=== PATIENT | female | born 2000 | race Caucasian/White ===

== ENCOUNTER 2024-03-30 13:27 | Emergency (ER) | payer OTHER, SELFPAY ==
[2024-03-30 13:31] VITALS: BP 115/65; PULSE 69; TEMP 36.6; O2SAT 100; BMI 19.3
--- NOTE | 2024-03-30 13:43 | US_ITS ---
The [address] [address] Patient Name: GONZALO NEGRON MRN: [id number] date: 2000 Sex: F Assigned Patient Location: ED.MAIN Current Patient Location: ER Accession/Order Number: [id number] Exam Date: 03/30/2024 13:43 Report Date: 03/30/2024 15:21 At the request of: LEONARDA MAK Procedure: US pelvis transvaginal EXAMINATION: US pelvis transvaginal HISTORY: Left pelvic pain , acute COMPARISON: No relevant comparison available. TECHNIQUE: Transabdominal and/or transvaginal sonographic examination was performed as indicated by examination type. FINDINGS: UTERUS: Normal size and appearance. Uterus size: 7.3 x 4.1 x 5.9 cm ENDOMETRIUM: Normal homogeneous appearance. Endometrial thickness: Slightly thickened, 15 mm. RIGHT OVARY: Normal size and appearance. Duplex Doppler demonstrates normal waveform and flow; resistive index 0.6. Ovary size: 3.0 x 1.9 x 2.8 cm LEFT OVARY: Normal size and appearance. Duplex Doppler demonstrates normal waveform and flow; resistive index 0.5. Ovary size: 2.1 x 2.0 x 1.9 cm CUL-DE-SAC: Unremarkable. No significant free fluid. BLADDER: Unremarkable. OTHER: None. US/US pelvis transvaginal IMPRESSION: 1. No acute or suspicious findings to account for patient's symptoms. Electronically authenticated by: FAITH NUÑEZ Date: 03/30/2024 15:21
--- NOTE | 2024-03-30 13:45 | ED_ITS ---
HPI HPI - General Adult General Chief complaint: Abdominal Pain Stated complaint: ABDOMINAL PAIN Time Seen by Provider: 03/30/24 13:28 Source: patient Mode of arrival: walk-in Limitations: no limitations History of Present Illness HPI narrative: Patient is a 23-year-old female who presents to the emergency department for left pelvic pain for the last 90 minutes. She states she was at work when she developed the pain. She feels mild pain associated in the left flank but no significant back or flank pain. No fevers or vomiting. She is unsure of a possibility of . She did not take any Motrin or Tylenol. She came directly to the ER. She is sitting comfortably in no distress with stable vital signs at initial interview. No previous abdominal surgeries. No diarrhea or urinary symptoms Related Data Previous Rx's ?Medication ?Instructions ?Recorded hyoscyamine sulfate 0.125 mg 0.125 mg PO Q6H PRN abdominal pain 03/30/24 tablet (Levsin) #12 tabs ketorolac 10 mg tablet 10 mg PO TID PRN pain #10 tabs 03/30/24 ondansetron 4 mg disintegrating 4 mg PO Q6H PRN nausea and 03/30/24 tablet vomiting #12 tabs Allergies Allergy/AdvReac Type Severity Reaction Status Date / Time sumatriptan Allergy Severe Anaphylaxis Verified 03/30/24 14:20 penicillin G AdvReac Severe Verified 03/30/24 14:20 Opioid HPI Opioid Management Most Recent Opioid Data: Last Pain Scale 5 03/30/24 14:21 Last MAR Pain Assessment 03/30/24 14:21 Review of Systems ROS Constitutional Denies: fever or chills Ears, nose, mouth, and throat Denies: throat pain or nasal congestion Cardiovascular Denies: chest pain Respiratory Denies: shortness of breath Gastrointestinal Reports: abdominal pain and nausea; Denies: vomiting or diarrhea Genitourinary Reports: pelvic pain; Denies: painful urination or urinary frequency Musculoskeletal Reports: back pain Integumentary/Breast Denies: rash Hematologic/Lymphatic Denies: easy bruising or easy bleeding Exam Narrative Exam Narrative: Gen.: Awake, alert, in no distress Head: Normocephalic, atraumatic ENT: Moist mucous membranes Respiratory: No respiratory distress Gastrointestinal: Abdomen is soft, nondistended and Mildly tender in the left lower quadrant with no guarding or rebound. No pain out of proportion on exam. No CVA tenderness Extremities: Moves extremities equally Psych: Normal mood and affect Neuro: No focal neuro deficit Skin: Warm, dry, intact Constitutional Vital Signs, click to edit/add: Last Vital Signs Temp 97.9 F 03/30/24 13:31 Pulse 66 03/30/24 15:30 Resp 18 03/30/24 15:30 BP 109/65 03/30/24 15:30 Pulse Ox 100 03/30/24 15:30 O2 Del Method Room Air 03/30/24 15:30 Course Vital Signs Vital signs: Vital Signs Temperature 97.9 F 03/30/24 13:31 Pulse Rate 69 03/30/24 13:31 Respiratory Rate 18 03/30/24 13:31 Blood Pressure 115/65 03/30/24 13:31 Pulse Oximetry 100 03/30/24 13:31 Oxygen Delivery Method Room Air 03/30/24 13:31 Temperature 97.9 F 03/30/24 13:31 Pulse Rate 66 03/30/24 15:30 Respiratory Rate 18 03/30/24 15:30 Blood Pressure 109/65 03/30/24 15:30 Pulse Oximetry 100 03/30/24 15:30 Oxygen Delivery Method Room Air 03/30/24 15:30 Medical Decision Making MDM Narrative Medical decision making narrative: Urine specimen was obtained showing the patient has a negative test and normal urine specimen with no bladder infection. She was sent for an ultrasound to rule out ovarian torsion and ovarian cyst. This was unremarkable so the patient was sent for a noncontrast CT of the abdomen and pelvis which is also essentially normal, no noted abnormalities in the abdomen or pelvis. Patient was given copies of these reports. Her pain started almost immediately prior to arrival and she has had no fevers, vomiting. Pain is controlled with [place] and Toradol in the ER. Patient will be discharged home with Toradol, Levsin, Zofran. Follow-up with PCP and return to the emergency department if symptoms change or worsen. Her significant other and mother were at the bedside when I gave the patient her results, she gave verbal consent for me to get these results in front of her family members. Medical Records Medical records reviewed: Yes I reviewed the patient's medical records Lab Data Lab results reviewed: Yes I reviewed the patient's lab results Labs: Lab Results 03/30/24 Range/Units 14:05 Urine Color Lt. yellow (YELLOW) Urine Clarity Clear (CLEAR) Urine pH 6.0 (5.0-9.0) Ur Specific [place] 1.015 (1.005-1.025) Urine Protein Negative (NEG/TRACE) mg/dL Urine Glucose (UA) Negative (NEGATIVE) mg/dL Urine Ketones Negative (NEGATIVE) mg/dL Urine Occult Blood Negative (NEGATIVE) Urine Nitrite Negative (NEGATIVE) Urine Bilirubin Negative (NEGATIVE) Urine Urobilinogen 0.2 (0.2-1.0) EU/dL Ur Leukocyte Esterase Negative (NEGATIVE) Urine HCG, Qual Negative (NEGATIVE) Imaging Data CT scan - abdomen: Attestation: I have reviewed the pertinent imaging results. Radiologist's impression: ITS Impressions Transvaginal US 03/30/24 13:43 IMPRESSION: 1. No acute or suspicious findings to account for patient's symptoms. Electronically authenticated by: FAITH NUÑEZ Date: 03/30/2024 15:21 Discharge Plan Discharge Stand Alone Forms: Portal Instructions Chief Complaint: Abdominal Pain Clinical Impression: Abdominal pain Patient Disposition: Home, Self-Care Time of Disposition Decision: 16:24 Condition: Good Prescriptions / Home Meds: New ketorolac 10 mg tablet 10 mg PO TID PRN (Reason: pain) Qty: 10 0RF hyoscyamine sulfate [Levsin] 0.125 mg tablet 0.125 mg PO Q6H PRN (Reason: abdominal pain) Qty: 12 0RF ondansetron 4 mg tablet,disintegrating 4 mg PO Q6H PRN (Reason: nausea and vomiting) Qty: 12 0RF Print Language: Tajik Instructions: Acute Abdominal Pain (ED) Referrals: MARIEL CABALLERO [Primary Care Provider] - 1 week
[2024-03-30 14:12] LABS: Bilirubin Urine NEGATIVE (NEGATIVE); Blood Urine NEGATIVE (NEGATIVE); Clarity Urine CLEAR (CLEAR); Color Urine LT. YELLOW (YELLOW); Glucose Urine UA NEGATIVE (NEGATIVE); Ketones Urine NEGATIVE (NEGATIVE); Leukocyte Esterase Urine NEGATIVE (NEGATIVE); Nitrite Urine NEGATIVE (NEGATIVE); Protein Urine NEGATIVE (NEG/TRACE); Specific Gravity Urine 1.015 (1.005-1.025); Urobilinogen Urine 0.2 EU/dL (0.2-1.0)
[2024-03-30 14:14] LABS: Urine Microscopic Indicated NO
[2024-03-30 14:15] LABS: HCG Qualitative Urine* NEGATIVE (NEGATIVE)
[2024-03-30] MEDS: ONDANSETRON 4 MG RAPDIS TABLET SL (14:20)
[2024-03-30] MEDS: HYDROCODONE/ACET 5-325 MG TABLET 1 TAB PO (14:21)
[2024-03-30] MEDS: KETOROLAC TROMETHAMINE 10 MG TABLET PO (14:21)
--- NOTE | 2024-03-30 15:27 | CT_ITS ---
The [address] [address] Patient Name: GONZALO NEGRON MRN: [id number] date: 2000 Sex: F Assigned Patient Location: ER Current Patient Location: ER Accession/Order Number: [id number] Exam Date: 03/30/2024 15:35 Report Date: 03/30/2024 16:17 At the request of: LEONARDA MAK Procedure: CT abdomen pelvis wo con CT ABDOMEN/PELVIS WITHOUT IV CONTRAST. INDICATION: left abd pain COMPARISON: There are no other studies available for comparison. TECHNIQUE: Contiguous axial images were obtained from the lung bases to the pelvic floor without intravenous or oral contrast. Coronal and sagittal reformations are provided. FINDINGS: LOWER LUNGS: Clear. LIVER/BILIARY TREE: No discrete lesion. No intrahepatic ductal dilatation. GALLBLADDER: No significant gallbladder wall thickening. No radiopaque stone. CBD: Normal CBD. SPLEEN: Normal in size. PANCREAS: No appreciable peripancreatic fluid. No pancreatic ductal dilatation. No discrete lesion. ADRENALS: Normal. KIDNEYS: No hydronephrosis. No radiopaque calculus. STOMACH AND BOWEL: Stomach is unremarkable. No dilated bowel loops. No bowel wall thickening. APPENDIX: Not visualized. PERITONEAL CAVITY: No fluid. No fat stranding. ABDOMINAL WALL: No subcutaneous stranding. No subcutaneous fluid collection. LYMPH NODES: No mesenteric or retroperitoneal lymphadenopathy by CT criteria. ABDOMINAL AORTA: No aneurysm. PELVIS: No acute abnormality. MUSCULOSKELETAL: No acute osseous abnormality. CT/CT abdomen pelvis wo con IMPRESSION: No acute abnormality in the abdomen or pelvis. Electronically authenticated by: LACIE ELISE Date: 03/30/2024 16:17
[2024-03-30 15:30] VITALS: BP 109/65; PULSE 66; O2SAT 100
== END 2024-03-30 16:46 | disposition home or self-care (01) ==
PROVIDERS: Physician Assistant; Emergency Provider Emergency Medicine Emergency Medical Services; PCP Internal Medicine
DX: R10.9 Unspecified abdominal pain (principal)
CPT/HCPCS: 74176; 76830; 81003; 84703; 99285

== ENCOUNTER 2024-07-21 20:49 | Emergency (ER) | payer OTHER, SELFPAY ==
--- OUTSIDE RECORDS SUMMARY | 2024-07-21 20:55 | XMS_ITS | CCD ---
Author Organization [facility] Care Team Providers Care Manager Mental Health Name Role Phone CHRISTINE SALVADOR Admitting Unavailable CHRISTINE SALVADOR Attending Unavailable JOAQUIN, DR FAITH Lisa Consulting Unavailable FEDERICO, DR MARIEL Quinn Primary Care Unavailable OBDULIO ., SHARONA BROWER Consulting UnavailSOFIA Jaramillo Attending Unavailable GUILLERMO WIGN Attending Unavailable GUILLERMO WING Attending Unavailable GUILLERMO WING Referring Unavailable GUILLERMO WING Attending Unavailable Allergies Allergy Classification Reported Allergen(s) Allergy Type Date of Onset Reaction(s) Facility (1 source) Amoxicillin Drug Allergy 06-21-2018 [facility] Repository (1 source) SUMAtriptan Drug Allergy [facility] Repository Problems Problem Classification Problem Date Documented Da te Episodic/Chronic Cardiac dysrhythmias (4 sources) Palpitations; Translations: [PALPITATIONS] Onset: 02-21-2023 Episodic Nonspecific chest pain (1 source) Chest pain, unspecified; Translations: [CHEST PAIN UNSPECIFIED] Onset: 02-25-2023 Episodic Substance-related disorders (1 source) Nicotine dependence, cigarettes, uncomplicated; Translations: [NICOTINE DEPEND CIGARETTES UNCOMP] Onset: 02-25-2023 Chronic Results Test Name Value Interpretation Reference Range Facil ity XR FEMUR 2+ VW LEFTon 2023 XR FEMUR 2+ VW LEFT Left femur HISTORY: Pain 4 views of the femur. The femur is grossly intact. No fractures or periostitis. Soft tissues of the thigh are not remarkable. IMPRESSION: Negative left femur Electronically Signed Varun Garcia D.O. 2024-06-15 15:01:50 Normal Not Available CBC AUTO DIFFon 02-21-2023 BASO # 0.0 103/ul Normal 0.0-0.1 [facility] Comment on above: Performed By: #### C BC #### [facility] [address] [place] [address] Dr. Sol Flores Basophils/100 WBC (Bld) 0.4 % Normal 0.2-2.0 [facility] Comment on above: Performed By: #### C BC #### [facility] [address] [place] [address] Dr. Sol Flores EO # 0.0 103/ul Normal 0.0-0.7 [facility] Comment on above: Performed By: #### C BC #### [facility] [address] [place] [address] Dr. Sol Flores Eosinophils/100 WBC (Bld) 0.0 % Critically low 0.9-7.0 [facility] Comment on above: Performed By: #### C BC #### [facility] [address] [place] [address] Dr. Sol Flores Erythrocyte distribution width (RBC) [Ratio] 13.4 % Normal 11.0-15.0 [facility] Comment on above: Performed By: #### C BC #### [facility] [address] [place] [address] Dr. Sol Flores Hematocrit (Bld) [Volume fraction] 38.1 % Normal 36.0-48.0 [facility] Comment on above: Performed By: #### C BC #### [facility] [address] [place] [address] Dr. Sol Flores Hemoglobin (Bld) [Mass/Vol] 12.9 g/dL Normal 12.0-16.0 [facility] Comment on above: Performed By: #### C BC #### [facility] [address] [place] [address] Dr. Sol Flores IG # 0.02 10e3/ul Normal 0.00-0.03 [facility] Comment on above: Performed By: #### C BC #### [facility] [address] [place] [address] Dr. Sol Flores IG % 0.2 % Normal 0.0-0.5 [facility] Comment on above: Performed By: #### C BC #### [facility] [address] [place] [address] Dr. Sol Flores LYMPH # 2.2 103/ul Normal 1.2-3.8 [facility] Comment on above: Performed By: #### C BC #### [facility] [address] [place] [address] Dr. Sol Flores Lymphocytes/100 WBC (Bld) 26.7 % Normal 20.5-60.0 [facility] Comment on above: Performed By: #### C BC #### [facility] [address] [place] [address] Dr. Sol Flores MANUAL DIFF REQ NO Normal [facility] Comment on above: Performed By: #### C BC #### [facility] [address] [place] [address] Dr. Sol Flores MCH (RBC) [Entitic mass] 28.9 pg Normal 26.7-34.0 [facility] Comment on above: Performed By: #### C BC #### [facility] [address] [place] [address] Dr. Sol Flores MCHC (RBC) [Mass/Vol] 33.9 g/dL Normal 29.9-35.2 [facility] Comment on above: Performed By: #### C BC #### [facility] [address] [place] [address] Dr. Sol Flores MCV (RBC) [Entitic vol] 85.2 fL Normal 81.0-99.0 [facility] Comment on above: Performed By: #### C BC #### [facility] [address] [place] [address] Dr. Sol Flores MONO # 0.6 103/ul Normal 0.3-0.8 [facility] Comment on above: Performed By: #### C BC #### [facility] [address] [place] [address] Dr. Sol Flores Monocytes/100 WBC (Bld) 7.4 % Normal 1.7-12.0 [facility] Comment on above: Performed By: #### C BC #### [facility] [address] [address] [address] Sol Flores NEUT # 5.3 103/ul Normal 1.4-6.5 [facility] Comment on above: Performed By: #### C BC #### [facility] [address] [place] [address] Dr. Sol Flores Neutrophils/100 WBC (Bld) 65.3 % Normal 43.0-75.0 [facility] Comment on above: Performed By: #### C BC #### [facility] [address] [place] [address] Dr. Sol Flores Platelet mean volume (Bld) [Entitic vol] 10.3 fL Normal 9.5-13.5 [facility] Comment on above: Performed By: #### C BC #### [facility] [address] [place] [address] Dr. Sol Flores PLT 225 103/ul Normal 150-450 [facility] Comment on above: Performed By: #### C BC #### [facility] [address] [place] [address] Dr. Sol Flores RBC 4.47 106/ul Normal 4.20-5.40 [facility] Comment on above: Performed By: #### C BC #### [facility] [address] [place] [address] Dr. Sol Flores WBC 8.1 103/ul Normal 4.0-11.0 [facility] Comment on above: Performed By: #### C BC #### [facility] [address] [place] [address] Dr. Sol Flores D-DIMERon 02-21-2023 D-DIMER 0.33 mg/L FEU Normal <=0.59 [facility] Comment on above: Performed By: #### D DIM, PT, PTT #### [facility] [address] [place] [address] Dr. Sol Flores D-DIMER COMMENTS SEE BELOW Normal [facility] Comment on above: Result Comment: Incr eases in D-Dimer concentration observed with thromboembolic events can be variable due to localization, size, and age of the thrombus. Therefore, a thromboembolic event cannot be diagnosed with certainty on the basis of the reference range. D-Dimers may also be elevated for a variety of disorders including: advanced age, , coronary disease, cancer, liver disease, infection, inflammation, hematoma, DIC, trauma, post-surgery, diabetes, thrombolytic or anticoagulant therapy, stress, and generalized hospitalization. Performed By: #### D DIM, PT, PTT #### [facility] [address] [address] [address] Sol Flores PREG HCG QUALon 02-21-2023 , QUAL Negative Normal NEGATIVE [facility] Comment on above: Performed By: #### P REG #### [facility] [address] [place] [address] Dr. Sol Flores PROF 14(COMP METB)on 023 Albumin [Mass/Vol] 3.9 g/dL Normal 3.4-5.0 [facility] Comment on above: Performed By: #### H STROPN, TSH, CMP #### [facility] [address] [place] [address] Dr. Sol Flores Albumin/Globulin [Mass ratio] 1.1 {ratio} Normal [facility] Comment on above: Performed By: #### H STROPN, TSH, CMP #### [facility] [address] [place] [address] Dr. Sol Flores ALP [Catalytic activity/Vol] 90 U/L Normal 46-116 [facility] Comment on above: Performed By: #### H STROPN, TSH, CMP #### [facility] [address] [place] [address] Dr. Sol Flores ALT [Catalytic activity/Vol] 19 U/L Normal 14-59 [facility] Comment on above: Performed By: #### H STROPN, TSH, CMP #### [facility] [address] [place] [address] Dr. Sol Flores Anion gap [Moles/Vol] 13.3 mmol/L Normal [facility] Comment on above: Performed By: #### H STROPN, TSH, CMP #### [facility] [address] [place] [address] Dr. Sol Flores AST [Catalytic activity/Vol] 16 U/L Normal 15-37 [facility] Comment on above: Performed By: #### H STROPN, TSH, CMP #### [facility] [address] [place] [address] Dr. Sol Flores Bilirubin [Mass/Vol] 0.2 mg/dL Normal 0.2-1.0 [facility] Comment on above: Performed By: #### H STROPN, TSH, CMP #### [facility] [address] [address] [address] Sol Flores Calcium [Mass/Vol] 8.8 mg/dL Normal 8.5-10.1 [facility] Comment on above: Performed By: #### H STROPN, TSH, CMP #### [facility] [address] [place] [address] Dr. Sol Flores Chloride [Moles/Vol] 105 mmol/L Normal 98-107 [facility] Comment on above: Performed By: #### H STROPN, TSH, CMP #### [facility] [address] [place] [address] Dr. Sol Flores CO2 [Moles/Vol] 24.5 mmol/L Normal 21.0-32.[address] [facility] Comment on above: Performed By: #### H STROPN, TSH, CMP #### [facility] [address] [place] [address] Dr. Sol Flores Creatinine [Mass/Vol] 0.79 mg/dL Normal 0.55-1.02 [facility] Comment on above: Performed By: #### H STROPN, TSH, CMP #### [facility] [address] [place] [address] Dr. Sol Flores EGFR-AF BAHRAINI >60 Normal >=60 [facility] Comment on above: Performed By: #### H STROPN, TSH, CMP #### [facility] [address] [place] [address] Dr. Sol Flores EGFR-NON AF BAHRAINI >60 Normal >=60 [facility] Comment on above: Performed By: #### H STROPN, TSH, CMP #### [facility] [address] [address] [address] Sol Flores Globulin (S) [Mass/Vol] 3.5 g/dL Normal [facility] Comment on above: Performed By: #### H STROPN, TSH, CMP #### [facility] [address] [address] [address] Sol Flores Glucose [Mass/Vol] 102 mg/dL Normal 74-106 [facility] Comment on above: Performed By: #### H STROPN, TSH, CMP #### [facility] [address] [place] [address] Dr. Sol Flores Potassium [Moles/Vol] 3.8 mmol/L Normal 3.5-5.1 [facility] Comment on above: Performed By: #### H STROPN, TSH, CMP #### [facility] [address] [place] [address] Dr. Sol Flores Protein [Mass/Vol] 7.4 g/dL Normal 6.4-8.2 [facility] Comment on above: Performed By: #### H STROPN, TSH, CMP #### [facility] [address] [place] [address] Dr. Sol Flores Sodium [Moles/Vol] 139 mmol/L Normal 136-145 [facility] Comment on above: Performed By: #### H STROPN, TSH, CMP #### [facility] [address] [place] [address] Dr. Sol Flores Urea nitrogen [Mass/Vol] 9.0 mg/dL Normal 7.0-18.0 [facility] Comment on above: Performed By: #### H STROPN, TSH, CMP #### [facility] [address] [address] [address] Sol Flores Urea nitrogen/Creatinine [Mass ratio] 11.4 mg/mg Normal [facility] Comment on above: Performed By: #### H STROPN, TSH, CMP #### [facility] [address] [place] [address] Dr. Sol Flores PROTIMEon 02-21-2023 INR Coag (PPP) [Relative time] 0.98 {INR} Normal [facility] Comment on above: Performed By: #### D DIM, PT, PTT #### [facility] [address] [address] [address] Sol Flores INR GUIDELINES SEE BELOW Normal [facility] Comment on above: Result Comment: LAWRENCE RED INR: 2.0 - 3.0 CONDITIONS NOT LISTED BELOW 2.5 - 3.5 FOR PROSTHETIC HEART VALVE REPLACEMENT 2.5 - 3.5 RECURRENT THROMBOSIS Performed By: #### D DIM, PT, PTT #### [facility] [address] [address] [address] Sol Flores PT Coag (PPP) [Time] 10.4 s Normal 9.0-11.6 [facility] Comment on above: Performed By: #### D DIM, PT, PTT #### [facility] [address] [place] [address] Dr. Sol Flores PTTon 02-21-2023 aPTT Coag (Bld) [Time] 29.4 s Normal 22.3-36.2 [facility] Comment on above: Performed By: #### D DIM, PT, PTT #### [facility] [address] [place] [address] Dr. Sol Flores TROPONIN, HIGH SENSITIVITYon 02-21-2023 HSTROP <4.0 Normal 4.0-51.3 [facility] Comment on above: Result Comment: CUT- OFF POINTS HAVE BEEN ESTABLISHED BASED ON THE FOURTH UNIVERSAL DEFINITIONS OF MYOCARDIAL INFARCTION. THE UPPER REFERENCE LIMIT (URL) OF TROPONIN, DEFINED THE 99TH PERCENTILE OF cTnI DISTRIBUTION IN A REFERENCE POPULATION, HAS BEEN CONFIRMED THE DECISION THRESHOLD FOR DC DIAGNOSIS. Performed By: #### H STROPN, TSH, CMP #### [facility] [address] [place] [address] Dr. Sol Flores TSHon 02-21-2023 TSH 1.985 uIU/mL Normal 0.358-3.740 [facility] Comment on above: Performed By: #### H STROPN, TSH, CMP #### [facility] [address] [place] [address] Dr. Sol Flores XR CHEST 1 Von 02-21-2023 XR CHEST 1 V EXAMINATION: XR CHEST 1 V HISTORY: CHEST PAIN, UNSPECIFIED COMPARISON: No relevant comparison available. FINDINGS: LUNGS: No significant pulmonary parenchymal abnormalities. VASCULATURE: No increased pulmonary vasculature. PLEURA: No pneumothorax, effusion, or pleural thickening. CARDIAC: No cardiomegaly or cardiac silhouette abnormality. MEDIASTINUM: No visible mass or adenopathy. BONES: No fracture or visible bone lesion. OTHER: Negative. IMPRESSION: 1. Normal examination. Electronically authenticated by: FAITH NUÑEZ Date: 2023-02-21 15:33 Normal [facility] Gynecology Office/Clinic Not [place] 10-30-2020 Gynecology Office/Clinic Note Chief Complaint 20 y/o new patient-menstrual concerns. Late for period, home test negative. History of Present Illness Contraception Type: None Last Menstrual Period: 09/21/20 Frequency of Menstruation: 28 days Abnormal vaginal discharge: No Breast lumps/pain: No Clotting with periods: No Heavy periods: No Hot flashes: No Irregular periods: No Night sweats: No Painful periods: No Painful sex: No Pelvic pain: No Spotting: No Vaginal dryness: No Vaginal itch/burning/odor: No Additional HPI details: LMP 11, periods regular up until that point. Has taken 2 HPT's, both negative. Is currently sexually active, not doing anything to prevent . Would be okay w/. Denies any desire for contraception. With current partner x2 months, he does not have any children. C/O nausea and cramping x1 week and breast tenderness for the past couple days. Not currently working or attending school. Is not taking PNV's. Denies any increased stress or recent wt. changes. Review of Systems Head Migraines: No Headaches: Yes Headaches comment: Recently Eyes Corrective lenses: Yes Corrective lenses comment: Doesn't wear normally Blurred vision: No Ears, Nose, Throat Congestion: No Vertigo: No Sore throat: No Nasal drainage: No Cardio Respiratory Peripheral edema: No Heart Irregularity: No Chest Pain: No Shortness of Breath: No Gastrointestinal Bloating: No Reflux/heartburn: No Reflux/heartburn comment: C/o nausea Abdominal Pain: No Change in bowel habits: No Urinary Urinary Incontinence: No Urinary frequency: No Nocturia: No Urgency: No Painful urination: No Musculoskeletal Backpain: No Muscle aches: No Joint pain: No Integumentary Lesions: No Moles: No Acne: No Hair changes: No PsychoSocial Sleep Problems: No Anxiety: Yes Suicidal Ideation: No Homicidal Ideation: No Depression: Yes Depression comment: Denies SI/HI. Hematologic/Lymphati c Bruising: No Bleeding tendencies: No Endocrine Abnormal weight gain: No Abnormal weight loss: No Fatigue: No Additional Details Pain Present Physical Exam Vitals & Measurements T: 36.8 ?C (Temporal Artery) BP: 118/64 HT: 166 cm WT: 59.2 kg DOSE WT: 59.2 kg BMI: 21.48 General: Alert and oriented, well nourished, no acute distress. Abdomen: Soft, non-tender, non-distended, no masses. Musculoskeletal: Normal range of motion and strength, no tenderness or edema. Skin: Skin is warm, dry and pink, no rashes or lesions. Neurologic: Awake, alert and oriented x3. Additional Vitals Body Mass Index Measured: 21.48 kg/m2 BP Position/Location: Sitting, Right arm Assessment/Plan 1. Missed menses Will do serum HCG today for confirmation. Pt. to cont. to monitor cycles, if no cycle for 3 months pt. to call again. Enc. pt. to start PNV's. Script sent to [facility]. F/U yearly or sooner w/concerns. Ordered: , Serum, Test Qual w/Reflex [facility] Quant Problem List/Past Medical History Ongoing Anxiety depression Missed menses Historical No qualifying data Procedure/Surgical History Denies Medications No active medications Allergies amoxicillin (Hives) Social History Alcohol Never Substance Abuse Denies All Tobacco Never (less than 100 in lifetime) Use:. Family History Family history is negative Diagnostic Results No qualifying data available (XRay) No qualifying data available (CT) No qualifying data available (Ultrasound) No qualifying data available (MRI) Electronically signed by Myriam Bean 10/30/20 15:04 EST Normal [facility] OR Track[facility] 10-30-2020 Pl Red # 1 Normal [facility] Comment on above: Performed By: #### O jesse Tracking Order #### [facility] [address] [place] [address] S Preg Rflx CGon 0 Serum Preg Negative Normal [facility] Comment on above: Result Comment: The hCG Combo Rapid Test has a sensitivity of 10 mIU/mL in serum and is capable of detecting as early as 1 day after the first missed menses. Performed By: #### C [id number] #### [facility] [address] [place] [address] Encounters Encounter Date Encounter Type Care Provider Facility Start: 06-29-2024 End: 06-29-2024 ambulatory GUILLERMO WING Not Available Start: 06-15-2024 End: 06-15-2024 ambulatory GUILLERMO WING Not Available Start: 06-10-2024 End: 06-10-2024 ambulatory GUILLERMO WING Not Available Start: 10-13-2023 End: 10-13-2023 ambulatory SOFIA ÁLVAREZ Not Available Start: 02-21-2023 End: 02-21-2023 ambulatory CHRISTINE SALVADOR Facility: Payers Date Payer Category Payer Unknown [id number] 2024 Unknown [id number] 2001 Unknown [id number] 2.16.84 [id number] 2001 Unknown [id number] 2.16.84 [id number] 2001 Unknown [id number] 2.16.84 [id number] 2001 Unknown [id number] 2.16.84 [id number] 2001 Unknown [id number] 2.16.84 [id number] 2001 Unknown [id number] 2.16.84 [id number] 2001 Unknown [id number] 2.16.84 [id number] 2001 Unknown [id number] 2.16.84 [id number] 2001 Unknown [id number] 2.16.84 [id number] 2001 Unknown [id number] [id number] 1959 Private Health Insurance [id number] Summary Purpose Family History No Family History Records FoundNo Family History Records FoundNo Family History Records Found Advance Directives No Advanced Directives Records FoundNo Advanced Directives Records FoundNo Advanced Directives Records Found Additional Source Comments INFORMATION SOURCE (unrecogn ized section and content) DATE CREATED AUTHOR 10/31/2020 [facility] DATE CREATED AUTHOR AUTHOR'S ORGANIZ ATION 03/15/2023 [facility] DATE CREATED AUTHOR AUTHOR'S ORGANIZ ATION 07/01/2024 [facility] FOR RECORDS PERTAINING TO PATIENTS WHO ARE OR HAVE BEEN ENROLLED IN A CHEMICAL DEPENDENCY/SUBSTANCEABUSE PROGRAM, SOME INFORMATION MAY BE OMITTED. This clinical summary was aggregated from multiple sources. Caution should be exercised in using it in the provision of clinical care. This summary normalizes information from multiple sources, and as a consequence, information in this document may materially change the coding, format and clinical context of patient data. In addition, data may be omitted in some cases. CLINICAL DECISIONS SHOULD BE BASED ON THE PRIMARY CLINICAL RECORDS. [employer] provides no warranty or guarantee of the accuracy or completeness of information in this document.
[2024-07-21 20:56] VITALS: BP 110/72; PULSE 68; TEMP 36.7; O2SAT 98
--- NOTE | 2024-07-21 21:28 | ECG_ITS ---
The [facility] Test Date: 2024-07-21 Pat Name: GONZALO NEGRON Department: Room: - Gender: Female Car Filler: : 2000 Requested By: [id number] Order Number: [id number] Reading MD: DIVYA LAN Measurements Intervals [place] Rate: 73 P: 70 IL: 138 QRS: 78 QRSD: 90 T: 69 QT: 408 QTc: 434 Interpretive Statements 1100 Sinus rhythm 9110 normal ECG Compared to ECG 02/21/2023 14:23:03 Sinus arrhythmia no longer present Electronically Signed On 07-23-2024 18:42:01 EDT by DIVYA LAN
--- NOTE | 2024-07-21 21:31 | ED_ITS ---
Documented by User: SHARONA Miller 07/21/24 22:02 HPI - Weakness General Chief complaint: Weakness Stated complaint: WEAKNESS Time Seen by Provider: 07/21/24 21:02 Source: patient Mode of arrival: walk-in Limitations: no limitations History of Present Illness HPI Narrative: Patient is a 23-year-old female who presents to the emergency department for the evaluation of possible seizure activity last night. She states that she was sitting on the couch watching television when she had the sensation that her eyes were rolling back in her head. She states she had diffuse muscle weakness, frontal headache and dizziness. She states she was unable to move for approximately 5 to 10 seconds. She states immediately after this episode she was able to move but had continued dizziness and headache. The symptoms have been off and on today. She denies any recent illness, fevers, chills, cough, congestion, nausea, vomiting, diarrhea, urinary symptoms. She has no history of seizure disorder. She states she is working with cardiology for a possible diagnosis of POTS. She states after the episode last night, she did develop chest tightness. She has no abdominal pain. She has no concern for . No medications taken prior to arrival. She states she had half of a drink of alcohol last night, she denies any drug ingestion. She had no injury to the head, she was in a seated position during the episode which was witnessed by her significant other. She does have a longstanding history of migraines. She did not bite her tongue and denies urinary incontinence. Related Data Previous Rx's ?Medication ?Instructions ?Recorded hyoscyamine sulfate 0.125 mg 0.125 mg PO Q6H PRN abdominal pain 03/30/24 tablet (Levsin) #12 tabs ketorolac 10 mg tablet 10 mg PO TID PRN pain #10 tabs 03/30/24 ondansetron 4 mg disintegrating 4 mg PO Q6H PRN nausea and 03/30/24 tablet vomiting #12 tabs Allergies Allergy/AdvReac Type Severity Reaction Status Date / Time sumatriptan Allergy Severe Anaphylaxis Verified 07/21/24 21:02 penicillin G AdvReac Severe Hives Verified 07/21/24 21:02 Review of Systems ROS Constitutional Denies: fever or chills Eyes Denies: change in vision or blurry vision Ears, nose, mouth, and throat Denies: throat pain or nasal congestion Cardiovascular Reports: chest pain Respiratory Denies: shortness of breath Gastrointestinal Denies: abdominal pain, nausea or vomiting Musculoskeletal Denies: back pain or neck pain Integumentary/Breast Denies: rash Neurological Reports: headache and weakness in extremities; Denies: numbness in extremities or dizziness Hematologic/Lymphatic Denies: easy bruising or easy bleeding Exam Narrative Exam Narrative: Gen.: Awake, alert, in no distress Head: Normocephalic, atraumatic ENT: Moist mucous membranes, no facial or dental injury Respiratory: No respiratory distress, lungs clear bilaterally Cardio: Regular rate and rhythm Gastrointestinal: Abdomen is soft, nondistended and nontender to palpation Extremities: Moves extremities equally, no injuries noted Psych: Normal mood and affect Neuro: No focal neuro deficit Skin: Warm, dry, intact Constitutional Vital Signs, click to edit/add: Last Vital Signs Temp 98.1 F 07/21/24 20:56 Pulse 62 07/21/24 22:50 Resp 16 07/21/24 22:50 BP 103/72 07/21/24 22:50 Pulse Ox 100 07/21/24 22:50 O2 Del Method Room Air 07/21/24 22:50 Course Vital Signs Vital signs: Vital Signs Temperature 98.1 F 07/21/24 20:56 Pulse Rate 68 07/21/24 20:56 Blood Pressure 110/72 07/21/24 20:56 Pulse Oximetry 98 07/21/24 20:56 Oxygen Delivery Method Room Air 07/21/24 20:56 Temperature 98.1 F 07/21/24 20:56 Pulse Rate 62 07/21/24 22:50 Respiratory Rate 16 07/21/24 22:50 Blood Pressure 103/72 07/21/24 22:50 Pulse Oximetry 100 07/21/24 22:50 Oxygen Delivery Method Room Air 07/21/24 22:50 MDM - Weakness MDM Narrative Medical decision making narrative: 2199: Patient was medicated with IV fluids, Toradol. Laboratory studies are obtained, EKG is unremarkable and patient is sent for CT of the brain. She is hemodynamically stable. Case is turned over to attending physician at this time for disposition. SHARED APC VISIT, PHYSICIAN ATTESTATION: [id number] I performed a substantive part of the MDM during the patient?s E/M visit. I personally evaluated and examined the patient. I personally made or approved the documented management plan and acknowledge its risk of complications. Medical Records Attestation: I reviewed the patient's medical records. Lab Data Attestation: I reviewed the patient's lab results. Labs: Lab Results 07/21/24 Range/Units 21:42 WBC 8.2 (4.0-11.0) 10^3/uL RBC 3.99 L (4.20-5.40) 10^6/uL Hgb 11.9 L (12.0-16.0) g/dL Hct 35.3 L (36.0-48.0) % MCV 88.5 (81.0-99.0) fL MCH 29.8 (26.7-34.0) pg MCHC 33.7 (29.9-35.2) g/dL RDW 13.1 (11.0-15.0) % Plt Count 210 (150-450) 10^3/uL MPV 10.7 (9.5-13.5) fL Neut % (Auto) 64.1 (43.0-75.0) % Lymph % (Auto) 26.8 (20.5-60.0) % [place] % (Auto) 8.5 (1.7-12.0) % Eos % (Auto) 0.1 L (0.9-7.0) % Baso % (Auto) 0.4 (0.2-2.0) % Neut # (Auto) 5.3 (1.4-6.5) 10^3/uL Lymph # (Auto) 2.2 (1.2-3.8) 10^3/uL [place] # (Auto) 0.7 (0.3-0.8) 10^3/uL Eos # (Auto) 0.0 (0.0-0.7) 10^3/uL Baso # (Auto) 0.0 (0.0-0.1) 10^3/uL Abs Immat Gran (auto) 0.01 (0.00-0.03) 10^3/uL Imm/Tot Granulo (auto) 0.1 (0.0-0.5) % PT 11.3 (9.0-11.6) sec INR 1.07 D-Dimer <0.19 (<=0.59) mg/L FEU Sodium 144 (136-145) mmol/L Potassium 3.6 (3.5-5.1) mmol/L Chloride 108 H (98-107) mmol/L Carbon Dioxide 27.0 (21.0-32.0) mmol/L Anion Gap 12.6 BUN 8.0 (7.0-18.0) mg/dL Creatinine 0.79 (0.55-1.02) mg/dL Est GFR ( Amer) >60 (>=60) Est GFR (Non-Af Amer) >60 (>=60) BUN/Creatinine Ratio 10.1 Glucose 88 (74-106) mg/dL Lactate 0.9 (0.4-2.0) mmol/L Calcium 9.1 (8.5-10.1) mg/dL Magnesium 1.7 L (1.8-2.4) mg/dL Total Bilirubin 0.3 (0.2-1.0) mg/dL AST 15 (15-37) U/L ALT 19 (14-59) U/L Alkaline Phosphatase 69 (46-116) U/L Troponin I High Sens <4.0 L (4.0-51.3) pg/mL Total Protein 6.2 L (6.4-8.2) g/dL Albumin 3.6 (3.4-5.0) g/dL Globulin 2.6 g/dL Albumin/Globulin Ratio 1.4 TSH 2.531 (0.358-3.740) uIU/mL Serum HCG, Qual Negative (NEGATIVE) Urine Color Lt. yellow (YELLOW) Urine Clarity Clear (CLEAR) Urine pH 7.0 (5.0-9.0) Ur Specific [place] 1.015 (1.005-1.025) Urine Protein Negative (NEG/TRACE) mg/dL Urine Glucose (UA) Negative (NEGATIVE) mg/dL Urine Ketones Negative (NEGATIVE) mg/dL Urine Occult Blood Negative (NEGATIVE) Urine Nitrite Negative (NEGATIVE) Urine Bilirubin Negative (NEGATIVE) Urine Urobilinogen 0.2 (0.2-1.0) EU/dL Ur Leukocyte Esterase Negative (NEGATIVE) Urine Opiates Screen Negative (NEGATIVE) Ur Buprenorphine Scrn Negative (NEGATIVE) Ur Oxycodone Screen Negative (NEGATIVE) Urine Methadone Screen Negative (NEGATIVE) Ur Barbiturates Screen Negative (NEGATIVE) U Tricyclic Antidepress Negative (NEGATIVE) Ur Phencyclidine Scrn Negative (NEGATIVE) Ur Amphetamines Screen Negative (NEGATIVE) U Methamphetamines Scrn Negative (NEGATIVE) U Benzodiazepines Scrn Negative (NEGATIVE) Urine Cocaine Screen Negative (NEGATIVE) U Cannabinoids Screen Negative (NEGATIVE) Ethanol Quant <3 mg/dL ECG Data Attestation: I personally reviewed and interpreted this ECG as follows: (Normal sinus rhythm at a rate of 73, no acute ST elevation or ectopy. EKG reviewed by attending physician) Discharge Plan Discharge Stand Alone Forms: Work/School Release, Portal Instructions Chief Complaint: Weakness Clinical Impression: Seizure-like activity Patient Disposition: Home, Self-Care Time of Disposition Decision: 23:43 Condition: Good Prescriptions / Home Meds: No Action ketorolac 10 mg tablet 10 mg PO TID PRN (Reason: pain) Qty: 10 0RF hyoscyamine sulfate [Levsin] 0.125 mg tablet 0.125 mg PO Q6H PRN (Reason: abdominal pain) Qty: 12 0RF ondansetron 4 mg tablet,disintegrating 4 mg PO Q6H PRN (Reason: nausea and vomiting) Qty: 12 0RF Print Language: Micronesian Instructions: Migraine Headache (ED), New-Onset Seizure in Adults (ED) Referrals: BRENNAN AMATO [Physician] - 1 week MARIEL CABALLERO [Primary Care Provider] - 1 week Documented by User: Audrey Matute MD 07/21/24 23:46 HPI - Weakness General Chief complaint: Weakness Stated complaint: WEAKNESS Time Seen by Provider: 07/21/24 21:02 Related Data Previous Rx's ?Medication ?Instructions ?Recorded hyoscyamine sulfate 0.125 mg 0.125 mg PO Q6H PRN abdominal pain 03/30/24 tablet (Levsin) #12 tabs ketorolac 10 mg tablet 10 mg PO TID PRN pain #10 tabs 03/30/24 ondansetron 4 mg disintegrating 4 mg PO Q6H PRN nausea and 03/30/24 tablet vomiting #12 tabs Allergies Allergy/AdvReac Type Severity Reaction Status Date / Time sumatriptan Allergy Severe Anaphylaxis Verified 07/21/24 21:02 penicillin G AdvReac Severe Hives Verified 07/21/24 21:02 Exam Constitutional Vital Signs, click to edit/add: Last Vital Signs Temp 98.1 F 07/21/24 20:56 Pulse 62 07/21/24 22:50 Resp 16 07/21/24 22:50 BP 103/72 07/21/24 22:50 Pulse Ox 100 07/21/24 22:50 O2 Del Method Room Air 07/21/24 22:50 Course Vital Signs Vital signs: Vital Signs Temperature 98.1 F 07/21/24 20:56 Pulse Rate 68 07/21/24 20:56 Blood Pressure 110/72 07/21/24 20:56 Pulse Oximetry 98 07/21/24 20:56 Oxygen Delivery Method Room Air 07/21/24 20:56 Temperature 98.1 F 07/21/24 20:56 Pulse Rate 62 07/21/24 22:50 Respiratory Rate 16 07/21/24 22:50 Blood Pressure 103/72 07/21/24 22:50 Pulse Oximetry 100 07/21/24 22:50 Oxygen Delivery Method Room Air 07/21/24 22:50 MDM - Weakness MDM Narrative Medical decision making narrative: 2199: Patient was medicated with IV fluids, Toradol. Laboratory studies are obtained, EKG is unremarkable and patient is sent for CT of the brain. She is hemodynamically stable. Case is turned over to attending physician at this time for disposition. SHARED APC VISIT, PHYSICIAN ATTESTATION: [id number] I performed a substantive part of the MDM during the patient?s E/M visit. I personally evaluated and examined the patient. I personally made or approved the documented management plan and acknowledge its risk of complications. This patient was seen and evaluated in conjunction with the physician assistant executive housekeeper. Please refer to her full H&P. Patient was seen and evaluated by myself. She explains that she had some seizure-like activity yesterday. She does have a history of migraine headaches. She is not currently having a migraine headache, her vital signs and neuroexam are normal. Labs are reviewed and are normal. CT scan of the brain was read reviewed by radiology and is negative for acute findings. The patient states she feels tired but otherwise feels okay at this time and is planning on seeing her mother's neurologist Dr. Amato. She will be given copies of her CT scan and labs for Dr. Amato evaluation as he may not have access to this EMR. She was encouraged to return to emergency department at any time and get plenty of rest as fatigue and exhaustion can contribute to seizure- like activity especially in light of a history of migraine headaches. She will be given a note for work for tomorrow if she decides to not go. Medical Records Medical records narrative: [place] [address] CT Scan Report Signed Patient: GONZALO NEGRON MR#: [id number] : 2000 Acct:[id number] Age/Sex: 23 / F ADM Date: 07/21/24 Loc: ER Attending Dr: Ordering Physician: Leonarda Mak Date of Service: 07/21/24 Procedure(s): CT head/brain wo con Accession Number(s): [id number] cc: MARIEL CABALLERO ~ [facility] [place] [address] Patient Name: GONZALO NEGRON MRN: [id number] date: 2000 Sex: F Assigned Patient Location: ER Current Patient Location: ER Accession/Order Number: [id number] Exam Date: 07/21/2024 23:13 Report Date: 07/21/2024 23:33 At the request of: LEONARDA MAK Procedure: CT head/brain wo con EXAM: CT head/brain wo con HISTORY: Seizure-like activity. TECHNIQUE: Axial CT scans through the head were obtained without IV contrast administration. Dose reduction techniques were achieved by using: automated exposure control and/or adjustment of mA and /or kV according to patient size and/or the use of an iterative reconstruction technique. COMPARISON: None. FINDINGS: The cerebral hemispheres have normal white and polo matter and corticomedullary differentiation. To the limit of CT, the posterior fossa appears unremarkable. The ventricular system and cortical sulci are normal for the patient's age. No area of abnormal mass-effect or edema or intracranial hemorrhage. The visualized orbits show no abnormal mass. The visualized paranasal sinuses show no air-fluid level. Mastoid air cells are clear. CT/CT head/brain wo con IMPRESSION: No acute intracranial process. Electronically authenticated by: JANIE SCHMID Date: 07/21/2024 23:33 Lab Data Labs: Lab Results 07/21/24 Range/Units 21:42 WBC 8.2 (4.0-11.0) 10^3/uL RBC 3.99 L (4.20-5.40) 10^6/uL Hgb 11.9 L (12.0-16.0) g/dL Hct 35.3 L (36.0-48.0) % MCV 88.5 (81.0-99.0) fL MCH 29.8 (26.7-34.0) pg MCHC 33.7 (29.9-35.2) g/dL RDW 13.1 (11.0-15.0) % Plt Count 210 (150-450) 10^3/uL MPV 10.7 (9.5-13.5) fL Neut % (Auto) 64.1 (43.0-75.0) % Lymph % (Auto) 26.8 (20.5-60.0) % [place] % (Auto) 8.5 (1.7-12.0) % Eos % (Auto) 0.1 L (0.9-7.0) % Baso % (Auto) 0.4 (0.2-2.0) % Neut # (Auto) 5.3 (1.4-6.5) 10^3/uL Lymph # (Auto) 2.2 (1.2-3.8) 10^3/uL [place] # (Auto) 0.7 (0.3-0.8) 10^3/uL Eos # (Auto) 0.0 (0.0-0.7) 10^3/uL Baso # (Auto) 0.0 (0.0-0.1) 10^3/uL Abs Immat Gran (auto) 0.01 (0.00-0.03) 10^3/uL Imm/Tot Granulo (auto) 0.1 (0.0-0.5) % PT 11.3 (9.0-11.6) sec INR 1.07 D-Dimer <0.19 (<=0.59) mg/L FEU Sodium 144 (136-145) mmol/L Potassium 3.6 (3.5-5.1) mmol/L Chloride 108 H (98-107) mmol/L Carbon Dioxide 27.0 (21.0-32.0) mmol/L Anion Gap 12.6 BUN 8.0 (7.0-18.0) mg/dL Creatinine 0.79 (0.55-1.02) mg/dL Est GFR ( Amer) >60 (>=60) Est GFR (Non-Af Amer) >60 (>=60) BUN/Creatinine Ratio 10.1 Glucose 88 (74-106) mg/dL Lactate 0.9 (0.4-2.0) mmol/L Calcium 9.1 (8.5-10.1) mg/dL Magnesium 1.7 L (1.8-2.4) mg/dL Total Bilirubin 0.3 (0.2-1.0) mg/dL AST 15 (15-37) U/L ALT 19 (14-59) U/L Alkaline Phosphatase 69 (46-116) U/L Troponin I High Sens <4.0 L (4.0-51.3) pg/mL Total Protein 6.2 L (6.4-8.2) g/dL Albumin 3.6 (3.4-5.0) g/dL Globulin 2.6 g/dL Albumin/Globulin Ratio 1.4 TSH 2.531 (0.358-3.740) uIU/mL Serum HCG, Qual Negative (NEGATIVE) Urine Color Lt. yellow (YELLOW) Urine Clarity Clear (CLEAR) Urine pH 7.0 (5.0-9.0) Ur Specific [place] 1.015 (1.005-1.025) Urine Protein Negative (NEG/TRACE) mg/dL Urine Glucose (UA) Negative (NEGATIVE) mg/dL Urine Ketones Negative (NEGATIVE) mg/dL Urine Occult Blood Negative (NEGATIVE) Urine Nitrite Negative (NEGATIVE) Urine Bilirubin Negative (NEGATIVE) Urine Urobilinogen 0.2 (0.2-1.0) EU/dL Ur Leukocyte Esterase Negative (NEGATIVE) Urine Opiates Screen Negative (NEGATIVE) Ur Buprenorphine Scrn Negative (NEGATIVE) Ur Oxycodone Screen Negative (NEGATIVE) Urine Methadone Screen Negative (NEGATIVE) Ur Barbiturates Screen Negative (NEGATIVE) U Tricyclic Antidepress Negative (NEGATIVE) Ur Phencyclidine Scrn Negative (NEGATIVE) Ur Amphetamines Screen Negative (NEGATIVE) U Methamphetamines Scrn Negative (NEGATIVE) U Benzodiazepines Scrn Negative (NEGATIVE) Urine Cocaine Screen Negative (NEGATIVE) U Cannabinoids Screen Negative (NEGATIVE) Ethanol Quant <3 mg/dL Discharge Plan Discharge Stand Alone Forms: Work/School Release, Portal Instructions Chief Complaint: Weakness Clinical Impression: Seizure-like activity Patient Disposition: Home, Self-Care Time of Disposition Decision: 23:43 Condition: Good Prescriptions / Home Meds: No Action ketorolac 10 mg tablet 10 mg PO TID PRN (Reason: pain) Qty: 10 0RF hyoscyamine sulfate [Levsin] 0.125 mg tablet 0.125 mg PO Q6H PRN (Reason: abdominal pain) Qty: 12 0RF ondansetron 4 mg tablet,disintegrating 4 mg PO Q6H PRN (Reason: nausea and vomiting) Qty: 12 0RF Print Language: Micronesian Instructions: Migraine Headache (ED), New-Onset Seizure in Adults (ED) Referrals: BRENNAN AMATO [Physician] - 1 week MARIEL CABALLERO [Primary Care Provider] - 1 week
[2024-07-21] MEDS: 0.9 % SODIUM CHLORIDE 1,000 ML 999 ML IV (21:57)
[2024-07-21] MEDS: ONDANSETRON PF 4 MG/2 ML VIAL IV (21:57)
[2024-07-21 22:09] LABS: Basophils Percent Auto 0.4 % (0.2-2.0); Eosinophils Percent Auto 0.1 % (0.9-7.0); Hematocrit 35.3 % (36.0-48.0); Hemoglobin 11.9 g/dL (12.0-16.0); Immature Granulocytes Abs Auto 0.01 10^3/uL (0.00-0.03); Immature Granulocytes Pct Auto 0.1 % (0.0-0.5); Lymphocytes Absolute Auto 2.2 10^3/uL (1.2-3.8); Lymphocytes Percent Auto 26.8 % (20.5-60.0); Mean Corpuscular HGB Conc 33.7 g/dL (29.9-35.2); Mean Corpuscular Hemoglobin 29.8 pg (26.7-34.0); Mean Corpuscular Volume 88.5 fL (81.0-99.0); Mean Platelet Volume 10.7 fL (9.5-13.5); Monocytes Absolute Auto 0.7 10^3/uL (0.3-0.8); Monocytes Percent Auto 8.5 % (1.7-12.0); Neutrophils Absolute Auto 5.3 10^3/uL (1.4-6.5); Neutrophils Percent Auto 64.1 % (43.0-75.0); Platelet Count 210 10^3/uL (150-450); Red Blood Count 3.99 10^6/uL (4.20-5.40); Red Cell Distribution Width 13.1 % (11.0-15.0); White Blood Count 8.2 10^3/uL (4.0-11.0)
[2024-07-21 22:29] LABS: Bilirubin Urine NEGATIVE (NEGATIVE); Blood Urine NEGATIVE (NEGATIVE); Clarity Urine CLEAR (CLEAR); Color Urine LT. YELLOW (YELLOW); Glucose Urine UA NEGATIVE (NEGATIVE); Ketones Urine NEGATIVE (NEGATIVE); Leukocyte Esterase Urine NEGATIVE (NEGATIVE); Nitrite Urine NEGATIVE (NEGATIVE); Protein Urine NEGATIVE (NEG/TRACE); Specific Gravity Urine 1.015 (1.005-1.025); Urobilinogen Urine 0.2 EU/dL (0.2-1.0)
[2024-07-21 22:30] LABS: Alanine Aminotransferase 19 U/L (14-59); Albumin Globulin Ratio 1.4; Albumin Level 3.6 g/dL (3.4-5.0); Alkaline Phosphatase 69 U/L (46-116); Anion Gap 12.6; Aspartate Amino Transferase 15 U/L (15-37); BUN Creatinine Ratio 10.1; Bilirubin Total 0.3 mg/dL (0.2-1.0); Calcium 9.1 mg/dL (8.5-10.1); Chloride 108 mmol/L (98-107); Estimated GFR (African America >60 (>=60); Estimated GFR (Non-African Ame >60 (>=60); Globulin 2.6 g/dL; Glucose 88 mg/dL (74-106); Potassium 3.6 mmol/L (3.5-5.1); Sodium 144 mmol/L (136-145); Total Protein 6.2 g/dL (6.4-8.2)
[2024-07-21 22:33] LABS: Lactate/Lactic Acid 0.9 mmol/L (0.4-2.0)
[2024-07-21 22:34] LABS: Urine Microscopic Indicated NO
[2024-07-21 22:38] LABS: Amphetamine Screen Urine NEGATIVE (NEGATIVE); Barbiturates Screen Urine NEGATIVE (NEGATIVE); Benzodiazepines Screen Urine NEGATIVE (NEGATIVE); Buprenorphine Screen Urine NEGATIVE (NEGATIVE); Cannabinoid Screen Urine NEGATIVE (NEGATIVE); Cocaine Screen Urine NEGATIVE (NEGATIVE); Methadone Screen Urine NEGATIVE (NEGATIVE); Methamphetamines Screen Urine NEGATIVE (NEGATIVE); Opiate Screen Urine NEGATIVE (NEGATIVE); Oxycodone Screen Urine NEGATIVE (NEGATIVE); Phencyclidine Screen Urine NEGATIVE (NEGATIVE); Tricyclic Antidepressant Urine NEGATIVE (NEGATIVE)
[2024-07-21 22:48] LABS: HCG Qualitative NEGATIVE (NEGATIVE); Internal Control Within Normal Limits
[2024-07-21 22:50] VITALS: BP 103/72; PULSE 62; O2SAT 100
[2024-07-21] MEDS: KETOROLAC TROMETHAMINE 30 MG/ML VIAL IVP (22:52)
[2024-07-21 23:02] LABS: INR 1.07; Prothrombin Time 11.3 sec (9.0-11.6)
[2024-07-21 23:09] LABS: D Dimer <0.19 mg/L FEU (<=0.59)
[2024-07-21 23:20] LABS: Troponin I High Sensitivity <4.0 pg/mL (4.0-51.3)
[2024-07-21 23:22] LABS: Magnesium 1.7 mg/dL (1.8-2.4); Thyroid Stimulating Hormone 2.531 uIU/mL (0.358-3.740)
[2024-07-21 23:23] LABS: Ethanol <3 mg/dL
[2024-07-23 12:09] LABS: Prolactin 33.1 ng/mL (4.8-33.4)
== END 2024-07-22 00:13 | disposition home or self-care (01) ==
PROVIDERS: Physician Assistant; Emergency Provider Emergency Medicine; PCP Internal Medicine
DX: R56.9 Unspecified convulsions (principal)
CPT/HCPCS: 36415; 70450; 80053; 80307; 80320; 81003; 83605; 83735; 84146; 84443; 84484; 84703; 85025; 85378; 85610; 93005; 96361; 96374; 96375; 99285; J1885; J2405

== ENCOUNTER 2024-10-25 09:47 | Outpatient (OUT) | payer OTHER, SELFPAY ==
--- NOTE | 2024-10-25 09:57 | US_ITS ---
[place] [id number] Patient Name: GONZALO NEGRON MRN: [id number] date: 2000 Sex: F Assigned Patient Location: [facility] Current Patient Location: Accession/Order Number: [id number] Exam Date: 10/25/2024 09:57 Report Date: 10/26/2024 05:23 At the request of: BRANDY GUTIERREZ Procedure: US OB transvaginal EXAMINATION: US OB transvaginal HISTORY: MISSED MENSES COMPARISON: No relevant comparison available. FINDINGS: GESTATIONAL SAC: Present and normal appearing. YOLK SAC: Present and normal appearing. POLE: Present and normal appearing. CARDIAC: Present. UTERUS: Normal size and appearance. OVARIES: Right: Normal. Left: Normal. CERVIX: 4.4 cm in length and closed. CUL-DE-SAC: Normal. OTHER: None. AGE BY LMP: 11 weeks 1 day [place] BY LMP: 05/15/2025 AGE BY US CRL: 11 weeks 1 day [place] BY US CRL: 05/15/2025 US/US OB transvaginal IMPRESSION: 1. Single live intrauterine . Electronically authenticated by: FAITH NUÑEZ Date: 10/26/2024 05:23
== END 2024-10-25 09:48 | disposition home or self-care (01) ==
LOC: NOMS 09:47
PROVIDERS: PCP Internal Medicine; Visit Provider Obstetrics & Gynecology
DX: Z34.91 Encounter for supervision of normal pregnancy, unspecified, first trimester (principal); Z3A.11 11 weeks gestation of pregnancy; N92.6 Irregular menstruation, unspecified
CPT/HCPCS: 76817

== ENCOUNTER 2024-11-13 11:13 | Outpatient (OUT) | payer OTHER, SELFPAY ==
--- OUTSIDE RECORDS SUMMARY | 2024-11-13 11:21 | XMS_ITS | CCD ---
Author Organization [facility] InformFormerly [facility] Care Team Providers Care Feather Baler Name Role Phone CHRISTINE SALVADOR Admitting Unavailable CHRISTINE SALVADOR Attending Unavailable JOAQUIN, DR FAITH Lisa Consulting Unavailable FEDERICO, DR MARIEL Quinn Primary Care Unavailable OBDULIO ., SHARONA BROWER Consulting UnavailMARIEL Stewart Attending Unavailable MARIEL CABALLERO Referring Unavailable MARIEL CABALLERO Primary Care Unavailable NAV MORENO Attending Unavailable MARIEL CABALLERO Referring Unavailable MARIEL CABALLERO Primary Care Unavailable Mariel Caballero MD Primary Care Provider GUILLERMO WING Attending Unavailable GUILLERMO WING Attending Unavailable GUILLERMO WING Referring Unavailable GUILLERMO WING Attending Unavailable Allergies Allergy Classification Reported Allergen(s) Allergy Type Date of Onset Reaction(s) Facility (2 sources) Amoxicillin; Translations: [AMOXICILLIN] Drug Allergy 8 [facility] Repository (2 sources) SUMAtriptan; Translations: [SUMATRIPTAN] Drug Allergy 2 [facility] Repository (2 sources) Penicillins; Translations: [PENICILLINS] Propensity to adverse reactions to drug (disorder) 8 Hives [facility] Repository (1 source) SUMAtriptan Drug Allergy 2 Swelling [facility] Medications Current Medications Medication Drug Class(es) Dates Sig (Normalized) Sig (Original) methylPREDNISolone (1 source) Corticosteroid Start: 4 End: 4 methylPREDNISolone (Medrol Dospak) 4 MG tablets Indications: Muscle strain of left thigh, initial encounter As directed 21 tablet 06/10/2024 10/25/2024 Discontinued (Other) Vit w/Dn-Kcgvkquco-OL (PNV PO) (1 source) Vit w/Kq-Xsevhmlmx-OC (PNV PO) Take by mouth Active Problems Active Problems Problem Classification Problem Date Documented Da te Episodic/Chronic Cardiac dysrhythmias (4 sources) Palpitations; Translations: [PALPITATIONS] Onset: 02-21-2023 Episodic Epilepsy; convulsions (1 source) Unspecified convulsions; Translations: [Unspecified convulsions] Onset: 08-11-2024 Episodic Menstrual disorders (1 source) Missed period; Translations: [Irregular menstruation, unspecified] 10-25-2024 Chronic Nonspecific chest pain (1 source) Chest pain, unspecified; Translations: [CHEST PAIN UNSPECIFIED] Onset: 02-25-2023 Episodic Other and delivery including normal (2 sources) ; Translations: [Encounter for supervision of normal , unspecified, unspecified trimester] 10-25-2024 Episodic Substance-related disorders (1 source) Nicotine dependence, cigarettes, uncomplicated; Translations: [NICOTINE DEPEND CIGARETTES UNCOMP] Onset: 02-25-2023 Chronic Unclassified (1 source) Initial Visit Onset: 09-28-2024 Unclassified (1 source) wants referral to Neurologyfor seizures Onset: 08-11-2024 Past or Other Problems Problem Classification Problem Date Documented Da te Episodic/Chronic NEGATED: Highlighted row has been ruled out!Unclassified (1 source) No known active problems 10-13-2023 Results Test Name Value Interpretation Reference Range Facil ity HCG ( test) Ql (U)o n 10-25-2024 Interpretation and review of laboratory results Abnormal [facility] Preg Test, Ur Positive Negative [facility] care [facility] Urinalysis macro (dipstick) panel (U)on 10-25-2024 Bilirubin, UA Negative Negative - 4(70) +++ mg/dL [facility] Blood, UA Negative Negative - 50 Jonathan/mcL [facility] Clarity, [facility]A Clear [facility], UA Yellow [facility] Glucose, UA Negative Negative - 2000(110) ++++ mg/dL [facility] Interpretation and review of laboratory results Normal [facility] Ketones, UA Negative Negative - 160(16) ++++ mg/dL [facility] Leukocytes, UA Negative Negative - 500+++ Anoop/mcL [facility] Nitrite, UA Negative Negative - Positive [facility] pH, UA 7 5 - 9 [facility] e Protein, UA Negative Negative - 1999(20) ++++ mg/dL [facility] Spec Grav, UA 1.025 1 - 1.03 [facility] Urobilinogen, UA 1.0 0.2 - 12 mg/dL [facility] e XR FEMUR 2+ VW LEFTon 2023 XR FEMUR 2+ VW LEFT Left femur HISTORY: Pain 4 views of the femur. The femur is grossly intact. No fractures or periostitis. Soft tissues of the thigh are not remarkable. IMPRESSION: Negative left femur Electronically Signed Varun Garcia D.O. 2024-06-15 15:01:50 Normal Not Available CBC AUTO DIFFon 02-21-2023 BASO # 0.0 103/ul Normal 0.0-0.1 [facility] Comment on above: Performed By: #### C BC #### [facility] [address] [address] [address] Sol Flores Basophils/100 WBC (Bld) 0.4 % Normal 0.2-2.0 [facility] Comment on above: Performed By: #### C BC #### [facility] [address] [address] [address] Sol Flores EO # 0.0 103/ul Normal 0.0-0.7 [facility] Comment on above: Performed By: #### C BC #### [facility] [address] [address] [address] Sol Flores Eosinophils/100 WBC (Bld) 0.0 % Critically low 0.9-7.0 [facility] Comment on above: Performed By: #### C BC #### [facility] [address] [address] [address] Sol Flores Erythrocyte distribution width (RBC) [Ratio] 13.4 % Normal 11.0-15.0 [facility] Comment on above: Performed By: #### C BC #### [facility] [address] [address] [address] Sol Flores Hematocrit (Bld) [Volume fraction] 38.1 % Normal 36.0-48.0 [facility] Comment on above: Performed By: #### C BC #### [facility] [address] [place] [address] Dr. Sol Flores Hemoglobin (Bld) [Mass/Vol] 12.9 g/dL Normal 12.0-16.0 [facility] Comment on above: Performed By: #### C BC #### [facility] [address] [place] [address] Dr. Sol Flores IG # 0.02 10e3/ul Normal 0.00-0.03 [facility] Comment on above: Performed By: #### C BC #### [facility] [address] [place] [address] Dr. Sol Flores IG % 0.2 % Normal 0.0-0.5 [facility] Comment on above: Performed By: #### C BC #### [facility] [address] [place] [address] Dr. Sol Flores LYMPH # 2.2 103/ul Normal 1.2-3.8 [facility] Comment on above: Performed By: #### C BC #### [facility] [address] [place] [address] Dr. Sol Flores Lymphocytes/100 WBC (Bld) 26.7 % Normal 20.5-60.0 [facility] Comment on above: Performed By: #### C BC #### [facility] [address] [place] [address] Dr. Sol Flores MANUAL DIFF REQ NO Normal [facility] Comment on above: Performed By: #### C BC #### [facility] [address] [place] [address] Dr. Sol Flores MCH (RBC) [Entitic mass] 28.9 pg Normal 26.7-34.0 [facility] Comment on above: Performed By: #### C BC #### [facility] [address] [place] [address] Dr. Sol Flores MCHC (RBC) [Mass/Vol] 33.9 g/dL Normal 29.9-35.2 [facility] Comment on above: Performed By: #### C BC #### [facility] [address] [address] [address] Sol Flores MCV (RBC) [Entitic vol] 85.2 fL Normal 81.0-99.0 [facility] Comment on above: Performed By: #### C BC #### [facility] [address] [address] [address] Sol Flores MONO # 0.6 103/ul Normal 0.3-0.8 [facility] Comment on above: Performed By: #### C BC #### [facility] [address] [address] [address] oSl Flores Monocytes/100 WBC (Bld) 7.4 % Normal 1.7-12.0 [facility] Comment on above: Performed By: #### C BC #### [facility] [address] [place] [address] Dr. Sol Flores NEUT # 5.3 103/ul Normal 1.4-6.5 [facility] Comment on above: Performed By: #### C BC #### [facility] [address] [place] [address] Dr. Sol Flores Neutrophils/100 WBC (Bld) 65.3 % Normal 43.0-75.0 [facility] Comment on above: Performed By: #### C BC #### [facility] [address] [place] [address] Dr. Sol Flores Platelet mean volume (Bld) [Entitic vol] 10.3 fL Normal 9.5-13.5 [facility] Comment on above: Performed By: #### C BC #### [facility] [address] [place] [address] Dr. Sol Flores PLT 225 103/ul Normal 150-450 [facility] Comment on above: Performed By: #### C BC #### [facility] [address] [place] [address] Dr. Sol Flores RBC 4.47 106/ul Normal 4.20-5.40 [facility] Comment on above: Performed By: #### C BC #### [facility] [address] [place] [address] Dr. Sol Flores WBC 8.1 103/ul Normal 4.0-11.0 [facility] Comment on above: Performed By: #### C BC #### [facility] [address] [place] [address] Dr. Sol Flores D-DIMERon 02-21-2023 D-DIMER 0.33 mg/L FEU Normal <=0.59 [facility] Comment on above: Performed By: #### D DIM, PT, PTT #### [facility] [address] [place] [address] Dr. Sol Flores D-DIMER COMMENTS SEE BELOW Normal [facility] Comment on above: Result Comment: Incr eases [...] By: #### D DIM, PT, PTT #### [facility] [address] [place] [address] Dr. Sol Flores PREG HCG QUALon 02-21-2023 , QUAL Negative Normal NEGATIVE [facility] Comment on above: Performed By: #### P REG #### [facility] [address] [place] [address] Dr. Sol Flores PROF 14(COMP METB)on 023 Albumin [Mass/Vol] 3.9 g/dL Normal 3.4-5.0 [facility] Comment on above: Performed By: #### H STROPN, TSH, CMP #### [facility] [address] [place] [address] Dr. Sol Flores Albumin/Globulin [Mass ratio] 1.1 {ratio} Normal [facility] Comment on above: Performed By: #### H STROPN, TSH, CMP #### [facility] [address] [place] [address] Dr. Sol Flores ALP [Catalytic activity/Vol] 90 U/L Normal 46-116 [facility] Comment on above: Performed By: #### H STROPN, TSH, CMP #### [facility] [address] [address] [address] Sol Flores ALT [Catalytic activity/Vol] 19 U/L Normal 14-59 [facility] Comment on above: Performed By: #### H STROPN, TSH, CMP #### [facility] [address] [address] [address] Sol Flores Anion gap [Moles/Vol] 13.3 mmol/L Normal [facility] Comment on above: Performed By: #### H STROPN, TSH, CMP #### [facility] [address] [place] [address] Dr. Sol Flores AST [Catalytic activity/Vol] 16 U/L Normal 15-37 [facility] Comment on above: Performed By: #### H STROPN, TSH, CMP #### [facility] [address] [place] [address] Dr. Sol Flores Bilirubin [Mass/Vol] 0.2 mg/dL Normal 0.2-1.0 [facility] Comment on above: Performed By: #### H STROPN, TSH, CMP #### [facility] [address] [place] [address] Dr. Sol Flores Calcium [Mass/Vol] 8.8 mg/dL Normal 8.5-10.1 [facility] Comment on above: Performed By: #### H STROPN, TSH, CMP #### [facility] [address] [place] [address] Dr. Sol Flores Chloride [Moles/Vol] 105 mmol/L Normal 98-107 [facility] Comment on above: Performed By: #### H STROPN, TSH, CMP #### [facility] [address] [place] [address] Dr. Sol Flores CO2 [Moles/Vol] 24.5 mmol/L Normal 21.0-32.0 [facility] Comment on above: Performed By: #### H STROPN, TSH, CMP #### [facility] [address] [address] [address] Sol Flores Creatinine [Mass/Vol] 0.79 mg/dL Normal 0.55-1.02 [facility] Comment on above: Performed By: #### H STROPN, TSH, CMP #### [facility] [address] [address] [address] Sol Flores EGFR-AF IRISH >60 Normal >=60 [facility] Comment on above: Performed By: #### H STROPN, TSH, CMP #### [facility] [address] [address] [address] Sol Flores EGFR-NON AF IRISH >60 Normal >=60 [facility] Comment on above: Performed By: #### H STROPN, TSH, CMP #### [facility] [address] [address] [address] Sol Flores Globulin (S) [Mass/Vol] 3.5 g/dL Normal [facility] Comment on above: Performed By: #### H STROPN, TSH, CMP #### [facility] [address] [address] [address] Sol Flores Glucose [Mass/Vol] 102 mg/dL Normal 74-106 [facility] Comment on above: Performed By: #### H STROPN, TSH, CMP #### [facility] [address] [address] [address] Sol Flores Potassium [Moles/Vol] 3.8 mmol/L Normal 3.5-5.1 [facility] Comment on above: Performed By: #### H STROPN, TSH, CMP #### [facility] [address] [address] [address] Sol Flores Protein [Mass/Vol] 7.4 g/dL Normal 6.4-8.2 [facility] Comment on above: Performed By: #### H STROPN, TSH, CMP #### [facility] [address] [address] [address] Sol Flores Sodium [Moles/Vol] 139 mmol/L Normal 136-145 [facility] Comment on above: Performed By: #### H STROPN, TSH, CMP #### [facility] [address] [address] [address] Sol Flores Urea nitrogen [Mass/Vol] 9.0 mg/dL Normal 7.0-18.0 [facility] Comment on above: Performed By: #### H STROPN, TSH, CMP #### [facility] [address] [place] [address] Dr. Sol Flores Urea nitrogen/Creatinine [Mass ratio] 11.4 mg/mg Normal [facility] Comment on above: Performed By: #### H STROPN, TSH, CMP #### [facility] [address] [place] [address] Dr. Sol Flores PROTIMEon 02-21-2023 INR Coag (PPP) [Relative time] 0.98 {INR} Normal [facility] Comment on above: Performed By: #### D DIM, PT, PTT #### [facility] [address] [place] [address] Dr. Sol Flores INR GUIDELINES SEE BELOW Normal [facility] Comment on above: Result Comment: LAWRENCE RED INR: 2.0 - 3.0 CONDITIONS NOT LISTED BELOW 2.5 - 3.5 FOR PROSTHETIC HEART VALVE REPLACEMENT 2.5 - 3.5 RECURRENT THROMBOSIS Performed By: #### D DIM, PT, PTT #### [facility] [address] [place] [address] Dr. Sol Flores PT Coag (PPP) [Time] 10.4 s Normal 9.0-11.6 [facility] Comment on above: Performed By: #### D DIM, PT, PTT #### [facility] [address] [place] [address] Dr. Sol Flores PTTon 02-21-2023 aPTT Coag (Bld) [Time] 29.4 s Normal 22.3-36.2 [facility] Comment on above: Performed By: #### D DIM, PT, PTT #### [facility] [address] [place] [address] Dr. Sol Flores TROPONIN, HIGH SENSITIVITYon 02-21-2023 HSTROP <4.0 Normal 4.0-51.3 [facility] Comment on above: Result Comment: CUT- OFF POINTS HAVE BEEN ESTABLISHED BASED ON THE FOURTH UNIVERSAL DEFINITIONS OF MYOCARDIAL INFARCTION. THE UPPER REFERENCE LIMIT (URL) OF TROPONIN, DEFINED THE 99TH PERCENTILE OF cTnI DISTRIBUTION IN A REFERENCE POPULATION, HAS BEEN CONFIRMED THE DECISION THRESHOLD FOR [place] DIAGNOSIS. Performed By: #### H STROPN, TSH, CMP #### [facility] [address], [place] [address] Dr. Sol Flores TSHon 02-21-2023 TSH 1.985 uIU/mL Normal 0.358-3.740 [facility] Comment on above: Performed By: #### H STROPN, TSH, CMP #### [facility] [address], [place] [address] Dr. Sol Flores XR CHEST 1 Von [...] by: FAITH NUÑEZ Date: 2023-02-21 15:33 Normal [facility] Gynecology Office/Clinic Not [place] 10-30-2020 Gynecology [...] pt. to start PNV's. Script sent to [facility]. F/U yearly or sooner w/concerns. Ordered: , Serum, Test Qual w/Reflex BhCG Quant Problem List/Past Medical History Ongoing Anxiety [...] by Myriam Bean 10/30/20 15:04 EST Normal [facility] OR Trackon 10-30-2020 Pl Red # 1 [facility] Comment on above: Performed By: #### O [facility] Tracking Order #### [address] [address] [address] P[address] R[address] [facility] 0 Serum Preg Negative [facility] Comment on above: Result Comment: The hCG Combo Rapid Test has a sensitivity of 10 mIU/mL in serum and is capable of detecting as early as 1 day after the first missed menses. Performed By: #### C [id number] #### [address] [address] Vital Signs Date Time Vital Sign Value Performing Clinician Faci lity 10-25-2024 11:03-0500 Body mass index (BMI) [Ratio] 20.67 kg/m2 [facility] 10-25-2024 11:03-0500 Body weight 59.88 kg [facility] Nurse [facility] Encounters Encounter Date Encounter Type Care Provider Facility Start: 10-25-2024 End: 10-25-2024 ambulatory GUILLERMO WING Not Available Start: 10-25-2024 End: 10-25-2024 Office outpatient visit 5 minutes [facility] Comment on above: GA: 11w1d Start: 09-28-2024 ambulatory NAV MORENO [facility] Start: 08-11-2024 End: 08-11-2024 ambulatory MARIEL CABALLERO [facility] Start: 06-29-2024 End: 06-29-2024 ambulatory GUILLERMO WING Not Available Start: 06-15-2024 End: 06-15-2024 ambulatory GUILLERMO WING Not Available Start: 06-10-2024 End: 06-10-2024 ambulatory GUILLERMO WING Not Available Start: 02-21-2023 End: 02-21-2023 ambulatory CHRISTINE SALVADOR Facility:H1 Procedures Date Procedure Procedure Detail Performing Clinician Start: 10-25-2024 End: 10-25-2024 Urnls dip stick/tablet rgnt non-auto w/o micrscp Ruperto Momin DO Work Phone: Plan of Treatment Date Care Activity Detail Author Start: 11-24-2024 End: 11-24-2024 Patient encounter procedure 11/24/2024 3:10 PM EST Routine [facility] [address] [place] [id number] Ruperto Momin, DO [address] [place] [address] [facility] BCP OB Start: 10-25-2024 End: 10-25-2025 ABO/Rh ABO/Rh Lab Routine Missed menses , unspecified gestational age Expected: 10/25/2024 (Approximate), Expires: 10/25/2025 [facility] Healthcare Comment on above: Expected: 10/25/2024 (Approximate), Expires: 10/25/2025 Start: 10-25-2024 End: 10-25-2025 Blood type and Indirect antibody screen panel - Blood Type and screen Lab Routine Missed menses , unspecified gestational age Expected: 10/25/2024 (Approximate), Expires: 10/25/2025 [facility] Healthcare Work Phone: Comment on above: Expected: 10/25/2024 (Approximate), Expires: 10/25/2025 Start: 10-25-2024 End: 12-09-2025 Drugs of abuse panel - Urine by Screen method Rapid drug screen, urine Lab Routine , unspecified gestational age Encounter for supervision of normal first in first trimester Expected: 10/25/2024 (Approximate), Expires: 10/25/2025 [facility] Comment on above: Expected: 10/25/2024 (Approximate), Expires: 10/25/2025 Start: 10-25-2024 End: 10-25-2025 US Pelvis transvaginal US OB transvaginal Imaging Routine Missed menses Expected: 10/25/2024 (Approximate), Expires: 10/25/2025 [facility] Comment on above: Expected: 10/25/2024 (Approximate), Expires: 10/25/2025 Bacteria identified in Urine by Culture Urine culture Microbiology Routine Missed menses Ordered: 10/25/2024 [facility] Comment on above: Ordered: 10/25/2024 CBC W Auto Different ial panel - Blood CBC and differential Lab Routine Missed menses , unspecified gestational age Ordered: 10/25/2024 [facility] Comment on above: Ordered: 10/25/2024 Hemoglobin A1c/Hemoglobin.total in Blood Hemoglobin A1c Lab Routine Missed menses , unspecified gestational age Ordered: 10/25/2024 [facility] Comment on above: Ordered: 10/25/2024 Hepatitis B virus surface Ag [Presence] in Serum or Plasma by Immunoassay Hepatitis B surface antigen Lab Routine Missed menses , unspecified gestational age Ordered: 10/25/2024 [facility] Comment on above: Ordered: 10/25/2024 Hepatitis C virus Ab [Presence] in Serum or Plasma by Immunoassay Hepatitis C antibody Lab Routine Missed menses , unspecified gestational age Ordered: 10/25/2024 [facility] Comment on above: Ordered: 10/25/2024 HIV-1/HIV-2 antigen/antibody combination immunoassay HIV-1 and HIV-2 antibodies Lab Routine Missed menses , unspecified gestational age Ordered: 10/25/2024 [facility] Comment on above: Ordered: 10/25/2024 Reagin Ab [Presence] in Serum by RPR RPR Lab Routine Missed menses , unspecified gestational age Ordered: 10/25/2024 [facility] Comment on above: Ordered: 10/25/2024 Rubella antibody, IgG Rubella an tibody, IgG Lab Routine Missed menses , unspecified gestational age Ordered: 10/25/2024 [facility] Comment on above: Ordered: 10/25/2024 Payers Date Payer Category Payer Unknown [id number] 2024 Unknown [id number] 2020 Private Health Insurance [facility] [id number] 2001 Unknown [id number] [id number]. [id number] 2001 Unknown [id number] [id number]. 2.6 2001 Unknown [id number] [id number]. 2.1286 2001 Unknown [id number] [id number]. 2.1259 2001 Unknown [id number] [id number]. 2.1259 2001 Unknown [id number] [id number]. 2.1258 2001 Unknown [id number] 2.16.840.1.026812.3.579. 2.1259 2001 Unknown [id number] 2.16.840.1.655819.3.579. 2.9 2001 Unknown [id number] 2.16.840.1.911810.3.579. 2.1259 2001 Unknown [id number] 2.16.840.1.456685.3.579. 2.9 2001 Unknown [id number] [id number]. 2.1259 2001 Unknown [id number] [id number]. 2.9 2001 Unknown [id number] [id number]. 2.1259 1959 Private Health Insurance [id number] Social History Date Type Detail Facility Start: 10-13-2023 Tobacco smoking stat [facility] Tobacco smoking consumption unknown [facility] Start: 10-25-2024 Alcoholic beverage intake Current drinker of alcohol (finding) [facility] Start: 06-15-2024 End: 10-25-2024 Alcoholic beverage intake [facility] Start: 06-15-2024 Tobacco use panel [facility] Start: 08-22-2024 [facility] Start: 2001 Sex assigned at Not on file [facility] NEGATED: Highlighted rowStart: NINF History of tobacco use Passive smoker [facility] History of Present illness Narrative 10-25-2024 Adriane Meeks, YUNG - 10/25/2024 10:00 AM EST Note Date & Type Note Facility 10-25-2024 History of Presen t illness Narrative Reason for Appointment: Patient ID: Megha Khalil is a 24 y.o. female who presents for Amenorrhea Patient presents today for a Nurse OB Intake appointment. Patient is 11w1d with a Estimated Date of Delivery: 05/15/25 OB History Para Term AB Living 1 SAB IAB Ectopic Multiple Live Births # Outcome Date GA Lbr Valeriano/2nd Weight Sex Type Anes PTL Lv 1 Current Current Medications: has a current medication list which includes the following prescription(s): vit [id number]. Medical History: Active Ambulatory Problems Diagnosis Date Noted No Active Ambulatory Problems Resolved Ambulatory Problems Diagnosis Date Noted No Resolved Ambulatory Problems No Additional Past Medical History Family History Family history unknown: Yes Social History Tobacco Use Smoking status: Unknown Passive exposure: Never Smokeless tobacco: Not on file Vaping Use Vaping status: Unknown Substance Use Topics Alcohol use: Yes Alcohol/week: 1.0 standard drink of alcohol Types: 1 Shots of liquor per week Drug use: Defer History reviewed. No pertinent surgical history. Allergies Allergen Reactions Penicillins Hives Sumatriptan Swelling Vitals: Estimated body mass index is 20.67 kg/m as calculated from the following: Height as of 10/13/23: 5' 7 . Weight as of this encounter: 132 lb. BP: Patient's last menstrual period was 08/08/2024. Assessment/Plan Diagnoses and all orders for this visit: Missed menses - Type and screen; Future - ABO/Rh; Future - CBC and differential - Hemoglobin A1c - RPR - Rubella antibody, IgG - Hepatitis B surface antigen - Hepatitis C antibody - HIV-1 and HIV-2 antibodies - Urine culture - US OB transvaginal; Future - POCT , urine manually resulted - POCT urinalysis dipstick manually resulted , unspecified gestational age - Type and screen; Future - ABO/Rh; Future - CBC and differential - Hemoglobin A1c - RPR - Rubella antibody, IgG - Hepatitis B surface antigen - Hepatitis C antibody - HIV-1 and HIV-2 antibodies - Rapid drug screen, urine; Future Encounter for supervision of normal first in first trimester - Rapid drug screen, urine; Future Nurse Note: OB Intake: Patient presents today for first OB visit. Patients history has been reviewed in great detail including any potential risks. Patient signed consent forms and patient desires testing in both trimesters. Patient currently has no complaints and has been advised to drink 6-8 glasses of water a day, eat no raw or undercooked meat, and [facility] Patient has also been advised to not change litter boxes and eat 6 small meals a day. Patient has been consulted regarding the do's and don'ts of . Patient was given labs and all questions and concerns were answered. Follow Up: Patient is to return in 4 weeks for routine OB appointment. Follow Up: Patient is to have labs drawn at directed and return to office for initial OB appointment with provider. Patient may call office as needed with any concerns or questions. Nurse Visit Completed by: Adriane Meeks LPN documented in this encounter [facility] Evaluation note Note Date & Type Note Facility Evaluation note Diagnosis Missed menses , unspecified gestational age Encounter for supervision of normal first in first trimester documented in this encounter [facility] Summary Purpose Family History No Family History Records FoundNo Family History Records FoundNo Family History Records FoundNo Family History Records Found Advance Directives No Advanced Directives Records FoundNo Advanced Directives Records FoundNo Advanced Directives Records FoundNo Advanced Directives Records Found Additional Source Comments INFORMATION SOURCE (unrecogn ized section and content) DATE CREATED AUTHOR 10/31/2020 [facility] DATE CREATED AUTHOR AUTHOR'S ORGANIZ ATION 03/15/2023 [facility] DATE CREATED AUTHOR AUTHOR'S ORGANIZ ATION 09/30/2024 [facility] DATE CREATED AUTHOR AUTHOR'S ORGANIZ ATION 10/28/2024 [facility] Reason for Visit (unrecogniz ed section and content) Reason Comments Amenorrhea Care Teams (unrecognized sec tion and content) Feather Baler Relationship Specialty Start Date End Date Mariel Caballero MD [address] [place] [address], [address] [place] [address] PCP - General Family Medicine 09/26/23 FOR RECORDS PERTAINING TO PATIENTS WHO ARE [...] BE BASED ON THE PRIMARY CLINICAL RECORDS. [facility] [employer] provides no warranty or guarantee of the accuracy or completeness of information in this document.
[2024-11-13 11:57] LABS: BOX Test Reference Lab UNITY; BOX Test Sent Out UNITY
[2024-11-13 12:12] LABS: Estimated Average Glucose 100 mg/dL; Glycohemoglobin A1C 5.1 % (4.5-6.2)
[2024-11-13 12:13] LABS: Basophils Percent Auto 0.3 % (0.2-2.0); Hematocrit 38.6 % (36.0-48.0); Hemoglobin 12.9 g/dL (12.0-16.0); Immature Granulocytes Abs Auto 0.02 10^3/uL (0.00-0.03); Immature Granulocytes Pct Auto 0.2 % (0.0-0.5); Lymphocytes Absolute Auto 1.7 10^3/uL (1.2-3.8); Lymphocytes Percent Auto 16.3 % (20.5-60.0); Mean Corpuscular HGB Conc 33.4 g/dL (29.9-35.2); Mean Corpuscular Hemoglobin 29.7 pg (26.7-34.0); Mean Corpuscular Volume 88.7 fL (81.0-99.0); Mean Platelet Volume 10.5 fL (9.5-13.5); Monocytes Absolute Auto 0.5 10^3/uL (0.3-0.8); Monocytes Percent Auto 5.2 % (1.7-12.0); Platelet Count 193 10^3/uL (150-450); Red Blood Count 4.35 10^6/uL (4.20-5.40); Red Cell Distribution Width 12.8 % (11.0-15.0); White Blood Count 10.3 10^3/uL (4.0-11.0)
[2024-11-13 12:35] LABS: Amphetamine Screen Urine NEGATIVE (NEGATIVE); Barbiturates Screen Urine NEGATIVE (NEGATIVE); Benzodiazepines Screen Urine NEGATIVE (NEGATIVE); Buprenorphine Screen Urine NEGATIVE (NEGATIVE); Cannabinoid Screen Urine NEGATIVE (NEGATIVE); Cocaine Screen Urine NEGATIVE (NEGATIVE); Methadone Screen Urine NEGATIVE (NEGATIVE); Methamphetamines Screen Urine NEGATIVE (NEGATIVE); Opiate Screen Urine NEGATIVE (NEGATIVE); Oxycodone Screen Urine NEGATIVE (NEGATIVE); Phencyclidine Screen Urine NEGATIVE (NEGATIVE); Tricyclic Antidepressant Urine NEGATIVE (NEGATIVE)
[2024-11-14 07:07] LABS: Rubella Antibodies, IgG <0.90 index (Immune >0.99)
[2024-11-14 08:07] LABS: HBsAg Screen Negative (Negative); HCV Ab Non Reactive (Non Reactive); Rapid Plasma Reagin, Quant Non Reactive titer (NonRea<1:1)
[2024-11-14 09:07] LABS: HIV Ab/p24 Ag Screen Non Reactive (Non Reactive)
[2024-11-16 09:38] LABS: BOX Test Reference Lab FIRELANDS
== END 2024-11-13 11:14 | disposition home or self-care (01) ==
PROVIDERS: PCP Internal Medicine; Visit Provider Obstetrics & Gynecology
DX: Z34.01 Encounter for supervision of normal first pregnancy, first trimester (principal); Z36.0 Encounter for antenatal screening for chromosomal anomalies; N92.6 Irregular menstruation, unspecified
CPT/HCPCS: 36415; 80307; 83036; 85025; 86592; 86762; 86803; 86850; 86900; 86901; 87340; 87389

== ENCOUNTER 2024-12-22 20:26 | Outpatient (REF) | payer OTHER, SELFPAY ==
--- OUTSIDE RECORDS SUMMARY | 2024-12-22 20:30 | XMS_ITS | CCD ---
Author Organization [facility] Team Providers Care Oracle Applications Analyst Name Role Phone CHRISTINE SALVADOR Admitting Unavailable CHRISTINE SALVADOR Attending Unavailable DR FAITH NUÑEZ Consulting Unavailable FEDERICO, DR MARIEL Quinn Primary Care Unavailable OBDULIO ., SHARONA BROWER Consulting UnavailMARIEL Stewart Attending Unavailable MARIEL CABALLERO Referring Unavailable MARIEL CABALLERO Primary Care Unavailable NAV MORENO Attending Unavailable MARIEL CABALLERO Referring Unavailable MARIEL CABALLERO Primary Care Unavailable Mariel Caballero MD Primary Care Provider [phone] Mariel Caballero Attending Unavailable Mariel Caballero Admitting Unavailable GUILLERMO WING Attending Unavailable GUILLERMO WING Attending Unavailable GUILLERMO WING Referring Unavailable GUILLERMO WING Attending Unavailable BRANDY MOMIN Attending Unavailable Allergies Allergy Classification Reported Allergen(s) Allergy Type Date of Onset Reaction(s) Facility (2 sources) Amoxicillin; Translations: [AMOXICILLIN] Drug Allergy 8 [facility] Repository (2 sources) SUMAtriptan; Translations: [SUMATRIPTAN] Drug Allergy 2 [facility] Repository (10 sources) Penicillins; Translations: [PENICILLINS] Propensity to adverse reactions to drug (disorder) 8 [facility] Repository (8 sources) SUMAtriptan Drug Allergy 2 [facility] (1 source) SUMAtriptan Drug Allergy 3 [facility] Repository Medications Current Medications Medication Drug Class(es) Dates Sig (Normalized) Sig (Original) magnesium oxide 400 mg oral tablet (5 sources) Start: 5 End: 5 take 1 tablet by mouth once daily magnesium oxide (Mag-Ox) 400 MG tablet Indications: Nonintractable headache, unspecified chronicity pattern, unspecified headache type Take 1 tablet (400 mg) by mouth Daily 30 tablet 6 11/24/2024 12/24/2024 Active methylPREDNISolone (1 source) Corticosteroid Start: End: 4 methylPREDNISolone (Medrol Dospak) 4 MG tablets Indications: Muscle strain of left thigh, initial encounter As directed 21 tablet 06/10/2024 10/25/2024 Discontinued (Other) Vit w/Si-Uwdvjwxve-HW (PNV PO) (8 sources) Vit w/Di-Usjjekpuq-AW (PNV PO) Take by mouth Active Problems Active Problems Problem Classification Problem Date Documented Date Episodic/Chronic Cardiac dysrhythmias (4 sources) Palpitations; Translations: [PALPITATIONS] Onset: 02-21-2023 Episodic Epilepsy; convulsions (1 source) Unspecified convulsions; Translations: [Unspecified convulsions] Onset: 08-11-2024 Episodic Headache; including migraine (2 sources) Headache; Translations: [Nonintractable headache, unspecified chronicity pattern, unspecified headache type] 11-24-2024 Episodic Immunizations and screening for infectious disease (2 sources) Exposure to sexually transmissible disorder; Translations: [Contact with and (suspected) exposure to infections with a predominantly sexual mode of transmission] 12-22-2024 Episodic Menstrual disorders (1 source) Missed period; Translations: [Irregular menstruation, unspecified] 10-25-2024 Chronic Nonspecific chest pain (1 source) Chest pain, unspecified; Translations: [CHEST PAIN UNSPECIFIED] Onset: 02-25-2023 Episodic Other female genital disorders (2 sources) Vaginal discharge; Translations: [Other specified noninflammatory disorders of vagina] 12-22-2024 Episodic Other and delivery including normal (6 sources) ; Translations: [Encounter for supervision of normal , unspecified, unspecified trimester] 10-25-2024 Episodic Other screening for suspected conditions (not mental disorders or infectious disease) (2 sources) Patient encounter status; Translations: [Encounter for other specified screening] 12-22-2024 Episodic Residual codes; unclassified (2 sources) Gestation period, 15 weeks; Translations: [15 weeks gestation of ] 11-24-2024 Episodic Residual codes; unclassified (2 sources) Gestation period, 19 weeks; Translations: [19 weeks gestation of ] 12-22-2024 Episodic Substance-related disorders (1 source) Nicotine dependence, cigarettes, uncomplicated; Translations: [NICOTINE DEPEND CIGARETTES UNCOMP] Onset: 02-25-2023 Chronic Unclassified (1 source) Initial Visit Onset: 09-28-2024 Unclassified (1 source) wants referral to Neurologyfor seizures Onset: 08-11-2024 Past or Other Problems Problem Classification Problem Date Documented Da te Episodic/Chronic NEGATED: Highlighted row has been ruled out!Unclassified (8 sources) No known active problems 10-13-2023 Results Test Name Value Interpretation Reference Range Facil ity Urinalysis macro (dipstick) panel (U)on 12-22-2024 Bilirubin, UA Negative Negative - 4(70) +++ mg/dL [facility] Blood, UA Negative Negative - 50 Jonathan/mcL [facility] Clarity, UA Clear [facility] Color, UA Yellow [facility] Glucose, UA Negative Negative - 1999(110) ++++ mg/dL [facility] Interpretation and review of laboratory results Abnormal [facility] Ketones, UA Negative Negative - 160(16) ++++ mg/dL [facility] Leukocytes, UA Trace Negative - 500+++ Anoop/mcL [facility] Nitrite, UA Negative Negative - Positive [facility] pH, UA 6.5 5 - 9 [facility] Protein, UA Trace Negative - 1999(20) ++++ mg/dL [facility] Spec Grav, UA 1.025 1 - 1.03 [facility] Urobilinogen, UA 0.2 0.2 - 12 mg/dL [facility] Urinalysis macro (dipstick) panel (U)on 11-24-2024 Bilirubin, UA Negative Negative - 4(70) +++ mg/dL [facility] Blood, UA Negative Negative - 50 Jonathan/mcL [facility] Clarity, UA Clear [facility] Color, UA Yellow [facility] Glucose, UA Negative Negative - 1999(110) ++++ mg/dL [facility] Interpretation and review of laboratory results Abnormal [facility] Ketones, UA Negative Negative - 160(16) ++++ mg/dL [facility] Leukocytes, UA Trace Negative - 500+++ Anoop/mcL [facility] Healthcare Nitrite, UA Negative Negative - Positive [facility] Healthcare pH, UA 6 5 - 9 [facility] Protein, UA Negative Negative - 1999(20) ++++ mg/dL [facility] Healthcare Spec Grav, UA 1.02 1 - 1.03 [facility] Urobilinogen, UA 0.2 0.2 - 12 mg/dL [facility] BOX TESTon 11-13-2024 BOX TEST SENT OUT [facility] BOX1 [facility] BOX2 10/18/2024 [facility] BOX [facility] Urine Cultureon 11-13-2024 Bacteria identified Cx Nom (U) <9,000 colonies/ml mixed bacterial skin contaminants 2 Days PERFORMED BY: [place] [address] PATHOLOGIST PAPER CUP MACHINE TENDER VILMA NUNES M.D. Normal [facility] Comment on above: Performed By: #### C UU #### [address] HCG ( test) Ql (U)o n 10-25-2024 Interpretation and review of laboratory results Abnormal [facility] Preg Test, Ur Positive Negative [facility] Health care [facility] Urinalysis macro (dipstick) panel (U)on 10-25-2024 Bilirubin, UA Negative Negative - 4(70) +++ mg/dL [facility] Blood, UA Negative Negative - 50 Jonathan/mcL [facility] Clarity, UA Clear [facility] Healthia re Color, UA Yellow [facility] Healthcar e Glucose, UA Negative Negative - 1999(110) ++++ mg/dL [facility] Interpretation and review of laboratory results Normal [facility] Ketones, UA Negative Negative - 160(16) ++++ mg/dL [facility] Leukocytes, UA Negative Negative - 500+++ Anoop/mcL [facility] Healthcare Nitrite, UA Negative Negative - Positive [facility] pH, UA 7 5 - 9 [facility] Healthcar e Protein, UA Negative Negative - 1999(20) ++++ mg/dL [facility] Spec Grav, UA 1.025 1 - 1.03 [facility] Urobilinogen, UA 1.0 0.2 - 12 mg/dL [facility] XR FEMUR 2+ VW [...] 02-21-2023 BASO # 0.0 103/ul Normal 0.0-0.1 [facility] Comment on above: Performed By: #### C BC #### [facility] [address] [place] [address] Dr. Sol Flores Basophils/100 WBC (Bld) 0.4 % Normal 0.2-2.0 [facility] Comment on above: Performed By: #### C BC #### [facility] [address] [place] [address] Dr. Sol Flores EO # 0.0 103/ul Normal 0.0-0.7 [facility] Comment on above: Performed By: #### C BC #### [facility] [address] [place] [address] Dr. Sol Flores Eosinophils/100 WBC (Bld) 0.0 % Critically low 0.9-7.0 [facility] Comment on above: Performed By: #### C BC #### [facility] [address] [place] [address] Dr. Sol Flores Erythrocyte distribution width (RBC) [Ratio] 13.4 % Normal 11.0-15.0 [facility] Comment on above: Performed By: #### C BC #### [facility] [address] [place] [address] Dr. Sol Flores Hematocrit (Bld) [Volume fraction] 38.1 % Normal 36.0-48.0 [facility] Comment on above: Performed By: #### C BC #### [facility] [address] [place] [address] Dr. Sol Flores Hemoglobin (Bld) [Mass/Vol] 12.9 g/dL Normal 12.0-16.0 [facility] Comment on above: Performed By: #### C BC #### [facility] [address] [place] [address] Dr. Sol Flores IG # 0.02 10e3/ul Normal 0.00-0.03 [facility] Comment on above: Performed By: #### C BC #### [facility] [address] [place] [address] Dr. Sol Flores IG % 0.2 % Normal 0.0-0.5 [facility] Comment on above: Performed By: #### C BC #### [facility] [address] [place] [address] Dr. Sol Flores LYMPH # 2.2 103/ul Normal 1.2-3.8 [facility] Comment on above: Performed By: #### C BC #### [facility] [address] [place] [address] Dr. Sol Flores Lymphocytes/100 WBC (Bld) 26.7 % Normal 20.5-60.0 [facility] Comment on above: Performed By: #### C BC #### [facility] [address] [place] [address] Dr. Sol Flores MANUAL DIFF REQ NO Normal [facility] Comment on above: Performed By: #### C BC #### [facility] [address] [place] [address] Dr. Sol Flores MCH (RBC) [Entitic mass] 28.9 pg Normal 26.7-34.0 [facility] Comment on above: Performed By: #### C BC #### [facility] [address] [place] [address] Dr. Sol Flores MCHC (RBC) [Mass/Vol] 33.9 g/dL Normal 29.9-35.2 [facility] Comment on above: Performed By: #### C BC #### [facility] [address] [place] [address] Dr. Sol Flores MCV (RBC) [Entitic vol] 85.2 fL Normal 81.0-99.0 [facility] Comment on above: Performed By: #### C BC #### [facility] [address] [place] [address] Dr. Sol Flores MONO # 0.6 103/ul Normal 0.3-0.8 [facility] Comment on above: Performed By: #### C BC #### [facility] [address] [place] [address] Dr. Sol Flores Monocytes/100 WBC (Bld) 7.4 % Normal 1.7-12.0 [facility] Comment on above: Performed By: #### C BC #### [facility] [address] [place] [address] Dr. Sol Flores NEUT # 5.3 103/ul Normal 1.4-6.5 [facility] Comment on above: Performed By: #### C BC #### [facility] [address] [place] [address] Dr. Sol Flores Neutrophils/100 WBC (Bld) 65.3 % Normal 43.0-75.0 [facility] Comment on above: Performed By: #### C BC #### [facility] [address] [place] [address] Dr. Sol Flores Platelet mean volume (Bld) [Entitic vol] 10.3 fL Normal 9.5-13.5 [facility] Comment on above: Performed By: #### C BC #### [facility] [address] [place] [address] Dr. Sol Flores PLT 225 103/ul Normal 150-450 [facility] Comment on above: Performed By: #### C BC #### [facility] [address] [place] [address] Dr. Sol Flores RBC 4.47 106/ul Normal 4.20-5.40 [facility] Comment on above: Performed By: #### C BC #### [facility] [address] [place] [address] Dr. Sol Flores WBC 8.1 103/ul Normal 4.0-11.0 [facility] Comment on above: Performed By: #### C BC #### [facility] [address] [address] [address] Sol Flores D-DIMERon 02-21-2023 D-DIMER 0.33 mg/L FEU Normal <=0.59 [facility] Comment on above: Performed By: #### D DIM, PT, PTT #### [facility] [address] [address] [address] Sol Flores D-DIMER COMMENTS SEE BELOW Normal [facility] Comment on above: Result Comment: Incr [...] By: #### D DIM, PT, PTT #### [facility] [address] [place] [address] Dr. Sol Flores PREG HCG QUALon 02-21-2023 , QUAL Negative Normal NEGATIVE [facility] Comment on above: Performed By: #### P REG #### [facility] [address] [place] [address] Dr. Sol Flores PROF 14(COMP METB)on 023 Albumin [Mass/Vol] 3.9 g/dL Normal 3.4-5.0 [facility] Comment on above: Performed By: #### H STROPN, TSH, CMP #### [facility] [address] [address] [address] Sol Flores Albumin/Globulin [Mass ratio] 1.1 {ratio} Normal [facility] Comment on above: Performed By: #### H STROPN, TSH, CMP #### [facility] [address] [address] [address] Sol Flores ALP [Catalytic activity/Vol] 90 U/L Normal 46-116 [facility] Comment on above: Performed By: #### H STROPN, TSH, CMP #### [facility] [address] [address] [address] Sol Flores ALT [Catalytic activity/Vol] 19 U/L Normal 14-59 [facility] Comment on above: Performed By: #### H STROPN, TSH, CMP #### [facility] [address] [address] [address] Sol Flores Anion gap [Moles/Vol] 13.3 mmol/L Normal [facility] Comment on above: Performed By: #### H STROPN, TSH, CMP #### [facility] [address] [address] [address] Sol Flores AST [Catalytic activity/Vol] 16 U/L Normal 15-37 [facility] Comment on above: Performed By: #### H STROPN, TSH, CMP #### [facility] [address] [place] [address] Dr. Sol Flores Bilirubin [Mass/Vol] 0.2 mg/dL Normal 0.2-1.0 [facility] Comment on above: Performed By: #### H STROPN, TSH, CMP #### [facility] [address] [address] [address] Sol Flores Calcium [Mass/Vol] 8.8 mg/dL Normal 8.5-10.1 [facility] Comment on above: Performed By: #### H STROPN, TSH, CMP #### [facility] [address] [address] [address] Sol Flores Chloride [Moles/Vol] 105 mmol/L Normal 98-107 [facility] Comment on above: Performed By: #### H STROPN, TSH, CMP #### [facility] [address] [address] [address] Sol Flores CO2 [Moles/Vol] 24.5 mmol/L Normal 21.0-32.0 [facility] Comment on above: Performed By: #### H STROPN, TSH, CMP #### [facility] [address] [address] [address] Sol Flores Creatinine [Mass/Vol] 0.79 mg/dL Normal 0.55-1.02 [facility] Comment on above: Performed By: #### H STROPN, TSH, CMP #### [facility] [address] [address] [address] Sol Flores EGFR-AF BAHAMIAN >60 Normal >=60 [facility] Comment on above: Performed By: #### H STROPN, TSH, CMP #### [facility] [address] [address] [address] Sol Flores EGFR-NON AF BAHAMIAN >60 Normal >=60 [facility] Comment on above: Performed By: #### H STROPN, TSH, CMP #### [facility] [address] [address] [address] Sol Flores Globulin (S) [Mass/Vol] 3.5 g/dL Normal [facility] Comment on above: Performed By: #### H STROPN, TSH, CMP #### [facility] [address] [place] [address] Dr. Sol Flores Glucose [Mass/Vol] 102 mg/dL Normal 74-106 [facility] Comment on above: Performed By: #### H STROPN, TSH, CMP #### [facility] [address] [place] [address] Dr. Sol Flores Potassium [Moles/Vol] 3.8 mmol/L Normal 3.5-5.1 [facility] Comment on above: Performed By: #### H STROPN, TSH, CMP #### [facility] [address] [place] [address] Dr. Sol Flores Protein [Mass/Vol] 7.4 g/dL Normal 6.4-8.2 [facility] Comment on above: Performed By: #### H STROPN, TSH, CMP #### [facility] [address] [place] [address] Dr. Sol Flores Sodium [Moles/Vol] 139 mmol/L Normal 136-145 [facility] Comment on above: Performed By: #### H STROPN, TSH, CMP #### [facility] [address] [place] [address] Dr. Sol Flores Urea nitrogen [Mass/Vol] 9.0 mg/dL Normal 7.0-18.0 [facility] Comment on above: Performed By: #### H STROPN, TSH, CMP #### [facility] [address] [address] [address] Sol Flores Urea nitrogen/Creatinine [Mass ratio] 11.4 mg/mg Normal [facility] Comment on above: Performed By: #### H STROPN, TSH, CMP #### [facility] [address] [address] [address] Sol Flores PROTIMEon 02-21-2023 INR Coag (PPP) [Relative time] 0.98 {INR} Normal [facility] Comment on above: Performed By: #### D DIM, PT, PTT #### [facility] [address] [place] [address] Dr. Sol Flores INR GUIDELINES SEE BELOW Normal [facility] Comment on above: Result Comment: LAWRENCE RED INR: 2.0 - 3.0 CONDITIONS NOT LISTED BELOW 2.5 - 3.5 FOR PROSTHETIC HEART VALVE REPLACEMENT 2.5 - 3.5 RECURRENT THROMBOSIS Performed By: #### D DIM, PT, PTT #### [facility] [address] [place] [address] Dr. Sol Flores PT Coag (PPP) [Time] 10.4 s Normal 9.0-11.6 [facility] Comment on above: Performed By: #### D DIM, PT, PTT #### [facility] [address] [place] [address] Dr. Sol Flores PTTon 02-21-2023 aPTT Coag (Bld) [Time] 29.4 s Normal 22.3-36.2 [facility] Comment on above: Performed By: #### D DIM, PT, PTT #### [facility] [address] [place] [address] Dr. Sol Flores TROPONIN, HIGH SENSITIVITYon 02-21-2023 HSTROP <4.0 Normal 4.0-51.3 [facility] Comment on above: Result Comment: CUT- OFF POINTS HAVE BEEN ESTABLISHED BASED ON THE FOURTH UNIVERSAL DEFINITIONS OF MYOCARDIAL INFARCTION. THE UPPER REFERENCE LIMIT (URL) OF TROPONIN, DEFINED THE 99TH PERCENTILE OF cTnI DISTRIBUTION IN A REFERENCE POPULATION, HAS BEEN CONFIRMED THE DECISION THRESHOLD FOR [place] DIAGNOSIS. Performed By: #### H GENESIS, TSH, CMP #### [facility] [address] [place], [place] [address] Dr. Sol Flores TSHon 02-21-2023 TSH 1.985 uIU/mL Normal 0.358-3.740 [facility] Comment on above: Performed By: #### H GENESIS, TSH, CMP #### [facility] [address] [place], [place] [address] Dr. Sol Flores XR CHEST 1 Von [...] FAITH NUÑEZ Date: 2023-02-21 15:33 Normal [facility] Gyne[facility] Office/Clinic Not [place] 10-30-2020 Gynecology [...] w/concerns. Ordered: , Serum, Test Qual w/Reflex CG Quant Problem List/Past Medical History Ongoing Anxiety [...] by Myriam Bean 10/30/20 15:04 EST Normal [facility] OR Trackon 10-30-2020 Pl Red # 1 [facility] Comment on above: Performed By: #### O filippo Tracking Order #### [address] [address] S Preg Rflx [facility] 0 Serum Preg Negative [facility] Comment on above: Result Comment: The hCG Combo Rapid Test has a sensitivity of 10 mIU/mL in serum and is capable of detecting as early as 1 day after the first missed menses. Performed By: #### C [id number] #### [address] [address] Vital Signs Date Time Vital Sign Value Performing Clinician Chris monaco 12-22-2024 11:36-0500 Body mass index (BMI) [Ratio] 22.26 kg/m2 Yvette TABOR Work Phone: [facility] 12-22-2024 11:36-0500 Body weight 64.47 kg Yvette TABOR Work Phone: [facility] 12-22-2024 11:36-0500 Diastolic blood pressure 48 mm[Hg] Yvette TABOR Work Phone: [facility] 12-22-2024 11:36-0500 Systolic blood pressure 98 mm[Hg] Yvette TABOR Work Phone: [facility] 11-24-2024 16:03-0500 Body mass index (BMI) [Ratio] 21.21 kg/m2 Brandy Momin DO Work Phone: [facility] 11-24-2024 16:03-0500 Body weight 61.42 kg Brandy Merrill DO Work Phone: [facility] 11-24-2024 16:03-0500 Diastolic blood pressure 60 mm[Hg] Brandy Merrill DO Work Phone: [facility] 11-24-2024 16:03-0500 Systolic blood pressure 100 mm[Hg] Brandy Merrill DO Work Phone: [facility] 10-25-2024 11:03-0500 Body mass index (BMI) [Ratio] 20.67 kg/m2 [facility] Nurse [facility] 10-25-2024 11:03-0500 Body weight 59.[address] [facility] Nurse [facility] Healthcare Encounters Encounter Date Encounter Type Care Provider Facility Start: 12-22-2024 End: 12-22-2024 Bamboo flowsheet Yvette TABOR Work Phone: [facility] Start: 12-22-2024 End: 12-22-2024 Bamboo flowsheet Yvette TABOR Work Phone: [facility] Start: 12-22-2024 End: 12-22-2024 Patient encounter procedure Yvette TABOR Work Phone: [facility] Start: 12-22-2024 End: 12-22-2024 Periodic preventive med est patient 18-39 yrs Yvette TABOR Work Phone: [facility] Comment on above: Second trimester pre gnancy; 19 weeks gestation of ; Screening, , for anatomic survey; Well woman exam with routine gynecological exam; STD exposure; Vaginal discharge Start: 11-24-2024 End: 11-24-2024 ambulatory BRANDY MERRILL Not Available Start: 11-24-2024 End: 11-24-2024 flow sheet Brandy Merrill DO Work Phone: [facility] Comment on above: 15 weeks gestation o f ; Second trimester ; Nonintractable headache, unspecified chronicity pattern, unspecified headache type Start: 11-24-2024 End: 11-24-2024 Bamboo flowsheet Brandy Merrill DO Work Phone: [facility] Start: 11-24-2024 End: 11-24-2024 Bamboo flowsheet Brandy Merrill DO Work Phone: [facility] Start: 11-13-2024 End: 11-13-2024 ambulatory [facility] Facility:[facility] Start: 11-13-2024 End: 11-13-2024 Clinisync Result Encounter Brandy Merrill DO Work Phone: [facility] External Department Unsolicited Start: 11-13-2024 End: 11-13-2024 Clinisync Result Encounter Brandy Merrill DO Work Phone: [facility] Unsolicited Start: 10-25-2024 End: 10-25-2024 ambulatory GUILLERMO WING Not Available Start: 10-25-2024 End: 10-25-2024 Office outpatient visit 5 minutes [facility] Merrill Nurse [facility] Comment on above: GA: 11w1d Start: 09-28-2024 [facility] Start: 08-11-2024 End: 08-11-2024 ambulatory [facility] Start: 06-29-2024 End: 06-29-2024 ambulatory GUILLERMO WING Not Available Start: 06-15-2024 End: 06-15-2024 ambulatory GUILLERMO WING Not Available Start: 06-10-2024 End: 06-10-2024 ambulatory GUILLERMO WING Not Available Start: 02-21-2023 End: 02-21-2023 ambulatory CHRISTINE SALVADOR Facility:[facility]1 Procedures Date Procedure Procedure Detail Performing Clinician Start: 12-22-2024 Urnls dip stick/tabl et rgnt non-auto w/o micrscp Yvette Decker PA Work Phone: Start: 11-24-2024 Urnls dip stick/tabl et rgnt non-auto w/o micrscp Brandy Merrill DO Work Phone: Start: 11-13-2024 BOX TEST Brandy Fazi o DO Work Phone: Start: 10-25-2024 End: 10-25-2024 Urnls dip stick/tablet rgnt non-auto w/o micrscp Brandy Merrill DO Work Phone: Plan of Treatment Date Care Activity Detail Author Start: 01-18-2025 End: 01-18-2025 Patient encounter procedure 01/18/2025 8:40 AM EST Routine [facility] [address] [place] [phone] Brandy Momin, DO [facility] [place] [address] [facility] Start: 12-30-2024 End: 12-30-2024 Professional / ancillary services management 12/30/2024 2:30 PM EST Ancillary Procedure [facility] [address] [place] [phone] [facility] Start: 12-22-2024 End: 12-22-2025 US for US OB 14+ weeks anatomy scan Imaging Routine Screening, , for anatomic survey Expected: 12/22/2024, Expires: 12/22/2025 [facility] Work Phone: Comment on above: Expected: 12/22/2024 , Expires: 12/22/2025 Start: 12-22-2024 End: 12-22-2024 Patient encounter procedure 12/22/2024 11:20 AM EST Routine [facility] [address] [place] [phone] Yvette Decker PA [address] [place] [address] [facility] Start: 11-24-2024 End: 11-24-2024 Patient encounter procedure 11/24/2024 3:10 PM EST Routine [facility] [address] [place] [phone] Brandy Momin, [address] [place] [address] [facility] Start: 11-24-2024 End: 12-25-2024 Alpha fetoprotein, maternal Alpha fetoprotein, maternal Lab Routine 15 weeks gestation of Second trimester Expected: 11/24/2024 (Approximate), Expires: 12/25/2024 [facility] Work Phone: Comment on above: Expected: 11/24/2024 (Approximate), Expires: 12/25/2024 Start: 10-25-2024 End: 10-25-2025 ABO/Rh ABO/Rh Lab Routine Missed menses , unspecified gestational age Expected: 10/25/2024 (Approximate), Expires: 10/25/2025 [facility] Comment on above: Expected: 10/25/2024 (Approximate), Expires: 10/25/2025 Start: 10-25-2024 End: 10-25-2025 Blood type and Indirect antibody screen panel - Blood Type and screen Lab Routine Missed menses , unspecified gestational age Expected: 10/25/2024 (Approximate), Expires: 10/25/2025 [facility] Work Phone: Comment on above: Expected: 10/25/2024 (Approximate), Expires: 10/25/2025 Start: 10-25-2024 End: 10-25-2025 Drugs of abuse panel - Urine by Screen method Rapid drug screen, urine Lab Routine , unspecified gestational age Encounter for supervision of normal first in first trimester Expected: 10/25/2024 (Approximate), Expires: 10/25/2025 [facility] Comment on above: Expected: 10/25/2024 (Approximate), Expires: 10/25/2025 Start: 10-25-2024 End: 10-25-2025 US Pelvis transvaginal US OB transvaginal Imaging Routine Missed menses Expected: 10/25/2024 (Approximate), Expires: 10/25/2025 [facility] Comment on above: Expected: 10/25/2024 (Approximate), Expires: 10/25/2025 Bacteria identified in Urine by Culture Urine culture Microbiology Routine Missed menses Ordered: 10/25/2024 [facility] Comment on above: Ordered: 10/25/2024 CBC W Auto Different ial panel - Blood CBC and differential Lab Routine Missed menses , unspecified gestational age Ordered: 10/25/2024 [facility] Comment on above: Ordered: 10/25/2024 CHLAMYDIA TRACHOMATI S (GENITO/STI) CHLAMYDIA TRACHOMATIS (GENITO/STI) Lab Routine STD exposure Vaginal discharge Ordered: 12/22/2024 [facility] Comment on above: Ordered: 12/22/2024 Cytology Cervical or vaginal smear or scraping study Pap Smear Pathology and Cytology Routine Well woman exam with routine gynecological exam Ordered: 12/22/2024 [facility] Comment on above: Ordered: 12/22/2024 Hemoglobin A1c/Hemoglobin.total in Blood Hemoglobin A1c Lab Routine Missed menses , unspecified gestational age Ordered: 10/25/2024 [facility] Comment on above: Ordered: 10/25/2024 Hepatitis B virus surface Ag [Presence] in Serum or Plasma by Immunoassay Hepatitis B surface antigen Lab Routine Missed menses , unspecified gestational age Ordered: 10/25/2024 [facility] Comment on above: Ordered: 10/25/2024 Hepatitis C virus Ab [Presence] in Serum or Plasma by Immunoassay Hepatitis C antibody Lab Routine Missed menses , unspecified gestational age Ordered: 10/25/2024 [facility] Comment on above: Ordered: 10/25/2024 HIV-1/HIV-2 antigen/antibody combination immunoassay HIV-1 and HIV-2 antibodies Lab Routine Missed menses , unspecified gestational age Ordered: 10/25/2024 [facility] Comment on above: Ordered: 10/25/2024 Neisseria gonorrhoea e DNA [Presence] in Unspecified specimen by NELDA with probe detection Neisseria gonorrhea DNA probe, direct Lab Routine STD exposure Vaginal discharge Ordered: 12/22/2024 [facility] Comment on above: Ordered: 12/22/2024 Reagin Ab [Presence] in Serum by RPR RPR Lab Routine Missed menses , unspecified gestational age Ordered: 10/25/2024 [facility] Comment on above: Ordered: 10/25/2024 Rubella antibody, IgG Rubella an tibody, IgG Lab Routine Missed menses , unspecified gestational age Ordered: 10/25/2024 [facility] Comment on above: Ordered: 10/25/2024 SURESWAB(R) ADVANCED VAGINITIS PLUS, TMA SURESWAB(R) ADVANCED VAGINITIS PLUS, TMA Pathology and Cytology Routine STD exposure Vaginal discharge Ordered: 12/22/2024 [facility] Comment on above: Ordered: 12/22/2024 Payers Date Payer Category Payer Self-pay 2024 Worker's Compensation [facility] [id number] 2024 Unknown [id number] 2024 Unknown [id number] 2020 Private Health Insurance [facility] [id number] 2001 Unknown [id number] 2.16.840.1.204927.3.579. 2.593 2001 Unknown [id number] 2.16.840.1.301289.3.579. 2.6 2001 Unknown [id number] 2.16.840.1.367859.3.579. 2.1286 2001 Unknown [id number] 2.16.840.1.947931.3.579. 2.1258 2001 Unknown [id number] 2.16.840.1.623293.3.579. 2.1258 2001 Unknown [id number] 2.16.840.1.668204.3.579. 2.1258 2001 Unknown [id number] 2.16.840.1.596172.3.579. 2.1258 2001 Unknown [id number] 2.16.840.1.745366.3.579. 2.1258 2001 Unknown [id number] 2.16.840.1.177003.3.579. 2.1258 2001 Unknown [id number] 2.16.840.1.635622.3.579. 2.1258 2001 Unknown [id number] 2.16.840.1.512387.3.579. 2.1258 2001 Unknown [id number] 2.16.840.1.363152.3.579. 2.1258 2001 Unknown [id number] 2.16.840.1.429739.3.579. 2.1258 2001 Unknown [id number] 2.16.840.1.860062.3.579. 2.1258 2001 Unknown [id number] 2.16.840.1.727462.3.579. 2.9 1959 Private Health Insurance [id number] Unknown [id number] 2.16.840.1.989818.3.579. 2.531 Social History Date Type Detail Facility Start: 10-13-2023 Tobacco smoking stat [facility] Tobacco smoking consumption unknown [facility] Start: 10-25-2024 Alcoholic beverage intake Current drinker of alcohol (finding) [facility] Start: 06-15-2024 End: 10-25-2024 Alcoholic beverage intake [facility] Start: 06-15-2024 Tobacco use panel [facility] Start: 08-22-2024 [facility] Start: 2001 Sex assigned at Not on file [facility] NEGATED: Highlighted rowStart: NINF History of tobacco use Passive smoker [facility] History of Present illness Narrative 12-22-2024 SHARONA Jasmine - 12/22/2024 11:20 AM EST Note Date & Type Note Facility 12-22-2024 History of Presen t illness Narrative Reason for Appointment: Patient ID: Megha Khalil is a 24 y.o. female who presents for Routine Visit Patient presents today for Return OB appointment. MEDICATIONS Current Outpatient Medications Medication Instructions magnesium oxide (MAG-OX) 400 mg, Oral, Daily Vit w/Fb-Pfqlvhjit-LH (PNV PO) Oral ALLERGIES Allergies Allergen Reactions Penicillins Hives Sumatriptan Swelling PROBLEMS Active Ambulatory Problems Diagnosis Date Noted No Active Ambulatory Problems Resolved Ambulatory Problems Diagnosis Date Noted No Resolved Ambulatory Problems No Additional Past Medical History HISTORY PAST MEDICAL HISTORY SOCIAL HISTORY No past medical history on file. Social History Tobacco Use Smoking status: Unknown Passive exposure: Never Smokeless tobacco: Not on file Vaping Use Vaping status: Unknown Substance Use Topics Alcohol use: Yes Alcohol/week: 1.0 standard drink of alcohol Types: 1 Shots of liquor per week Drug use: Defer FAMILY HISTORY Family History Family history unknown: Yes SURGICAL HISTORY No past surgical history on file. REVIEW OF SYSTEMS Review of Systems: Review of Systems Constitutional: Negative. HENT: Negative. Eyes: Negative. Respiratory: Negative. Cardiovascular: Negative. Gastrointestinal: Negative. Genitourinary: Negative. Musculoskeletal: Negative. Skin: Negative. Neurological: Negative. All other systems reviewed and are negative. Hematological: Negative. Endocrine: Negative. Allergic/Immunologic: Negative. OBJECTIVE Objective: Physical Exam Constitutional: Appearance: Normal appearance. She is well-developed. Genitourinary: Vulva normal. Genitourinary Comments: Declined exam Right Adnexa: not tender and no mass present. Left Adnexa: not tender and no mass present. No cervical discharge. HENT: Head: Normocephalic. Nose: Nose normal. Mouth/Throat: Mouth: Mucous membranes are moist. Cardiovascular: Rate and Rhythm: Normal rate and regular rhythm. Pulmonary: Effort: Pulmonary effort is normal. Breath sounds: Normal breath sounds. Abdominal: General: Bowel sounds are normal. There is no distension. Palpations: Abdomen is soft. Tenderness: There is no abdominal tenderness. There is no guarding or rebound. Musculoskeletal: General: No swelling. Normal range of motion. Cervical back: Normal range of motion. Right lower leg: No edema. Left lower leg: No edema. Neurological: General: No focal deficit present. Mental Status: She is alert and oriented to person, place, and time. Skin: General: Skin is warm and dry. Psychiatric: Mood and Affect: Mood normal. Behavior: Behavior normal. Vitals and nursing note reviewed. Exam conducted with a enterprise software developer present. Vitals: Estimated body mass index is 22.26 kg/m as calculated from the following: Height as of 10/13/23: 5' 7 . Weight as of this encounter: 142 lb 1.9 oz. BP: (!) 98/48 Patient's last menstrual period was 08/08/2024. ASSESSMENT & PLAN ICD-10-CM 1. Second trimester Z34.92 POCT urinalysis dipstick manually resulted 2. 19 weeks gestation of Z3A.19 3. Screening, , for anatomic survey Z36.89 US OB 14+ weeks anatomy scan 4. Well woman exam with routine gynecological exam Z01.419 Pap Smear 5. STD exposure Z20.2 SURESWAB(R) ADVANCED VAGINITIS PLUS, TMA CHLAMYDIA TRACHOMATIS (GENITO/STI) Neisseria gonorrhea DNA probe, direct 6. Vaginal discharge N89.8 SURESWAB(R) ADVANCED VAGINITIS PLUS, TMA CHLAMYDIA TRACHOMATIS (GENITO/STI) Neisseria gonorrhea DNA probe, direct Return OB/Annual Exam: Patient presents today for an annual exam/routine obstetrics appointment. Patient is currently 19w3d . Patient is doing well and states she has no complaints. Pap/cultures was obtained without difficulty and patient was given anatomy scan order to have obtained. Orders Placed This Encounter Procedures US OB 14+ weeks anatomy scan CHLAMYDIA TRACHOMATIS (GENITO/STI) Neisseria gonorrhea DNA probe, direct POCT urinalysis dipstick manually resulted Follow Up: Patient is to return to our office in 4 weeks for routine OB appointment Documented by Izzy Crow MA on behalf of: SHARONA Jasmine documented in this encounter [facility] History of Present illness Narrative 11-24-2024 Yoli Seay, YUNG - 11/24/2024 3:10 PM EST Note Date & Type Note Facility 11-24-2024 History of Presen t illness Narrative Reason for Appointment: Patient ID: Megha Khalil is a 24 y.o. female who presents for Routine Visit Patient presents today for Return OB appointment. MEDICATIONS Current Outpatient Medications Medication Instructions magnesium oxide (MAG-OX) 400 mg, Oral, Daily Vit w/Dc-Hvhykruek-GV (PNV PO) Oral ALLERGIES Allergies Allergen Reactions Penicillins Hives Sumatriptan Swelling PROBLEMS Active Ambulatory Problems Diagnosis Date Noted No Active Ambulatory Problems Resolved Ambulatory Problems Diagnosis Date Noted No Resolved Ambulatory Problems No Additional Past Medical History HISTORY PAST MEDICAL HISTORY SOCIAL HISTORY No past medical history on file. Social History Tobacco Use Smoking status: Unknown Passive exposure: Never Smokeless tobacco: Not on file Vaping Use Vaping status: Unknown Substance Use Topics Alcohol use: Yes Alcohol/week: 1.0 standard drink of alcohol Types: 1 Shots of liquor per week Drug use: Defer FAMILY HISTORY Family History Family history unknown: Yes SURGICAL HISTORY No past surgical history on file. REVIEW OF SYSTEMS Review of Systems: Review of Systems Constitutional: Negative. HENT: Negative. Eyes: Negative. Respiratory: Negative. Cardiovascular: Negative. Gastrointestinal: Negative. Genitourinary: Negative. Musculoskeletal: Negative. Skin: Negative. Neurological: Negative. All other systems reviewed and are negative. Hematological: Negative. Endocrine: Negative. Allergic/Immunologic: Negative. OBJECTIVE Objective: Physical Exam Constitutional: Appearance: Normal appearance. She is well-developed. Cardiovascular: Rate and Rhythm: Normal rate and regular rhythm. Pulmonary: Effort: Pulmonary effort is normal. Breath sounds: Normal breath sounds. Abdominal: General: Bowel sounds are normal. There is no distension. Palpations: Abdomen is soft. Tenderness: There is no abdominal tenderness. There is no guarding or rebound. Musculoskeletal: General: No swelling. Normal range of motion. Right lower leg: No edema. Left lower leg: No edema. Neurological: Mental Status: She is alert and oriented to person, place, and time. Skin: General: Skin is warm and dry. Psychiatric: Mood and Affect: Mood normal. Behavior: Behavior normal. Vitals and nursing note reviewed. Exam conducted with a enterprise software developer present. Vitals: Estimated body mass index is 21.21 kg/m as calculated from the following: Height as of 10/13/23: 5' 7 . Weight as of this encounter: 135 lb 6.4 oz. BP: 100/60 Patient's last menstrual period was 08/08/2024. ASSESSMENT & PLAN ICD-10-CM 1. 15 weeks gestation of Z3A.15 POCT urinalysis dipstick manually resulted Alpha fetoprotein, maternal Alpha fetoprotein, maternal 2. Second trimester Z34.92 POCT urinalysis dipstick manually resulted Alpha fetoprotein, maternal Alpha fetoprotein, maternal 3. Nonintractable headache, unspecified chronicity pattern, unspecified headache type R51.9 magnesium oxide (Mag-Ox) 400 MG tablet New OB: Patient presents today for 1st time obstetrics appointment with provider. Patient is currently 15w3d . Patients history has been reviewed in great detail including any potential risks. Patient stated she currently has no complaints. Expectations throughout regarding labs, ultrasounds, and appointments have been discussed with the patient in detail. It was reiterated that the patient is to drink 6-8 glasses of water a day, eat 6 small meals a day, do not consume raw or undercooked meat, and stay away from [facility]. Patient has been consulted regarding any further do's and don'ts of . Patient voiced understanding and all questions and concerns were answered. 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 Pt having headaches, rx for magnesium faxed to pharmacy. Orders Placed This Encounter Procedures Alpha fetoprotein, maternal POCT urinalysis dipstick manually resulted Follow Up: Patient is to return in 4 weeks for routine OB appointment. Documented by Yoli Seay LPN on behalf of: Brandy Momin DO documented in this encounter [facility] History of Present illness Narrative 10-25-2024 Adriane Meeks LPN - 10/25/2024 10:00 AM EST Note Date [...] list which includes the following prescription(s): vit w/[id number]. Medical History: Active Ambulatory Problems Diagnosis Date [...] or undercooked meat, and stay away from [facility]. Patient has also been advised to not [...] trimester documented in this encounter [facility] Evaluation note Note Date & Type Note Facility Evaluation note Diagnosis 15 weeks gestation of Second trimester state, incidental Nonintractable headache, unspecified chronicity pattern, unspecified headache type documented in this encounter [facility] Evaluation note Note Date & Type Note Facility Evaluation note Diagnosis Second trimester state, incidental 19 weeks gestation of Screening, , for anatomic survey Encounter for anatomic survey Well woman exam with routine gynecological exam Routine gynecological examination STD exposure Vaginal discharge Leukorrhea, not specified as infective documented in this encounter [facility] Summary [...] section and content) DATE CREATED AUTHOR 10/31/2020 [facility] DATE CREATED AUTHOR AUTHOR'S ORGANIZ ATION 03/15/2023 [facility] DATE CREATED AUTHOR AUTHOR'S ORGANIZ ATION 09/30/2024 [facility] DATE CREATED AUTHOR AUTHOR'S ORGANIZ ATION 11/17/2024 [facility] DATE CREATED AUTHOR AUTHOR'S ORGANIZ ATION 11/30/2024 [facility] EPIC Reason for Visit (unrecogniz ed section and content) Reason Comments Amenorrhea Reason Comments Routine Visit Care Teams (unrecognized sec tion and content) [employer] Analyst Relationship Specialty Start Date End Date Mariel Caballero MD [address] [place] [address], [address] [place] [address] PCP - General Family Medicine 09/26/23 [employer] Relationship Specialty Start Date End Date Mariel Caballero MD [address] [place] [address], [address] [place] [address] PCP - General Family Medicine 09/26/23 [employer]st Relationship Specialty Start Date End Date Mariel Caballero MD [address] [place] [address], [address] [place] [address] PCP - General Family Medicine 09/26/23 [employer]st Relationship Specialty Start Date End Date Mariel aCballero MD [address] [place] [address], [address] [place] [address] PCP - General Family Medicine 09/26/23 [employer]st Relationship Specialty Start Date End Date Mariel Caballero MD [address] [place] [address], [address] [place] [address] PCP - General Family Medicine 09/26/23 [employer]st Relationship Specialty Start Date End Date Mariel Caballero MD [address] [place] [address], [address] [place] [address] PCP - General Family Medicine 09/26/23 FOR [...] BE BASED ON THE PRIMARY CLINICAL RECORDS. [facility] [employer] [facility]. provides no warranty or guarantee of the accuracy or completeness of information in this document.
[2024-12-28 18:07] LABS: Age Gdln ACOG Testing Note (.); IGP, rfx Aptima HPV ASCU Note (.)
== END 2024-12-22 20:27 | disposition home or self-care (01) ==
LOC: LAB 20:26
PROVIDERS: PCP Internal Medicine; Visit Provider Physician Assistant
DX: Z01.419 Encounter for gynecological examination (general) (routine) without abnormal findings (principal)
CPT/HCPCS: 88175

== ENCOUNTER 2025-01-15 11:16 | Outpatient (OUT) | payer OTHER, SELFPAY ==
--- OUTSIDE RECORDS SUMMARY | 2025-01-15 11:19 | XMS_ITS | CCD ---
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 Name Role Phone CHRISTINE SALVADOR Admitting Unavailable CHRISTINE SALVADOR Attending Unavailable DR FAITH NUÑEZ Consulting Unavailable FEDERICO, DR MARIEL Quinn Primary Care Unavailable OBDULIO ., SHARONA BROWER Consulting UnavailMARIEL Stewart Attending Unavailable MARIEL CABALLERO Referring Unavailable MARIEL CABALLERO Primary Care Unavailable DORINDA MORENO Attending Unavailable MARIEL CABALLERO Referring Unavailable MARIEL CABALLERO Primary Care Unavailable Mariel Caballero MD Primary Care Provider YVETTE CHAMBERS Attending Unavailable GUILLERMO WING Attending Unavailable GUILLERMO IWNG Attending Unavailable GUILLERMO WING Referring Unavailable GUILLERMO WING Attending Unavailable BRANDY MOMIN Attending Unavailable Mariel Caballero Admitting Unavailable Mariel Caballero Attending Unavailable Mariel Caballero MD Primary Care Provider Allergies Allergy Classification Reported Allergen(s) Allergy Type Date of Onset Reaction(s) Facility (2 sources) Amoxicillin; Translations: [AMOXICILLIN] Drug Allergy 8 [facility] Repository (2 sources) SUMAtriptan; Translations: [SUMATRIPTAN] Drug Allergy 2 [facility] Repository (13 sources) Penicillins; Translations: [PENICILLINS] Propensity to adverse reactions to drug (disorder) 8 [facility] Repository (11 sources) SUMAtriptan Drug Allergy 2 [facility] (1 source) SUMAtriptan Drug Allergy 3 [facility] Repository (1 source) Amoxicillin Drug Allergy 8 [facility] Medications Current Medications Medication Drug Class(es) Dates Sig (Normalized) Sig (Original) magnesium oxide 400 mg oral tablet (6 sources) Start: 5 End: 5 take 1 tablet by mouth once daily magnesium oxide (Mag-Ox) 400 MG tablet Indications: Nonintractable headache, unspecified chronicity pattern, unspecified headache type Take 1 tablet (400 mg) by mouth Daily 30 tablet 6 11/24/2024 12/24/2024 Active methylPREDNISolone (1 source) Corticosteroid Start: 4 End: 4 methylPREDNISolone (Medrol Dospak) 4 MG tablets Indications: Muscle strain of left thigh, initial encounter As directed 21 tablet 06/10/2024 10/25/2024 Discontinued (Other) Vit w/Ha-Bnubyotcg-TT (PNV PO) (10 sources) Vit w/Yg-Bqgafrpjq-HH (PNV PO) Take by mouth Active Problems Active Problems Problem Classification Problem Date Documented Date Episodic/Chronic Cardiac dysrhythmias (4 sources) Palpitations; Translations: [PALPITATIONS] Onset: 02-21-2023 Episodic Epilepsy; convulsions (2 sources) Unspecified convulsions; Translations: [Neurological finding] Onset: 08-11-2024 08-11-2024 Episodic Headache; including migraine (2 sources) [...] Classification Problem Date Documented Da te Episodic/Chronic Mood disorders (1 source) Mood disorders Onset: 05-05-2023 05-05-2023 NEGATED: Highlighted row has been ruled out!Unclassified (10 sources) No known active problems 10-13-2023 Results Test Name Value Interpretation Reference Range Facility US OB 14+ WEEKS ANATOMY SCAN on 12-30-2024 US OB 14+ WEEKS ANATOMY SCAN EXAM: US OB 14+ WEEKS ANATOMY SCAN HISTORY: anatomy. TECHNIQUE: Two-dimensional transabdominal grayscale ultrasound imaging of the pelvis was performed. FINDINGS: Gestation: Single Presentation: Variable Cardiac Activity: 153 beats per minute Placental Location: Fundal with no sonographic abnormalities identified. Cervical Length: 4.8 cm Amniotic Fluid: Appears adequate MEASUREMENTS: BPD: 4.8 cm EGA: 20 weeks 3 days HC: 17.7 cm EGA: 20 weeks 1 days AC: 16.7 cm EGA: 21 weeks 5 days FL: 3.1 cm EGA: 19 weeks 5 days HC/AC Ratio: 1.06 The gestational age by today's ultrasound is 20 weeks 4 days (+/- 10 days gestation). Estimated Weight: 374 grams, +/- 56 grams ( 0 lb 13 oz). Weight Percentile for gestational age: 55 % ANATOMY C-Spine: Unremarkable T-Spine: Unremarkable L-Spine: Unremarkable Sacrum: Unremarkable Four Chamber Heart: Unremarkable LVOT: Unremarkable RVOT: Unremarkable Stomach: Unremarkable Kidneys: Unremarkable Bladder: Unremarkable Diaphragm: Unremarkable Cord insertion: Unremarkable Cord vessels: Three Lateral Ventricles: Unremarkable Cerebellum: Unremarkable Cisterna Magna: Unremarkable Posterior Fossa: Unremarkable Right Femur: Unremarkable Left Femur: Unremarkable Right Tib/Fib: Unremarkable Left Tib/Fib: Unremarkable Right Rad/Ulnar: Unremarkable Left Rad/Ulnar: Unremarkable Right Humerus: Unremarkable Left Humerus: Unremarkable Nose/Lips: Unremarkable Profile: Unremarkable Orbits: Unremarkable IMPRESSION: 1. Single, live intrauterine gestation 20 weeks, 4 days by LMP. Today's ultrasound measurements correlate with a gestational age of 20 weeks 4 days. Estimated weight is 374 grams, +/- 56 grams ( 0 lb 13 oz) which correlates to 55 %. SOLEDAD is 05/15/2025. 2. Unremarkable ultrasound of the anatomy. Electronically Signed:Electronically signed by PERLA JIMENEZ II, MD, PHD at 31-Dec-2024 08:39:39 AM [facility] Normal Not Available Comment on above: Order Comment: US OB ANATOMY SINGLE W US OB CERVICAL LENGTH Estimated Date of Delivery: 05/15/25 Gestational Age as of 12/22/2024: 19w3d IGP,APTIMA HPV,AGE GDLNon AGE GDLN ACOG TESTING Note . [facility] Comment on above: TESTS RESULT FLAG UN ITS REF RANGE LAB Clinician Provided Cytology Information Source.............Cervix Other.............. No. of containers..01 ThinPrep Vial Age Algo ACOG Divina... FLAG LEGEND: L-Low Normal,H-High Normal,LL-Alert Low,HH-Alert High <-Panic Low,>-Panic High,A-Abnormal,AA-Critical Abnormal Performed at: 01 =G [facility] [address] [place] [address] Kellie Meyer MD, IGP, RFX APTIMA HPV ASCU Note . [facility] Comment on above: TESTS RESULT FLAG UN ITS REF RANGE LAB DIAGNOSIS: 02 NEGATIVE FOR INTRAEPITHELIAL LESION OR MALIGNANCY. THIS SPECIMEN WAS RESCREENED PART OF OUR PRODUCE DEPARTMENT MANAGER PROGRAM. Specimen adequacy: 02 Satisfactory for evaluation. No endocervical component is identified. Performed by: 02 Dorinda Blake, Board Stacker ([facility]) QC reviewed by: 02 Elliot Ibanez, Board Stacker ([facility]) . 02 Note: Note 03 The Pap smear is a screening test designed to aid in the detection of premalignant and malignant conditions of the uterine cervix. It is not a diagnostic procedure and should not be used as the sole means of detecting cervical cancer. Both false-positive and false-negative reports do occur. Test Methodology: Note 03 This liquid based ThinPrep(R) pap test was screened with the use of an image guided system. . 02 The HPV DNA reflex criteria were not met with this specimen result therefore, no HPV testing was performed. FLAG LEGEND: L-Low Normal,H-High Normal,LL-Alert Low,HH-Alert High <-Panic Low,>-Panic High,A-Abnormal,AA-Critical Abnormal Performed at: 02 [facility] [address] [place] [address] Brandon Hobson MD, [address] [address] Kellie Meyer MD, Performed at: =G - [facility] [address] [id number] Print Press Operator: Kellie Meyer MD, Phone: [phone] Performed at: [facility] - [facility] [address] [place], [place] [id number] Print Press Operator: Brandon Hobson MD, Phone: [phone] SP[facility]UL[facility]-ALONE CERVIX [facility] Healthcar e RECURRENT VAGINITIS (HTRX)on 12-24-2024 ATOPOBIUM VAGINAE 0 [facility] ATOPOBIUM VAGINAE Not detected [facility] Healthcare BVAB 2,3 (BACTERIAL VAGINOSIS ASSOCIATED BACTERIA 2, 3); MOBILUNCUS SPP 26.411 Abnormal [facility] BVAB 2,3 (BACTERIAL VAGINOSIS ASSOCIATED BACTERIA 2, 3); MOBILUNCUS SPP Detected Abnormal [facility] Healthcare LAUREN ALBICANS, PARAPSILOSIS, TROPICALIS 0 [facility] LAUREN ALBICANS, PARAPSILOSIS, TROPICALIS Not detected [facility] LAUREN GLABRATA 0 [facility] LAUREN GLABRATA Not detected [facility] LAUREN KRUSEI 0 [facility] LAUREN KRUSEI Not detected [facility] CHLAMYDIA TRACHOMATIS 0 [facility] CHLAMYDIA TRACHOMATIS Not detected [facility] GARDNERELLA VAGINALIS 0 [facility] GARDNERELLA VAGINALIS Not detected [facility] Interpretation and review of laboratory results Abnormal [facility] MEGASPHAERA (TYPES 1, 2) 0 [facility] MEGASPHAERA (TYPES 1, 2) Not detected [facility] MYCOPLASMA GENITALIUM 0 [facility] MYCOPLASMA GENITALIUM Not detected [facility] NEISSERIA GONORRHOEAE 0 [facility] NEISSERIA GONORRHOEAE Not detected [facility] TRICHOMONAS VAGINALIS 0 [facility] TRICHOMONAS VAGINALIS Not detected [facility] Urinalysis macro (dipstick) panel (U)on 12-22-2024 Bilirubin, UA Negative Negative - 4(70) +++ mg/dL [facility] Blood, UA Negative Negative - 50 Jonathan/mcL [facility] Healthcare Clarity, UA Clear [facility] re Color, UA Yellow [facility] Health[facility] Glucose, UA Negative Negative - 1999(110) ++++ mg/dL [facility] Interpretation and review of laboratory results Abnormal [facility] Ketones, UA Negative Negative - 160(16) ++++ mg/dL [facility] Leukocytes, UA Trace Negative - 500+++ Anoop/mcL [facility] Nitrite, UA Negative Negative - Positive [facility] pH, UA 6.5 5 - 9 [facility] Healthcar e Protein, UA Trace Negative - 1999(20) ++++ mg/dL [facility] Spec Grav, UA 1.025 1 - 1.03 [facility] Urobilinogen, UA 0.2 0.2 - 12 mg/dL [facility] Urinalysis macro (dipstick) panel (U)on 11-24-2024 Bilirubin, UA Negative Negative - 4(70) +++ mg/dL [facility] Blood, UA Negative Negative - 50 Jonathan/mcL [facility] Healthcare Clarity, UA Clear [facility] Healthca re Color, UA Yellow [facility] Healthcar e Glucose, UA Negative Negative - 1999(110) ++++ mg/dL [facility] Interpretation and review of laboratory results Abnormal [facility] Ketones, UA Negative Negative - 160(16) ++++ mg/dL [facility] Leukocytes, UA Trace Negative - 500+++ Anoop/mcL [facility] Healthcare Nitrite, UA Negative Negative - Positive [facility] pH, UA 6 5 - 9 [facility] Healthcar e Protein, UA Negative Negative - 1999(20) ++++ mg/dL [facility] Spec Grav, UA 1.02 1 - 1.03 [facility] Urobilinogen, UA 0.2 0.2 - 12 mg/dL [facility] BOX TESTon 11-13-2024 BOX TEST [facility] B[facility] Healthcar e BOX2 10/18/2024 NOM Health[facility] e UNITY BOX [facility] Urine Cultureon 11-13-2024 Bacteria identified Cx Nom (U) <9,000 colonies/ml mixed bacterial skin contaminants 2 Days PERFORMED BY: [facility] [address] [id number] PATHOLOGIST SALES STORE CHECKER VILMA NUNES M.D. Normal The [facility] Comment on above: Performed By: #### C UU #### [facility] [address] [id number] [facility] HCG ( test) Ql (U)o n 10-25-2024 Interpretation and review of laboratory results Abnormal [facility] Preg Test, Ur Positive Negative [facility] care [facility] Health[facility] Urinalysis macro (dipstick) panel (U)on 10-25-2024 Bilirubin, UA Negative Negative - 4(70) +++ mg/dL [facility] Blood, UA Negative Negative - 50 Jonathan/mcL [facility] Clarity, UA Clear [facility] Healthca re Color, UA Yellow [facility] Healthcar e Glucose, UA Negative Negative - 1999(110) ++++ mg/dL [facility] Interpretation and review of laboratory results Normal [facility] Ketones, UA Negative Negative - 160(16) ++++ mg/dL [facility] Leukocytes, UA Negative Negative - 500+++ Anoop/mcL [facility] Nitrite, UA Negative Negative - Positive [facility] pH, UA 7 5 - 9 [facility] Healthcar e Protein, UA Negative Negative - 1999(20) ++++ mg/dL [facility] Spec Grav, UA 1.025 1 - 1.03 [facility] Urobilinogen, UA 1.0 0.2 - 12 mg/dL [facility] Health[facility] XR FEMUR 2+ VW LEFTon 2023 XR FEMUR 2+ VW LEFT Left femur HISTORY: Pain 4 views of the femur. The femur is grossly intact. No fractures or periostitis. Soft tissues of the thigh are not remarkable. IMPRESSION: Negative left femur Electronically Signed Varun Garcia D.O. 2024-06-15 15:01:50 Normal Not Available CBC AUTO DIFFon 02-21-2023 BASO # 0.0 103/ul Normal 0.0-0.1 [facility] Comment on above: Performed By: #### C BC #### [facility] [address] [address] [address] Sol Flores Basophils/100 WBC (Bld) 0.4 % Normal 0.2-2.0 [facility] Comment on above: Performed By: #### C BC #### [facility] [address] [place] [address] Dr. Sol Flores EO # 0.0 103/ul Normal 0.0-0.7 [facility] Comment on above: Performed By: #### C BC #### [facility] [address] [place] [address] Dr. Sol Flores Eosinophils/100 WBC (Bld) 0.0 % Critically low 0.9-7.0 [facility] Comment on above: Performed By: #### C BC #### [facility] [address] [place] [address] Dr. Sol Flores Erythrocyte distribution width (RBC) [Ratio] 13.4 % Normal 11.0-15.0 [facility] Comment on above: Performed By: #### C BC #### [facility] [address] [place] [address] Dr. Sol Flores Hematocrit (Bld) [Volume fraction] 38.1 % Normal 36.0-48.0 [facility] Comment on above: Performed By: #### C BC #### [facility] [address] [place] [address] Dr. Sol Flores Hemoglobin (Bld) [Mass/Vol] 12.9 g/dL Normal 12.0-16.0 [facility] Comment on above: Performed By: #### C BC #### [facility] [address] [place] [address] Dr. Sol Flores IG # 0.02 10e3/ul Normal 0.00-0.03 [facility] Comment on above: Performed By: #### C BC #### [facility] [address] [place] [address] Dr. Sol Flores IG % 0.2 % Normal 0.0-0.5 [facility] Comment on above: Performed By: #### C BC #### [facility] [address] [place] [address] Dr. Sol Flores LYMPH # 2.2 103/ul Normal 1.2-3.8 [facility] Comment on above: Performed By: #### C BC #### [facility] [address] [place] [address] Dr. Sol Flores Lymphocytes/100 WBC (Bld) 26.7 % Normal 20.5-60.0 [facility] Comment on above: Performed By: #### C BC #### [facility] [address] [place] [address] Dr. Sol Flores MANUAL DIFF REQ NO Normal [facility] Comment on above: Performed By: #### C BC #### [facility] [address] [place] [address] Dr. Sol Flores MCH (RBC) [Entitic mass] 28.9 pg Normal 26.7-34.0 [facility] Comment on above: Performed By: #### C BC #### [facility] [address] [place] [address] Dr. Sol Folres MCHC (RBC) [Mass/Vol] 33.9 g/dL Normal 29.9-35.2 [facility] Comment on above: Performed By: #### C BC #### [facility] [address] [place] [address] Dr. Sol Flores MCV (RBC) [Entitic vol] 85.2 fL Normal 81.0-99.0 [facility] Comment on above: Performed By: #### C BC #### [facility] [address] [place] [address] Dr. Sol Flores MONO # 0.6 103/ul Normal 0.3-0.8 [facility] Comment on above: Performed By: #### C BC #### [facility] [address] [place] [address] Dr. Sol Flores Monocytes/100 WBC (Bld) 7.4 % Normal 1.7-12.0 [facility] Comment on above: Performed By: #### C BC #### [facility] [address] [place] [address] Dr. Sol Flores NEUT # 5.3 103/ul Normal 1.4-6.5 [facility] Comment on above: Performed By: #### C BC #### [facility] [address] [place] [address] Dr. Sol Flores Neutrophils/100 WBC (Bld) 65.3 % Normal 43.0-75.0 [facility] Comment on above: Performed By: #### C BC #### [facility] [address] [place] [address] Dr. Sol Flores Platelet mean volume (Bld) [Entitic vol] 10.3 fL Normal 9.5-13.5 [facility] Comment on above: Performed By: #### C BC #### [facility] [address] [place] [address] Dr. Sol Flores PLT 225 103/ul Normal 150-450 [facility] Comment on above: Performed By: #### C BC #### [facility] [address] [place] [address] Dr. Sol Flores RBC 4.47 106/ul Normal 4.20-5.40 [facility] Comment on above: Performed By: #### C BC #### [facility] [address] [place] [address] Dr. Sol Flores WBC 8.1 103/ul Normal 4.0-11.0 [facility] Comment on above: Performed By: #### C BC #### [facility] [address] [place] [address] Dr. Sol Flores D-DIMERon 02-21-2023 D-DIMER 0.33 mg/L FEU Normal <=0.59 [facility] Comment on above: Performed By: #### D DIM, PT, PTT #### [facility] [address] [place] [address] Dr. Sol Flores D-DIMER COMMENTS SEE BELOW Normal [facility] Comment on above: Result Comment: [...] By: #### D DIM, PT, PTT #### [facility] [address] [address] [address] Sol Flores PREG HCG QUALon 02-21-2023 , QUAL Negative Normal NEGATIVE [facility] Comment on above: Performed By: #### P REG #### [facility] [address] [address] [address] Sol Flores PROF 14(COMP METB)on 023 Albumin [Mass/Vol] 3.9 g/dL Normal 3.4-5.0 [facility] Comment on above: Performed By: #### H STROPN, TSH, CMP #### [facility] [address] [address] [address] Sol Flores Albumin/Globulin [Mass ratio] 1.1 {ratio} Normal [facility] Comment on above: Performed By: #### H STROPN, TSH, CMP #### [facility] [address] [address] [address] Sol Flores ALP [Catalytic activity/Vol] 90 U/L Normal 46-116 [facility] Comment on above: Performed By: #### H STROPN, TSH, CMP #### [facility] [address] [address] [address] Sol Flores ALT [Catalytic activity/Vol] 19 U/L Normal 14-59 [facility] Comment on above: Performed By: #### H STROPN, TSH, CMP #### [facility] [address] [address] [address] Sol Flores Anion gap [Moles/Vol] 13.3 mmol/L Normal [facility] Comment on above: Performed By: #### H STROPN, TSH, CMP #### [facility] [address] [address] [address] Sol Flores AST [Catalytic activity/Vol] 16 U/L Normal 15-37 [facility] Comment on above: Performed By: #### H STROPN, TSH, CMP #### [facility] [address] [address] [address] Sol Flores Bilirubin [Mass/Vol] 0.2 mg/dL Normal 0.2-1.0 [facility] Comment on above: Performed By: #### H STROPN, TSH, CMP #### [facility] [address] [address] [address] Sol Flores Calcium [Mass/Vol] 8.8 mg/dL Normal 8.5-10.1 [facility] Comment on above: Performed By: #### H STROPN, TSH, CMP #### [facility] [address] [place] [address] Dr. Sol Flores Chloride [Moles/Vol] 105 mmol/L Normal 98-107 [facility] Comment on above: Performed By: #### H STROPN, TSH, CMP #### [facility] [address] [place] [address] Dr. Sol Flores CO2 [Moles/Vol] 24.5 mmol/L Normal 21.0-32.0 [facility] Comment on above: Performed By: #### H STROPN, TSH, CMP #### [facility] [address] [place] [address] Dr. Sol Flores Creatinine [Mass/Vol] 0.79 mg/dL Normal 0.55-1.02 [facility] Comment on above: Performed By: #### H STROPN, TSH, CMP #### [facility] [address] [place] [address] Dr. Sol Flores EGFR-AF CHILEAN >60 Normal >=60 [facility] Comment on above: Performed By: #### H STROPN, TSH, CMP #### [facility] [address] [place] [address] Dr. Sol Flores EGFR-NON AF CHILEAN >60 Normal >=60 [facility] Comment on above: Performed By: #### H STROPN, TSH, CMP #### [facility] [address] [place] [address] Dr. Sol Flores Globulin (S) [Mass/Vol] 3.5 g/dL Normal [facility] Comment on above: Performed By: #### H STROPN, TSH, CMP #### [facility] [address] [address] [address] Sol Flores Glucose [Mass/Vol] 102 mg/dL Normal 74-106 [facility] Comment on above: Performed By: #### H STROPN, TSH, CMP #### [facility] [address] [place] [address] Dr. Sol Flores Potassium [Moles/Vol] 3.8 mmol/L Normal 3.5-5.1 [facility] Comment on above: Performed By: #### H STROPN, TSH, CMP #### [facility] [address] [place] [address] Dr. Sol Flores Protein [Mass/Vol] 7.4 g/dL Normal 6.4-8.2 [facility] Comment on above: Performed By: #### H STROPN, TSH, CMP #### [facility] [address] [place] [address] Dr. Sol Flores Sodium [Moles/Vol] 139 mmol/L Normal 136-145 [facility] Comment on above: Performed By: #### H STROPN, TSH, CMP #### [facility] [address] [place] [address] Dr. Sol Flores Urea nitrogen [Mass/Vol] 9.0 mg/dL Normal 7.0-18.0 [facility] Comment on above: Performed By: #### H STROPN, TSH, CMP #### [facility] [address] [place] [address] Dr. Sol Flores Urea nitrogen/Creatinine [Mass ratio] 11.4 mg/mg Normal [facility] Comment on above: Performed By: #### H STROPN, TSH, CMP #### [facility] [address] [place] [address] Dr. Sol Flores PROTIMEon 02-21-2023 INR Coag (PPP) [Relative time] 0.98 {INR} Normal [facility] Comment on above: Performed By: #### D DIM, PT, PTT #### [facility] [address] [place] [address] Dr. Sol Flores INR GUIDELINES SEE BELOW Normal [facility] Comment on above: Result Comment: LAWRENCE RED INR: 2.0 - 3.0 CONDITIONS NOT LISTED BELOW 2.5 - 3.5 FOR PROSTHETIC HEART VALVE REPLACEMENT 2.5 - 3.5 RECURRENT THROMBOSIS Performed By: #### D DIM, PT, PTT #### [facility] [address] [place] [address] Dr. Sol Flores PT Coag (PPP) [Time] 10.4 s Normal 9.0-11.6 [facility] Comment on above: Performed By: #### D DIM, PT, PTT #### [facility] [address] [place] [address] Dr. Sol Flores PTTon 02-21-2023 aPTT Coag (Bld) [Time] 29.4 s Normal 22.3-36.2 [facility] Comment on above: Performed By: #### D DIM, PT, PTT #### [facility] [address] [place] [address] Dr. Sol Flores TROPONIN, HIGH SENSITIVITYon 02-21-2023 HSTROP <4.0 Normal 4.0-51.3 [facility] Comment on above: Result Comment: CUT- OFF POINTS HAVE BEEN ESTABLISHED BASED ON THE FOURTH UNIVERSAL DEFINITIONS OF MYOCARDIAL INFARCTION. THE UPPER REFERENCE LIMIT (URL) OF TROPONIN, DEFINED THE 99TH PERCENTILE OF cTnI DISTRIBUTION IN A REFERENCE POPULATION, HAS BEEN CONFIRMED THE DECISION THRESHOLD FOR [place] DIAGNOSIS. Performed By: #### H STROPN, TSH, CMP #### [facility] [address] [place] [address] Dr. Sol Flores TSHon 02-21-2023 TSH 1.985 uIU/mL Normal 0.358-3.[address] [facility] Comment on above: Performed By: #### H STROPN, TSH, CMP #### [facility] [address] [place] [address] Dr. Sol Flores XR CHEST 1 Von 02-21-2023 XR CHEST 1 V EXAMINATION: XR CHES T 1 V HISTORY: CHEST PAIN, UNSPECIFIED COMPARISON: [...] by: FAITH NUÑEZ Date: 2023-02-21 15:33 Normal [facility] Gynecology Office/Clinic Not [place] 10-30-2020 Gynecology Office/Clinic [...] No Depression: Yes Depression comment: Denies SI/HI. Hematologic/Lymphatic Bruising: No Bleeding tendencies: No Endocrine Abnormal [...] pt. to start PNV's. Script sent to [facility]. F/U yearly or sooner w/concerns. Ordered: , Serum, Test Qual w/Reflex [facility] Problem List/Past Medical History Ongoing Anxiety [...] by Myriam Bean 10/30/20 15:04 EST [facility] Track[facility] 10-30-2020 Pl Red # 1 [facility] Comment on above: Performed By: #### O jesse Tracking Order #### [facility] [address] [place] [address] S Preg Rflx [facility] 0 Serum Preg Negative [facility] Comment on above: Result Comment: The hCG Combo Rapid Test has a sensitivity of 10 mIU/mL in serum and is capable of detecting as early as 1 day after the first missed menses. Performed By: #### C [id number] #### [facility] [address] [place] [address] Vital Signs Date Time Vital Sign Value Performing Clinician Faci lity 12-22-2024 11:36-0500 Body mass index (BMI) [Ratio] 22.26 kg/m2 Yvette TABOR Work Phone: [facility] 12-22-2024 11:36-0500 Body weight 64.47 kg Yvette TABOR Work Phone: [facility] 12-22-2024 11:36-0500 Diastolic blood pressure 48 mm[Hg] Yvette TABOR Work Phone: [facility] 12-22-2024 11:36-0500 Systolic blood pressure 98 mm[Hg] Yvette TABOR Work Phone: [facility] 11-24-2024 16:03-0500 Body mass index (BMI) [Ratio] 21.21 kg/m2 Brandy Merrill DO Work Phone: [facility] 11-24-2024 16:03-0500 Body weight 61.42 kg Brandy Merrill DO Work Phone: [facility] 11-24-2024 16:03-0500 Diastolic blood pressure 60 mm[Hg] Brandy Merrill DO Work Phone: [facility] 11-24-2024 16:03-0500 Systolic blood pressure 100 mm[Hg] Brandy Merrill DO Work Phone: [facility] 10-25-2024 11:03-0500 Body mass index (BMI) [Ratio] 20.67 kg/m2 [facility] 10-25-2024 11:03-0500 Body weight 59.88 kg [facility] 08-11-2024 10:18-0400 Body mass index (BMI) [Ratio] 20.05 kg/m2 Mariel Caballero MD Work Phone: [facility] 08-11-2024 10:18-0400 Body weight 58.06 kg Mariel Caballero MD Work Phone: [facility] 08-11-2024 10:18-0400 Diastolic blood pressure 72 mm[Hg] Mariel Caballero MD Work Phone: [facility] 08-11-2024 10:18-0400 Heart rate 113 /min Mariel Caballero MD Work Phone: [facility] 08-11-2024 10:18-0400 Systolic blood pressure 116 mm[Hg] Mariel Caballero MD Work Phone: [facility] Encounters Encounter Date Encounter Type Care Provider Facility Start: 12-30-2024 End: 12-30-2024 ambulatory YVETTE CHAMBERS Not Available Start: 12-23-2024 End: 12-24-2024 External Result Encounter Yvette TABOR Work Phone: [facility] Unsolicited Start: 12-23-2024 End: 12-24-2024 External Result Encounter Yvette TABOR Work Phone: [facility] External Department Unsolicited Start: 12-22-2024 End: 12-22-2024 Bamboo flowsheet Yvette TABOR Work Phone: [facility] Start: 12-22-2024 End: 12-28-2024 Bamboo flowsheet Yvette TABOR Work Phone: [facility] Start: 12-22-2024 End: 12-28-2024 Clinisync Result Encounter Yvette TABOR Work Phone: [facility] Unsolicited Start: 12-22-2024 End: 12-22-2024 ambulatory YVETTE CHAMBERS Not Available Start: 12-22-2024 End: 12-22-2024 Patient encounter procedure Yvette TABOR Work Phone: [facility] Start: 12-22-2024 End: 12-22-2024 Periodic preventive med est patient 18-39 yrs Yvette TABOR Work Phone: [facility] Comment on above: Second trimester pre gnancy; 19 weeks gestation of ; Screening, , for anatomic survey; Well woman exam with routine gynecological exam; STD exposure; Vaginal discharge Start: 11-24-2024 End: 11-24-2024 ambulatory BRANDY MERRILL Not Available Start: 11-24-2024 End: 11-24-2024 flow sheet Brandy Merrill DO Work Phone: [facility] Comment on above: 15 weeks gestation o f ; Second trimester ; Nonintractable headache, unspecified chronicity pattern, unspecified headache type Start: 11-24-2024 End: 11-24-2024 Bamboo flowsheet Brandy Merrill DO Work Phone: [facility] Start: 11-24-2024 End: 11-24-2024 Bamboo flowsheet Brandy Merrill DO Work Phone: [facility] Start: 11-13-2024 End: 11-13-2024 ambulatory Mariel Caballero Facility:[facility] Start: 11-13-2024 Encounter for genera l adult medical examination without abnormal findings Mariel Caballero [facility] Start: 11-13-2024 End: 11-13-2024 Clinisync Result Encounter Brandy Merrill DO Work Phone: [facility] Unsolicited Start: 11-13-2024 End: 11-13-2024 Clinisync Result Encounter Brandy Merrill DO Work Phone: [facility] Unsolicited Start: 10-25-2024 End: 10-25-2024 ambulatory YVETTE CHAMBERS Not Available Start: 10-25-2024 End: 10-25-2024 Office outpatient visit 5 minutes [facility] Merrill Nurse [facility] Comment on above: GA: 11w1d Start: 09-28-2024 ambulatory DORINDA MORENO [facility] Start: 08-11-2024 End: 08-11-2024 ambulatory MARIEL CABALLERO [facility] Start: 08-11-2024 End: 08-11-2024 Office outpatient visit 25 minutes Mariel Caballero MD Work Phone: [facility] Comment on above: Seizure-like activit y (CMS-HCC) (Primary Dx) Start: 06-29-2024 End: 06-29-2024 ambulatory GUILLERMO WING Not Available Start: 06-15-2024 End: 06-15-2024 ambulatory GUILLERMO WING Not Available Start: 06-10-2024 End: 06-10-2024 ambulatory GUILLERMO WING Not Available Start: 02-21-2023 End: 02-21-2023 ambulatory CHRISTINE SALVADOR Facility: Procedures Date Procedure Procedure Detail Performing Clinician Start: 12-23-2024 RECURRENT VAGINITIS (HTRX) Yvette TABOR Work Phone: Start: 12-22-2024 Urnls dip stick/tabl et rgnt non-auto w/o micrscp Yvette TABOR Work Phone: Start: 12-22-2024 IGP,APTIMA HPV,AGE GDLN Yvette TABOR Work Phone: Start: 11-24-2024 Urnls dip stick/tabl et rgnt non-auto w/o micrscp Brandy Merrill DO Work Phone: Start: 11-13-2024 BOX TEST Brandy Fazi o DO Work Phone: Start: 10-25-2024 End: 10-25-2024 Urnls dip stick/tablet rgnt non-auto w/o micrscp Brandy Merrill DO Work Phone: Start: 05-05-2023 Adult depression screening assessment Mariel Caballero MD Work Phone: Plan of Treatment Date Care Activity Detail Author Start: 01-18-2025 End: 01-18-2025 Patient encounter procedure 01/18/2025 8:40 AM EST Routine [facility] [address] [place] [address] Brandy Momin, DO [address] [place] [address] [facility] Start: 12-30-2024 End: 12-30-2024 Professional / ancillary services management 12/30/2024 2:30 PM EST Ancillary Procedure [facility] [address] [place] [address] [facility] Start: 12-22-2024 End: 12-22-2025 US for US OB 14+ weeks anatomy scan Imaging Routine Screening, , for anatomic survey Expected: 12/22/2024, Expires: 12/22/2025 [facility] Work Phone: Comment on above: Expected: 12/22/2024 , Expires: 12/22/2025 Start: 12-22-2024 End: 12-22-2024 Patient encounter procedure 12/22/2024 11:20 AM EST Routine [facility] [address] [place] [address] Yvette Chambers PA [address] [place] [address] [facility] Start: 11-24-2024 End: 11-24-2024 Patient encounter procedure 11/24/2024 3:10 PM EST Routine [facility] [address] [place] [address] Brandy Momin, DO [address] [place] [address] [facility] Start: 11-24-2024 End: 12-25-2024 Alpha fetoprotein, maternal Alpha fetoprotein, maternal Lab Routine 15 weeks gestation of Second trimester Expected: 11/24/2024 (Approximate), Expires: 12/25/2024 [facility] Work Phone: Comment on above: Expected: 11/24/2024 (Approximate), Expires: 12/25/2024 Start: 10-25-2024 End: 10-25-2025 ABO/Rh ABO/Rh Lab Routine Missed menses , unspecified gestational age Expected: 10/25/2024 (Approximate), Expires: 10/25/2025 [facility] Comment on above: Expected: 10/25/2024 (Approximate), Expires: 10/25/2025 Start: 10-25-2024 End: 10-25-2025 Blood type and Indirect antibody screen panel - Blood Type and screen Lab Routine Missed menses , unspecified gestational age Expected: 10/25/2024 (Approximate), Expires: 10/25/2025 [facility] Work Phone: Comment on above: Expected: 10/25/2024 (Approximate), Expires: 10/25/2025 Start: 10-25-2024 End: 10-25-2025 Drugs of abuse panel - Urine by Screen method Rapid drug screen, urine Lab Routine , unspecified gestational age Encounter for supervision of normal first in first trimester Expected: 10/25/2024 (Approximate), Expires: 10/25/2025 [facility] Comment on above: Expected: 10/25/2024 (Approximate), Expires: 10/25/2025 Start: 10-25-2024 End: 10-25-2025 US Pelvis transvaginal US OB transvaginal Imaging Routine Missed menses Expected: 10/25/2024 (Approximate), Expires: 10/25/2025 [facility] Comment on above: Expected: 10/25/2024 (Approximate), Expires: 10/25/2025 Start: 07-18-2024 Influenza vaccination Influenza Vacc ine [facility] Start: 06-02-2024 Adult BMI Screening Adult BMI Screen ing [facility] Start: 06-02-2024 Tobacco Screening Tobacco Screening [facility] Start: 05-05-2024 Depression Screening Depression Scre ening [facility] Start: 2022 Screening for malign ant neoplasm of cervix Pap Smear [facility] Start: 2020 DTaP,Tdap and Td Vaccines (1 - Tdap) DTaP,Tdap and Td Vaccines (1 - Tdap) [facility] Bacteria identified in Urine by Culture Urine culture Microbiology Routine Missed menses Ordered: 10/25/2024 [facility] Comment on above: Ordered: 10/25/2024 CBC W Auto Different ial panel - Blood CBC and differential Lab Routine Missed menses , unspecified gestational age Ordered: 10/25/2024 [facility] Comment on above: Ordered: 10/25/2024 CHLAMYDIA TRACHOMATI S (GENITO/STI) CHLAMYDIA TRACHOMATIS (GENITO/STI) Lab Routine STD exposure Vaginal discharge Ordered: 12/22/2024 [facility] Comment on above: Ordered: 12/22/2024 Cytology Cervical or vaginal smear or scraping study Pap Smear Pathology and Cytology Routine Well woman exam with routine gynecological exam Ordered: 12/22/2024 [facility] Comment on above: Ordered: 12/22/2024 Hemoglobin A1c/Hemoglobin.total in Blood Hemoglobin A1c Lab Routine Missed menses , unspecified gestational age Ordered: 10/25/2024 [facility] Comment on above: Ordered: 10/25/2024 Hepatitis B virus surface Ag [Presence] in Serum or Plasma by Immunoassay Hepatitis B surface antigen Lab Routine Missed menses , unspecified gestational age Ordered: 10/25/2024 [facility] Comment on above: Ordered: 10/25/2024 Hepatitis C virus Ab [Presence] in Serum or Plasma by Immunoassay Hepatitis C antibody Lab Routine Missed menses , unspecified gestational age Ordered: 10/25/2024 [facility] Comment on above: Ordered: 10/25/2024 HIV-1/HIV-2 antigen/antibody combination immunoassay HIV-1 and HIV-2 antibodies Lab Routine Missed menses , unspecified gestational age Ordered: 10/25/2024 [facility] Comment on above: Ordered: 10/25/2024 Neisseria gonorrhoea e DNA [Presence] in Unspecified specimen by NELDA with probe detection Neisseria gonorrhea DNA probe, direct Lab Routine STD exposure Vaginal discharge Ordered: 12/22/2024 [facility] Comment on above: Ordered: 12/22/2024 Reagin Ab [Presence] in Serum by RPR RPR Lab Routine Missed menses , unspecified gestational age Ordered: 10/25/2024 [facility] Comment on above: Ordered: 10/25/2024 Rubella antibody, IgG Rubella an tibody, IgG Lab Routine Missed menses , unspecified gestational age Ordered: 10/25/2024 [facility] Comment on above: Ordered: 10/25/2024 SURESWAB(R) ADVANCED VAGINITIS PLUS, TMA SURESWAB(R) ADVANCED VAGINITIS PLUS, TMA Pathology and Cytology Routine STD exposure Vaginal discharge Ordered: 12/22/2024 [facility] Comment on above: Ordered: 12/22/2024 Payers Date Payer Category Payer Self-pay 2024 Worker's Compensation [employer] cardozo [id number] 2024 Unknown [id number] 2024 Unknown [id number] 2020 Private Health Insurance [id number] 2001 Unknown [id number] 2.16.840.1.434802.3.579. 2.593 2001 Unknown [id number] 2.16.840.1.036220.3.579. 2.1286 2001 Unknown [id number] 2.16.840.1.539463.3.579. 2.1286 2001 Unknown [id number] 2.16.840.1.533035.3.579. 2.1258 2001 Unknown [id number] 2.16.840.1.904741.3.579. 2.1258 2001 Unknown [id number] 2.16.840.1.709399.3.579. 2.1258 2001 Unknown [id number] 2.16.840.1.911180.3.579. 2.1258 2001 Unknown [id number] 2.16.840.1.087486.3.579. 2.1258 2001 Unknown [id number] 2.16.840.1.232082.3.579. 2.1258 2001 Unknown [id number] 2.16.840.1.902623.3.579. 2.1258 2001 Unknown [id number] 2.16840.1.287331.3.579. 2.1258 2001 Unknown [id number] 2.16.840.1.540983.3.579. 2.1258 2001 Unknown [id number] 2.16.840.1.936836.3.579. 2.1258 2001 Unknown [id number] 2.16.840.1.519277.3.579. 2.1258 2001 Unknown [id number] 2.16840.1.033740.3.579. 2.1258 2001 Unknown [id number] 2.16.840.1.640610.3.579. 2.1258 2001 Unknown [id number] 2.16.840.1.836508.3.579. 2.1258 2001 Unknown [id number] 2.16.840.1.675270.3.579. 2.1258 2001 Unknown [id number] 2.16.840.1.837201.3.579. 2.1258 1959 Private Health Insurance [id number] Unknown [id number] 2.16.840.1.356589.3.579. 2.531 Social History Date Type Detail Facility Start: 10-13-2023 Tobacco smoking stat [facility] Tobacco smoking consumption unknown [facility] Start: 08-11-2024 End: 10-25-2024 Alcoholic beverage intake Current drinker of alcohol (finding) [facility] Start: 12-24-2022 End: 10-25-2024 Alcoholic beverage intake [facility] Start: 12-24-2022 End: 06-15-2024 Tobacco use panel [facility] Start: 08-22-2024 [facility] Start: 2001 Sex assigned at Not on file P [facility] Start: 10-17-2022 Tobacco smoking stat [facility] Never smoked tobacco [facility] Start: 10-17-2022 Tobacco use and exposure Smokeless tobacco non-user [facility] Do you belong to any clubs or organizations such as presybeterian groups, unions, fraternal or athletic groups, or school groups? No [facility] Are you now , , , , never or living with a partner? Living with partner [facility] How often to you hav e a drink containing alcohol? 2-4 times a month [facility] How many standard drinks containing alcohol do you have on a typical day? 1 or 2 [facility] How often do you hav e 6 or more drinks on 1 occasion? Less than monthly [facility] How hard is it for y ou to pay for the very basics like food, housing, medical care, and heating Not hard at all [facility] Do you feel stress - tense, restless, nervous, or anxious, or unable to sleep at night because your mind is troubled all the time - these days [OSQ] Very much [facility] Start: 12-24-2022 Education 14 [facility] NEGATED: Highlighted rowStart: NINF History of tobacco use Passive smoker [facility] History of Present illness Narrative 12-22-2024 SHARONA [...] oxide (MAG-OX) 400 mg, Oral, Daily Vit w/Ql-Pzzorbcsj-UG (PNV PO) Oral ALLERGIES Allergies Allergen Reactions [...] nursing note reviewed. Exam conducted with a wound/ostomy clinical nurse specialist present. Vitals: Estimated body mass index is [...] History of Present illness Narrative 11-24-2024 Yoli Seay LPN - 11/24/2024 3:10 PM EST Note Date & Type Note Facility 11-24-2024 History of Presen t illness Narrative Reason for Appointment: Patient ID: Megha Khalil is a 24 y.o. female who presents for Routine Visit Patient presents today for Return OB appointment. MEDICATIONS Current Outpatient Medications Medication Instructions magnesium oxide (MAG-OX) 400 mg, Oral, Daily Vit w/Lf-Lifqgaynq-GM (PNV PO) Oral ALLERGIES Allergies Allergen Reactions [...] nursing note reviewed. Exam conducted with a wound/ostomy clinical nurse specialist present. Vitals: Estimated body mass index is [...] or undercooked meat, and stay away from [facility]. Patient has been consulted regarding any further do's and don'ts of . Patient voiced understanding and all questions and concerns were answered. Pt has occasional heart palpitations has seen elementary librarian in the past will continue to monitor. [...] list which includes the following prescription(s): vit w/zz-llsxvwxbg-hi. Medical History: Active Ambulatory Problems Diagnosis Date [...] or undercooked meat, and stay away from [facility]. Patient has also been advised to [...] LPN documented in this encounter [facility] History of Present illness Narrative 08-11-2024 Mariel Caballero MD - 08/11/2024 10:15 AM EDT Note Date & Type Note Facility 08-11-2024 History of Presen t illness Narrative Subjective Patient ID: Megha Khalil is a 24 y.o. female. About 2 weeks ago she was evaluated at [facility] for seizure like symptoms. She has in the past been evaluated by cardiology for possible POTS and this episode was different. It was unwitnessed and the patient was aware that it occurred. She was sitting on the couch and felt like her eyes rolled back and she briefly (a few seconds) lost muscle control. She felt tired after. She did not bite her tongue or have urinary or bowel incontinence. She has had some headache, no consistent visual or neurological symptoms. CT of the brain was negative. She was released without restriction. She recently had a second similar episode, unwitnessed. No injury. She recalls the event and thinks her right arm was involved. She has no prior seizure history. No chronic medications. Nothing seemed to provoke these spells. She has been going about her usual activity. The following portions of the patient's history were reviewed and updated as appropriate: allergies, current medications, past family history, past medical history, past social history, past surgical history, and problem list. Review of Systems Objective Physical Exam Constitutional: Appearance: Normal appearance. Comments: BP normal. HENT: Right Ear: Tympanic membrane normal. Left Ear: Tympanic membrane normal. Eyes: Pupils: Pupils are equal, round, and reactive to light. Comments: Fundi with sharp disc margins Cardiovascular: Rate and Rhythm: Normal rate and regular rhythm. Heart sounds: No murmur heard. Musculoskeletal: Cervical back: Neck supple. Neurological: General: No focal deficit present. Mental Status: She is alert. Assessment/Plan She would like neurology input and that is reasonable. Will hold on further evaluation pending neurology input. Regarding driving, I don't think restriction is required at this time given the brevity of the events, that fact that she is aware and does not lose consciousness nor complete motor control. However, if the events continue I believe she should be restricted pending a formal diagnosis. Diagnoses and all orders for this visit: Seizure-like activity (CMS-HCC) - Ambulatory referral to Neurology ([facility]); Future documented in this encounter [facility] Evaluation note Note Date & Type Note Facility Evaluation note Diagnosis Missed menses , unspecified gestational age Encounter for supervision of normal first in first trimester documented in this encounter [facility] Evaluation note Note Date & Type Note Facility Evaluation note Diagnosis 15 weeks gestation of Second trimester state, incidental Nonintractable headache, unspecified chronicity pattern, unspecified headache type documented in this encounter [facility] Evaluation note Note Date & Type Note Facility Evaluation note Diagnosis Second trimester state, incidental 19 weeks gestation of Screening, , for anatomic survey Encounter for anatomic survey Well woman exam with routine gynecological exam Routine gynecological examination STD exposure Vaginal discharge Leukorrhea, not specified as infective documented in this encounter [facility] Evaluation note Note Date & Type Note Facility Evaluation note Diagnosis Seizure-like activity (CMS-HCC)- Primary documented in this encounter [facility] Instructions Note Date & Type Note Facility Instructions Not on filedocumented in this en [facility] Reason for referral (narrative) Consultation (Routine) - Pending Review Note Date & Type Note Facility Reason for referral (narrati ve) Specialty Diagnoses / Procedures Referred By Sarah hernandez Referred To Contact Neurology Diagnoses Seizure-like activity (CMS-HCC) Mariel Caballero MD [address] [place] [address], [address] [place] [address] Jesse Lawton MD [address] [place] [id number] Referral ID Status Reason Start Date Expiration Date Visits Requested Visits Authorized [id number] Pending Review Specialty Services Required 08/11/2024 08/11/2025 1 1 [facility] Summary Purpose Family History No Family History Records FoundNo Family History Records FoundNo Family History Records FoundNo Family History Records FoundNo Family History Records Found Advance Directives No Advanced Directives Records FoundNo Advanced Directives Records FoundNo Advanced Directives Records FoundNo Advanced Directives Records FoundNo Advanced Directives Records Found Additional Source Comments INFORMATION SOURCE (unrecogn ized section and content) DATE CREATED AUTHOR 10/31/2020 [facility] DATE CREATED AUTHOR AUTHOR'S ORGANIZ ATION 03/15/2023 [facility] DATE CREATED AUTHOR AUTHOR'S ORGANIZ ATION 09/30/2024 [facility] DATE CREATED AUTHOR AUTHOR'S ORGANIZ ATION 01/01/2025 [facility] EPIC DATE CREATED AUTHOR AUTHOR'S ORGANIZ ATION 01/02/2025 [facility] Reason for Visit (unrecogniz ed section and content) Reason Comments Amenorrhea Reason Comments Routine Visit Reason Comments wants referral to Neurologyfor seizures Prefers [facility] - Dr Lawton, has had a CT scan for seizure-like activity at [place] Care Teams (unrecognized sec tion and content) Fishing Gear Mechanic Relationship Specialty Start Date End Date Mariel Caballero MD [address] [place] [address], [address] [place] [address] PCP - General Family Medicine 09/26/23 Fishing Gear Mechanic Relationship Specialty Start Date End Date Mariel Caballero MD [address] [place] [address], [address] [place] [address] PCP - General Family Medicine 09/26/23 Fishing Gear Mechanic Relationship Specialty Start Date End Date Mariel Caballero MD [address] [place] [address], [address] [place] [address] PCP - General Family Medicine 09/26/23 Fishing Gear Mechanic Relationship Specialty Start Date End Date Mariel Caballero MD [address] [place] [address], [address] [place] [address] PCP - General Family Medicine 09/26/23 Fishing Gear Mechanic Relationship Specialty Start Date End Date Mariel Caballero MD [address] [place] [address], [address] [place] [address] PCP - General Family Medicine 09/26/23 Fishing Gear Mechanic Relationship Specialty Start Date End Date Mariel Caballero MD [address] [place] [address], [address] [place] [address] PCP - General Family Medicine 09/26/23 Fishing Gear Mechanic Relationship Specialty Start Date End Date Mariel Caballero MD [address] [place] [address], [address] [place] [address] PCP - General Family Medicine 09/26/23 Fishing Gear Mechanic Relationship Specialty Start Date End Date Mairel Caballero MD [address] [place] [address], [address] [place] [address] PCP - General Pediatrics 12/03/17 FOR RECORDS PERTAINING TO PATIENTS WHO ARE [...] BE BASED ON THE PRIMARY CLINICAL RECORDS. [employer] provides no warranty or guarantee [id number] the accuracy [phone] completeness of information in this [id number]
[2025-01-18 23:08] LABS: AFP Value 109.4 ng/mL (.); Gest. Age on Collection Date 22.9 weeks (.); Insulin Dep Diabetes No (.); Maternal Age At EDD 23.7 yr (.); OSBR Risk 1 IN 6110 (.); Results Report (.)
== END 2025-01-15 11:17 | disposition home or self-care (01) ==
LOC: LAB 11:18
PROVIDERS: PCP Internal Medicine; Visit Provider Obstetrics & Gynecology
DX: Z34.92 Encounter for supervision of normal pregnancy, unspecified, second trimester (principal)
CPT/HCPCS: 36415; 82105

== ENCOUNTER 2025-01-29 11:45 | Outpatient (OUT) | payer OTHER, SELFPAY ==
--- OUTSIDE RECORDS SUMMARY | 2025-01-29 11:47 | XMS_ITS | CCD ---
Author Organization [facility] Care Team Providers Care Bisque Grader Name Role Phone CHRISTINE SALVADOR Admitting Unavailable CHRISTINE SALVADOR Attending Unavailable DR FAITH NUÑEZ Consulting Unavailable FEDERICO, DR MARIEL Quinn Primary Care Unavailable OBDULIO ., SHARONA BROWER Consulting Unavailabl e MARIEL CABALLERO Attending Unavailable MARIEL CABALLERO Referring Unavailable MARIEL CABALLERO Primary Care Unavailable DORINDA MORENO Attending Unavailable MARIEL CABALLERO Referring Unavailable MARIEL CABALLERO Primary Care Unavailable Mariel Caballero MD Primary Care Provider [phone] Mariel Caballero Admitting Unavailable Mariel Caballero Attending Unavailable Mariel Caballero MD Primary Care Provider YVETTE CHAMBERS Attending Unavailable BRANDY MOMIN Attending Unavailable GUILLERMO WING Attending Unavailable GUILLERMO WING Attending Unavailable GUILLERMO WING Referring Unavailable GUILLERMO WING Attending Unavailable BRANDY MOMIN Attending Unavailable Allergies Allergy Classification Reported Allergen(s) Allergy Type Date of Onset Reaction(s) Facility (2 sources) Amoxicillin; Translations: [AMOXICILLIN] Drug Allergy 8 [facility] Repository (2 sources) SUMAtriptan; Translations: [SUMATRIPTAN] Drug Allergy 2 [facility] Repository (17 sources) Penicillins; Translations: [PENICILLINS] Propensity to adverse reactions to drug (disorder) 8 [facility] Repository (15 sources) SUMAtriptan Drug Allergy 2 [facility] (1 source) SUMAtriptan Drug Allergy 3 [facility] Repository (1 source) Amoxicillin Drug Allergy 8 [facility] Medications Current Medications Medication Drug Class(es) Dates [...] 21 tablet 06/10/2024 10/25/2024 Discontinued (Other) Vit w/Dm-Uhqvnrtsi-IF (PNV PO) (14 sources) Vit w/Cm-Llvuwykiw-XY (PNV PO) Take by mouth Active Problems [...] 12-22-2024 Episodic Other and delivery including normal (8 sources) ; Translations: [Encounter for supervision of normal , unspecified, unspecified trimester] 10-25-2024 Episodic Other screening for suspected conditions (not mental disorders or infectious disease) (4 sources) Patient encounter status; Translations: [Encounter for other specified screening] 12-22-2024 Episodic Residual codes; unclassified (2 sources) Gestation period, 15 weeks; Translations: [15 weeks gestation of ] 11-24-2024 Episodic Residual codes; unclassified (2 sources) Gestation period, 19 weeks; Translations: [19 weeks gestation of ] 12-22-2024 Episodic Residual codes; unclassified (2 sources) Gestation period, 23 weeks; Translations: [23 weeks gestation of ] 01-18-2025 Episodic Substance-related disorders (1 source) Nicotine dependence, cigarettes, uncomplicated; Translations: [NICOTINE DEPEND CIGARETTES UNCOMP] Onset: 02-25-2023 Chronic Unclassified (1 source) Initial Visit Onset: 09-28-2024 Unclassified (1 source) wants referral to Neurologyfor seizures Onset: 08-11-2024 Past or Other Problems Problem Classification Problem Date Documented Da te Episodic/Chronic Mood disorders (1 source) Mood disorders Onset: 05-05-2023 05-05-2023 NEGATED: Highlighted row has been ruled out!Unclassified (14 sources) No known active problems 10-13-2023 Results Test Name Value Interpretation Reference Range Facility AFP, SERUM, OPEN SPINA BIFID Aon 01-18-2025 AFP MOM 1.22 . [facility] [employer] AFP VALUE 109.4 ng/mL . [facility] [employer] re COMMENT: Comment . [facility] [employer] Comment on above: Shama Correa , Ph.D., [facility] Director References: Available Upon Request. Multiples Of Median Cutoffs For AFP Elevations Oneill 2.5 Black 2.8 IDD 2.0 Twins 4.5 Abbreviation Definitions IDD - Insulin Dep Diabetes OSBR - Open Spina Bifida Risk For further inquiries contact [facility] at [phone]. This test was developed and its performance characteristics determined by [employer]. It has not been cleared or approved by the Food and Drug Administration. Performed at: [facility] [address] [place], [place] [id number] Motorman/Woman: Hector Walsh [facility], Phone: [phone] GEST. AGE ON COLLECTION DATE 22.9 . weeks [facility] GESTAT. AGE BASED ON LMP . [facility] Comment on above: Recalculations are n ot recommended when gestational dating by LMP and ultrasound are within 10 days. INSULIN DEP DIABETES No . [facility] INTERPRETATION Comment . [facility] Janeth barrientos Comment on above: Interpretation: Scre en Negative This result is screen negative for OSB. The AFP MoM calculated is based on the gestational age provided. MS-AFP can identify up to 80% of open neural tube defects. Closed neural tube defects and some open defects may not be detected by this test. This test does not screen for Down Syndrome or Trisomy 18. If screening for Down Syndrome or Trisomy 18 is desired, contact [facility] to discuss available options. The [employer] recommends amniocentesis be offered to women age 35 and older. [age]EDAD [age] [facility] MULTIPLE GESTATION No . [facility] OSBR RISK 1 IN [phone] . [facility] Janeth barrientos RACE . [facility] [employer] RESULTS Report . [facility] [employer] TEST RESULTS: Negative . [facility] WEIGHT 135 . lbs [facility] [employer] N N LMP [phone] 3 15 N 1 Y 135 N N N N N [facility] [employer] US OB 14+ WEEKS ANATOMY SCAN on [...] II, MD, PHD at 31-Dec-2024 08:39:39 AM [facility] Normal Not Available Comment on above: Order Comment: US OB ANATOMY SINGLE W US OB CERVICAL LENGTH Estimated Date of Delivery: 05/15/25 Gestational Age as of 12/22/2024: 19w3d IGP,APTIMA HPV,AGE GDLNon AGE GDLN ACOG TESTING Note . [facility] Comment on above: TESTS RESULT FLAG UN ITS REF RANGE LAB Clinician Provided Cytology Information Source.............Cervix Other.............. No. of containers..01 ThinPrep Vial Age Algo ACOG Divina... FLAG LEGEND: L-Low Normal,H-High Normal,LL-Alert Low,HH-Alert High <-Panic Low,>-Panic High,A-Abnormal,AA-Critical Abnormal Performed at: 01 =[facility] [address] [place] [address] Kellie Meyer MD, IGP, RFX APTIMA HPV ASCU Note . [facility] Comment on above: TESTS RESULT FLAG UN ITS REF RANGE LAB DIAGNOSIS: 02 NEGATIVE FOR INTRAEPITHELIAL LESION OR MALIGNANCY. THIS SPECIMEN WAS RESCREENED PART OF OUR ROOF PROMENADE TILE SETTER PROGRAM. Specimen adequacy: 02 Satisfactory for evaluation. No endocervical component is identified. Performed by: 02 Dorinda Blake, Retrieval Specialist (ASCP) QC reviewed by: 02 Elliot Ibanez, Retrieval Specialist (ASCP) . 02 Note: Note 03 The Pap [...] <-Panic Low,>-Panic High,A-Abnormal,AA-Critical Abnormal Performed at: [address] [facility] [address] [address] [place] [address] Brandon Hobson MD, [address] [address] Kellie Meyer MD, Performed at: = - [facility] [id number] Motorman/Woman: Kellie Meyer MD, Phone: [phone] Performed at: [facility] [address] [address] [place], [place] [id number] Motorman/Woman: Brandon Hobson MD, Phone: [phone] SPATULA-ALONE CERVIX [facility] e RECURRENT VAGINITIS (HTRX)on 12-24-2024 ATOPOBIUM VAGINAE 0 [facility] ATOPOBIUM VAGINAE Not detected [facility] BVAB 2,3 (BACTERIAL VAGINOSIS ASSOCIATED BACTERIA 2, 3); MOBILUNCUS SPP 26.411 Abnormal [facility] BVAB 2,3 (BACTERIAL VAGINOSIS ASSOCIATED BACTERIA 2, 3); MOBILUNCUS SPP Detected Abnormal [facility] Healthcare LAUREN ALBICANS, PARAPSILOSIS, TROPICALIS 0 [facility] LAUREN ALBICANS, PARAPSILOSIS, TROPICALIS Not detected [facility] LAUREN GLABRATA 0 [facility] LAUREN GLABRATA Not detected [facility] LAUREN KRUSEI [facility] LA[facility]EN KRUSEI Not [facility] CHLAMYDIA TRACHOMATIS 0 [facility] CHLAMYDIA TRACHOMATIS Not detected [facility] GARDNERELLA VAGINALIS 0 [facility] GARDNERELLA VAGINALIS Not detected [facility] Interpretation and review of laboratory results Abnormal [facility] MEGASPHAERA (TYPES 1, 2) 0 [facility] MEGASPHAERA (TYPES 1, 2) Not detected [facility] MYCOPLASMA GENITALIUM 0 [facility] MYCOPLASMA GENITALIUM Not detected [facility] NEISSERIA GONORRHOEAE 0 [facility] NEISSERIA GONORRHOEAE Not detected [facility] TRICHOMONAS VAGINALIS 0 [facility] TRICHOMONAS VAGINALIS Not detected [facility] Urinalysis macro (dipstick) panel (U)on 12-22-2024 Bilirubin, UA Negative Negative - 4(70) +++ mg/dL [facility] Healthcare Blood, UA Negative Negative - 50 Jonathan/mcL [facility] Healthcare Clarity, UA Clear [facility] Color, UA Yellow [facility] Glucose, UA Negative Negative - 1999(110) ++++ mg/dL [facility] Interpretation and review of laboratory results Abnormal [facility] Ketones, UA Negative Negative - 160(16) ++++ mg/dL [facility] Leukocytes, UA Trace Negative - 500+++ Anoop/mcL [facility] Healthcare Nitrite, UA Negative Negative - Positive [facility] pH, UA 6.5 5 - 9 [facility] Healthcar e Protein, UA Trace Negative - 1999(20) ++++ mg/dL [facility] Spec Grav, UA 1.025 1 - 1.03 [facility] Urobilinogen, UA 0.2 0.2 - 12 mg/dL [facility] Urinalysis macro (dipstick) panel (U)on 11-24-2024 Bilirubin, UA Negative Negative - 4(70) +++ mg/dL [facility] Blood, UA Negative Negative - 50 Jonathan/mcL [facility] Healthcare Clarity, UA Clear [facility] Color, UA Yellow [facility] Glucose, UA Negative Negative - 1999(110) ++++ mg/dL [facility] Interpretation and review of laboratory results Abnormal [facility] Ketones, UA Negative Negative - 160(16) ++++ mg/dL [facility] Leukocytes, UA Trace Negative - 500+++ Anoop/mcL [facility] Healthcare Nitrite, UA Negative Negative - Positive [facility] pH, UA 6 5 - 9 [facility] Healthcar e Protein, UA Negative Negative - 1999(20) ++++ mg/dL [facility] Healthcare Spec Grav, UA 1.02 1 - 1.03 [facility] Urobilinogen, UA 0.2 0.2 - 12 mg/dL [facility] BOX TESTon 11-13-2024 BOX TEST SENT OUT [facility] BOX1 [facility] BOX2 10/18/2024 [facility] Urine Cultureon 11-13-2024 Bacteria identified Cx Nom (U) <9,000 colonies/ml mixed bacterial skin contaminants 2 Days PERFORMED BY: [place] [id number] PATHOLOGIST WET ROOM WORKER VILMA NUNES M.D. Normal [facility] Comment on above: Performed By: #### C UU #### [facility] [address] [id number] [facility] ( test) Ql (U)o n 10-25-2024 Interpretation and review of laboratory results Abnormal [facility] Preg Test, Ur Positive Negative [facility] Health care [facility] Urinalysis macro (dipstick) panel (U)on 10-25-2024 Bilirubin, UA Negative Negative - 4(70) +++ mg/dL [facility] Blood, UA Negative Negative - 50 Jonathan/mcL [facility] Clarity, UA Clear [facility] Healthoh re Color, UA Yellow [facility] Health[facility] Glucose, UA Negative Negative - 1999(110) ++++ mg/dL [facility] Interpretation and review of laboratory results Normal [facility] Ketones, UA Negative Negative - 160(16) ++++ mg/dL [facility] Leukocytes, UA Negative Negative - 500+++ Anoop/mcL [facility] Nitrite, UA Negative Negative - Positive [facility] pH, UA 7 5 - 9 [facility] Health[facility] Protein, UA Negative Negative - 1999(20) ++++ mg/dL [facility] Spec Grav, UA 1.025 1 - 1.03 [facility] Urobilinogen, UA 1.0 0.2 - 12 mg/dL [facility] XR FEMUR 2+ VW LEFTon 2023 XR FEMUR 2+ VW LEFT Left femur HISTORY: Pain 4 views of the femur. The femur is grossly intact. No fractures or periostitis. Soft tissues of the thigh are not remarkable. IMPRESSION: Negative left femur Electronically Signed Varun Garcia D.O. 2024-06-15 15:01:50 Normal Not Available CBC AUTO DIFFon 02-21-2023 BASO # 0.0 103/ul Normal 0.0-0.1 [facility] Comment on above: Performed By: #### C BC #### [facility] [address] [address] [address] Sol Flores Basophils/100 WBC (Bld) 0.4 % Normal 0.2-2.0 [facility] Comment on above: Performed By: #### C BC #### [facility] [address] [address] [address] Sol Flores EO # 0.0 103/ul Normal 0.0-0.7 [facility] Comment on above: Performed By: #### C BC #### [facility] [address] [address] [address] Sol Flores Eosinophils/100 WBC (Bld) 0.0 % Critically low 0.9-7.0 [facility] Comment on above: Performed By: #### C BC #### [facility] [address] [place] [address] Dr. Sol Flores Erythrocyte distribution width (RBC) [Ratio] 13.4 % Normal 11.0-15.0 [facility] Comment on above: Performed By: #### C BC #### [facility] [address] [place] [address] Dr. Sol Flores Hematocrit (Bld) [Volume fraction] 38.1 % Normal 36.0-48.0 [facility] Comment on above: Performed By: #### C BC #### [facility] [address] [place] [address] Dr. Sol Flores Hemoglobin (Bld) [Mass/Vol] 12.9 g/dL Normal 12.0-16.0 [facility] Comment on above: Performed By: #### C BC #### [facility] [address] [place] [address] Dr. Sol Flores IG # 0.02 10e3/ul Normal 0.00-0.03 [facility] Comment on above: Performed By: #### C BC #### [facility] [address] [place] [address] Dr. Sol Flores IG % 0.2 % Normal 0.0-0.5 [facility] Comment on above: Performed By: #### C BC #### [facility] [address] [place] [address] Dr. Sol Flores LYMPH # 2.2 103/ul Normal 1.2-3.8 [facility] Comment on above: Performed By: #### C BC #### [facility] [address] [place] [address] Dr. Sol Flores Lymphocytes/100 WBC (Bld) 26.7 % Normal 20.5-60.0 [facility] Comment on above: Performed By: #### C BC #### [facility] [address] [place] [address] Dr. Sol Flores MANUAL DIFF REQ NO Normal [facility] Comment on above: Performed By: #### C BC #### [facility] [address] [place] [address] Dr. Sol Flores MCH (RBC) [Entitic mass] 28.9 pg Normal 26.7-34.0 [facility] Comment on above: Performed By: #### C BC #### [facility] [address] [place] [address] Dr. Sol Flores MCHC (RBC) [Mass/Vol] 33.9 g/dL Normal 29.9-35.2 [facility] Comment on above: Performed By: #### C BC #### [facility] [address] [place] [address] Dr. Sol Flores MCV (RBC) [Entitic vol] 85.2 fL Normal 81.0-99.0 [facility] Comment on above: Performed By: #### C BC #### [facility] [address] [place] [address] Dr. Sol Flores MONO # 0.6 103/ul Normal 0.3-0.8 [facility] Comment on above: Performed By: #### C BC #### [facility] [address] [place] [address] Dr. Sol Flores Monocytes/100 WBC (Bld) 7.4 % Normal 1.7-12.0 [facility] Comment on above: Performed By: #### C BC #### [facility] [address] [place] [address] Dr. Sol Flores NEUT # 5.3 103/ul Normal 1.4-6.5 [facility] Comment on above: Performed By: #### C BC #### [facility] [address] [place] [address] Dr. Sol Flores Neutrophils/100 WBC (Bld) 65.3 % Normal 43.0-75.0 [facility] Comment on above: Performed By: #### C BC #### [facility] [address] [place] [address] Dr. Sol Flores Platelet mean volume (Bld) [Entitic vol] 10.3 fL Normal 9.5-13.5 [facility] Comment on above: Performed By: #### C BC #### [facility] [address] [place] [address] Dr. Sol Flores PLT 225 103/ul Normal 150-450 [facility] Comment on above: Performed By: #### C BC #### [facility] [address] [place] [address] Dr. Sol Flores RBC 4.47 106/ul Normal 4.20-5.40 [facility] Comment on above: Performed By: #### C BC #### [facility] [address] [place] [address] Dr. Sol Flores WBC 8.1 103/ul Normal 4.0-11.0 [facility] Comment on above: Performed By: #### C BC #### [facility] [address] [place] [address] Dr. Sol Flores D-DIMERon 02-21-2023 D-DIMER 0.33 mg/L FEU Normal <=0.59 [facility] Comment on above: Performed By: #### D DIM, PT, PTT #### [facility] [address] [place] [address] Dr. Sol Flores D-DIMER COMMENTS SEE BELOW Normal [facility] Comment on above: Result Comment: Incr eases [...] By: #### D DIM, PT, PTT #### [facility] [address] [place] [address] Dr. Sol Flores PREG HCG QUALon 02-21-2023 , QUAL Negative Normal NEGATIVE [facility] Comment on above: Performed By: #### P REG #### [facility] [address] [place] [address] Dr. Sol Flores PROF 14(COMP METB)on 023 Albumin [Mass/Vol] 3.9 g/dL Normal 3.4-5.0 [facility] Comment on above: Performed By: #### H STROPN, TSH, CMP #### [facility] [address] [place] [address] Dr. Sol Flores Albumin/Globulin [Mass ratio] 1.1 {ratio} Normal [facility] Comment on above: Performed By: #### H STROPN, TSH, CMP #### [facility] [address] [place] [address] Dr. Sol Flores ALP [Catalytic activity/Vol] 90 U/L Normal 46-116 [facility] Comment on above: Performed By: #### H STROPN, TSH, CMP #### [facility] [address] [place] [address] Dr. Sol Flores ALT [Catalytic activity/Vol] 19 U/L Normal 14-59 [facility] Comment on above: Performed By: #### H STROPN, TSH, CMP #### [facility] [address] [place] [address] Dr. Sol Flores Anion gap [Moles/Vol] 13.3 mmol/L Normal [facility] Comment on above: Performed By: #### H STROPN, TSH, CMP #### [facility] [address] [place], [place] [address] Dr. Sol Flores AST [Catalytic activity/Vol] 16 U/L Normal 15-37 [facility] Comment on above: Performed By: #### H STROPN, TSH, CMP #### [facility] [address] [place] [address] Dr. Sol Flores Bilirubin [Mass/Vol] 0.2 mg/dL Normal 0.2-1.0 [facility] Comment on above: Performed By: #### H STROPN, TSH, CMP #### [facility] [address] [place] [address] Dr. Sol Flores Calcium [Mass/Vol] 8.8 mg/dL Normal 8.5-10.1 [facility] Comment on above: Performed By: #### H STROPN, TSH, CMP #### [facility] [address] [place] [address] Dr. Sol Flores Chloride [Moles/Vol] 105 mmol/L Normal 98-107 [facility] Comment on above: Performed By: #### H STROPN, TSH, CMP #### [facility] [address] [place] [address] Dr. Sol Flores CO2 [Moles/Vol] 24.5 mmol/L Normal 21.0-32.0 [facility] Comment on above: Performed By: #### H STROPN, TSH, CMP #### [facility] [address] [place] [address] Dr. Sol Flores Creatinine [Mass/Vol] 0.79 mg/dL Normal 0.55-1.02 [facility] Comment on above: Performed By: #### H STROPN, TSH, CMP #### [facility] [address] [place] [address] Dr. Sol Flores EGFR-AF LAO >60 Normal >=60 [facility] Comment on above: Performed By: #### H STROPN, TSH, CMP #### [facility] [address] [place] [address] Dr. Sol Flores EGFR-NON AF LAO >60 Normal >=60 [facility] Comment on above: Performed By: #### H STROPN, TSH, CMP #### [facility] [address] [address] [address] Sol Flores Globulin (S) [Mass/Vol] 3.5 g/dL Normal [facility] Comment on above: Performed By: #### H STROPN, TSH, CMP #### [facility] [address] [address] [address] Sol Flores Glucose [Mass/Vol] 102 mg/dL Normal 74-106 [facility] Comment on above: Performed By: #### H STROPN, TSH, CMP #### [facility] [address] [address] [address] Sol Flores Potassium [Moles/Vol] 3.8 mmol/L Normal 3.5-5.1 [facility] Comment on above: Performed By: #### H STROPN, TSH, CMP #### [facility] [address] [place] [address] Dr. oSl Flores Protein [Mass/Vol] 7.4 g/dL Normal 6.4-8.2 [facility] Comment on above: Performed By: #### H STROPN, TSH, CMP #### [facility] [address] [address] [address] Sol Flores Sodium [Moles/Vol] 139 mmol/L Normal 136-145 [facility] Comment on above: Performed By: #### H STROPN, TSH, CMP #### [facility] [address] [address] [address] Sol Flores Urea nitrogen [Mass/Vol] 9.0 mg/dL Normal 7.0-18.0 [facility] Comment on above: Performed By: #### H STROPN, TSH, CMP #### [facility] [address] [address] [address] Sol Flores Urea nitrogen/Creatinine [Mass ratio] 11.4 mg/mg Normal [facility] Comment on above: Performed By: #### H STROPN, TSH, CMP #### [facility] [address] [address] [address] Sol Flores PROTIMEon 02-21-2023 INR Coag (PPP) [Relative time] 0.98 {INR} Normal [facility] Comment on above: Performed By: #### D DIM, PT, PTT #### [facility] [address] [place] [address] Dr. Sol Flores INR GUIDELINES SEE BELOW Normal [facility] Comment on above: Result Comment: LAWRENCE RED INR: 2.0 - 3.0 CONDITIONS NOT LISTED BELOW 2.5 - 3.5 FOR PROSTHETIC HEART VALVE REPLACEMENT 2.5 - 3.5 RECURRENT THROMBOSIS Performed By: #### D DIM, PT, PTT #### [facility] [address] [place] [address] Dr. Sol Flores PT Coag (PPP) [Time] 10.4 s Normal 9.0-11.6 [facility] Comment on above: Performed By: #### D DIM, PT, PTT #### [facility] [address] [place] [address] Dr. Sol Flores PTTon 02-21-2023 aPTT Coag (Bld) [Time] 29.4 s Normal 22.3-36.2 [facility] Comment on above: Performed By: #### D DIM, PT, PTT #### [facility] [address] [place] [address] Dr. Sol Flores TROPONIN, HIGH SENSITIVITYon 02-21-2023 HSTROP <4.0 Normal 4.0-51.3 [facility] Comment on above: Result Comment: CUT- OFF POINTS HAVE BEEN ESTABLISHED BASED ON THE FOURTH UNIVERSAL DEFINITIONS OF MYOCARDIAL INFARCTION. THE UPPER REFERENCE LIMIT (URL) OF TROPONIN, DEFINED THE 99TH PERCENTILE OF cTnI DISTRIBUTION IN A REFERENCE POPULATION, HAS BEEN CONFIRMED THE DECISION THRESHOLD FOR OR DIAGNOSIS. Performed By: #### H STROPN, TSH, CMP #### [facility] [address] [place] [address] Dr. Sol Flores TSHon 02-21-2023 TSH 1.985 uIU/mL Normal 0.358-3.740 [facility] Comment on above: Performed By: #### H STROPN, TSH, CMP #### [facility] [address] [place] [address] Dr. Sol Flores XR CHEST 1 Von [...] FAITH NUÑEZ Date: 2023-02-21 15:33 Normal [facility] Gynecology Office/Clinic Not [place] 10-30-2020 Gynecology [...] w/concerns. Ordered: , Serum, Test Qual w/Reflex [facility] [place] Problem List/Past Medical History Ongoing Anxiety [...] by Myriam Bean 10/30/20 15:04 EST Normal [facility] OR [place] 10-30-2020 Pl Red # 1 Normal [facility] Comment on above: Performed By: #### O jesse Tracking Order #### [facility] [address] [place] [address] S Preg Rflx BhCGon 0 Serum Preg Negative Normal [facility] Comment on above: Result Comment: The hCG Combo Rapid Test has a sensitivity of 10 mIU/mL in serum and is capable of detecting as early as 1 day after the first missed menses. Performed By: #### C [id number] #### [facility] [address] [place] [address] Vital Signs Date Time Vital Sign Value Performing Clinician Chris monaco 01-18-2025 08:47-0500 Body mass index (BMI) [Ratio] 23.96 kg/m2 Brandy Merrill DO Work Phone: [facility] 01-18-2025 08:47-0500 Body weight 69.4 kg Brandy Merrill DO Work Phone: [facility] 01-18-2025 08:47-0500 Diastolic blood pressure 60 mm[Hg] Brandy Merrill DO Work Phone: [facility] 01-18-2025 08:47-0500 Systolic blood pressure 100 mm[Hg] Brandy Merrill DO Work Phone: [facility] 12-22-2024 11:36-0500 Body mass index (BMI) [Ratio] 22.26 kg/m2 Yvette TABOR Work Phone: [facility] 12-22-2024 11:36-0500 Body weight 64.47 kg Yvette TABOR Work Phone: [facility] 12-22-2024 11:36-0500 Diastolic blood pressure 48 mm[Hg] Yvette TABOR Work Phone: [facility] 12-22-2024 11:36-0500 Systolic blood pressure 98 mm[Hg] Yvette TABOR Work Phone: [facility] 01-08-2025 16:03-0500 Body mass index (BMI) [Ratio] 21.21 kg/m2 Brandy Merrill DO Work Phone: [facility] 11-24-2024 16:03-0500 Body weight 61.42 kg Brandy Merrill DO Work Phone: [facility] 11-24-2024 16:03-0500 Diastolic blood pressure 60 mm[Hg] Brandy Merrill DO Work Phone: [facility] 11-24-2024 16:03-0500 Systolic blood pressure 100 mm[Hg] Brandy Merrill DO Work Phone: [facility] 10-25-2024 11:03-0500 Body mass index (BMI) [Ratio] 20.67 kg/m2 [facility] 10-25-2024 11:03-0500 Body weight 59.88 kg [facility] Nurse [facility] 08-11-2024 10:18-0400 Body mass index (BMI) [Ratio] 20.05 kg/m2 Mariel Caballero MD Work Phone: [facility] 08-11-2024 10:18-0400 Body weight 58.06 kg Mariel Caballero MD Work Phone: [facility] 08-11-2024 10:18-0400 Diastolic blood pressure 72 mm[Hg] Mariel Caballero MD Work Phone: [facility] 08-11-2024 10:18-0400 Heart rate 113 /min Mariel Caballero MD Work Phone: [facility] 08-11-2024 10:18-0400 Systolic blood pressure 116 mm[Hg] Mariel Caballero MD Work Phone: [facility] Encounters Encounter Date Encounter Type Care Provider Facility Start: 01-18-2025 End: 01-18-2025 Bamboo flowsheet Brandy Merrill DO Work Phone: [facility] Start: 01-18-2025 End: 01-18-2025 Bamboo flowsheet Brandy Merrill DO Work Phone: [facility] Start: 01-18-2025 End: 01-18-2025 flow sheet Brandy Merrill DO Work Phone: [facility] Comment on above: Second trimester pre gnancy; 23 weeks gestation of ; Diabetes mellitus screening Start: 01-18-2025 End: 01-18-2025 ambulatory BRANDY MERRILL Not Available Start: 01-15-2025 End: 01-18-2025 Clinisync Result Encounter Brandy Merrill DO Work Phone: [facility] Unsolicited Start: 01-15-2025 End: 01-18-2025 Clinisync Result Encounter Brandy Merrill DO Work Phone: [facility] Unsolicited Start: 12-30-2024 End: 12-30-2024 ambulatory YVETTE CHAMBERS Not Available Start: 12-23-2024 End: 12-24-2024 External Result Encounter Yvette TABOR Work Phone: [facility] Unsolicited Start: 12-23-2024 End: 12-24-2024 External Result Encounter Yvette TABOR Work Phone: [facility] Unsolicited Start: 12-22-2024 End: 12-22-2024 Bamboo flowsheet Yvette TABOR Work Phone: [facility] Start: 12-22-2024 End: 12-28-2024 Bamboo flowsheet Yvetet TABOR Work Phone: [facility] Start: 12-22-2024 End: 12-28-2024 Clinisync Result Encounter Yvette TABOR Work Phone: [facility] Unsolicited Start: 12-22-2024 End: 12-22-2024 ambulatory YVETTE CHAMBERS Not Available Start: 12-22-2024 End: 12-22-2024 Patient encounter procedure Yvette TABOR Work Phone: [facility] Start: 12-22-2024 End: 12-22-2024 Periodic preventive med est patient 18-39 yrs Yvette Brianne PA Work Phone: [facility] Comment on [...] Start: 11-13-2024 End: 11-13-2024 ambulatory Mariel Caballero Facility:[facility] Start: 11-13-2024 Encounter for genera l adult medical examination without abnormal findings Mariel Caballero [facility] Start: 11-13-2024 End: 11-13-2024 Clinisync [...] GA: 11w1d Start: 09-28-2024 ambulatory DORINDA MORENO [facility] Start: 08-11-2024 End: 08-11-2024 ambulatory MARIEL CABALLERO [facility] Start: 08-11-2024 End: 08-11-2024 Office outpatient visit 25 minutes Mariel Caballero MD Work Phone: [facility] Comment on above: Seizure-like activit y (CMS-HCC) (Primary Dx) Start: 06-29-2024 End: 06-29-2024 ambulatory GUILLERMO WING Not Available Start: 06-15-2024 End: 06-15-2024 ambulatory GUILLERMO WING Not Available Start: 06-10-2024 End: 06-10-2024 ambulatory GUILLERMO WING Not Available Start: 02-21-2023 End: 02-21-2023 ambulatory CHRISTINE SALVADOR Facility: Procedures Date Procedure Procedure Detail Performing Clinician Start: 01-15-2025 AFP, SERUM, OPEN SPI NA BIFIDA Brandy Merrill DO Work Phone: Start: 12-23-2024 RECURRENT VAGINITIS (HTRX) Yvette TABOR [...] Treatment Date Care Activity Detail Author Start: 02-15-2025 End: 02-15-2025 Patient encounter procedure 02/15/2025 8:30 AM EDT Routine [facility] [address] [facility] [address] [place] [id number] Yvette Chambers PA [address] [place] [address] [facility] Start: 01-18-2025 End: 01-18-2026 CBC panel - Blood by Automated count CBC Lab Routine Diabetes mellitus screening Expected: 01/18/2025 (Approximate), Expires: 01/18/2026 [facility] Work Phone: Comment on above: Expected: 01/18/2025 (Approximate), Expires: 01/18/2026 Start: 01-18-2025 End: 01-18-2026 Measurement of glucose 1 hour after glucose challenge for glucose tolerance test Glucose tolerance, 1 hour Lab Routine Diabetes mellitus screening Expected: 01/18/2025 (Approximate), Expires: 01/18/2026 [facility] Comment on above: Expected: 01/18/2025 (Approximate), Expires: 01/18/2026 Start: 01-18-2025 End: 01-18-2025 Patient encounter procedure [facility] Comment on above: Arrived Start: 12-30-2024 End: 12-30-2024 Professional / ancillary services management 12/30/2024 2:30 PM EST Ancillary Procedure [facility] [address] [facility] [address] [address] [facility] Start: 12-22-2024 End: 12-22-2025 US for US OB 14+ weeks anatomy scan Imaging Routine Screening, , for anatomic survey Expected: 12/22/2024, Expires: 12/22/2025 [facility] Work Phone: Comment on above: Expected: 12/22/2024 , Expires: 12/22/2025 Start: 12-22-2024 End: 12-22-2024 Patient encounter procedure 12/22/2024 11:20 AM EST Routine [facility] [address] [place] [phone] Yvette Chambers, PA [address] [place], [place] [id number] [facility] Start: 11-24-2024 End: 11-24-2024 Patient encounter procedure 11/24/2024 3:10 PM EST Routine [facility] [address] [place] [phone] Brandy Momin, DO [address] [facility] [place] [address] [facility] Start: 11-24-2024 End: 12-25-2024 Alpha fetoprotein, maternal Alpha fetoprotein, maternal Lab Routine 15 weeks gestation of Second trimester Expected: 11/24/2024 (Approximate), Expires: 12/25/2024 [facility] Work Phone: Comment on above: Expected: 11/24/2024 (Approximate), Expires: 12/25/2024 Start: 10-25-2024 End: 10-25-2025 ABO/Rh ABO/Rh Lab Routine Missed menses , unspecified gestational age Expected: 10/25/2024 (Approximate), Expires: 10/25/2025 [facility] Comment on above: Expected: 10/25/2024 (Approximate), Expires: 10/25/2025 Start: 10-25-2024 End: 10-25-2025 Blood type and Indirect antibody screen panel - Blood Type and screen Lab Routine Missed menses , unspecified gestational age Expected: 10/25/2024 (Approximate), Expires: 10/25/2025 [facility] Work Phone: Comment on above: Expected: 10/25/2024 (Approximate), Expires: 10/25/2025 Start: 10-25-2024 End: 10-25-2025 Drugs of abuse panel - Urine by Screen method Rapid drug screen, urine Lab Routine , unspecified gestational age Encounter for supervision of normal first in first trimester Expected: 10/25/2024 (Approximate), Expires: 10/25/2025 [facility] Comment on above: Expected: 10/25/2024 (Approximate), Expires: 10/25/2025 Start: 10-25-2024 End: 10-25-2025 US Pelvis transvaginal US OB transvaginal Imaging Routine Missed menses Expected: 10/25/2024 (Approximate), Expires: 10/25/2025 [facility] Comment on above: Expected: 10/25/2024 (Approximate), Expires: 10/25/2025 Start: 07-18-2024 Influenza vaccination Influenza Vacc ine [facility] Start: 06-02-2024 Adult BMI Screening Adult BMI Screen ing [facility] Start: 06-02-2024 Tobacco Screening Tobacco Screening [facility] Start: 05-05-2024 Depression Screening Depression Scre ening [facility] Start: 2022 Screening for malign ant neoplasm of cervix Pap Smear [facility] Start: 2020 DTaP,Tdap and Td Vaccines (1 - Tdap) DTaP,Tdap and Td Vaccines (1 - Tdap) [facility] Bacteria identified in Urine by Culture Urine culture Microbiology Routine Missed menses Ordered: 10/25/2024 [facility] Comment on above: Ordered: 10/25/2024 CBC W Auto Different ial panel - Blood CBC and differential Lab Routine Missed menses , unspecified gestational age Ordered: 10/25/2024 [facility] Comment on above: Ordered: 10/25/2024 CHLAMYDIA TRACHOMATI S (GENITO/STI) CHLAMYDIA TRACHOMATIS (GENITO/STI) Lab Routine STD exposure Vaginal discharge Ordered: 12/22/2024 [facility] Comment on above: Ordered: 12/22/2024 Cytology Cervical or vaginal smear or scraping study Pap Smear Pathology and Cytology Routine Well woman exam with routine gynecological exam Ordered: 12/22/2024 [facility] Comment on above: Ordered: 12/22/2024 Hemoglobin A1c/Hemoglobin.total in Blood Hemoglobin A1c Lab Routine Missed menses , unspecified gestational age Ordered: 10/25/2024 [facility] Comment on above: Ordered: 10/25/2024 Hepatitis B virus surface Ag [Presence] in Serum or Plasma by Immunoassay Hepatitis B surface antigen Lab Routine Missed menses , unspecified gestational age Ordered: 10/25/2024 [facility] Comment on above: Ordered: 10/25/2024 Hepatitis C virus Ab [Presence] in Serum or Plasma by Immunoassay Hepatitis C antibody Lab Routine Missed menses , unspecified gestational age Ordered: 10/25/2024 [facility] Comment on above: Ordered: 10/25/2024 HIV-1/HIV-2 antigen/antibody combination immunoassay HIV-1 and HIV-2 antibodies Lab Routine Missed menses , unspecified gestational age Ordered: 10/25/2024 [facility] Comment on above: Ordered: 10/25/2024 Neisseria gonorrhoea e DNA [Presence] in Unspecified specimen by NELDA with probe detection Neisseria gonorrhea DNA probe, direct Lab Routine STD exposure Vaginal discharge Ordered: 12/22/2024 [facility] Comment on above: Ordered: 12/22/2024 Reagin Ab [Presence] in Serum by RPR RPR Lab Routine Missed menses , unspecified gestational age Ordered: 10/25/2024 [facility] Comment on above: Ordered: 10/25/2024 Rubella antibody, IgG Rubella an tibody, IgG Lab Routine Missed menses , unspecified gestational age Ordered: 10/25/2024 [facility] Comment on above: Ordered: 10/25/2024 SURESWAB(R) ADVANCED VAGINITIS PLUS, TMA SURESWAB(R) ADVANCED VAGINITIS PLUS, TMA Pathology and Cytology Routine STD exposure Vaginal discharge Ordered: 12/22/2024 [facility] Comment on above: Ordered: 12/22/2024 Payers Date Payer Category Payer Self-pay 2024 Worker's Compensation [id number] [id number] 2024 Unknown [id number] 2024 Unknown [id number] 2020 Private Health Insurance [id number] 2001 Unknown [id number] 2.16.84 0.1.819642.3.579.2.593 2001 Unknown [id number] 2.16.8 40.1.163037.3.579.2.1286 2001 Unknown [id number] 2.16.8 40.1.666828.3.579.2.1286 2001 Unknown [id number] 2.16.84 0.1.492214.3.579.2.1258 2001 Unknown [id number] 2.16.84 0.1.455159.3.579.2.1258 2001 Unknown [id number] 2.16.84 0.1.894316.3.579.2.1258 2001 Unknown [id number] 2.16.84 0.1.823833.3.579.2.1258 2001 Unknown [id number] 2.16.84 0.1.441227.3.579.2.1258 2001 Unknown [id number] 2.16.84 0.1.152978.3.579.2.1258 2001 Unknown [id number] 2.16.84 0.1.638858.3.579.2.1258 2001 Unknown [id number] 2.16.84 0.1.217331.3.579.2.1258 2001 Unknown [id number] 2.16.84 0.1.746206.3.579.2.1258 2001 Unknown [id number] 2.16.84 0.1.294501.3.579.2.1258 2001 Unknown [id number] 2.16.84 0.1.697955.3.579.2.1258 2001 Unknown [id number] 2.16.84 0.1.880449.3.579.2.1258 2001 Unknown [id number] 2.16.84 0.1.221820.3.579.2.1258 2001 Unknown [id number] 2.16.84 0.1.335326.3.579.2.1258 2001 Unknown [id number] 2.16.84 0.1.377843.3.579.2.1258 2001 Unknown [id number] 2.16.84 0.1.264137.3.579.2.1259 2001 Unknown [id number] 2.16.84 0.1.926930.3.579.2.1259 2001 Unknown [id number] 2.16.84 0.1.340699.3.579.2.1259 1959 Private Health Insurance [id number] Unknown [id number] 2.16.8 40.1.054919.3.579.2.531 Social History Date Type Detail Facility Start: 10-13-2023 Tobacco smoking stat [facility] Tobacco smoking consumption unknown [facility] Start: 08-11-2024 End: 10-25-2024 Alcoholic beverage intake Current drinker of alcohol (finding) [facility] Start: 06-15-2024 End: 10-25-2024 Alcoholic beverage intake [facility] Start: 12-24-2022 End: 06-15-2024 Tobacco use panel [facility] Start: 08-22-2024 [facility] Start: 2001 Sex assigned at Not on file [facility] Start: 10-17-2022 Tobacco smoking stat [facility] Never smoked tobacco [facility] Start: 10-17-2022 Tobacco use and exposure Smokeless tobacco non-user [facility] Do you belong to any clubs or organizations such as mosque groups, unions, fraternal or athletic groups, or school groups? No [facility] Are you now , , , , never or living with a partner? Living with partner [facility] How often to you hav e a drink containing alcohol? 2-4 times a month [facility] How many standard drinks containing alcohol do you have on a typical day? 1 or 2 [facility] How often do you hav e 6 or more drinks on 1 occasion? Less than monthly [facility] How hard is it for y ou to pay for the very basics like food, housing, medical care, and heating Not hard at all [facility] Do you feel stress - tense, restless, nervous, or anxious, or unable to sleep at night because your mind is troubled all the time - these days [OSQ] [facility] much [facility] Start: 12-24-2022 Education 14 [facility] NEGATED: Highlighted rowStart: ANDERSON History of tobacco use Passive smoker [facility] Clinical Notes 08-11-2024 to 01-18-2025 Nadia Bessygaata, BOARD WORKER - 01/18/2025 8:40 AM Rosalie Chambers, SHARONA - 12/22/2024 11:20 AM PATRICEYoli Seay, BOARD WORKER - 11/24/2024 3:10 PM Avery Meeks, BOARD WORKER - 10/25/2024 10:00 AM EST Note Date & Type Note Facility 01-18-2025 History of Present illness Narrative Reason for Appointment: Patient ID: Megha Khalil is a 24 y.o. female who presents for Routine Visit Patient presents today for Return OB appointment. MEDICATIONS Current Outpatient Medications Medication Instructions Vit w/Gg-Sbepjmevm-EY (PNV PO) Oral ALLERGIES Allergies Allergen Reactions [...] SYSTEMS Review of Systems: Review of Systems All other systems reviewed and are negative. OBJECTIVE Objective: Physical Exam Constitutional: Appearance: Normal [...] nursing note reviewed. Exam conducted with a delicatessen manager present. Vitals: Estimated body mass index is 23.96 kg/m as calculated from the following: Height as of 10/13/23: 5' 7 . Weight as of this encounter: 153 lb. BP: 100/60 Patient's last menstrual period was 08/08/2024. ASSESSMENT & PLAN ICD-10-CM 1. Second trimester Z34.92 POCT urinalysis dipstick manually resulted 2. 23 weeks gestation of Z3A.23 3. Diabetes mellitus screening Z13.1 CBC Glucose tolerance, 1 hour CBC Glucose tolerance, 1 hour Patient presents today for a routine obstetrics appointment. Patient is currently 23w2d with a Estimated Date of Delivery: 05/15/25. Patient given order to have 1 hour gtt and CBC obtained sometime prior to next appointment. Patient will have growth scan later on in to confirm EFW. Patient to return to clinic in 4 weeks. Documented by Nadia Wilkins LPN on behalf of: Brandy Momin DO documented in this encounter [facility] 12-22-2024 History of Present illness Narrative Reason for Appointment: Patient ID: Megha Khalil is a 24 y.o. female who presents for Routine Visit Patient presents today for Return OB appointment. MEDICATIONS Current Outpatient Medications Medication Instructions magnesium oxide (MAG-OX) 400 mg, Oral, Daily Vit w/El-Cusgninpa-TP (PNV PO) Oral ALLERGIES Allergies Allergen Reactions [...] nursing note reviewed. Exam conducted with a delicatessen manager present. Vitals: Estimated body mass index is [...] of: SHARONA Jasmine documented in this encounter [facility] 11-24-2024 History of Present illness Narrative Reason for Appointment: Patient ID: Megha Khalil is a 24 y.o. female who presents for Routine Visit Patient presents today for Return OB appointment. MEDICATIONS Current Outpatient Medications Medication Instructions magnesium oxide (MAG-OX) 400 mg, Oral, Daily Vit w/Dc-Bmfelqotf-[place] (PNV PO) Oral ALLERGIES Allergies Allergen Reactions [...] nursing note reviewed. Exam conducted with a delicatessen manager present. Vitals: Estimated body mass index is [...] or undercooked meat, and stay away from [facility]. Patient has been consulted regarding any further do's and don'ts of . Patient voiced understanding and all questions and concerns were answered. Pt has occasional heart palpitations has seen gambling dealer in the past will continue to monitor. Pt having headaches, rx for magnesium faxed to pharmacy. Orders Placed This Encounter Procedures Alpha fetoprotein, maternal POCT urinalysis dipstick manually resulted Follow Up: Patient is to return in 4 weeks for routine OB appointment. Documented by Yoli Seay LPN on behalf of: Brandy Momin DO documented in this encounter [facility] 10-25-2024 History of Present illness Narrative Reason for Appointment: Patient ID: [...] list which includes the following prescription(s): vit w/pk-sogjxhtlo-on. Medical History: Active Ambulatory Problems Diagnosis Date [...] or undercooked meat, and stay away from [facility]. Patient has also been advised to [...] Adriane Meeks LPN documented in this encounter [facility] 08-11-2024 History of Present illness Narrative Subjective Patient ID: Megha Khalil is a 24 y.o. female. About 2 weeks ago she was evaluated at [facility] for seizure like symptoms. She has in [...] all orders for this visit: Seizure-like activity ([facility]-HCC) - Ambulatory referral to Neurology (Non[facility]); Future documented in this encounter [facility] Evaluation note Diagnosis Missed menses , unspecified gestational age Encounter for supervision of normal first in first trimester [facility] Diagnosis 15 weeks gestation of Second trimester state, incidental Nonintractable headache, unspecified chronicity pattern, unspecified headache type [facility] Diagnosis Second trimester state, incidental 19 weeks gestation of Screening, , for anatomic survey Encounter for anatomic survey Well woman exam with routine gynecological exam Routine gynecological examination STD exposure Vaginal discharge Leukorrhea, not specified as infective [facility] Diagnosis Seizure-like activity (CMS-HCC)- [facility] Diagnosis Second trimester state, incidental 23 weeks gestation of Diabetes mellitus screening Screening for diabetes mellitus documented in this encounter [facility] HealthcareInstructionsNot on filedocumented [facility] for [facility] (narrative)* Consultation (Routine) - Pending Review Specialty Diagnoses / Procedures Referred By Sarah hernandez Referred To Contact Neurology Diagnoses Seizure-like activity ([facility]-HCC) Mariel Caballero MD [address] [place] [address], [address] [place] [address] Jesse Lawton MD [id number] [facility] [place] [address] Referral ID Status Reason Start Date Expiration Date Visits Requested Visits Authorized [id number] Pending Review Specialty Services Required 08/11/2024 08/11/2025 1 1 [facility] Summary Purpose Family History No Family History Records FoundNo Family History Records FoundNo Family History Records FoundNo Family History Records FoundNo Family History Records Found Advance Directives No Advanced Directives Records FoundNo Advanced Directives Records FoundNo Advanced Directives Records FoundNo Advanced Directives Records FoundNo Advanced Directives Records Found Additional Source Comments INFORMATION SOURCE (unrecogn ized section and content) DATE CREATED AUTHOR 10/31/2020 [facility] DATE CREATED AUTHOR AUTHOR'S ORGANIZ ATION 03/15/2023 [facility] DATE CREATED AUTHOR AUTHOR'S ORGANIZ ATION 09/30/2024 [facility] DATE CREATED AUTHOR AUTHOR'S ORGANIZ ATION 01/02/2025 [facility] DATE CREATED AUTHOR AUTHOR'S ORGANIZ ATION 01/19/2025 [facility] EPIC Reason for Visit (unrecogniz ed section and content) Reason Comments Amenorrhea Reason Comments Routine Visit Reason Comments wants referral to Neurologyfor seizures Prefers [facility] in [place] - Dr Lawton, has had a CT scan for seizure-like activity at [facility] (unrecognized sec tion and content) Bisque Grader Relationship Specialty Start Date End Date Mariel Caballero MD [address] [place] [address], [address] [place] [address] PCP - General Family Medicine 09/26/23 Bisque Grader Relationship Specialty Start Date End Date Mariel Caballero MD [address] [place] [address], [address] [place] [address] PCP - General Family Medicine 09/26/23 Bisque Grader Relationship Specialty Start Date End Date Mariel Caballero MD [address] [place] [address], [address] [place] [address] PCP - General Family Medicine 09/26/23 Bisque Grader Relationship Specialty Start Date End Date Mariel Caballero MD [address] [place] [address], [address] [place] [address] PCP - General Family Medicine 09/26/23 Bisque Grader Relationship Specialty Start Date End Date Mariel Caballero MD [address] [place] [address], [address] [place] [address] PCP - General Family Medicine 09/26/23 Bisque Grader Relationship Specialty Start Date End Date Mariel Caballero MD [address] [place] [address], [address] [place] [address] PCP - General Family Medicine 09/26/23 Bisque Grader Relationship Specialty Start Date End Date Mariel Caballero MD [address] [place] [address], [address] [place] [address] PCP - General Family Medicine 09/26/23 Bisque Grader Relationship Specialty Start Date End Date Mariel Caballero MD [address] [place] [address], [address] [place] [address] PCP - General Pediatrics 12/03/17 Bisque Grader Relationship Specialty Start Date End Date Mariel Caballero MD [address] [place] [address], [address] [place] [address] PCP - General Family Medicine 09/26/23 FOR [...] BE BASED ON THE PRIMARY CLINICAL RECORDS. [employer] provides no warranty or guarantee of the accuracy or completeness of information in this document.
[2025-01-29 12:56] LABS: Basophils Percent Auto 0.2 % (0.2-2.0); Eosinophils Percent Auto 0.1 % (0.9-7.0); Hematocrit 28.3 % (36.0-48.0); Hemoglobin 9.5 g/dL (12.0-16.0); Immature Granulocytes Abs Auto 0.09 10^3/uL (0.00-0.03); Lymphocytes Absolute Auto 1.1 10^3/uL (1.2-3.8); Lymphocytes Percent Auto 11.8 % (20.5-60.0); Mean Corpuscular HGB Conc 33.6 g/dL (29.9-35.2); Mean Corpuscular Hemoglobin 30.9 pg (26.7-34.0); Mean Corpuscular Volume 92.2 fL (81.0-99.0); Mean Platelet Volume 10.3 fL (9.5-13.5); Monocytes Absolute Auto 0.6 10^3/uL (0.3-0.8); Monocytes Percent Auto 6.9 % (1.7-12.0); Neutrophils Absolute Auto 7.3 10^3/uL (1.4-6.5); Platelet Count 196 10^3/uL (150-450); Red Blood Count 3.07 10^6/uL (4.20-5.40); Red Cell Distribution Width 12.7 % (11.0-15.0); White Blood Count 9.2 10^3/uL (4.0-11.0)
[2025-01-29 13:09] LABS: Glucose 1 Hour 87 mg/dL (<130)
== END 2025-01-29 11:46 | disposition home or self-care (01) ==
LOC: LAB 11:45
PROVIDERS: PCP Internal Medicine; Visit Provider Obstetrics & Gynecology
DX: Z13.1 Encounter for screening for diabetes mellitus (principal)
CPT/HCPCS: 36415; 82950; 85025

== ENCOUNTER 2025-03-14 04:47 | Emergency (ER) | payer OTHER, SELFPAY ==
[2025-03-14 04:55] VITALS: BP 100/69; PULSE 87; TEMP 36.6; O2SAT 100; BMI 26.6
--- NOTE | 2025-03-14 05:08 | ED.NAVMDI1 ---
HPI - Nausea/Vomiting/Diarrhea General Chief complaint: Nausea/Vomiting/Diarrhea Stated complaint: FLU LIKE SYMPTOMS Time Seen by Provider: 03/14/25 04:53 Source: patient Mode of arrival: walk-in History of Present Illness HPI Narrative: This 24-year-old female G1, P0 who is 31 weeks presents for evaluation of upper abdominal pain. She states she has a squeezing sensation in her upper abdomen. The symptoms started this morning upon awakening. She was nauseated and had 1 episode of vomiting and has been shaking since that time. She denies any leakage of fluids or vaginal bleeding. She has not had any diarrhea. Her MIXER AND BLENDER is Dr. Momin. After she was seen initially we placed a call to [facility] and the patient will be transferred to [facility] for clearance. She was told she could not return to the emergency department at any time but is in agreement with making sure her baby is okay. heart tones were in the 150s. Related Data Home Medications ?Medication ?Instructions ?Recorded ?Confirmed polysaccharide iron complex 180 mg 180 mg PO DAILY 03/14/25 03/14/25 iron capsule (Pro Fe) Previous Rx's ?Medication ?Instructions ?Recorded hyoscyamine sulfate 0.125 mg 0.125 mg PO Q6H PRN abdominal pain 03/30/24 tablet (Levsin) #12 tabs ketorolac 10 mg tablet 10 mg PO TID PRN pain #10 tabs 03/30/24 ondansetron 4 mg disintegrating 4 mg PO Q6H PRN nausea and 03/30/24 tablet vomiting #12 tabs Allergies Allergy/AdvReac Type Severity Reaction Status Date / Time sumatriptan Allergy Severe Anaphylaxis Verified 07/21/24 21:02 penicillin G AdvReac Severe Hives Verified 07/21/24 21:02 Review of Systems ROS Status of ROS 10 or more systems reviewed and unremarkable except as noted in history and below PFSH PFS Social History Little interest or pleasure in doing things: not at all Feeling down, depressed, or hopeless: not at all Exam Narrative Exam Narrative: Vital signs and Nursing Notes reviewed: Patient is afebrile with a normal pulse, normal blood pressure, she is not hypoxic with pulse ox of 100% on room air General: Awake, alert, oriented, anxious, uncomfortable appearing female, she is rubbing her upper abdomen, no respiratory distress, no active vomiting HEENT: Normocephalic atraumatic, mucous membranes are moist and pink, eyes are clear, normal conjunctiva, vision is grossly intact Chest: Lungs are clear to auscultation with good air entry, there is no wheezing rhonchi or rales appreciated no accessory muscle use, patient is speaking in complete sentences-no chest wall tenderness to palpation CVS: Regular rate and rhythm S1-S2, no murmurs rubs or gallops, pulses are brisk and equal bilaterally ABD: Gravid uterus that is diffusely tender to palpation, there is also tenderness in the right upper quadrant and epigastrium. heart tones are in the 150s Extremities: Moving all extremities, no lower extremity tenderness or swelling noted, negative Homans' sign, pulses are brisk and equal bilaterally Skin: Normal in appearance without rash,pallor, petechiae or purpura Neuro: No focal deficits Constitutional Vital Signs, click to edit/add: Last Vital Signs Temp 97.8 F 03/14/25 04:55 Pulse 87 03/14/25 04:55 Resp 22 H 03/14/25 04:55 BP 100/69 03/14/25 04:55 Pulse Ox 100 03/14/25 04:55 O2 Del Method Room Air 03/14/25 04:55 Course Vital Signs Vital signs: Vital Signs Temperature 97.8 F 03/14/25 04:55 Pulse Rate 87 03/14/25 04:55 Respiratory Rate 22 H 03/14/25 04:55 Blood Pressure 100/69 03/14/25 04:55 Pulse Oximetry 100 03/14/25 04:55 Oxygen Delivery Method Room Air 03/14/25 04:55 Temperature 97.8 F 03/14/25 04:55 Pulse Rate 87 03/14/25 04:55 Respiratory Rate 22 H 03/14/25 04:55 Blood Pressure 100/69 03/14/25 04:55 Pulse Oximetry 100 03/14/25 04:55 Oxygen Delivery Method Room Air 03/14/25 04:55 MDM - Nausea/Vomiting/Diarrhea MDM Narrative Medical decision making narrative: After the patient's initial intake and heart tones she was taken to [facility] for monitoring. It was explained to her that she is welcome to return to the emergency department after the monitoring if her symptoms persist for further evaluation and treatment. She was in agreement with this plan as well as her significant other. Discharge Plan Discharge Chief Complaint: Nausea/Vomiting/Diarrhea Clinical Impression: Abdominal pain, Abdominal pain during in third trimester Patient Disposition: Admitted to [facility], OBS Prescriptions / Home Meds: No Action ketorolac 10 mg tablet 10 mg PO TID PRN (Reason: pain) Qty: 10 0RF hyoscyamine sulfate [Levsin] 0.125 mg tablet 0.125 mg PO Q6H PRN (Reason: abdominal pain) Qty: 12 0RF ondansetron 4 mg tablet,disintegrating 4 mg PO Q6H PRN (Reason: nausea and vomiting) Qty: 12 0RF Pro Fe 180 mg iron capsule 180 mg PO DAILY Print Language: Romanian Referrals: MARIEL CABALLERO [Primary Care Provider] - 1 week Discharge Date/Time: 03/14/25 05:23
--- NOTE | 2025-03-14 05:09 | PC.NURSE ---
Pt to go upstairs to [facility] per Dr. Matute. Up to [facility] per WC. Staff and supervisor bindery aware.
--- NOTE | 2025-03-14 05:15 | PC.NURSE ---
Prior to D/C to [facility], FHTs at 154
== END 2025-03-14 05:23 | disposition admitted as inpatient to this hospital (09) ==
LOC: ER 04:52
PROVIDERS: Emergency Provider Emergency Medicine; PCP Internal Medicine
DX: O26.893 Other specified pregnancy related conditions, third trimester (principal); R10.10 Upper abdominal pain, unspecified; Z3A.31 31 weeks gestation of pregnancy
CPT/HCPCS: 99281

== ENCOUNTER 2025-03-14 05:26 | Observation (INO) | payer OTHER, SELFPAY ==
[2025-03-14 06:20] LABS: Bilirubin Urine NEGATIVE (NEGATIVE); Blood Urine NEGATIVE (NEGATIVE); Clarity Urine CLEAR (CLEAR); Color Urine YELLOW (YELLOW); Glucose Urine UA NEGATIVE (NEGATIVE); Ketones Urine NEGATIVE (NEGATIVE); Leukocyte Esterase Urine NEGATIVE (NEGATIVE); Nitrite Urine NEGATIVE (NEGATIVE); Protein Urine NEGATIVE (NEG/TRACE); Urobilinogen Urine 0.2 EU/dL (0.2-1.0)
[2025-03-14 06:21] LABS: Urine Microscopic Indicated NO
--- NOTE | 2025-03-14 07:40 | US_ITS ---
[address] [address] Patient Name: GONZALO NEGRON MRN: [id number] date: 2000 Sex: F Assigned Patient Location: [facility] Current Patient Location: Accession/Order Number: [id number] Exam Date: 03/14/2025 13:46 Report Date: 03/14/2025 13:49 At the request of: BRANDY GUTIERREZ DO Procedure: US OB placenta Biophysical profile. Cervical ultrasound. Placental ultrasound. Reason for exam: Abdominal pain. COMPARISON: None. TECHNIQUE: Transabdominal imaging of the gravid uterus was obtained. FINDINGS: Dirt Shoveler reports a biophysical profile of 8 out of 8. MP is normal at 17.1 cm. heart rate 1 52 bpm. No focal placental abnormality is seen. Placenta appears fundal and posterior in location. Cervical length measures 4 cm diameter funneling. US/US OB BPP w non-stress IMPRESSION: BPP 8 out of 8. No focal placental abnormality. Normal cervical length without funneling. Impression dictated by: Chico Briscoe Jr., D.O. 03/14/2025 1:49 PM Dictation Location: [employer] Electronically authenticated by: [id number] Y Date: 03/14/2025 13:49
--- NOTE | 2025-03-14 07:40 | US_ITS ---
[address] [address] Patient Name: GONZALO NEGRON MRN: [id number] date: 2000 Sex: F Assigned Patient Location: [facility] Current Patient Location: Accession/Order Number: [id number] Exam Date: 03/14/2025 13:46 Report Date: 03/14/2025 13:49 At the request of: BRANDY GUTIERREZ DO Procedure: US OB placenta Biophysical profile. Cervical ultrasound. Placental ultrasound. Reason for exam: Abdominal pain. COMPARISON: None. TECHNIQUE: Transabdominal imaging of the gravid uterus was obtained. FINDINGS: Sanitary Inspector reports a biophysical profile of 8 out of 8. MP is normal at 17.1 cm. heart rate 1 52 bpm. No focal placental abnormality is seen. Placenta appears fundal and posterior in location. Cervical length measures 4 cm diameter funneling. US/US OB placenta IMPRESSION: BPP 8 out of 8. No focal placental abnormality. Normal cervical length without funneling. Impression dictated by: Chico Briscoe Jr., D.O. 03/14/2025 1:49 PM Dictation Location: [facility] Electronically authenticated by: [id number] Y Date: 03/14/2025 13:49
--- NOTE | 2025-03-14 07:40 | US_ITS ---
[address] [address] Patient Name: GONZALO NEGRON MRN: [id number] date: 2000 Sex: F Assigned Patient Location: [facility] Current Patient Location: Accession/Order Number: [id number] Exam Date: 03/14/2025 13:46 Report Date: 03/14/2025 13:49 At the request of: BRANDY GUTIERREZ DO Procedure: US OB placenta Biophysical profile. Cervical ultrasound. Placental ultrasound. Reason for exam: Abdominal pain. COMPARISON: None. TECHNIQUE: Transabdominal imaging of the gravid uterus was obtained. FINDINGS: Piece Goods Clerk reports a biophysical profile of 8 out of 8. MP is normal at 17.1 cm. heart rate 1 52 bpm. No focal placental abnormality is seen. Placenta appears fundal and posterior in location. Cervical length measures 4 cm diameter funneling. US/US OB cervical length IMPRESSION: BPP 8 out of 8. No focal placental abnormality. Normal cervical length without funneling. Impression dictated by: Chico Briscoe Jr., D.O. 03/14/2025 1:49 PM Dictation Location: [employer] Electronically authenticated by: [id number] Y Date: 03/14/2025 13:49
[2025-03-14 08:00] LABS: Basophils Percent Auto 0.1 % (0.2-2.0); Hematocrit 28.3 % (36.0-48.0); Hemoglobin 9.2 g/dL (12.0-16.0); Immature Granulocytes Abs Auto 0.11 10^3/uL (0.00-0.03); Immature Granulocytes Pct Auto 0.8 % (0.0-0.5); Lymphocytes Absolute Auto 1.1 10^3/uL (1.2-3.8); Lymphocytes Percent Auto 7.7 % (20.5-60.0); Mean Corpuscular HGB Conc 32.5 g/dL (29.9-35.2); Mean Corpuscular Hemoglobin 28.9 pg (26.7-34.0); Mean Platelet Volume 10.3 fL (9.5-13.5); Monocytes Absolute Auto 0.8 10^3/uL (0.3-0.8); Monocytes Percent Auto 5.2 % (1.7-12.0); Neutrophils Absolute Auto 12.6 10^3/uL (1.4-6.5); Neutrophils Percent Auto 86.2 % (43.0-75.0); Platelet Count 205 10^3/uL (150-450); Red Blood Count 3.18 10^6/uL (4.20-5.40); Red Cell Distribution Width 12.7 % (11.0-15.0); White Blood Count 14.7 10^3/uL (4.0-11.0)
[2025-03-14 08:13] LABS: Alanine Aminotransferase 16 U/L (14-59); Albumin Globulin Ratio 0.7; Albumin Level 2.6 g/dL (3.4-5.0); Alkaline Phosphatase 83 U/L (46-116); Amylase 58 U/L (25-115); Anion Gap 15.9; Aspartate Amino Transferase 18 U/L (15-37); Bilirubin Total 0.2 mg/dL (0.2-1.0); Calcium 8.7 mg/dL (8.5-10.1); Carbon Dioxide 22.9 mmol/L (21.0-32.0); Chloride 103 mmol/L (98-107); Estimated GFR (African America >60 (>=60 mL/min/1.73m^2); Estimated GFR (Non-African Ame >60 (>=60 mL/min/1.73m^2); Globulin 3.8 g/dL; Glucose 93 mg/dL (74-106); Potassium 3.8 mmol/L (3.5-5.1); Sodium 138 mmol/L (136-145); Total Protein 6.4 g/dL (6.4-8.2)
== END 2025-03-14 08:45 | disposition home or self-care (01) ==
PROVIDERS: Admitting Provider Obstetrics & Gynecology; PCP Internal Medicine; Visit Provider Obstetrics & Gynecology
DX: O26.893 Other specified pregnancy related conditions, third trimester (principal); R10.10 Upper abdominal pain, unspecified; Z3A.31 31 weeks gestation of pregnancy
CPT/HCPCS: 36415; 59025; 76815; 76817; 76818; 80053; 81003; 82150; 83690; 85025; 99281; G0378; G0379

== ENCOUNTER 2025-03-19 11:53 | Outpatient (OUT) | payer OTHER, SELFPAY | END 2025-03-19 11:54 | disposition home or self-care (01) | LOC: LAB 11:54 | PROVIDERS: PCP Internal Medicine; Visit Provider Obstetrics & Gynecology | DX: O99.013 Anemia complicating pregnancy, third trimester (principal) | CPT/HCPCS: 36415; 82728 ==

== ENCOUNTER 2025-04-08 07:42 | Outpatient (RCR) | payer OTHER, SELFPAY ==
[2025-03-28 15:07] VITALS: BP 123/76; PULSE 121; TEMP 36.7; O2SAT 98
[2025-03-28] MEDS: IRON SUCROSE COMPLEX 100 MG in 0.9 % SODIUM CHLORIDE 100 ML 420 MG IV (15:18)
[2025-03-30 15:00] VITALS: BP 117/22; PULSE 92; TEMP 36.8; O2SAT 99
[2025-03-30] MEDS: IRON SUCROSE COMPLEX 200 MG in 0.9 % SODIUM CHLORIDE 100 ML 220 MG IV (15:18)
[2025-04-01 14:57] VITALS: BP 116/63; PULSE 109; TEMP 36.6; O2SAT 97
[2025-04-01] MEDS: IRON SUCROSE COMPLEX 200 MG in 0.9 % SODIUM CHLORIDE 100 ML 220 MG IV (15:04)
[2025-04-04 15:05] VITALS: BP 117/70; PULSE 102; TEMP 36.5; O2SAT 98
[2025-04-04] MEDS: IRON SUCROSE COMPLEX 100 MG in 0.9 % SODIUM CHLORIDE 100 ML 420 MG IV (15:14)
[2025-04-06 15:00] VITALS: BP 109/71; PULSE 104; TEMP 36.6; O2SAT 97
[2025-04-06] MEDS: IRON SUCROSE COMPLEX 200 MG in 0.9 % SODIUM CHLORIDE 100 ML 220 MG IV (15:13)
[2025-04-08 12:04] VITALS: BP 119/76; PULSE 101; TEMP 36.3; O2SAT 98
[2025-04-08] MEDS: IRON SUCROSE COMPLEX 200 MG in 0.9 % SODIUM CHLORIDE 100 ML 220 MG IV (12:20)
== END 2025-04-12 07:53 | disposition home or self-care (01) ==
LOC: INF 07:42
PROVIDERS: PCP Internal Medicine; Visit Provider Obstetrics & Gynecology
DX: O99.019 Anemia complicating pregnancy, unspecified trimester (principal); D64.9 Anemia, unspecified; Z3A.00 Weeks of gestation of pregnancy not specified
CPT/HCPCS: 96365; 96374; J1756

== ENCOUNTER 2025-04-17 18:44 | Observation (INO) | payer OTHER, SELFPAY ==
--- OUTSIDE RECORDS SUMMARY | 2025-04-07 14:00 | XMS_ITS | Encounter Summary ---
Author Organization [facility] Address [address] [place] [address] Care Team Providers Care Keyboarding Teacher Name Role Phone Rosa Church MD, IBCLC Primary Care Provid er Reason for Visit * Reason Comments Get Establsished Has suspected Dysaut onomia , has not been officially diagnosed. Has been getting iron infusions, last one is tomorrow, 1000mg total. Encounter Details Date Type Department Care Team (Late st Contact Info) Description 04/07/2025 2:00 PM EDT Office Visit [facility] [address] [place] [address] Rosa Church MD, IBCLC [address] [place] [address] Dysautonomia (CMS/HCC) (Primary Dx); Well [...] been receiving iron infusions. She sees Dr. Momin as her crm business analyst. During her , her iron levels have been low despite taking iron supplements, so she has been getting iron transfusions, with her last one scheduled for tomorrow at [facility]. Her hemoglobin was 12.9 in October 2024, [...] were normal. She was checked by a administrative office specialist for possible Postural Orthostatic Tachycardia Syndrome (POTS), [...] migraines. She is not currently seeing a administrative office specialist or neurologist and doesn't see any other [...] Resource Strain: Low Risk (12/24/2022) Received from [facility] Overall Financial Resource Strain (CARDIA) Difficulty of Paying Living Expenses: Not hard at all Food Insecurity: No Food Insecurity (09/28/2024) Received from [facility] Hunger Screening Within the past 12 months we worried whether our food would run out before we got money to buy more.: Never True Within the past 12 months the food we bought just didn't last and we didn't have money to get more.: Never True Transportation Needs: No Transportation Needs (12/24/2022) Received from [facility] PRAPARE - Transportation Lack of Transportation (Medical): No Lack of Transportation (Non-Medical): No Physical Activity: Inactive (12/24/2022) Received from [facility] Exercise Vital Sign Days of Exercise per Week: 0 days Minutes of Exercise per Session: 0 min Stress: Stress Concern Present (12/24/2022) Received from [facility] [place] [facility]ational [facility] - Occupational Stress Questionnaire Feeling of Stress : Very much Social Connections: Socially Isolated (12/24/2022) Received from [facility] Social Connection and Isolation Panel [NHANES] Frequency of Communication with Friends and Family: Never Frequency of Social Gatherings with Friends and Family: Never Attends Sabianist Services: Never Active Member of Clubs or [...] Medication Instructions MAGnesium-Oxide 400 mg, Daily Vit w/Qu-Nwhmftpot-NN (PNV PO) Take by mouth ProFe 391.3 [...] in 03/2021. - Receiving iron infusions at [facility], with the last infusion scheduled for tomorrow. Immunization refused Rubella titer low on labs. Pt states she doesn't do vaccines. TBD vaccination plans for baby. Rosa Church MD, IBCLC [facility] documented in this encounter Plan of Treatment Upcoming Encounters Date Type Department Care Team (Late st Contact Info) Description 04/20/2025 11:20 AM EDT Routine [facility] [address] [place] [phone] Ruperto Momin, DO [address] [place] [address] 04/07/2026 8:00 AM EDT Office Visit [facility] [address] [place] [address] Rosa Church MD, IBCLC [address] [place] [address] documented as of this encounter Visit Diagnoses Diagnosis Dysautonomia (CMS/HCC)- Primary Unspecified disorder of autonomic nervous system Well adult exam Routine [facility] Chronic migraine with aura without status migrainosus, not intractable (CMS/HCC) 34 weeks gestation of Anemia affecting in third trimester Immunization refused documented in this encounter Care Teams Keyboarding Teacher Relationship Specialty Start Date End Date Rosa Church MD, IBCLC [address] [place] [address] PCP - General Family Medicine 04/07/25 documented as of this encounter
--- OUTSIDE RECORDS SUMMARY | 2025-04-13 13:00 | XMS_ITS | Encounter Summary ---
Author Organization [facility] Address [address] [place] [address] Care Team Providers Care Green Marketing Analyst Name Role Phone Rosa Church MD, IBCLC Primary Care Provid er Reason for Visit * Reason Comments Routine Visit Encounter Details Date Type Department Care Team (Late st Contact Info) Description 04/13/2025 1:00 PM EDT Routine [facility] [address] [place] [phone] Ruperto Momin, DO [address] [facility] [address] [place], [id number] Third trimester ; 35 weeks gestation of Social History Tobacco Use Types Packs/Day Years Used Date Smoking Tobacco: Never Passive Smoke Exposure: Never Smokeless Tobacco: Never Alcohol Use Standard Drinks/Week Comments Yes 1 [...] Sign Reading Time Taken Comments Blood Pressure 112/70 04/13/2025 1:00 PM EDT Pulse - - Temperature - - Respiratory Rate - - Oxygen Saturation - - Inhaled Oxygen Concentration - - Weight 83.1 kg (183 lb 4.8 oz) 04/13/2025 1:00 P M EDT Height - - Body Mass Index 28.71 04/07/2025 2:04 PM EDT documented in this encounter Progress Notes * Yoli Seay, ORAL SURGERY TECHNICIAN - 04/13/2025 1:00 PM EDT Reason for Appointment: Patient ID: Megha Khalil is a 24 y.o. female who presents for Routine Visit Patient presents today for Return OB appointment. MEDICATIONS Current Outpatient Medications Medication Instructions MAGnesium-Oxide 400 mg, Daily Vit w/Xn-Xecgkacwn-CT (PNV PO) Take by mouth ProFe 391.3 (180 Fe) MG capsule 1 capsule, Daily ALLERGIES Allergies Allergen Reactions Penicillins Hives Sumatriptan Swelling PROBLEMS Active Ambulatory Problems Diagnosis Date Noted Immunization refused 04/07/2025 Chronic migraine with aura without status migrainosus, not intractable ([facility]) 04/07/2025 Dysautonomia ([facility]) 04/07/2025 Resolved Ambulatory Problems Diagnosis Date Noted No Resolved Ambulatory Problems No Additional Past Medical History HISTORY PAST MEDICAL HISTORY SOCIAL HISTORY History reviewed. No pertinent past medical history. Social History Tobacco Use Smoking status: Never Passive exposure: Never Smokeless tobacco: Never Vaping Use Vaping status: Unknown Substance Use Topics Alcohol use: Yes Alcohol/week: 1.0 standard drink of alcohol Types: 1 Shots of liquor per week Drug use: Defer FAMILY HISTORY Family History Problem Relation Name Age of Onset Diabetes Father Alzheimer's disease Paternal Grandfather SURGICAL HISTORY History reviewed. No pertinent surgical history. REVIEW OF SYSTEMS Review of Systems: Review [...] nursing note reviewed. Exam conducted with a human resources talent manager present. Vitals: Estimated body mass index is 28.71 kg/m?? as calculated from the following: Height as of 04/07/25: 5' 7 . Weight as of this encounter: 183 lb 4.8 oz. BP: 112/70 Patient's last menstrual period was 08/08/2024. ASSESSMENT & PLAN ICD-10-CM 1. Third trimester Z34.93 2. 35 weeks gestation of Z3A.35 Return OB: Patient presents today for a routine obstetrics appointment. Patient is currently 35w3d . Patient states she is doing well but has complaints of being tired due to current . Patient has verbalizes frequent movement. labor precautions was discussed/given and patient was instructed to perform kick counts three times a day. Next visit will obtain GBS. Reviewed patients plan in detail. No orders of the defined types were placed in this encounter. Follow Up: Patient is to return to office in 1 week for routine OB appointment. Documented by Yoli Seay LPN on behalf of: Ruperto Momin DO documented in this encounter Plan of Treatment Upcoming Encounters Date Type Department Care Team (Late st Contact Info) Description 04/20/2025 11:20 AM EDT Routine [facility] [address] [place] [address] Ruperto Momin DO [address] [place], [place] [id number] 04/07/2026 8:00 AM EDT Office Visit [facility] [address] [place] [phone] Rosa Church MD, IBCLC [address] [place] [address] documented as of this encounter Visit Diagnoses Diagnosis Third trimester state, incidental 35 weeks gestation of documented in this encounter Care Teams Green Marketing Analyst Relationship Specialty Start Date End Date Rosa Church MD, IBCLC [address] [place] [address] PCP - General Family Medicine 04/07/25 documented as of this encounter
--- OUTSIDE RECORDS SUMMARY | 2025-04-17 18:47 | XMS_ITS | Encounter Summary ---
Author Organization [facility] Address [address] [place] [address] Care Team Providers Care General Forecaster Name Role Phone Rosa Church MD, IBCLC Primary Care Provid er Encounter Details Date Type Department Care Team (Late st Contact Info) Description 04/07/2025 Bamboo flowsheet [facility] [address] [place] [address] Rosa Church MD, IBCLC [address] [place] [address] Social History Tobacco Use Types Packs/Day Years [...] PM EDT documented as of this encounter Plan of Treatment Upcoming Encounters Date Type Department Care Team (Late st Contact Info) Description 04/20/2025 11:20 AM EDT Routine [facility] [address] [place] [address] Ruperto Momin, DO [address] [place] [address] 04/07/2026 8:00 AM EDT Office Visit [facility] [address] [place] [phone] Rosa Church MD, IBCLC [address] [place] [address] documented as of this encounter Visit Diagnoses Not on filedocumented in this encounter Care Teams General Forecaster Relationship Specialty Start Date End Date Rosa Church MD, IBCLC [address] [place] [address] PCP - General Family Medicine 04/07/25 documented as of this encounter
--- OUTSIDE RECORDS SUMMARY | 2025-04-17 18:47 | XMS_ITS | Encounter Summary ---
Author Organization [facility] Address [address] [place] [address] Care Team Providers Care Sterile Products Processor Name Role Phone Rosa Church MD, IBCLC Primary Care Provid er Encounter Details Date Type Department Care Team (Late st Contact Info) Description 04/13/2025 Bamboo flowsheet [facility] [address] [facility] [address] [place] [address] Ruperto Momin [address] [place], [place] [address] Social History Tobacco Use Types Packs/Day Years [...] Description 04/20/2025 11:20 AM EDT Routine [facility] [address] [facility] [address] [place] [address] Ruperto Momin [address] [place] [address] 04/07/2026 8:00 AM EDT Office Visit [facility] [address] [facility] [place] [place] [phone] Rosa Church MD, IBCLC [address] [place] [address] documented as of this encounter Visit Diagnoses Not on filedocumented in this encounter Care Teams Sterile Products Processor Relationship Specialty Start Date End Date Rosa Church MD, IBCLC [address] [place] [address] PCP - General Family Medicine 04/07/25 documented as of this encounter
--- OUTSIDE RECORDS SUMMARY | 2025-04-17 18:47 | XMS_ITS | Encounter Summary ---
Demographics Address [address] [place] [address] Mobile Phone Email Address Preferred Language Eritrean Marital Status Single Islam Affiliation Unknown Race White Ethnic Group Not or Lati no Author Organization [facility] Address [id number] [address] [place] [address] Care Team Providers Care Owner Consulting Engineer Name Role Phone Chilo Momin MD Primary Care Provider [phone] Encounter Details Date Type Department Care Team (Late st Contact Info) Description 06/02/2023 Orders Only [facility] [address] [place] [address] External, Scanning Provider Social History Tobacco Use Types Packs/Day Years Used Date Smoking Tobacco: Never Smokeless Tobacco: Never Alcohol Use Standard Drinks/Week Comments Yes 0 (1 standard drink = 0.6 oz pur e alcohol) Social Connection and Isolation Panel [NHANES] A nswer Date Recorded In a typical week, how many times do you talk on the phone with family, friends, or neighbors? Never 12/24/19 How often do you get togethe r with friends or relatives? Never 12/24/2022 How often do you attend chur ch or zoroastrian services? Never 12/24/2022 Do you belong to any clubs o r organizations such as evangelical groups, unions, fraternal or athletic groups, or school groups? No 12/24/2022 How often do you attend meet ings of the clubs or organizations you belong to? Never 12/24/2022 Are you , , di vorced, , never , or living with a partner? Living with partner 12/24/2022 AUDIT-C Answer Date Recorded Q1: How often do you have a drink containing alc ohol? 2-4 times a month 12/24/2022 Q2: How many drinks containi ng alcohol do you have on a typical day when you are drinking? 1 or 2 12/24/2022 Q3: How often do you have si x or more drinks on one occasion? Less than monthly 12/24/2022 Overall Financial Resource Strain (CARDIA) Answe r Date Recorded How hard is it for you to pa y for the very basics like food, housing, medical care, and heating? Not hard at all 12/24/2022 PHQ-2 Answer Date Recorded Total Score 15 05/05/2023 [facility] - Occupational Stress Questionnaire Answer Date Recorded Do you feel stress - tense, restless, nervous, or anxious, or unable to sleep at night because your mind is troubled all the time - these days? Very much 12/24/2022 Exercise Vital Sign Answer Date Recorde d On average, how many days pe r week do you engage in moderate to strenuous exercise (like a brisk walk)? 0 days 12/24/2022 On average, how many minutes do you engage in exercise at this level? 0 min 12/24/2022 PRAPARE - Transportation Answer Date Re corded In the past 12 months, has l ack of transportation kept you from medical appointments or from getting medications? No 05/2023 In the past 12 months, has l ack of transportation kept you from meetings, work, or from getting things needed for daily living? No 12/24/2022 Housing Instability Answer Date Recorde d Are you worried or concerned that in the next two months you may not have stable housing that you own, rent or stay in as a part of a household? No 12/24/2022 Childcare Answer Date Recorded Do problems getting child ca re make it difficult for you to work or study? No 12/24/2022 Employment Answer Date Recorded Do you need help finding a [facility] and/or a training program? No 12/24/2022 Hunger Screening Answer Date Recorded Within the past 12 months we worried whether our food would run out before we got money to buy more. Never True 06/02/2023 Within the past 12 months th e food we bought just didn't last and we didn't have money to get more. Never True 06/02/2023 Purpose - Life Answer Date Recorded I have a purpose and direction in my life. Agree 12/24/2022 Education Answer Date Recorded What is the highest level of school you have completed or the highest degree you have received? GED or equivalent 05/2023 Comments Unknown Sex and Gender Information Value Date Recorded Sex Assigned at Not on file Legal Sex Female 11:58 AM EDT Gender Identity Not on file Sexual Orientation Not on file documented as of this encounter Plan of Treatment Not on file documented as of this encounter Procedures Procedure Name Priority Date/Time Associated Diagnosis Comments ECG 12-LEAD Routine 06/11/2022 8:13 AM EDT documented in this encounter Results * ECG 12 lead (06/11/2022 8:13 AM EDT) us Scanning Provider External ECG ORDERABLES Final Result MANUALLY TRANSCRIBED RESULTS documented in this encounter Visit Diagnoses Not on filedocumented in this encounter Additional Health Concerns Assessment Noted Time PHQ-9 Depression Total Score: 15 023 1:37 PM EDT documented as of this encounter Care Teams Owner Consulting Engineer Relationship Specialty Start Date End Date Chilo Momin MD [address] [place] [address], [place] [address] PCP - General Pediatrics 12/03/17 documented as of this encounter
--- OUTSIDE RECORDS SUMMARY | 2025-04-17 18:47 | XMS_ITS | Encounter Summary ---
Author Organization [facility] Address [address] [place] [address] Care Team Providers Care Invasive Manager Name Role Phone Chilo Momin MD Primary Care Provider Rosa Church MD, IBCLC Primary Care Provid er Encounter Details Date Type Department Care Team (Late st Contact Info) Description 03/18/2025 Abstract [facility] [address] [place] [address] Nadia Wilkins LPN Social History Tobacco Use Types Packs/Day Years Used Date Smoking Tobacco: Unknown Passive Smoke Exposure: Never Alcohol Use Standard Drinks/Week Comments Yes [...] Description 04/20/2025 11:20 AM EDT Routine [facility] OB [address] [place] [phone] Ruperto Momin, DO [address] [place], [place] [phone] 04/07/2026 8:00 AM EDT Office Visit [facility] [address] [place] [address] Rosa Church MD, IBCLC [address] [place], [place] [phone] documented as of this encounter Visit Diagnoses Not on filedocumented in this encounter Care Teams Invasive Manager Relationship Specialty Start Date End Date Chilo Momin MD PCP - General Family Medicine 09/26/23 04/06/25 Rosa Church MD, IBCLC [address] [place] [address] PCP - General Family Medicine 04/07/25 documented as of this encounter
--- OUTSIDE RECORDS SUMMARY | 2025-04-17 18:47 | XMS_ITS | Encounter Summary ---
Author Organization [facility] Address [address] [place] [address] Care Team Providers Care Cook Helper Fruit Name Role Phone Rosa Church MD, IBCLC Primary Care Provid er Encounter Details Date Type Department Care Team (Latest Contact Info) Description 04/07/2025 Travel Social History Tobacco Use Types Packs/Day Years [...] Description 04/20/2025 11:20 AM EDT Routine [facility] [address] [place] [address] Ruperto Momin DO [address] [place], [place] [id number] 04/07/2026 8:00 AM EDT Office Visit [facility] [address] [place] [address] Rosa Church MD, IBCLC [address] [place], [place] [phone] documented as of this encounter Visit Diagnoses Not on filedocumented in this encounter Care Teams Cook Helper Fruit Relationship Specialty Start Date End Date Rosa Church MD, IBCLC [address] [place], [place] [phone] PCP - General Family Medicine 04/07/25 documented as of this encounter
--- OUTSIDE RECORDS SUMMARY | 2025-04-17 18:47 | XMS_ITS | Clinical Summary ---
Author Organization [facility] Address [address] [place] [address] Care Team Providers Care Shipfitters Supervisor Name Role Phone Rosa Church MD, IBCLC Primary Care Provid er Allergies Active Allergy Reactions Criticality Noted Date Comments Penicillins Hives High 12/03/2017 Sumatriptan Swelling High 06/11/2022 Medications Vit w/Fe-Methylfol- FA (PNV PO) Take by mouth Active MAGnesium-Oxide 400 (240 Mg) MG tablet Take 400 mg by mouth Daily 12/01/2024 Active ProFe 391.3 (180 Fe) MG capsule Take 1 capsule by mouth Daily 03/09/2025 Active Active Problems Problem Noted Date Diagnosed Date Immunization refused 04/07/2025 Assessment & Plan (04/07/2025 3:08 PM EDT): Rubella titer low on labs. Pt states she doesn't do vaccines. TBD vaccination plans for baby. Chronic migraine with aura w ithout status migrainosus, not intractable 04/07/2025 Assessment & Plan (04/07/2025 3:08 PM EDT): - chronic, improved during . - Experiences migraines pre- about twice a week, which have improved during . - No current medication is being taken for migraines as previous medications were ineffective. - Advised to continue monitoring and report any changes in frequency or severity. Dysautonomia 04/07/2025 Assessment & Plan (04/07/2025 3:08 PM EDT): - chronic, symptoms less severe during . - Experiences symptoms such as dizziness, blacking out, and rapid heartbeat, which have been less severe during . - Advised to maintain hydration by consuming at least 2 liters of water daily and to increase salt intake. - Further discussion regarding potential medication options if symptoms persist despite these measures. Estimated Date of Delivery Comme nts Yes 05/15/2025 Based on last me nstrual period of 08/08/2024 Encounters Date Type Department Care Team Description 04/13/2025 1:00 PM EDT Routine [facility] [address] [place] [address] Brandy Momin DO Third trimester ; 35 weeks gestation of 04/13/2025 Bamboo flowsheet [facility] [address] [place] [address] Brandy Momin DO 04/07/2025 2:00 PM EDT Office Visit [facility] [address] [place] [address] Rosa Church MD, IBCLC Dysautonomia (CMS/HCC) (Primary Dx); Well adult exam; Chronic migraine with aura without status migrainosus, not intractable (CMS/HCC); 34 weeks gestation of ; Anemia affecting in third trimester; Immunization refused 04/07/2025 Bamboo flowsheet [facility] [address] [place] [address] Rosa Church MD, IBCLC 04/07/2025 Travel 03/30/2025 10:30 AM EDT Routine [facility] OB [address] [place] [phone] Xiomara Gallagher NP Anemia affecting in third trimester (Primary Dx); Third trimester ; 33 weeks gestation of 03/30/2025 Bamboo flowsheet [facility] OB [address] [place] [address] Xiomraa Gallagher NP 03/19/2025 Clinisync Result Encounter [facility] External Department Unsolicited Merrill, Brandy, DO 03/18/2025 Abstract [facility] OB [address] [place] [phone] Nadia Wilkins LPN 03/17/2025 9:10 AM EDT Routine [facility] OB [address] [place] [address] Xiomara Gallagher, HOANG Antepartum anemia (Primary Dx); Third trimester ; 31 weeks gestation of 03/17/2025 Bamboo flowsheet [facility] [address] [place] [phone] Xiomara Gallagher, HOANG 03/14/2025 Clinisync Result Encounter [facility] External Department Unsolicited MerrillGregy, DO 03/14/2025 Clinisync Result Encounter [facility] External Department Unsolicited Merrill, Brandy, DO 03/14/2025 Clinisync Result Encounter [facility] External Department Unsolicited Merrill, Brandy, DO 03/14/2025 Clinisync Result Encounter [facility] External Department Unsolicited MerrillBrandy, DO 03/09/2025 Abstract [facility] OB [address] [place] [phone] Brandy Momin, DO 03/03/2025 10:10 AM EDT Routine [facility] [address] [place] [phone] Brandy Momin, DO Third trimester ; 29 weeks gestation of ; Anemia affecting in third trimester 03/03/2025 9:30 AM EDT Ancillary Procedure [facility] [address] [place] [address] [place] [phone] size inconsistent with dates 02/15/2025 8:30 AM EDT Routine [facility] [address] [place] [address] Yvette Decker, PA Second trimester ; 27 weeks gestation of ; size inconsistent with dates 02/15/2025 Bamboo flowsheet [facility] OB [address] [place] [address] [place] [address] Yvette Decker PA 01/31/2025 Telephone [facility] OB [address] [place] [address] [place] [address] Alexander Fartun, MA 01/29/2025 Clinisync Result Encounter [facility] External Department Unsolicited Brandy Momin DO 01/18/2025 8:40 AM EST Routine [facility] OB [address] [place] [address] [place] [address] Brandy Momin DO Second trimester ; 23 weeks gestation of ; Diabetes mellitus screening 01/18/2025 Bamboo flowsheet [facility] [address] [place] [address] Brandy Momin DO 01/15/2025 Clinisync Result Encounter [facility] External Department Unsolicited Brandy Momin DO from Last 3 Months Family History Medical History Relation Name Comments Diabetes Father Alzheimer's disease Paternal Grandfather Relation Name Status Comments Father Alive Mother Alive Paternal Grandfather Social History Tobacco Use Types Packs/Day Years [...] Orientation Straight 04/07/2025 2: 40 PM EDT Last Filed Vital Signs Vital Sign Reading Time Taken Comments Blood Pressure 112/70 04/13/2025 1:00 PM EDT Pulse 123 04/07/2025 2:04 PM EDT Temperature 36.2 C (97.2 F) 04/07/2025 2:04 PM EDT Respiratory Rate 17 04/07/2025 2:04 PM EDT Oxygen Saturation 98% 04/07/2025 2:04 PM EDT Inhaled Oxygen Concentration - - Weight 83.1 kg (183 lb 4.8 oz) 04/13/2025 1:00 P M EDT Height 170.2 cm (5' 7 ) 04/07/2025 2:04 PM EDT Body Mass Index 28.71 04/07/2025 2:04 PM EDT Plan of Treatment Upcoming Encounters Date Type Department Care Team (Late st Contact Info) Description 04/20/2025 11:20 AM EDT Routine [facility] [address] [place] [address] Brandy Momin DO [address] [place] [address] 04/07/2026 8:00 AM EDT Office Visit [facility] [address] [place] [address] Rosa Church MD, IBCLC [address] [place] [address] Health Maintenance Due Date Last Done Comments Influenza Vaccine (Season Ended) 2025 Procedures Procedure Name Priority Date/Time Associated Diagnosis Comments [facility] FERRITIN Routine 03/19/2025 12:05 PM EDT US OB BPP W NON-STRESS 03/14/2025 1:49 PM EDT US OB PLACENTA 03/14/2025 1:49 PM EDT US OB CERVICAL LENGTH 03/14/2025 1:49 PM EDT CCF LIPASE Routine 03/14/2025 7:54 AM EDT ALL AMYLASE Routine 03/14/2025 7:54 AM EDT CCF CMP (CMP) (FOR REMOTE [facility] USE) Routine 03/14/2025 7:54 AM EDT ALL CBC WITH AUTO DIFF Routine 7:54 AM EDT TBH UA (CLEAN/CATCH) TREE FRUIT AND NUT CROPS FARMER/MICRO IF IND. Routine 03/14/2025 6:00 AM EDT POCT URINALYSIS DIPSTICK Routine 03/03/2025 11:43 AM EDT Third trimester US OB FOLLOW UP TRANSABDOMINAL APPROACH Routine 03/03/2025 10:04 AM EDT size inconsistent with dates POCT URINALYSIS DIPSTICK Routine 02/15/2025 8:54 AM EDT Second trimester GLUCOSE 1 HOUR Routine 01/29/2025 12:46 PM EDT ALL CBC WITH AUTO DIFF Routine 12:46 PM EDT AFP, SERUM, OPEN SPINA BIFIDA Routine 01/15/2025 11:30 AM EST from Last 3 Months Results * (ABNORMAL) CCF FERRITIN (03/19/2025 12:05 PM EDT) FERRITIN 6.0(L) 8.0 - 252.0 ng/mL TBH 03/19/2025 12:0 5 PM EDT 03/19/2025 12:05 PM EDT Narrative CLINISYNC - 03/19/2025 1:33 PM EDT us Brandy Nelsono DO CLINISYNC Final Result [facility] * US OB PLACENTA (03/14/2025 1:49 PM EDT) Anatomical Region Laterality Modality Other 03/14/2025 1:49 PM EDT Narrative 03/14/2025 1:51 PM EDT [place] [phone] Ultrasound Report Signed Patient: MEGHA KHALIL MR#: [id number] : 2000 Acct:[id number] Age/Sex: 24 / F ADM Date: Loc: [facility] 250-[address]: Brandy Momin D.O. Ordering Physician: Brandy Momin D.O. Date of Service: 03/14/25 Procedure(s): US OB placenta Accession Number(s): [id number] cc: Brandy Momin D.O.; MARIEL CABALLERO [place] [phone] Patient Name: MEGHA KHALIL MRN: [id number] date: 2000 Sex: F Assigned Patient Location: [facility] Current Patient Location: Accession/Order Number: [id number] Exam Date: 03/14/2025 13:46 Report Date: 03/14/2025 13:49 At the request of: BRANDY MOMIN DO Procedure: US OB placenta Biophysical profile. Cervical ultrasound. Placental ultrasound. Reason for exam: Abdominal pain. COMPARISON: None. TECHNIQUE: Transabdominal imaging of the gravid uterus was obtained. FINDINGS: Insect Control Inspector reports a biophysical profile of 8 out of 8. MP is normal at 17.1 cm. heart rate 1 52 bpm. No focal placental abnormality is seen. Placenta appears fundal and posterior in location. Cervical length measures 4 cm diameter funneling. US/US OB placenta IMPRESSION: BPP 8 out of 8. No focal placental abnormality. Normal cervical length without funneling. Impression dictated by: Chico Briscoe Jr., D.O. 03/14/2025 1:49 PM Dictation Location: [place] [address] Electronically authenticated by: [id number] Y Date: 03/14/2025 13:49 Dictated By: Chico Briscoe M.D. Signed By: 03/14/25 1357 DD/ 1349 TD/TT: Flight Test Shop Mechanic: Procedure Note Radiology, Radiologist, MD - 03/14/[address] [address] Ultrasound Report Signed Patient: MEGHA KHALIL EMR#: [id number] : 2000Acct:[id number] Age/Sex: 24 / FADM Date: Loc: [facility] 250-[address]: Brandy Momin D.O. Ordering Physician: Brandy Momin D.O. Date of Service: 03/14/25 Procedure(s): US OB placenta Accession Number(s): [id number] cc: Brandy Momin D.O.; MARIEL CABALLERO [place] [phone] Patient Name: MEGHA KHALIL MRN: [id number] date: 2000 Sex: F Assigned Patient Location: [facility] Current Patient Location: Accession/Order Number: [id number] Exam Date: 03/14/2025 13:46 Report Date: 03/14/2025 13:49 At the request of: BRANDY MOMIN DO Procedure: US OB placenta Biophysical profile. Cervical ultrasound. Placental ultrasound. Reason for exam: Abdominal pain. COMPARISON: None. TECHNIQUE: Transabdominal imaging of the gravid uterus was obtained. FINDINGS: Insect Control Inspector reports a biophysical profile of 8 out of 8. MP is normal at 17.1 cm. heart rate 1 52 bpm. No focal placentalabnormality is seen. Placenta appears fundal and posterior in location. Cervicallength measures 4 cm diameter funneling. US/US OB placenta IMPRESSION: BPP 8 out of 8. No focal placental abnormality. Normal cervical length without funneling. Impression dictated by: Chico Briscoe Jr., D.O. 03/14/2025 1:49 PM Dictation Location: [place] [address] Electronically authenticated by: [id number] Y Date: 3:49 Dictated By: Chico Briscoe M.D. Signed By:03/14/25 1359 DD/ 1342 TD/TT: Flight Test Shop Mechanic: us Brandy Momin DO CLINIS[facility]NC IMAGING Final Result * US OB BPP W NON-STRESS (03/14/2025 1:49 PM EDT) Anatomical Region Laterality Modality Other 03/14/2025 1:49 PM EDT Narrative 03/14/2025 1:52 [place] [address] Ultrasound Report Signed Patient: MEGHA KHALIL MR#: [id number] : 2000 Acct:[id number] Age/Sex: 24 / F ADM Date: Loc: [facility] [address]: Brandy Momin D.O. Ordering Physician: Brandy Momin D.O. Date of Service: 03/14/25 Procedure(s): US OB BPP w non-stress Accession Number(s): [id number] cc: Brandy Momin D.O.; MARIEL CABALLERO [place] [phone] Patient Name: MEGHA KHALIL MRN: [facility]:[id number] date: 2000 Sex: F Assigned Patient Location: [facility] Current Patient Location: Accession/Order Number: [id number] Exam Date: 03/14/2025 13:46 Report Date: 03/14/2025 13:49 At the request of: BRANDY MOMIN DO Procedure: US OB placenta Biophysical profile. Cervical ultrasound. Placental ultrasound. Reason for exam: Abdominal pain. COMPARISON: None. TECHNIQUE: Transabdominal imaging of the gravid uterus was obtained. FINDINGS: Insect Control Inspector reports a biophysical profile of 8 out of 8. MP is normal at 17.1 cm. heart rate 1 52 bpm. No focal placental abnormality is seen. Placenta appears fundal and posterior in location. Cervical length measures 4 cm diameter funneling. US/US OB BPP w non-stress IMPRESSION: BPP 8 out of 8. No focal placental abnormality. Normal cervical length without funneling. Impression dictated by: Chico Briscoe Jr., D.O. 03/14/2025 1:49 PM Dictation Location: [place] [address] Electronically authenticated by: [id number] Y Date: 03/14/2025 13:49 Dictated By: Chico Briscoe M.D. Signed By: 03/14/25 1352 DD/ 1349 TD/TT: Flight Test Shop Mechanic: Procedure Note Radiology, Radiologist, - 03/14/2025 [place] [address] Ultrasound Report Signed Patient: MEGHA KHALIL EMR#: [id number] : 2000Acct:[id number] Age/Sex: M Date: Loc: [facility] 250-[address]: Brandy Momin D.O. Ordering Physician: Brandy Momin D.O. Date of Service: 03/14/25 Procedure(s): US OB BPP w non-stress Accession Number(s): [id number] cc: Brandy Momin D.O.; MARIEL CABALLERO [place] [phone] Patient Name: MEGHA KHALIL MRN: [facility]:[id number] date: 2000 Sex: F Assigned Patient Location: [facility] Current Patient Location: Accession/Order Number: [id number] Exam Date: 03/14/2025 13:46 Report Date: 03/14/2025 13:49 At the request of: BRANDY MOMIN DO Procedure: US OB placenta Biophysical profile. Cervical ultrasound. Placental ultrasound. Reason for exam: Abdominal pain. COMPARISON: None. TECHNIQUE: Transabdominal imaging of the gravid uterus was obtained. FINDINGS: Insect Control Inspector reports a biophysical profile of 8 out of 8. MP is normal at 17.1 cm. heart rate 1 52 bpm. No focal placentalabnormality is seen. Placenta appears fundal and posterior in location. Cervicallength measures 4 cm diameter funneling. US/US OB BPP w non-stress IMPRESSION: BPP 8 out of 8. No focal placental abnormality. Normal cervical length without funneling. Impression dictated by: Chico Briscoe Jr., D.O. 03/14/2025 1:49 PM Dictation Location: [place] [address] Electronically authenticated by: [id number] Y Date: 3:49 Dictated By: Chico Briscoe M.D. Signed By:03/14/25 1352 DD/ 1343 TD/TT: Flight Test Shop Mechanic: us Brandy Momin DO [facility] IMAGING Final Result * US OB CERVICAL LENGTH (03/14/2025 1:49 PM EDT) Anatomical Region Laterality Modality Other 03/14/2025 1:49 PM EDT Narrative 03/14/2025 1:51 [place] [address] Ultrasound Report Signed Patient: MEGHA KHALIL MR#: [id number] : 2000 Acct:[id number] Age/Sex: 24 / F ADM Date: Loc: [facility] [address]: Brandy Momin D.O. Ordering Physician: Brandy Momin D.O. Date of Service: 03/14/25 Procedure(s): US OB cervical length Accession Number(s): [id number] cc: Brandy Momin D.O.; MARIEL CABALLERO [place] [phone] Patient Name: MEGHA KHALIL MRN: [id number]:[id number] date: 2000 Sex: F Assigned Patient Location: [facility] Current Patient Location: Accession/Order Number: [id number] Exam Date: 03/14/2025 13:46 Report Date: 03/14/2025 13:49 At the request of: BRANDY MOMIN DO Procedure: US OB placenta Biophysical profile. Cervical ultrasound. Placental ultrasound. Reason for exam: Abdominal pain. COMPARISON: None. TECHNIQUE: Transabdominal imaging of the gravid uterus was obtained. FINDINGS: Insect Control Inspector reports a biophysical profile of 8 out of 8. MP is normal at 17.1 cm. heart rate 1 52 bpm. No focal placental abnormality is seen. Placenta appears fundal and posterior in location. Cervical length measures 4 cm diameter funneling. US/US OB cervical length IMPRESSION: BPP 8 out of 8. No focal placental abnormality. Normal cervical length without funneling. Impression dictated by: Chico Briscoe Jr., D.O. 03/14/2025 1:49 PM Dictation Location: [place] [address] Electronically authenticated by: [id number] Y Date: 03/14/2025 13:49 Dictated By: Chico Briscoe M.D. Signed By: 03/14/25 1350 DD/ 1349 TD/TT: Flight Test Shop Mechanic: Procedure Note Radiology, Radiologist, MD - 03/14/2025 [place] [address] Ultrasound Report Signed Patient: MEGHA KHALIL EMR#: [id number] : 2000Acct:[id number] Age/Sex: 24 FADM Date: Loc: [place] [address]: Brandy Momin D.O. Ordering Physician: Brandy Momin D.O. Date of Service: 03/14/25 Procedure(s): US OB cervical length Accession Number(s): [id number] cc: Brandy Momin D.O.; MARIEL CABALLERO [place] [phone] Patient Name: MEGHA KHALIL MRN: [id number]:[id number] date: 2000 Sex: F Assigned Patient Location: [facility] Current Patient Location: Accession/Order Number: [id number] Exam Date: 03/14/2025 13:46 Report Date: 03/14/2025 13:49 At the request of: BRANDY MOMIN DO Procedure: US OB placenta Biophysical profile. Cervical ultrasound. Placental ultrasound. Reason for exam: Abdominal pain. COMPARISON: None. TECHNIQUE: Transabdominal imaging of the gravid uterus was obtained. FINDINGS: Insect Control Inspector reports a biophysical profile of 8 out of 8. MP is normal at 17.1 cm. heart rate 1 52 bpm. No focal placentalabnormality is seen. Placenta appears fundal and posterior in location. Cervicallength measures 4 cm diameter funneling. US/US OB cervical length IMPRESSION: BPP 8 out of 8. No focal placental abnormality. Normal cervical length without funneling. Impression dictated by: Chico Briscoe Jr., D.O. 03/14/2025 1:49 PM Dictation Location: [place] [address] Electronically authenticated by: [id number] Y Date: 3:49 Dictated By: Chico Briscoe M.D. Signed By:03/14/25 1351 DD/ 1349 TD/TT: Flight Test Shop Mechanic: us Brandy Merrill DO [facility] IMAGING Final Result * CCF LIPASE (03/14/2025 7:54 AM EDT) LIPASE 48.0 16.0 - 77.0 U/L TB[facility] 03/14/2025 7:54 AM EDT 03/14/2025 7:57 AM EDT Narrative CLINISYNC - 03/14/2025 8:14 AM EDT us Brandy Merrill DO [facility] Final [facility] * (ABNORMAL) CCF CMP (CMP) (FOR REMOTE [facility] USE) (03/14/2025 7:54 AM EDT) SODIUM 138 136 - 145 mmol/L TBH POTASSIUM 3.8 3.5 - 5.1 mmol/L TBH CHLORIDE 103 98 - 107 mmol/L TBH CARBON DIOXIDE 22.9 21.0 - 32.0 mmol/L TBH ANION GAP 15.9 TBH GLUCOSE 93 74 - 106 mg/dL TBH BLOOD UREA NITROGEN 8.0 7.0 - 18.0 mg/dL TBH CREATININE 0.57 0.55 - 1.02 mg/dL TBH TBH EGFR-AF UGANDAN >60 >=60 mL/min/1. 73m 2 TBH TBH EGFR-NON AF UGANDAN >60 >=60 mL/min/1. 73m 2 TBH BUN CREATININE RATIO 14.0 TBH CALCIUM 8.7 8.5 - 10.1 mg/dL TBH BILIRUBIN TOTAL 0.2 0.2 - 1.0 mg/dL TBH ASPARTATE AMINO TRANSFERASE 18 15 - 37 U/L TBH ALANINE AMINOTRANSFERASE 16 14 - 59 U/L TBH ALKALINE PHOSPHATASE 83 46 - 116 U/L TBH TOTAL PROTEIN 6.4 6.4 - 8.2 g/dL TBH ALBUMIN LEVEL 2.6(L) 3.4 - 5.0 g/dL TBH GLOBULIN 3.8 g/dL TBH ALBUMIN GLOBULIN RATIO 0.7 TBH 03/14/2025 7:54 AM EDT 03/14/2025 7:57 AM EDT Narrative CLINISYNC - 03/14/2025 8:14 AM EDT us Brandy Merrill DO [facility] Final Result [facility] * (ABNORMAL) ALL CBC WITH AUTO DIFF (03/14/2025 7:54 AM EDT) Only the most recent of2 resultswithin the time period is included. TBH WBC 14.7(H) 4.0 - 11.0 10 3/uL TBH TBH RBC 3.18(L) 4.20 - 5.40 10 6/uL TBH TBH HGB 9.2(L) 12.0 - 16.0 g/dL TBH TBH HCT 28.3(L) 36.0 - 48.0 % TBH TBH MCV 89.0 81.0 - 99.0 fL TBH TBH MCH 28.9 26.7 - 34.0 pg TBH TBH MCHC 32.5 29.9 - 35.2 g/dL TBH TBH RDW 12.7 11.0 - 15.0 % TBH TBH PLT 205 150 - 450 10 3/uL TBH TBH MPV 10.3 9.5 - 13.5 fL TBH NEUTROPHILS PERCENT AUTO 86.2(H) 43.0 - 75.0 % TBH LYMPHOCYTES PERCENT AUTO 7.7(L) 20.5 - 60.0 % TBH MONOCYTES PERCENT AUTO 5.2 1.7 - 12.0 % TBH TBH EO % 0.0(L) 0.9 - 7.0 % TBH BASOPHILS PERCENT AUTO 0.1(L) 0.2 - 2.0 % TBH IMMATURE GRANULOCYTES PCT AUTO 0.8(H) 0.0 - 0.5 % TBH NEUTROPHILS ABSOLUTE AUTO 12.6(H) 1.4 - 6.5 10 3/uL TBH LYMPHOCYTES ABSOLUTE AUTO 1.1(L) 1.2 - 3.8 10 3/uL TBH MONOCYTES ABSOLUTE AUTO 0.8 0.3 - 0.8 10 3/uL TBH TBH EO # 0.0 0.0 - 0.7 10 3/uL TBH BASOPHILS ABSOLUTE AUTO 0.0 0.0 - 0.1 10 3/uL TBH IMMATURE GRANULOCYTES ABS AUTO 0.11(H) 0.00 - 0.03 10 3/uL TBH 03/14/2025 7:54 AM EDT 03/14/2025 7:57 AM EDT Narrative CLINISYNC - 03/14/2025 8:00 AM EDT us Brandy Merrill DO CLINISYNC Final Result CLINISYNC [facility] * ALL AMYLASE (03/14/2025 7:54 AM EDT) AMYLASE 58 25 - 115 U/L TBH 03/14/2025 7:54 AM EDT 03/14/2025 7:57 AM EDT Narrative CLINISYNC - 03/14/2025 8:14 AM EDT us Brandy Merrill DO CLINISYNC Final Result CLINIS[facility]NC TB * TBH UA (CLEAN/CATCH) TREE FRUIT AND NUT CROPS FARMER/MICRO IF IND. (03/14/2025 6:00 AM EDT) COLOR URINE YELLOW YELLOW TBH CLARITY URINE CLEAR CLEAR TBH SPECIFIC GRAVITY URINE 1.010 1.005 - 1.025 TBH PH URINE 7.0 5.0 - 9.0 TBH PROTEIN URINE NEGATIVE NEG/TRACE mg/dL TBH GLUCOSE URINE UA NEGATIVE NEGATIVE mg/dL TBH BILIRUBIN URINE NEGATIVE NEGATIVE TBH KETONES URINE NEGATIVE NEGATIVE mg/dL TBH BLOOD URINE NEGATIVE NEGATIVE TBH NITRITE URINE NEGATIVE NEGATIVE TBH UROBILINOGEN URINE 0.2 0.2 - 1.0 EU/dL TBH LEUKOCYTE ESTERASE URINE NEGATIVE NEGATIVE TBH URINE MICROSCOPIC INDICATED NO TBH 03/14/2025 6:00 AM EDT 03/14/2025 6:16 AM EDT Narrative CLINISYNC - 03/14/2025 6:21 AM EDT us Brandy Merrill DO CLINISYNC Final Result [facility] * POCT urinalysis dipstick manually resulted (03/03/2025 11:43 AM EDT) Only the most recent of2 resultswithin the time period is included. Color, UA Yellow Clarity, UA Clear Glucose, UA Negative Negative - 2000(110) ++++ mg/dL Bilirubin, UA Negative Negative - 4(70) +++ mg/dL Ketones, UA Negative Negative - 160(16) ++++ mg/dL Spec Grav, UA 1.020 1 - 1.03 Blood, UA Negative Negative - 50 Jonathan/mcL pH, UA 6.5 5 - 9 Protein, UA Negative Negative - 2000(20) ++++ mg/dL Urobilinogen, UA 0.2 0.2 - 12 mg/dL Leukocytes, UA Negative Negative - 500+++ Anoop/mcL Nitrite, UA Negative Negative - Positive Urine 03/03/2025 11:4 3 AM EDT us Brandy Merrill DO POINT OF CARE TEST ENTER/EDIT OR DERABLES Final Result * US OB follow up transabdominal approach (03/03/2025 10:04 AM EDT) Anatomical Region Laterality Modality Body Ultrasound 03/05/2025 6:49 PM EDT Narrative 03/05/2025 6:49 PM EDT EXAM: US OB FOLLOW UP TRANSABDOMINAL APPROACH HISTORY: Inconsistent size. COMPARISON: Ob ultrasound 12/30/2024. TECHNIQUE: Two-dimensional transabdominal grayscale ultrasound imaging of the pelvis was performed. FINDINGS: Gestation: Single Presentation: Cephalic Cardiac Activity: 151 beats per minute Placental Location: Posterior with no sonographic abnormalities identified. Cervical canal: Not well visualized Amniotic Fluid Index: 14 cm MEASUREMENTS: BPD: 7.8 cm EGA: 31 weeks 3 days HC: 27.9 cm EGA: 30 weeks 4 days AC: 26.9 cm EGA: 31 weeks 0 days FL: 5.6 cm EGA: 29 weeks 3 days HC/AC Ratio: 1.04 The gestational age by today's ultrasound is 30 weeks 4 days (+/- 15 days gestation). Estimated Weight: 1582 grams, +/- 237 grams ( 3 lb 8 oz). Weight Percentile for gestational age: 71 % IMPRESSION: 1. Single, live intrauterine gestation 29 weeks, 4 days by LMP. Today's ultrasound measurements correlate with a gestational age of 30 weeks 4 days. Estimated weight is 1582 grams, +/- 237 grams ( 3 lb 8 oz) which correlates to 71 %. [place] is 05/08/2025. Interpreted by: Electronically signed by PERLA PRETTY II, MD, PHD at 05-Mar-2025 06:47:11 PM [facility] Procedure Note Perla Pretty MD - 03/05/2025 EXAM: US OB FOLLOW UP TRANSABDOMINAL APPROACH HISTORY: Inconsistent size. COMPARISON: Ob ultrasound 12/30/2024. TECHNIQUE: Two-dimensional transabdominal grayscale ultrasound imaging ofthe pelvis was performed. FINDINGS: Gestation: Single Presentation: Cephalic Cardiac Activity: 151 beats per minute Placental Location: Posterior with no sonographic abnormalitiesidentified. Cervical canal: Not well visualized Amniotic Fluid Index: 14 cm MEASUREMENTS: BPD: 7.8 cm EGA: 31 weeks 3 days HC: 27.9 cm EGA: 30 weeks 4 days AC: 26.9 cm EGA: 31 weeks 0 days FL: 5.6 cm EGA: 29 weeks 3 days HC/AC Ratio: 1.04 The gestational age by today's ultrasound is 30 weeks 4 days (+/- 15 daysgestation). Estimated Weight: 1582 grams, +/- 237 grams ( 3 lb 8 oz). Weight Percentile for gestational age: 71 % IMPRESSION: 1. Single, live intrauterine gestation 29 weeks, 4 days by LMP. Today'sultrasound measurements correlate with a gestational age of 30 weeks 4days. Estimated weight is 1582 grams, +/- 237 grams ( 3 lb 8 oz)which correlates to 71 %. SOLEDAD is 05/08/2025. Interpreted by: Electronically signed by PERLA PRETTY II, MD, PHD 06:47:11 PM [facility] us Yvette TABOR IMG OB US PROCEDURES Final Resul t * GLUCOSE 1 HOUR (01/29/2025 12:46 PM EDT) GLUCOSE 1 HOUR 87 <130 mg/dL [facility] 01/29/2025 12:4 6 PM EDT 01/29/2025 12:48 PM EDT Narrative [facility] - 01/29/2025 1:15 PM EDT us Brandy Momin DO LAB BLOOD ORDERABLES Final [facility]ul t [facility] * AFP, SERUM, OPEN SPINA BIFIDA (01/15/2025 11:30 AM EST) RESULTS Report . [facility] TEST RESULTS: *Screen Negative* . TB GEST. AGE ON COLLECTION DATE 22.9 . weeks TB GESTAT. AGE BASED ON LMP . [facility] Comment: Recalculations are not recommended when gestational dating by LMP and ultrasound are within 10 days. [age] SOLEDAD [age] [facility] RACE . [facility] WEIGHT 135 . lbs [facility] INSULIN DEP DIABETES No . TBH MULTIPLE GESTATION No . [facility] AFP VALUE 109.4 . ng/mL [facility] AFP MOM 1.22 . TB OSBR RISK 1 IN 6110 . [facility] INTERPRETATION Comment . [facility] Comment: Interpretation: Screen Negative This result is screen negative for [...] Customer Services to discuss available options. The [employer] recommends amniocentesis be offered to women age 35 and older. COMMENT: Comment . [facility] Comment: Shama Correa, Ph.D., [facility] Director References: Available Upon Request. Multiples Of Median Cutoffs For AFP Elevations Oneill 2.5 Black 2.8 IDD 2.0 Twins 4.5 Abbreviation Definitions IDD - Insulin Dep Diabetes OSBR - Open Spina Bifida Risk For further inquiries contact [employer] [facility] at [phone]. This test was developed and its performance characteristics determined by [employer]. It has not been cleared or approved by the Food and Drug Administration. Performed at: [facility] [address] [id number] Rn Birthing: Hector Walsh [facility], Phone: [phone] 01/15/2025 11:3 0 AM EST 01/15/2025 11:30 AM EST Narrative [facility] - 01/18/2025 11:08 PM EST N N LMP [phone] 15 N 1 Y 135 N N N N N Brandy Momin DO LAB BLOOD ORDERABLES Final Resul t [facility] from Last 3 Months Insurance [facility] Care Teams Shipfitters Supervisor Relationship Specialty Start Date End Date oRsa Church MD, IBCLC [address] [place] [address] PCP - General Family Medicine 04/07/25
--- OUTSIDE RECORDS SUMMARY | 2025-04-17 18:48 | XMS_ITS | Encounter Summary ---
Author Organization [facility] Address [address] [facility] [address] [facility] [address] [place] [address] Care Team Providers Care Bench Lay Out Technician Name Role Phone Chilo Momin MD Primary Care Provider [phone] Rosa Church MD, IBCLC Primary Care Provid er Encounter Details Date Type Department Care Team (Late st Contact Info) Description 01/04/2025 Orders Only [facility] [address] [place] [address] Adriane Meeks LPN [address] [place] [address] Social History Tobacco Use Types Packs/Day Years [...] AM EDT Routine [facility] OB [address] [place] [address] Ruperto Momin, [address] [place] [address] 04/07/2026 8:00 AM EDT Office Visit [facility] [address] [place] [phone] Rosa Church MD, IBCLC [address] [place] [address] documented as of this encounter Procedures Procedure Name Priority Date/Time Associated Diagnosis Comments PAP SMEAR Routine 12/22/2024 12:00 AM EST documented in this encounter Results * Pap Smear (12/22/2024 12:00 AM EST) Swab Cervical swab / Unknown us Yvette TABOR LAB CYTOLOGY ORDERABLES Final Re sult EXTERNAL LAB documented in this encounter Visit Diagnoses Not on filedocumented in this encounter Care Teams Bench Lay Out Technician Relationship Specialty Start Date End Date Chilo Momin MD PCP - General Family Medicine 09/26/23 04/06/25 Rosa Church MD, IBCLC [address] [place] [address] PCP - General Family Medicine 04/07/25 documented as of this encounter
--- OUTSIDE RECORDS SUMMARY | 2025-04-17 18:48 | XMS_ITS | Encounter Summary ---
Author Organization [facility] Address [address] [place] [address] Care Team Providers Care Scada Engineer Name Role Phone Mariel Momin MD Primary Care Provider [phone] Rosa Church MD, IBCLC Primary Care Provid er Encounter Details Date Type Department Care Team (Late st Contact Info) Description 10/26/2024 Clinisync Result Encounter [facility] External Department Unsolicited Ruperto Momin, [address] [place] [address] Social History Tobacco Use Types Packs/Day Years [...] Description 04/20/2025 11:20 AM EDT Routine [facility] OB [address] [place] [phone] Ruperto Momin, DO [address] [place] [address] 04/07/2026 8:00 AM EDT Office Visit [facility] [address] [place] [address] Rosa Church MD, IBCLC [address] [place] [address] documented as of this encounter Procedures Procedure Name Priority Date/Time Associated Diagnosis Comments US OB TRANSVAGINAL 10/26/2024 5: 23 AM EST documented in this encounter Results * US OB TRANSVAGINAL (10/26/2024 5:23 AM EST) Anatomical Region Laterality Modality Other 10/26/2024 5:23 AM EST Narrative 10/26/2024 5:26 [place] [address] Ultrasound Report Signed Patient: MEGHA KHALIL MR#: [id number] : 2000 Acct:[id number] Age/Sex: 24 / F ADM Date: 10/25/24 Loc: [facility] Attending Dr: Ruperto Momin D.O. Ordering Physician: Ruperto Momin D.O. Date of Service: 10/25/24 Procedure(s): US OB transvaginal Accession Number(s): [id number] cc: Ruperto Momin D.O.; MARIEL MOMIN [address] [address] Patient Name: MEGHA KHALIL MRN: [id number] date: 2000 Sex: F Assigned Patient Location: [facility] Current Patient Location: Accession/Order Number: [id number] Exam Date: 10/25/2024 09:57 Report Date: 10/26/2024 05:23 At the request of: RUPERTO MOMIN Procedure: US OB transvaginal EXAMINATION: US OB transvaginal HISTORY: MISSED MENSES COMPARISON: No relevant comparison available. FINDINGS: GESTATIONAL SAC: Present and normal appearing. YOLK SAC: Present and normal appearing. POLE: Present and normal appearing. CARDIAC: Present. UTERUS: Normal size and appearance. OVARIES: Right: Normal. Left: Normal. CERVIX: 4.4 cm in length and closed. CUL-DE-SAC: Normal. OTHER: None. AGE BY LMP: 11 weeks 1 day SOLEDAD BY LMP: 05/15/2025 AGE BY US CRL: 11 weeks 1 day SOLEDAD BY US CRL: 05/15/2025 US/US OB transvaginal IMPRESSION: 1. Single live intrauterine . Electronically authenticated by: ENZO JOSE Date: 10/26/2024 05:23 Dictated By: Enzo Jose M.D. Signed By: 10/26/24525 DD/ 2 TD/TT: Hand Cutter Apprentice: Procedure Note Radiology, Radiologist, MD - 10/26/2024 [place] [address] Ultrasound Report Signed Patient: MEGHA KHALILMR#: [id number] : 2000Acct:[id number] Age/Sex: 24 FADM Date: 10/25/24 Loc: [facility] Attending Dr: Ruperto Momin D.O. Ordering Physician: Ruperto Momin D.O. Date of Service: 10/25/24 Procedure(s): US OB transvaginal Accession Number(s): [id number] cc: Ruperto Momin D.O.; MARIEL MOMIN [place] [address] Patient Name: MEGHA KHALIL MRN: [id number] date: 2000 Sex: F Assigned Patient Location: [facility] Current Patient Location: Accession/Order Number: [id number] Exam Date: 10/25/2024 09:57 Report Date: 10/26/2024 05:23 At the request of: RUPERTO MOMIN Procedure: US OB transvaginal EXAMINATION: US OB transvaginal HISTORY: MISSED MENSES COMPARISON: No relevant comparison available. FINDINGS: GESTATIONAL SAC: Present and normal appearing. YOLK SAC: Present and normal appearing. POLE: Present and normal appearing. CARDIAC: Present. UTERUS: Normal size and appearance. OVARIES: Right: Normal. Left: Normal. CERVIX: 4.4 cm in length and closed. CUL-DE-SAC: Normal. OTHER: None. AGE BY LMP: 11 weeks 1 day SOLEDAD BY LMP: 05/15/2025 AGE BY US CRL: 11 weeks 1 day SOLEDAD BY US CRL: 05/15/2025 US/US OB transvaginal IMPRESSION: 1. Single live intrauterine . Electronically authenticated by: ENZO JOSE Date: 10/26/2024 05:23 Dictated By: Enzo Jose M.D. Signed By:10/26/24525 DD/ 2 TD/TT: Hand Cutter Apprentice: us Ruperto Merrill DO [facility] IMAGING Final Result documented in this encounter Visit Diagnoses Not on filedocumented in this encounter Care Teams Scada Engineer Relationship Specialty Start Date End Date Mariel Momin MD PCP - General Family Medicine 09/26/23 04/06/25 Rosa Church MD, IBCLC [address] [place] [address] PCP - General Family Medicine 04/07/25 documented as of this encounter
--- OUTSIDE RECORDS SUMMARY | 2025-04-17 18:48 | XMS_ITS | Clinical Summary ---
Author Organization [facility] Address [address] [place] [address] Care Team Providers Care Hotel Housekeeper Name Role Phone Essie Schilling BOILER PLANT OPERATOR Primary Care Provider [phone] Social History Tobacco Use Types Packs/Day Years Used Date Smoking Tobacco: Never Assessed Comments Unknown Sex and Gender Information Value Date Recorded Sex Assigned at Not on file Legal Sex Female 11:38 AM EDT Gender Identity Not on file Sexual Orientation Not on file Plan of Treatment Health Maintenance Due Date Last Done Comments Hepatitis C Antibody Screening 2001 HIV SCREENING 2016 HPV Vaccine (1 - 3-dose series) 2016 Meningococcal B Vaccine (1 o f 2 - Standard) 2017 DTaP/Tdap/Td Vaccine (1 - Tdap) 2020 Hepatitis B Vaccine (1 of 3 - 19+ 3-dose series) 2020 Cervical Cancer Screening 2022 Flu Vaccine (#1) 06/17/2024 COVID-19 Vaccine (1 - 2023-2 5 season) 2024 Health Maintenance Exam (Adult) 04/07/2026 04/07/2025, 12/22/2024 MenACWY Vaccine Aged Out No longer el igible based on patient's age to complete this topic Care Teams Hotel Housekeeper Relationship Specialty Start Date End Date Essie Schilling, BOILER PLANT OPERATOR PCP - General 06/03/22
--- OUTSIDE RECORDS SUMMARY | 2025-04-17 18:48 | XMS_ITS | Encounter Summary ---
Demographics Address [address] [place] [address] Mobile Phone Email Address Preferred Language Afghan Marital Status Single Rastafari Affiliation Unknown Race White Ethnic Group Not or Lati no Author Organization [facility] Address [id number] [address] [place] [address] Care Team Providers Care Helpdesk Manager Name Role Phone Chilo Momin MD Primary Care Provider [phone] Encounter Details Date Type Department Care Team (Late st Contact Info) Description 04/01/2024 Orders Only [facility] Internal Medicine/Pediatrics [address] [place] [phone] External, Scanning Provider Social History Tobacco Use [...] often do you attend chur ch or anabaptism services? Never 12/24/2022 Do you belong to any clubs o r organizations such as nondenominational groups, unions, fraternal or athletic groups, or [...] Answer Date Recorded Total Score 15 05/05/2023 [facility] of Occupat ional Health - Occupational Stress [...] Recorded Do you need help finding a [facility] career center and/or a training program? No [...] Procedure Name Priority Date/Time Associated Diagnosis Comments CT ABDOMEN AND PELVIS WO CONT Routine 03/30/2024 documented in this encounter Results * CT abdomen and pelvis without contrast (03/30/2024) Anatomical Region Laterality Modality Body, Abdomen, Body Covera N/A Compu violet Tomography 03/30/2024 us Scanning Provider External IMG CT ORDERABLES Fin al Result documented in this encounter Visit Diagnoses Not on filedocumented in this encounter Additional Health Concerns Assessment Noted Time PHQ-9 Depression Total Score: 15 023 1:37 PM EDT documented as of this encounter Care Teams Helpdesk Manager Relationship Specialty Start Date End Date Chilo Momin MD [address] [place] [address], [address] [place] [id number] PCP - General Pediatrics 12/03/17 documented as of this encounter
--- OUTSIDE RECORDS SUMMARY | 2025-04-17 18:48 | XMS_ITS | Encounter Summary ---
Demographics Address [address] [place] [address] Mobile Phone Email Address Preferred Language Austrian Marital Status Single Samaritan Affiliation Unknown Race White Ethnic Group Not or Lati no Author Organization [facility] tem Address [facility] [place][id number] [address] [place] [address] Care Team Providers Care Control System Computer Scientist Name Role Phone Chilo Momin MD Primary Care Provider [phone] Encounter Details Date Type Department Care Team (Late st Contact Info) Description 06/18/2023 Orders Only [facility] Internal Medicine/Pediatrics [address] [place] [address] Dorinda Lerma RMA Nonintractable episodic headache, unspecified headache type Social History Tobacco Use Types Packs/Day Years [...] often do you attend chur ch or mandaeism services? Never 12/24/2022 Do you belong to any clubs o r organizations such as pentecostalism groups, unions, fraternal or athletic groups, or [...] Answer Date Recorded Total Score 15 05/05/2023 [facility] of Occupat ional Health - Occupational Stress [...] Recorded Do you need help finding a [facility] career center and/or a training program? No [...] Procedure Name Priority Date/Time Associated Diagnosis Comments AMB REFERRAL TO NEUROLOGY Routine 06/17/2023 Nonintractable episodic headache, unspecified headache type documented in this encounter Results * Ambulatory referral to Neurology (06/17/2023) 06/17/2023 us Chilo Momin MD OUTPATIENT REFERRAL ORDERABLE S Final Result MANUALLY TRANSCRIBED RESULTS documented in this encounter Visit Diagnoses Diagnosis Nonintractable episodic headache, unspecified headache type documented in this encounter Additional Health Concerns Assessment Noted Time PHQ-9 Depression Total Score: 15 023 1:37 PM EDT documented as of this encounter Care Teams Control System Computer Scientist Relationship Specialty Start Date End Date Chilo Momin MD [address] [place] [address], [address] [place] [address] PCP - General Pediatrics 12/03/17 documented as of this encounter
--- OUTSIDE RECORDS SUMMARY | 2025-04-17 18:48 | XMS_ITS ---
Author Organization [facility] Source Produ ction (ClinicalSummary Clone) Address Unknown Care Team Providers Care Lead Producer Name Role Phone Unavailable Primary Care Physician Unavailab le Results * [UNITY] ANEUPLOIDY NIPT Performed by: [employer] Component Value Range Date Fraction 9.6% 11/19/2024 05 :08 am UT Sex Chromosome Aneuploidy NOT DETECTED 05:08 am UT Monosomy X LOW RISK <1 in 10,000 2024 05:08 am UT Trisomy 13 LOW RISK <1 in 10,000 2024 05:08 am UT Trisomy 18 LOW RISK <1 in 10,000 2024 05:08 am UT Trisomy 21 LOW RISK <1 in 10,000 2024 05:08 am UT Sex MALE 11/19/2024 05:0 8 am UT Gestation RAMIREZ 11/19/19 25 05:08 am [facility] For detailed report, see PDF See PDF 11/19/2024 05:08 am UTC 11/19/2024 05:0 8 am [facility] Social History Observation Value Start Date End Date
--- OUTSIDE RECORDS SUMMARY | 2025-04-17 18:48 | XMS_ITS | Encounter Summary ---
Author Organization [facility] Address [address] [place] [address] Care Team Providers Care Silica Mixer Operator Name Role Phone Chilo Momin MD Primary Care Provider Rosa Church MD, IBCLC Primary Care Provid er Encounter Details Date Type Department Care Team (Late st Contact Info) Description 11/19/2024 Abstract [facility] [address] [place] [address] Ruperto Momin, [facility] [address] [place], [place] [address] Social History Tobacco Use Types Packs/Day Years [...] Description 04/20/2025 11:20 AM EDT Routine [facility] [address] [place] [address] Ruperto Momin, [address] [place] [address] 04/07/2026 8:00 AM EDT Office Visit [facility] [address] [place] [address] Rosa Church MD, IBCLC [address] [place] [address] documented as of this encounter Visit Diagnoses Not on filedocumented in this encounter Care Teams Silica Mixer Operator Relationship Specialty Start Date End Date Chilo Momin MD PCP - General Family Medicine 09/26/23 04/06/25 Rosa Church MD, IBCLC [address] [place] [address] PCP - General Family Medicine 04/07/25 documented as of this encounter
--- OUTSIDE RECORDS SUMMARY | 2025-04-17 18:48 | XMS_ITS | Encounter Summary ---
Demographics Address [address] [place] [address] Mobile Phone Email Address Preferred Language Dominican Marital Status Single Bahai Affiliation Unknown Race White Ethnic Group Not or Lati no Author Organization [facility] Address [facility] [place] [facility]-[id number] [address] [place] [address] Care Team Providers Care Wrapper Stemmer Operator Name Role Phone Chilo Momin MD Primary Care Provider [phone] Encounter Details Date Type Department Care Team (Late st Contact Info) Description 07/23/2024 Orders Only [facility] Internal Medicine/Pediatrics [address] [place] [address] External, Scanning Provider Social History Tobacco Use [...] often do you attend chur ch or sikhism services? Never 12/24/2022 Do you belong to any clubs o r organizations such as zoroastrian groups, unions, fraternal or athletic groups, or [...] Answer Date Recorded Total Score 15 05/05/2023 [facility] of Occupat ional Health - Occupational Stress [...] Recorded Do you need help finding a [facility] career center and/or a training program? [...] Name Priority Date/Time Associated Diagnosis Comments CT BRAIN WO CONT Routine 07/21/2024 documented in this encounter Results * CT brain without contrast (07/21/2024) Anatomical Region Laterality Modality Neuro, Head, Head and Neck, Neuro Covera N/A Computed Tomography 07/21/2024 us Scanning Provider External IMG CT ORDERABLES Fin al Result documented in this encounter Visit Diagnoses Not on filedocumented in this encounter Additional Health Concerns Assessment Noted Time PHQ-9 Depression Total Score: 15 023 1:37 PM EDT documented as of this encounter Care Teams Wrapper Stemmer Operator Relationship Specialty Start Date End Date Chilo Momin MD [address] [place] [address], [address] [place] [address] PCP - General Pediatrics 12/03/17 documented as of this encounter
--- OUTSIDE RECORDS SUMMARY | 2025-04-17 18:48 | XMS_ITS | Encounter Summary ---
Demographics Address [address] [place] [address] Mobile Phone Email Address Preferred Language Djiboutian Marital Status Single Catholic Affiliation Unknown Race White Ethnic Group Not or Lati no Author Organization [facility] tem Address [facility]-[id number] [address] [place] [address] Care Team Providers Care Process Inspector Name Role Phone Chilo Momin MD Primary Care Provider [phone] Reason for Visit * Reason Onset Date Comments work note 04/18/2021 Encounter Details Date Type Department Care Team (Late st Contact Info) Description 04/18/2021 [facility] [address] [facility] [address] [place] [phone] Dorinda Lerma RMA work note Social History Tobacco Use Types Packs/Day Years Used Date Smoking Tobacco: Never Smokeless Tobacco: Never Alcohol Use Standard Drinks/Week Comments Yes 0 (1 standard drink = 0.6 oz pur e alcohol) PHQ-2 Answer Date Recorded Total Score 0 04/06/2021 Childcare Answer Date Recorded Childcare Unknown 04/28/2019 Employment Answer Date Recorded Employment Unknown 04/28/2019 Purpose - Life Answer Date Recorded Purpose and direction in life Unknown Comments Unknown Sex and Gender Information Value Date Recorded Sex Assigned at Not on file Legal Sex Female 11:58 AM EDT Gender Identity Not on file Sexual Orientation Not on file COVID-19 Exposure Response Date Recorded In the last month, have you been in contact with someone who was confirmed or suspected to have Coronavirus / COVID-19? No / Unsure 04/09/2021 11:21 AM EDT documented as of this encounter Miscellaneous Notes * Telephone Encounter - JAYLIN Lamar - 04/18/2021 1:58 PM EDT Patient called asking if she could get a work note. She missed work 04/09/21- 04/13/21, due to mono. Okay to give note? Please advise * Telephone Encounter - Chilo Momin MD - 04/18/2021 1:58 PM EDT It is OK to write a note for those days missed due to mono. * Telephone Encounter - JAYLIN Lamar - 04/18/2021 1:58 PM EDT Work note e-mailed to patient per patient request. documented in this encounter Plan of Treatment Not on file documented as of this encounter Visit Diagnoses Not on filedocumented in this encounter Additional Health Concerns Assessment Noted Time PHQ-9 Depression Total Score: 0 04/06/20 2:58 PM EDT documented as of this encounter Care Teams Process Inspector Relationship Specialty Start Date End Date Chilo Momin MD [address] [place] [address], [address] [place] [address] PCP - General Pediatrics 12/03/17 documented as of this encounter
--- OUTSIDE RECORDS SUMMARY | 2025-04-17 18:48 | XMS_ITS | Encounter Summary ---
Demographics Address [address] [place] [address] Mobile Phone Email Address Preferred Language [place] Islander Marital Status Single Quaker Affiliation Unknown Race White Ethnic Group Not or Lati no Author [facility] tem Address [id number] [place] [address] Care Team Providers Care Pipe Installer Name Role Phone Chilo Momin MD Primary Care Provider [phone] Encounter Details Date Type Department Care Team (Late st Contact Info) Description 11/02/2024 Orders Only [facility] Internal [facility]/P[facility]s [address] [place] [id number] External, Scanning Provider Social History Tobacco Use Types Packs/Day Years Used Date Smoking Tobacco: Never Smokeless Tobacco: Never Alcohol Use Standard Drinks/Week Comments Not Currently 0 (1 standard drink = 0.6 oz pur e alcohol) Social Connection and Isolation Panel [NHANES] A nswer Date Recorded In a typical week, how many times do you talk on the phone with family, friends, or neighbors? Never 12/24/19 How often do you get togethe r with friends or relatives? Never 12/24/2022 How often do you attend chur ch or religion services? Never 12/24/2022 Do you belong to any clubs o r organizations such as catholic groups, unions, fraternal or athletic groups, or [...] Answer Date Recorded Total Score 15 05/05/2023 [facility] - Occupational Stress [...] Recorded Do you need help finding a [facility] and/or a training program? No 12/24/2022 Hunger Screening Answer Date Recorded Within the past 12 months we worried whether our food would run out before we got money to buy more. Never True 09/28/2024 Within the past 12 months th e food we bought just didn't last and we didn't have money to get more. Never True 09/28/2024 Purpose - Life Answer Date Recorded I have a purpose and direction in my life. Agree 12/24/2022 Education Answer Date Recorded What is the highest level of school you have completed or the highest degree you have received? GED or equivalent 05/2023 Estimated Date of Delivery Comme nts Yes [...] Name Priority Date/Time Associated Diagnosis Comments US TRANSVAGINAL Routine 10/25/2024 documented in this encounter Results * US TRANSVAGINAL (10/25/2024) 10/25/2024 us Scanning Provider External [facility] Final Result MANUALLY TRANSCRIBED RESULTS documented in this encounter Visit Diagnoses Not on filedocumented in this encounter Additional Health Concerns Assessment Noted Time PHQ-9 Depression Total Score: 15 023 1:37 PM EDT documented as of this encounter Care Teams Pipe Installer Relationship Specialty Start Date End Date Chilo Momin MD [address] [place] [address], [address] [place] [address] PCP - General Pediatrics 12/03/17 documented as of this encounter
--- OUTSIDE RECORDS SUMMARY | 2025-04-17 18:48 | XMS_ITS | CCD ---
Author Organization [facility] Care Team Providers Care Parts Clerk Name Role Phone CHRISTINE SALVADOR Admitting Unavailable CHRISTINE SALVADOR Attending Unavailable DR FAITH NUÑEZ Consulting Unavailable FEDERICO, DR MARIEL Quinn Primary Care Unavailable OBDULIO ., SHARONA BROWER Consulting Unavailabl e MARIEL CABALLERO Attending Unavailable MARIEL CABALLERO Referring Unavailable MARIEL CABALLERO Primary Care Unavailable DORINDA MORENO Attending Unavailable MARIEL CABALLERO Referring Unavailable MARIEL CABALLERO Primary Care Unavailable Mariel Caballero MD Primary Care Provider [phone] Mariel Caballero Admitting Unavailable Mariel Caballero Attending Unavailable Mariel Caballero MD Primary Care Provider Mariel Caballero MD Primary Care Provider [phone] Ranjit SRIVASTAVA, IBCLC, Jesus Primary Care [facility] er YVETTE CHAMBERS Attending Unavailable BRANDY MOMIN Attending Unavailable YVETTE CHAMBERS Attending Unavailable YVETTE CHAMBERS Referring Unavailable BRANDY MOMIN Attending Unavailable GUILLERMO WING Attending Unavailable GUILLERMO WING Attending Unavailable GUILLERMO WING Referring Unavailable MECCA GUILLERMO G Attending Unavailable POLLO GALLAGHERA Attending Unavailable XIOMARA GALLAGHER Attending Unavailable JESUS CHURCH Attending Unavailable BRANDY MOMIN Attending Unavailable BRANDY MOMIN Attending Unavailable Allergies Allergy Classification Reported Allergen(s) Allergy Type Date of Onset Reaction(s) Facility (2 sources) Amoxicillin; Translations: [AMOXICILLIN] Drug Allergy 8 [facility] Repository (2 sources) SUMAtriptan; Translations: [SUMATRIPTAN] Drug Allergy 2 [facility] Repository (20 sources) Penicillins; Translations: [PENICILLINS] Propensity to adverse reactions to drug (disorder) 8 [facility] Repository (20 sources) SUMAtriptan Drug Allergy 2 [facility] (1 source) SUMAtriptan Drug Allergy 3 [facility] Repository (1 source) Amoxicillin Drug Allergy [address] [facility] Medications Current Medications Medication Drug Class(es) Dates Sig (Normalized) Sig (Original) magnesium oxide 400 mg oral tablet (20 sources) Start: 5 End: 5 take 1 tablet by mouth once daily MAGnesium-Oxide 400 (240 Mg) MG tablet Take 400 mg by mouth Daily 12/01/2024 Active methylPREDNISolone (1 source) Corticosteroid Start: 4 End: 4 methylPREDNISolone (Medrol Dospak) 4 MG tablets Indications: Muscle strain of left thigh, initial encounter As directed 21 tablet 06/10/2024 10/25/2024 Discontinued (Other) polysaccharide iron complex 391 mg oral capsule (8 sources) Start: 5 take 1 capsule by mouth once daily ProFe 391.3 (180 Fe) MG capsule Take 1 capsule by mouth Daily 03/09/2025 Active Start: 01-31-2025 End: 03-02-2025 take 1 capsule by mouth once daily iron polysaccharides (ProFe) 391.3 (180 Fe) MG capsule Indications: Low iron Take 1 capsule (391.3 mg) by mouth Daily 30 capsule 6 01/31/2025 03/02/2025 Active Vit w/Fe-Methylfol- FA (PNV PO) (20 sources) Vit w/F e-Zzduxtwsm-QT (PNV PO) Take by mouth Active Problems Active Problems Problem Classification Problem Date Documented Date Episodic/Chronic Cardiac dysrhythmias (4 sources) Palpitations; Translations: [PALPITATIONS] Onset: 02-21-2023 Episodic Epilepsy; convulsions (2 sources) Unspecified convulsions; Translations: [Neurological finding] Onset: 08-11-2024 08-11-2024 Episodic Headache; including migraine (3 sources) Transformed migraine; Translations: [Chronic migraine with aura without status migrainosus, not intractable] Onset: 04-07-2025 04-07-2025 Chronic Headache; including migraine (2 sources) Headache; Translations: [Nonintractable headache, unspecified chronicity pattern, unspecified headache type] 11-24-2024 Episodic Immunizations and screening for infectious disease (2 sources) Exposure to sexually transmissible disorder; Translations: [Contact with and (suspected) exposure to infections with a predominantly sexual mode of transmission] 12-22-2024 Episodic Menstrual disorders (1 source) Missed period; Translations: [Irregular menstruation, unspecified] 10-25-2024 Chronic Nervous system congenital anomalies (3 sources) Disorder of autonomic nervous system; 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 [Raymond-Day]] Onset: 04-07-2025 04-07-2025 Chronic Nonspecific chest pain (1 source) Chest pain, unspecified; Translations: [CHEST PAIN UNSPECIFIED] Onset: 02-25-2023 Episodic Other complications of (4 sources) Anemia in mother complicating , childbirth AND/OR puerperium; Translations: [Anemia complicating , third trimester] 03-03-2025 Chronic Other complications of (2 sources) Anemia of ; Translations: [Anemia complicating , unspecified trimester] 03-17-2025 Chronic Other complications of (2 sources) size does not accord with dates; Translations: [Uterine size-date discrepancy, unspecified trimester] 02-15-2025 Episodic Other female genital disorders (2 sources) Vaginal discharge; Translations: [Other specified noninflammatory disorders of vagina] 12-22-2024 Episodic Other and delivery including normal (18 sources) ; Translations: [Encounter for supervision of [...] [23 weeks gestation of ] 01-18-2025 Episodic Residual codes; unclassified (2 sources) Gestation period, 27 weeks; Translations: [27 weeks gestation of ] 02-15-2025 Episodic Residual codes; unclassified (2 sources) Gestation period, 29 weeks; Translations: [29 weeks gestation of ] 03-03-2025 Episodic Residual codes; unclassified (2 sources) Gestation period, 31 weeks; Translations: [31 weeks gestation of ] 03-17-2025 Episodic Residual codes; unclassified (2 sources) Gestation period, 33 weeks; Translations: [33 weeks gestation of ] 03-30-2025 Episodic Residual codes; unclassified (3 sources) Medication refused; Translations: [Immunization not carried out because of patient refusal] Onset: 04-07-2025 04-07-2025 Episodic Residual codes; unclassified (2 sources) Gestation period, 35 weeks; Translations: [35 weeks gestation of ] 04-13-2025 Episodic Substance-related disorders (1 source) Nicotine dependence, cigarettes, uncomplicated; Translations: [NICOTINE DEPEND CIGARETTES UNCOMP] Onset: 02-25-2023 Chronic Unclassified (1 source) Initial Visit Onset: 09-28-2024 Unclassified (1 source) wants referral to Neurologyfor seizures Onset: 08-11-2024 Past or Other Problems Problem Classification Problem Date Documented Da te Episodic/Chronic Mood disorders (1 source) Mood disorders Onset: 05-05-2023 05-05-2023 NEGATED: Highlighted row has been ruled out!Unclassified (20 sources) No known active problems 10-13-2023 Results Test Name Value Interpretation Reference Range Facility [facility] FERRITINon 03-19-2025 Ferritin [Mass/Vol] 6 ng/mL Low 8.0 - 25 2.0 ng/mL [facility] Interpretation and review of laboratory results Abnormal [facility] No Panel InformationOrdered By: Radiologist Radiology on 03-14-2025 [facility] Work Phone: No Panel Informationon 03-14 Radiology Study observation (narrative) [facility]H UA (CLEAN/CATCH) DECK SPECIALIST/AMBER RO IF IND.on 03-14-2025 BILIRUBIN URINE Negative NEGATIVE [facility] BLOOD URINE Negative NEGATIVE [facility] Clarity (U) CLEAR CLEAR [facility] Color (U) YELLOW YELLOW [facility] GLUCOSE URINE UA Negative NEGATIVE mg/dL [facility] Ketones Ql (U) Negative NEGATIVE mg/dL [facility] Leukocyte esterase Test strip Ql (U) Negative NEGATIVE [facility] NITRITE URINE Negative NEGATIVE [facility] pH (U) 7.0 [pH] 5.0 - 9.0 [facility] PROTEIN URINE Negative NEG/TRACE mg/dL [facility] SPECIFIC GRAVITY URINE 1.010 1.005 - 1.025 [facility] URINE MICROSCOPIC INDICATED NO [facility] UROBILINOGEN URINE 0.2 EU/dL 0.2 - 1.0 EU/dL [facility] US OB CERVICAL LENGTHon 02-16 [place] [address] Ultrasound Report Signed Patient: MEGHA KHALIL MR#: [id number] : 2000 Acct:[id number] Age/Sex: 24 / F ADM Date: Loc: [place] [address]: Brandy Momin D.O. Ordering Physician: Brandy Momin D.O. Date of Service: 03/14/25 Procedure(s): US OB cervical length Accession Number(s): [id number] cc: Brandy Momin D.O.; MARIEL CABALLERO [place] [address] Patient Name: MEGHA KHALIL MRN: [facility]:[id number] date: 2000 Sex: F Assigned Patient Location: [facility] Current Patient Location: Accession/Order Number: [id number] Exam Date: 03/14/2025 13:46 Report Date: 03/14/2025 13:49 At the request of: BRANDY MOMIN DO Procedure: US OB placenta Biophysical profile. Cervical ultrasound. Placental ultrasound. Reason for exam: Abdominal pain. COMPARISON: None. TECHNIQUE: Transabdominal imaging of the gravid uterus was obtained. FINDINGS: Field Auditor reports a biophysical profile of 8 out [...] Jr., D.O. 03/14/2025 1:49 PM Dictation Location: [place] [address] Electronically authenticated by: [id number] Y Date: 03/14/2025 13:49 Dictated By: Chico Briscoe M.D. Signed By: 03/14/25 1351 DD/ 1349 TD/TT: Taxi Truck Driver: [facility] Radiology, Radiologist, MD - 03/14/2025 [place] [address] Ultrasound Report Signed Patient: MEGHA KHALIL MR#: [id number] : 2000 Acct:[id number] Age/Sex: 24 / F ADM Date: Loc: [place] [address]: rBandy Momin D.O. Ordering Physician: Brandy Momin D.O. Date of Service: 03/14/25 Procedure(s): US OB cervical length Accession Number(s): [id number] cc: Brandy Momin D.O.; MARIEL CABALLERO [place] [address] Patient Name: MEGHA KHALIL MRN: [facility]:[id number] date: 2000 Sex: F Assigned Patient Location: [facility] Current Patient Location: Accession/Order Number: [id number] Exam Date: 03/14/2025 13:46 Report Date: 03/14/2025 13:49 At the request of: BRANDY MOMIN DO Procedure: US OB placenta Biophysical profile. Cervical ultrasound. Placental ultrasound. Reason for exam: Abdominal pain. COMPARISON: None. TECHNIQUE: Transabdominal imaging of the gravid uterus was obtained. FINDINGS: Field Auditor reports a biophysical profile of 8 out [...] Jr., D.O. 03/14/2025 1:49 PM Dictation Location: [place] [address] Electronically authenticated by: [id number] Y Date: 03/14/2025 13:49 Dictated By: Chico Briscoe M.D. Signed By: 03/14/25 1351 DD/ 1349 TD/TT: Taxi Truck Driver: PLAXD US OB BPP W NON-STRESS on 03-14-2025 [place] [address] Ultrasound Report Signed Patient: MEGHA KHALIL MR#: [id number] : 2000 Acct:[id number] Age/Sex: 24 / F ADM Date: Loc: [place] [address]: Brandy Momin D.O. Ordering Physician: Brandy Momin D.O. Date of Service: 03/14/25 Procedure(s): US OB BPP w non-stress Accession Number(s): [id number] cc: Brandy Momin D.O.; MARIEL CABALLERO [place] [address] Patient Name: MEGHA KHALIL MRN: [facility]:[id number] date: 2000 Sex: F Assigned Patient Location: [facility] Current Patient Location: Accession/Order Number: [id number] Exam Date: 03/14/2025 13:46 Report Date: 03/14/2025 13:49 At the request of: BRANDY MOMIN DO Procedure: US OB placenta Biophysical profile. Cervical ultrasound. Placental ultrasound. Reason for exam: Abdominal pain. COMPARISON: None. TECHNIQUE: Transabdominal imaging of the gravid uterus was obtained. FINDINGS: Field Auditor reports a biophysical profile of 8 out [...] Jr., D.O. 03/14/2025 1:49 PM Dictation Location: [place] [address] Electronically authenticated by: [id number] Y Date: 03/14/2025 13:49 Dictated By: Chico Briscoe M.D. Signed By: 03/14/25 1350 DD/ 1349 TD/TT: Taxi Truck Driver: [facility] Radiology, Radiologist, - 03/14/2025 [place] [address] Ultrasound Report Signed Patient: MEGHA KHALIL MR#: [id number] : 2000 Acct:[id number] Age/Sex: 24 / F ADM Date: Loc: [facility] 250-[address]: Brandy Momin D.O. Ordering Physician: Brandy Momin D.O. Date of Service: 03/14/25 Procedure(s): US OB BPP w non-stress Accession Number(s): [id number] cc: Brandy Momin D.O.; MARIEL CABALLERO [place] [phone] Patient Name: MEGHA KHALIL MRN: [facility]:[id number] date: 2000 Sex: F Assigned Patient Location: [facility] Current Patient Location: Accession/Order Number: [id number] Exam Date: 03/14/2025 13:46 Report Date: 03/14/2025 13:49 At the request of: BRANDY MOMIN DO Procedure: US OB placenta Biophysical profile. Cervical ultrasound. Placental ultrasound. Reason for exam: Abdominal pain. COMPARISON: None. TECHNIQUE: Transabdominal imaging of the gravid uterus was obtained. FINDINGS: Field Auditor reports a biophysical profile of 8 out of 8. PM is normal at 17.1 cm. heart rate 1 52 bpm. No focal placental abnormality is seen. Placenta appears fundal and posterior in location. Cervical length measures 4 cm diameter funneling. US/US OB BPP w non-stress IMPRESSION: BPP 8 out of 8. No focal placental abnormality. Normal cervical length without funneling. Impression dictated by: Chico Briscoe Jr., D.O. 03/14/2025 1:49 PM Dictation Location: [facility] Electronically authenticated by: [id number] Y Date: 03/14/2025 13:49 Dictated By: Chico Briscoe M.D. Signed By: 03/14/25 1352 DD/ 1349 TD/TT: Taxi Truck Driver: PLAXD US OB BPP W NON-STRESS Ordered By: Radiologist Radiology on 03-14-2025 [employer] Work Phone: US OB PLACENTAon 03-14-2025 [place] [address] Ultrasound Report Signed Patient: MEGHA KHALIL MR#: [id number] : 2000 Acct:[id number] Age/Sex: 24 / F ADM Date: Loc: [facility] Attending Dr: Brandy Momin D.O. Ordering Physician: Brandy Momin D.O. Date of Service: 03/14/25 Procedure(s): US OB placenta Accession Number(s): [id number] cc: Brandy Momin D.O.; MARIEL CABALLERO [place] [phone] Patient Name: MEGHA KHALIL MRN: [facility]:[id number] date: 2000 Sex: F Assigned Patient Location: [facility] Current Patient Location: Accession/Order Number: [id number] Exam Date: 03/14/2025 13:46 Report Date: 03/14/2025 13:49 At the request of: BRANDY MOMIN DO Procedure: US OB placenta Biophysical profile. Cervical ultrasound. Placental ultrasound. Reason for exam: Abdominal pain. COMPARISON: None. TECHNIQUE: Transabdominal imaging of the gravid uterus was obtained. FINDINGS: Field Auditor reports a biophysical profile of 8 out [...] Jr., D.O. 03/14/2025 1:49 PM Dictation Location: [place] [address] Electronically authenticated by: [id number] Y Date: 03/14/2025 13:49 Dictated By: Chico Briscoe M.D. Signed By: 03/14/25 1358 DD/ 1349 TD/TT: Taxi Truck Driver: [facility] Radiology, Radiologist, MD - 03/14/2025 [place] [address] Ultrasound Report Signed Patient: MEGHA KHALIL MR#: [id number] : 2000 Acct:[id number] Age/Sex: 24 / F ADM Date: Loc: [facility] Attending Dr: Brandy Momin D.O. Ordering Physician: Brandy Momin D.O. Date of Service: 03/14/25 Procedure(s): US OB placenta Accession Number(s): [id number] cc: Brandy Momin D.O.; MARIEL CABALLERO [place] [address] Patient Name: MEGHA KHALIL MRN: [facility]:[id number] date: 2000 Sex: F Assigned Patient Location: [facility] Current Patient Location: Accession/Order Number: [id number] Exam Date: 03/14/2025 13:46 Report Date: 03/14/2025 13:49 At the request of: BRANDY MOMIN DO Procedure: US OB placenta Biophysical profile. Cervical ultrasound. Placental ultrasound. Reason for exam: Abdominal pain. COMPARISON: None. TECHNIQUE: Transabdominal imaging of the gravid uterus was obtained. FINDINGS: Field Auditor reports a biophysical profile of 8 out [...] Jr., D.O. 03/14/2025 1:49 PM Dictation Location: [place] [address] Electronically authenticated by: [id number] Y Date: 03/14/2025 13:49 Dictated By: Chico Briscoe M.D. Signed By: 03/14/25 1351 DD/ 1349 TD/TT: Taxi Truck Driver: [employer] [facility] US OB FOLLOW UP TRANSABDOMIN AL APPROACHon 03-03-2025 US OB FOLLOW UP TRANSABDOMINAL APPROACH EXAM: US OB FOLLOW UP TRANSABDOMINAL APPROACH [...] 05/08/2025. Interpreted by: Electronically signed by PERLA JIMENEZ II, MD, PHD at 05-Mar-2025 06:47:11 PM [facility] Normal Not Available Comment on above: Order Comment: US OB SCAN FOR GROWTH Estimated Date of Delivery: 05/15/25 Gestational Age as of 02/15/2025: 27w2d Urinalysis macro (dipstick) panel (U)on 03-03-2025 Bilirubin, UA Negative Negative - 4(70) +++ mg/dL [facility] Blood, UA Negative Negative - 50 Jonathan/mcL [facility] Healthcare Clarity, UA Clear [facility] Color, UA Yellow [facility] Glucose, UA Negative Negative - 1999(110) ++++ mg/dL [facility] Interpretation and review of laboratory results Normal [facility] Ketones, UA Negative Negative - 160(16) ++++ mg/dL [facility] Leukocytes, UA Negative Negative - 500+++ Anoop/mcL [facility] Healthcare Nitrite, UA Negative Negative - Positive [facility] pH, UA 6.5 5 - 9 [facility] Protein, UA Negative Negative - 1999(20) ++++ mg/dL [facility] Healthcare Spec Grav, UA 1.02 1 - 1.03 [facility] Urobilinogen, UA 0.2 0.2 - 12 mg/dL [facility] Urinalysis macro (dipstick) panel (U)on 02-15-2025 Bilirubin, UA Negative Negative - 4(70) +++ mg/dL [facility] Blood, UA Negative Negative - 50 Jonathan/mcL [facility] Healthcare Clarity, UA Clear [facility] Color, UA Yellow [facility] Glucose, UA Negative Negative - 1999(110) ++++ mg/dL [facility] Interpretation and review of laboratory results Normal [facility] Ketones, UA Negative Negative - 160(16) ++++ mg/dL [facility] Leukocytes, UA Negative Negative - 500+++ Anoop/mcL [facility] Nitrite, UA Negative Negative - Positive [facility] pH, UA 6 5 - 9 [facility] Protein, UA Negative Negative - 1999(20) ++++ mg/dL [facility] Healthcare Spec Grav, UA 1.025 1 - 1.03 [facility] Urobilinogen, UA 0.2 0.2 - 12 mg/dL [facility] AFP, SERUM, OPEN SPINA BIFID Aon 01-18-2025 AFP MOM 1.[address] [facility] AFP VALUE 109.4 ng/mL . [facility] COMMENT: Comment . [facility] Comment on above: Shama Correa , Ph.D., [facility] Director References: Available Upon Request. Multiples Of Median Cutoffs For AFP Elevations Oneill 2.5 Black 2.8 IDD 2.0 Twins 4.5 Abbreviation Definitions IDD - Insulin Dep Diabetes OSBR - Open Spina Bifida Risk For further inquiries contact [facility] [facility] at [phone]. This test was developed and its performance characteristics determined by [employer]. It has not been cleared or approved by the Food and Drug Administration. Performed at: [facility] [place], [place] [id number] [employer] Melter Helper: Hector Walsh [facility], Phone: [phone] GEST. AGE ON COLLECTION DATE 22.[address] [facility] GESTAT. AGE BASED ON LMP . [facility] Comment on above: Recalculations are n ot recommended when gestational dating by LMP and ultrasound are within 10 days. INSULIN DEP DIABETES No . [facility] INTERPRETATION Comment . [facility] Comment on above: Interpretation: Scre en Negative [...] Customer Services to discuss available options. The [employer] recommends amniocentesis be offered to women age 35 and older. [age]EDAD 24.[address] [facility] MULTIPLE GESTATION No . [facility] OSBR RISK 1 IN [address] [facility] RACE . [facility] RESULTS Report . [facility] TEST RESULTS: Negative . [facility] WEIGHT [address] [facility] N N LMP [id number] 3 15 N 1 Y 135 N N N N N [facility] US OB 14+ WEEKS ANATOMY SCAN on [...] 2. Unremarkable ultrasound of the anatomy. Electronically Signed:Electronicall y signed by PERLA JIMENEZ II, MD, PHD at 31-Dec-2024 08:39:39 AM [facility] Normal Not Available Comment on above: Order Comment: US OB ANATOMY SINGLE W US OB CERVICAL LENGTH Estimated Date of Delivery: 05/15/25 Gestational Age as of 12/22/2024: 19w3d IGP,APTIMA HPV,AGE GDLNon AGE GDLN ACOG TESTING Note . [facility] Comment on above: TESTS RESULT FLAG UN ITS REF RANGE LAB Clinician Provided Cytology Information Source.............Cervix Other.............. No. of containers..01 ThinPrep Vial Age Algo ACOG Divina... FLAG LEGEND: L-Low Normal,H-High Normal,LL-Alert Low,HH-Alert High <-Panic Low,>-Panic High,A-Abnormal,AA-Critical Abnormal Performed at: 01 =G [address] [address] Kellie Meyer MD, IGP, RFX APTIMA HPV ASCU Note . [facility] Comment on above: TESTS RESULT FLAG ITS REF RANGE LAB DIAGNOSIS: 02 NEGATIVE FOR INTRAEPITHELIAL LESION OR MALIGNANCY. THIS SPECIMEN WAS RESCREENED PART OF OUR DIRECTOR REVENUE PROGRAM. Specimen adequacy: 02 Satisfactory for evaluation. No endocervical component is identified. Performed by: Dorinda Blake Plant Tender ([facility]) QC reviewed by: Elliot Ibanez Plant Tender ([facility]) . 02 Note: Note 03 The Pap [...] <-Panic Low,>-Panic High,A-Abnormal,AA-Critical Abnormal Performed at: 02 [facility] [address] [place] [address] Brandon Hobson MD, 03 WB [facility] [address] [address] Kellie Meyer MD, Performed at: =G - [facility] [address] [id number] Varnish Melter Helper: Kellie Meyer MD, Phone: [phone] Performed at: [facility] [address] [place], [place] [id number] Varnish Melter Helper: Brandon Hobson MD, Phone: [phone] SPATULA-ALONE CERVIX [facility] Healthcare RECURRENT VAGINITIS (HTRX)on 12-24-2024 ATOPOBIUM VAGINAE 0 [facility] ATOPOBIUM VAGINAE Not detected [facility] BVAB 2,3 (BACTERIAL VAGINOSIS ASSOCIATED BACTERIA 2, 3); MOBILUNCUS SPP 26.411 Abnormal [facility] BVAB 2,3 (BACTERIAL VAGINOSIS ASSOCIATED BACTERIA 2, 3); MOBILUNCUS SPP Detected Abnormal [facility] LAUREN ALBICANS, PARAPSILOSIS, TROPICALIS [address] [facility] LAUREN ALBICANS, PARAPSILOSIS, TROPICALIS Not detected [facility] LAUREN GLABRATA [address] [facility] LAUREN GLABRATA Not detected [facility] LAUREN KRUSEI [address] [facility] LAUREN KRUSEI Not detected [facility] CHLAMYDIA TRACHOMATIS 0 [facility] CHLAMYDIA TRACHOMATIS Not detected [facility] GARDNERELLA VAGINALIS 0 [facility] GARDNERELLA VAGINALIS Not detected [facility] Interpretation and review of laboratory results Abnormal [facility] MEGASPHAERA (TYPES 1, 2) [address] [facility] MEGASPHAERA (TYPES 1, 2) Not detected [facility] MYCOPLASMA GENITALIUM 0 [facility] MYCOPLASMA GENITALIUM Not detected N [facility] NEISSERIA GONORRHOEAE 0 [facility] NEISSERIA GONORRHOEAE Not detected N [facility] TRICHOMONAS VAGINALIS 0 [facility] TRICHOMONAS VAGINALIS Not detected N [facility] Urinalysis macro (dipstick) panel (U)on 12-22-2024 Bilirubin, UA Negative Negative - 4(70) +++ mg/dL [facility] Blood, UA Negative Negative - 50 Jonathan/mcL [facility] Clarity, UA Clear [facility] Color, UA Yellow [facility] Glucose, UA Negative Negative - 1999(110) ++++ mg/dL [facility] Interpretation and review of laboratory results Abnormal [facility] Ketones, UA Negative Negative - 160(16) ++++ mg/dL [facility] Leukocytes, UA Trace Negative - 500+++ Anoop/mcL [facility] [place] Nitrite, UA Negative Negative - Positive [facility] pH, UA 6.5 5 - [address] [facility] Protein, UA Trace Negative - 1999(20) ++++ mg/dL [facility] Spec Grav, UA 1.025 1 - 1.[address] [facility] Urobilinogen, UA 0.2 0.2 - 12 mg/dL [facility] Urinalysis macro (dipstick) panel (U)on 11-24-2024 Bilirubin, UA Negative Negative - 4(70) +++ mg/dL [facility] Blood, UA Negative Negative - 50 Jonathan/mcL [facility] Clarity, UA Clear [facility] Color, UA Yellow [facility] Glucose, UA Negative Negative - 1999(110) ++++ mg/dL [facility] Interpretation and review of laboratory results Abnormal [facility] Ketones, UA Negative Negative - 160(16) ++++ mg/dL [facility] Leukocytes, UA Trace Negative - 500+++ Anoop/mcL [facility] Nitrite, UA Negative Negative - Positive [facility] pH, UA 6 5 - [address] [facility] Protein, UA Negative Negative - 1999(20) ++++ mg/dL [facility] Spec Grav, UA 1.02 1 - 1.[address] [facility] Urobilinogen, UA 0.2 0.2 - 12 mg/dL [facility] BOX TESTon 11-13-2024 BOX TEST SENT OUT [facility] BOX[facility] BOX2 10/18/2024 [facility] BOX [facility]ISY[facility] Urine Cultureon 11-13-2024 Bacteria identified Cx Nom (U) <9,000 colonies/ml mixed bacterial skin contaminants 2 Days PERFORMED BY: [place] [address] PATHOLOGIST TILE DITCHER VILMA NUNES M.D. Normal [facility] Comment on above: Performed By: #### C UU #### [address] HCG ( test) Ql (U)o n 10-25-2024 Interpretation and review of laboratory results Abnormal [facility] Preg Test, Ur Positive Negative [facility] Urinalysis macro (dipstick) panel (U)on 10-25-2024 Bilirubin, UA Negative Negative - 4(70) +++ mg/dL [facility] Blood, UA Negative Negative - 50 Jonathan/mcL [facility] Clarity, UA Clear [facility] Color, UA Yellow [facility] Glucose, UA Negative Negative - 1999(110) ++++ mg/dL [facility] Interpretation and review of laboratory results Normal [facility] Ketones, UA Negative Negative - 160(16) ++++ mg/dL [facility] Leukocytes, UA Negative Negative - 500+++ Anoop/mcL [facility] Nitrite, UA Negative Negative - Positive [facility] pH, UA 7 5 - [address] [facility] Protein, UA Negative Negative - 1999(20) ++++ mg/dL [facility] Spec Grav, UA 1.025 1 - 1.[address] [facility] Urobilinogen, UA 1.0 0.2 - 12 mg/dL [facility] XR FEMUR 2+ VW LEFTon 2023 XR FEMUR 2+ VW LEFT Left femur HISTORY: Pain 4 views of the femur. The femur is grossly intact. No fractures or periostitis. Soft tissues of the thigh are not remarkable. IMPRESSION: Negative left femur Electronically Signed Varun Garcia D.O. 2024-06-15 15:01:50 Normal Not Available CBC AUTO DIFFon 02-21-2023 BASO # 0.0 103/ul Normal 0.0-0.1 [facility] Comment on above: Performed By: #### C BC #### [facility] [address] [place] [address] Dr. Sol Flores Basophils/100 WBC (Bld) 0.4 % Normal 0.2-2.0 [facility] Comment on above: Performed By: #### C BC #### [facility] [address] [place] [address] Dr. Sol Flores EO # 0.0 103/ul Normal 0.0-0.7 [facility] Comment on above: Performed By: #### C BC #### [facility] [address] [place] [address] Dr. Sol Flores Eosinophils/100 WBC (Bld) 0.0 % Critically low 0.9-7.0 [facility] Comment on above: Performed By: #### C BC #### [facility] [address] [place] [address] Dr. Sol Flores Erythrocyte distribution width (RBC) [Ratio] 13.4 % Normal 11.0-15.0 [facility] Comment on above: Performed By: #### C BC #### [facility] [address] [place] [address] Dr. Sol Flores Hematocrit (Bld) [Volume fraction] 38.1 % Normal 36.0-48.0 [facility] Comment on above: Performed By: #### C BC #### [facility] [address] [place] [address] Dr. Sol Flores Hemoglobin (Bld) [Mass/Vol] 12.9 g/dL Normal 12.0-16.0 [facility] Comment on above: Performed By: #### C BC #### [facility] [address] [place] [address] Dr. Sol Flores IG # 0.02 10e3/ul Normal 0.00-0.03 [facility] Comment on above: Performed By: #### C BC #### [facility] [address] [place] [address] Dr. Sol Flores IG % 0.2 % Normal 0.0-0.5 [facility] Comment on above: Performed By: #### C BC #### [facility] [address] [place] [address] Dr. Sol Flores LYMPH # 2.2 103/ul Normal 1.2-3.8 [facility] Comment on above: Performed By: #### C BC #### [facility] [address] [place] [address] Dr. Sol Flores Lymphocytes/100 WBC (Bld) 26.7 % Normal 20.5-60.0 [facility] Comment on above: Performed By: #### C BC #### [facility] [address] [place] [address] Dr. Sol Flores MANUAL DIFF REQ NO Normal [facility] Comment on above: Performed By: #### C BC #### [facility] [address] [place] [address] Dr. Sol Flores MCH (RBC) [Entitic mass] 28.9 pg Normal 26.7-34.0 [facility] Comment on above: Performed By: #### C BC #### [facility] [address] [place] [address] Dr. Sol Flores MCHC (RBC) [Mass/Vol] 33.9 g/dL Normal 29.9-35.2 [facility] Comment on above: Performed By: #### C BC #### [facility] [address] [place] [address] Dr. Sol Flores MCV (RBC) [Entitic vol] 85.2 fL Normal 81.0-99.0 [facility] Comment on above: Performed By: #### C BC #### [facility] [address] [place] [address] Dr. Sol Flores MONO # 0.6 103/ul Normal 0.3-0.8 [facility] Comment on above: Performed By: #### C BC #### [facility] [address] [place] [address] Dr. Sol Flores Monocytes/100 WBC (Bld) 7.4 % Normal 1.7-12.0 [facility] Comment on above: Performed By: #### C BC #### [facility] [address] [place] [address] Dr. Sol Flores NEUT # 5.3 103/ul Normal 1.4-6.5 [facility] Comment on above: Performed By: #### C BC #### [facility] [address] [place] [address] Dr. Sol Flores Neutrophils/100 WBC (Bld) 65.3 % Normal 43.0-75.0 [facility] Comment on above: Performed By: #### C BC #### [facility] [address] [place] [address] Dr. oSl Flores Platelet mean volume (Bld) [Entitic vol] 10.3 fL Normal 9.5-13.5 [facility] Comment on above: Performed By: #### C BC #### [facility] [address] [place] [address] Dr. Sol Flores PLT 225 103/ul Normal 150-450 [facility] Comment on above: Performed By: #### C BC #### [facility] [address] [place] [address] Dr. Sol Flores RBC 4.47 106/ul Normal 4.20-5.40 [facility] Comment on above: Performed By: #### C BC #### [facility] [address] [place] [address] Dr. Sol Flores WBC 8.1 103/ul Normal 4.0-11.0 [facility] Comment on above: Performed By: #### C BC #### [facility] [address] [address] [address] Sol Flores D-DIMERon 02-21-2023 D-DIMER 0.33 mg/L FEU Normal <=0.59 [facility] Comment on above: Performed By: #### D DIM, PT, PTT #### [facility] [address] [address] [address] Sol Flores D-DIMER COMMENTS SEE BELOW Normal [facility] Comment on above: Result Comment: Incr eases [...] By: #### D DIM, PT, PTT #### [facility] [address] [address] [address] Sol Flores PREG HCG QUALon 02-21-2023 , QUAL Negative Normal NEGATIVE [facility] Comment on above: Performed By: #### P REG #### [facility] [address] [address] [address] Sol Flores PROF 14(COMP METB)on 023 Albumin [Mass/Vol] 3.9 g/dL Normal 3.4-5.0 [facility] Comment on above: Performed By: #### H STROPN, TSH, CMP #### [facility] [address] [address] [address] Sol Flores Albumin/Globulin [Mass ratio] 1.1 {ratio} Normal [facility] Comment on above: Performed By: #### H STROPN, TSH, CMP #### [facility] [address] [address] [address] Sol Flores ALP [Catalytic activity/Vol] 90 U/L Normal 46-116 [facility] Comment on above: Performed By: #### H STROPN, TSH, CMP #### [facility] [address] [address] [address] Sol Flores ALT [Catalytic activity/Vol] 19 U/L Normal 14-59 [facility] Comment on above: Performed By: #### H STROPN, TSH, CMP #### [facility] [address] [address] [address] Sol Flores Anion gap [Moles/Vol] 13.3 mmol/L Normal [facility] Comment on above: Performed By: #### H STROPN, TSH, CMP #### [facility] [address] [address] [address] Sol Flores AST [Catalytic activity/Vol] 16 U/L Normal 15-37 [facility] Comment on above: Performed By: #### H STROPN, TSH, CMP #### [facility] [address] [place] [address] Dr. Sol Flores Bilirubin [Mass/Vol] 0.2 mg/dL Normal 0.2-1.0 [facility] Comment on above: Performed By: #### H STROPN, TSH, CMP #### [facility] [address] [place] [address] Dr. Sol Flores Calcium [Mass/Vol] 8.8 mg/dL Normal 8.5-10.1 [facility] Comment on above: Performed By: #### H STROPN, TSH, CMP #### [facility] [address] [place] [address] Dr. Sol Flores Chloride [Moles/Vol] 105 mmol/L Normal 98-107 [facility] Comment on above: Performed By: #### H STROPN, TSH, CMP #### [facility] [address] [place] [address] Dr. Sol Flores CO2 [Moles/Vol] 24.5 mmol/L Normal 21.0-32.0 [facility] Comment on above: Performed By: #### H STROPN, TSH, CMP #### [facility] [address] [place] [address] Dr. Sol Flores Creatinine [Mass/Vol] 0.79 mg/dL Normal 0.55-1.02 [facility] Comment on above: Performed By: #### H STROPN, TSH, CMP #### [facility] [address] [address] [address] Sol Flores EGFR-AF QATARI >60 Normal >=60 [facility] Comment on above: Performed By: #### H STROPN, TSH, CMP #### [facility] [address] [address] [address] Sol Flores EGFR-NON AF QATARI >60 Normal >=60 [facility] Comment on above: Performed By: #### H STROPN, TSH, CMP #### [facility] [address] [address] [address] Sol Flores Globulin (S) [Mass/Vol] 3.5 g/dL Normal [facility] Comment on above: Performed By: #### H STROPN, TSH, CMP #### [facility] [address] [place] [address] Dr. Sol Flores Glucose [Mass/Vol] 102 mg/dL Normal 74-106 [facility] Comment on above: Performed By: #### H STROPN, TSH, CMP #### [facility] [address] [place] [address] Dr. Sol Flores Potassium [Moles/Vol] 3.8 mmol/L Normal 3.5-5.1 [facility] Comment on above: Performed By: #### H STROPN, TSH, CMP #### [facility] [address] [place] [address] Dr. Sol Flores Protein [Mass/Vol] 7.4 g/dL Normal 6.4-8.2 [facility] Comment on above: Performed By: #### H STROPN, TSH, CMP #### [facility] [address] [address] [address] Sol Flores Sodium [Moles/Vol] 139 mmol/L Normal 136-145 [facility] Comment on above: Performed By: #### H STROPN, TSH, CMP #### [facility] [address] [place] [address] Dr. Sol Flores Urea nitrogen [Mass/Vol] 9.0 mg/dL Normal 7.0-18.0 [facility] Comment on above: Performed By: #### H GENESIS, TSH, CMP #### [facility] [address] [place] [address] Dr. Sol Flores Urea nitrogen/Creatinine [Mass ratio] 11.4 mg/mg Normal [facility] Comment on above: Performed By: #### H GENESIS, TSH, CMP #### [facility] [address] [place] [address] Dr. Sol Flores PROTIMEon 02-21-2023 INR Coag (PPP) [Relative time] 0.98 {INR} Normal [facility] Comment on above: Performed By: #### D DIM, PT, PTT #### [facility] [address] [place] [address] Dr. Sol Flores INR GUIDELINES SEE BELOW Normal [facility] Comment on above: Result Comment: LAWRENCE RED INR: 2.0 - 3.0 CONDITIONS NOT LISTED BELOW 2.5 - 3.5 FOR PROSTHETIC HEART VALVE REPLACEMENT 2.5 - 3.5 RECURRENT THROMBOSIS Performed By: #### D DIM, PT, PTT #### [facility] [address] [place] [address] Dr. Sol Flores PT Coag (PPP) [Time] 10.4 s Normal 9.0-11.6 [facility] Comment on above: Performed By: #### D DIM, PT, PTT #### [facility] [address] [place] [address] Dr. Sol Flores PTTon 02-21-2023 aPTT Coag (Bld) [Time] 29.4 s Normal 22.3-36.2 [facility] Comment on above: Performed By: #### D DIM, PT, PTT #### [facility] [address] [place] [address] Dr. Sol Flores TROPONIN, HIGH SENSITIVITYon 02-21-2023 HSTROP <4.0 Normal 4.0-51.3 [facility] Comment on above: Result Comment: CUT- OFF POINTS HAVE BEEN ESTABLISHED BASED ON THE FOURTH UNIVERSAL DEFINITIONS OF MYOCARDIAL INFARCTION. THE UPPER REFERENCE LIMIT (URL) OF TROPONIN, DEFINED THE 99TH PERCENTILE OF cTnI DISTRIBUTION IN A REFERENCE POPULATION, HAS BEEN CONFIRMED THE DECISION THRESHOLD FOR UT DIAGNOSIS. Performed By: #### H STROPN, TSH, CMP #### [facility] [address] [place], [place] [address] Dr. Sol Flores TSHon 02-21-2023 TSH 1.985 uIU/mL Normal 0.358-3.740 [facility] Comment on above: Performed By: #### H STROPN, TSH, CMP #### [facility] [address] [place], [place] [address] Dr. Sol Flores XR CHEST 1 Von [...] by: FAITH NUÑEZ Date: 2023-02-21 15:33 Normal [facility] Gynecology Office/Clinic Not [place] 10-30-2020 Gynecology Office/Clinic [...] Vaginal itch/burning/odor: No Additional HPI details: LMP 11/5, periods regular up until that point. Has [...] w/concerns. Ordered: , Serum, Test Qual w/Reflex [facility] Quant Problem List/Past Medical History Ongoing Anxiety [...] qualifying data available (MRI) Electronically signed by Jennifer TOY MAKER-SUBSTATION OPERATOR TRANSFORMING, Myriammike Martinez 10/30/20 15:04 EST Normal [facility] OR Trackon 10-30-2020 Pl Red # 1 [facility] Comment on above: Performed By: #### O [facility] Tracking Order #### [address] [place] [address] S Preg Rflx [facility] 0 Serum Preg Negative [facility] Comment on above: Result Comment: The hCG Combo Rapid Test has a sensitivity of 10 mIU/mL in serum and is capable of detecting as early as 1 day after the first missed menses. Performed By: #### C [id number] #### [address] [address] Vital Signs Date Time Vital Sign Value Performing Clinician Chris monaco 04-13-2025 13:00-0400 Body mass index (BMI) [Ratio] 28.71 kg/m2 [employer] Work Phone: [facility] 04-13-2025 13:00-0400 Body weight 83.14 kg [employer] Work Phone: [facility] 04-13-2025 13:00-0400 Diastolic blood pressure 70 mm[Hg] [employer] Work Phone: [facility] 04-13-2025 13:00-0400 Systolic blood pressure 112 mm[Hg] [employer] Work Phone: [facility] 03-30-2025 10:49-0400 Body mass index (BMI) [Ratio] 28.04 kg/m2 Xiomara Elliott [employer] Work Phone: [facility] 03-30-2025 10:49-0400 Body weight 81.19 kg Xiomara Elliott [employer]PER[employer] Work Phone: [facility] 03-30-2025 10:49-0400 Diastolic blood pressure 64 mm[Hg] Xiomara Elliott [employer]PER[employer] Work Phone: [facility] 03-30-2025 10:49-0400 Systolic blood pressure 114 mm[Hg] Xiomara Elliott [employer]ALEGAL SUPERVIS[employer] Work Phone: [facility] 03-17-2025 09:35-0400 Body mass index (BMI) [Ratio] 27.64 kg/m2 Xiomara Elliott PARALEGAL SUPERVISOR Work Phone: [facility] 03-17-2025 09:35-0400 Body weight 80.06 kg Xiomara Elliott PARALEGAL SUPERVISOR Work Phone: [facility] 03-17-2025 09:35-0400 Diastolic blood pressure 66 mm[Hg] Xiomara Elliott PARALEGAL SUPERVISOR Work Phone: [facility] 03-17-2025 09:35-0400 Systolic blood pressure 116 mm[Hg] Xiomara Elliott PARALEGAL SUPERVISOR Work Phone: [facility] 03-03-2025 10:17-0400 Body mass index (BMI) [Ratio] 26.51 kg/m2 Brandy Merrill DO Work Phone: [facility] 03-03-2025 10:17-0400 Body weight 76.77 kg Brandy Merrill DO Work Phone: [facility] 03-03-2025 10:17-0400 Diastolic blood pressure 72 mm[Hg] Brandy Merrill DO Work Phone: [facility] 03-03-2025 10:17-0400 Systolic blood pressure 110 mm[Hg] Brandy Merrill DO Work Phone: [facility] 02-15-2025 08:49-0400 Body mass index (BMI) [Ratio] 26.16 kg/m2 Yvette Haddam PA Work Phone: [facility] 02-15-2025 08:49-0400 Body weight 75.75 kg Yvette Trish PA Work Phone: [facility] 02-15-2025 08:49-0400 Diastolic blood pressure 62 mm[Hg] Yvette Haddam PA Work Phone: [facility] 02-15-2025 08:49-0400 Systolic blood pressure 110 mm[Hg] Yvette Trish PA Work Phone: [facility] 01-18-2025 08:47-0500 Body mass index (BMI) [Ratio] 23.96 kg/m2 Brandy Merrill DO Work Phone: [facility] 01-18-2025 08:47-0500 Body weight 69.4 kg Brandy Merrill DO Work Phone: [facility] 01-18-2025 08:47-0500 Diastolic blood pressure 60 mm[Hg] Brandy Merrill DO Work Phone: [facility] 01-18-2025 08:47-0500 Systolic blood pressure 100 mm[Hg] Brandy Merrill DO Work Phone: [facility] 12-22-2024 11:36-0500 Body mass index (BMI) [Ratio] 22.26 kg/m2 Yvette Trish PA Work Phone: [facility] 12-22-2024 11:36-0500 Body weight 64.47 kg Yvette Haddam PA Work Phone: [facility] 12-22-2024 11:36-0500 Diastolic blood pressure 48 mm[Hg] Yvette Trish PA Work Phone: [facility] 12-22-2024 11:36-0500 Systolic blood pressure 98 mm[Hg] Yvette Trish PA Work Phone: [facility] 11-24-2024 16:03-0500 Body mass index (BMI) [Ratio] 21.21 kg/m2 Brandy Merrill DO Work Phone: [facility] 11-24-2024 16:03-0500 Body weight 61.42 kg Brandy Merrill DO Work Phone: [facility] 11-24-2024 16:03-0500 Diastolic blood pressure 60 mm[Hg] Brandy Merrill DO Work Phone: [facility] 11-24-2024 16:03-0500 Systolic blood pressure 100 mm[Hg] Brandy Merrill DO Work Phone: [facility] 10-25-2024 11:03-0500 Body mass index (BMI) [Ratio] 20.67 kg/m2 [facility] Nurse [facility] 10-25-2024 11:03-0500 Body weight 59.88 kg [facility] Nurse [facility] 08-11-2024 10:18-0400 Body mass index (BMI) [Ratio] 20.05 kg/m2 Mariel Caballero MD Work Phone: [facility] 08-11-2024 10:18-0400 Body weight 58.06 kg Mariel Caballero MD Work Phone: [facility] 08-11-2024 10:18-0400 Diastolic blood pressure 72 mm[Hg] Mariel Caballero MD Work Phone: [facility] 08-11-2024 10:18-0400 Heart rate 113 /min Mariel Caballero MD Work Phone: [facility] 08-11-2024 10:18-0400 Systolic blood pressure 116 mm[Hg] Mariel Caballero MD Work Phone: [facility] Encounters Encounter Date Encounter Type Care Provider Facility Start: 04-13-2025 End: 04-13-2025 Bamboo flowsheet Brandy Merrill DO Work Phone: [facility] Start: 04-13-2025 End: 04-13-2025 Bamboo flowsheet Brandy Merrill DO Work Phone: [facility] Start: 04-13-2025 End: 04-13-2025 flow sheet Brandy Merrill DO Work Phone: [facility] Comment on above: Third trimester preg myrna; 35 weeks gestation of Start: 04-13-2025 End: 04-13-2025 ambulatory BRANDY MERRILL Not Available Start: 04-07-2025 End: 04-07-2025 ambulatory JESUS RANJIT Not Available Start: 03-30-2025 End: 03-30-2025 Bamboo flowsheet Xiomara Elliott PARALEGAL SUPERVISOR Work Phone: [facility] Start: 03-30-2025 End: 03-30-2025 Bamboo flowsheet Xiomara Elliott PARALEGAL SUPERVISOR Work Phone: [facility] Start: 03-30-2025 End: 03-30-2025 ambulatory XIOMARA ELLIOTT Not Available Start: 03-30-2025 End: 03-30-2025 flow sheet Xiomara Elliott [employer]ALEGAL SUPER[employer]OR Work Phone: [facility] Comment on above: Anemia affecting pre gnancy in third trimester (Primary Dx); Third trimester ; 33 weeks gestation of Start: 03-19-2025 End: 03-19-2025 Clinisync Result Encounter Brandy Merrill DO Work Phone: [facility] External Department Unsolicited Start: 03-19-2025 End: 03-19-2025 Clinisync Result Encounter Brandy Merrill DO Work Phone: [facility] Unsolicited Start: 03-17-2025 End: 03-17-2025 Bamboo flowsheet Xiomara Elliott PARALEGAL SUPERVISOR Work Phone: [facility] Start: 03-17-2025 End: 03-17-2025 Bamboo flowsheet Xiomara Elliott PARALEGAL SUPERVISOR Work Phone: [facility] Start: 03-17-2025 End: 03-17-2025 ambulatory XIOMARA ELLIOTT Not Available Start: 03-17-2025 End: 03-17-2025 flow sheet Xiomara Elliott [employer]PER[employer] Work Phone: [facility] Comment on above: Antepartum anemia (P rimary Dx); Third trimester ; 31 weeks gestation of Start: 03-14-2025 End: 03-14-2025 Clinisync Result Encounter Brandy Merrill DO Work Phone: [facility] External [facility] Unsolicited Start: 03-14-2025 End: 03-14-2025 Clinisync Result Encounter Brandy Merrill DO Work Phone: [facility] Unsolicited Start: 03-03-2025 End: 03-03-2025 flow sheet Brandy Merrill DO Work Phone: [facility] Comment on above: Third trimester preg myrna; 29 weeks gestation of ; Anemia affecting in third trimester Start: 03-03-2025 End: 03-03-2025 ambulatory BRANDY MERRILL Not Available Start: 02-15-2025 End: 02-15-2025 Bamboo flowsheet Yvette TABOR Work Phone: [facility] Start: 02-15-2025 End: 02-15-2025 Bamboo flowsheet Yvette TABOR Work Phone: [facility] Start: 02-15-2025 End: 02-15-2025 ambulatory YVETTE CHAMBERS Not Available Start: 02-15-2025 End: 02-15-2025 flow sheet Yvette TABOR Work Phone: [facility] Comment on above: Second trimester pre gnancy; 27 weeks gestation of ; size inconsistent with dates Start: 01-18-2025 End: 01-18-2025 Bamboo flowsheet Brandy Merrill DO Work Phone: [facility] Start: 01-18-2025 End: 01-18-2025 Bamboo flowsheet Brandy Merrill DO Work Phone: [facility] Start: 01-18-2025 End: 01-18-2025 flow sheet Brandy Merrill DO Work Phone: [facility] Comment on above: Second trimester pre gnancy; 23 weeks gestation of ; Diabetes mellitus screening Start: 01-18-2025 End: 01-18-2025 ambulatory BRANDY AGUILARZIO Not Available Start: 01-15-2025 End: 01-18-2025 Clinisync Result Encounter Brandy Merrill DO Work Phone: [facility] Unsolicited Start: 01-15-2025 End: 01-18-2025 Clinisync Result Encounter Brandy Aguilarzio DO Work Phone: [facility] Unsolicited [...] Start: 11-13-2024 End: 11-13-2024 ambulatory Mariel Caballero Facility:[facility] Start: 11-13-2024 Encounter for genera l adult medical examination without abnormal findings Mariel Caballero [facility] Start: 11-13-2024 End: 11-13-2024 Clinisync Result Encounter Brandy Merrill DO Work Phone: [facility] Unsolicited Start: 11-13-2024 End: 11-13-2024 Clinisync Result Encounter Brnady Merrill DO Work Phone: [facility] Unsolicited Start: 10-25-2024 End: 10-25-2024 ambulatory YVETTE TRISH Not Available Start: 10-25-2024 End: 10-25-2024 Office outpatient visit 5 minutes [facility] Nurse [facility] Comment on above: GA: 11w1d Start: 09-28-2024 ambulatory DORINDA MORENO [facility] Start: 08-11-2024 End: 08-11-2024 ambulatory MARIEL CABALLERO [facility] Start: 08-11-2024 End: 08-11-2024 Office outpatient visit 25 minutes Mariel Caballero MD Work Phone: [facility] Internal Medicine/Pediatrics Comment on above: Seizure-like activit y (CMS-HCC) (Primary Dx) Start: 06-29-2024 End: 06-29-2024 ambulatory GUILLERMO WING Not Available Start: 06-15-2024 End: 06-15-2024 ambulatory GUILLERMO WING Not Available Start: 06-10-2024 End: 06-10-2024 ambulatory GUILLERMO WING Not Available Start: 02-21-2023 End: 02-21-2023 ambulatory CHRISTINE SALVADOR Facility: Procedures Date Procedure Procedure Detail Performing Clinician Start: 03-19-2025 [facility] FERRITIN Brandy Fazi o DO Work Phone: Start: 03-14-2025 US OB CERVICAL LENGTH C orey Merrill DO Work Phone: Start: 03-14-2025 US OB BPP W NON-STRESS Brandy Merrill DO Work Phone: Start: 03-14-2025 US OB PLACENTA Brandy Fa zio DO Work Phone: Start: 03-14-2025 [facility] UA (CLEAN/CATCH) DECK SPECIALIST/MICRO IF IND. Brandy Merrill DO Work Phone: Start: 03-03-2025 Urnls dip stick/tabl et rgnt non-auto w/o micrscp Brandy Merrill DO Work Phone: Start: 02-15-2025 Urnls dip stick/tabl et rgnt non-auto w/o micrscp Yvette TABOR Work Phone: Start: 01-15-2025 AFP, SERUM, OPEN SPI NA [...] Treatment Date Care Activity Detail Author Start: 04-07-2026 End: 04-07-2026 Patient encounter procedure 04/07/2026 8:00 AM EDT Office Visit [facility] [address] [place] [phone] Jesus Church MD, IBCLC [address], [place] [phone] [facility] Start: 07-18-2025 Influenza vaccination Influenz a Vaccine (Season Ended) [facility] Start: 04-20-2025 End: 04-20-2025 Patient encounter procedure 04/20/2025 11:20 AM EDT Routine [facility] [address] [place] [place] [address] Brandy Momin DO [facility] [place] [address] [facility] Start: 04-13-2025 End: 04-13-2025 Patient encounter procedure [facility] Comment on above: Arrived Start: 04-07-2025 End: 04-07-2025 Patient encounter procedure 04/07/2025 2:00 PM EDT Office Visit [facility] [address] [place] [phone] Jesus Church MD, IBCLC [address], [place] [phone] [facility] Start: 03-30-2025 End: 03-30-2025 Patient encounter procedure 03/30/2025 10:30 AM EDT Routine [facility] [address] [facility] [place] [address] Xiomara Gallagher, PARALEGAL SUPERVISOR [address] [place] [address] [facility] Start: 03-17-2025 End: 03-17-2025 Patient encounter procedure 03/17/2025 9:10 AM EDT Routine [facility] [address] [place] [address] Xiomara Gallagher, PARALEGAL SUPERVISOR [address] [place] [address] [facility] Start: 03-03-2025 End: 03-03-2026 Transferrin [Mass/volume] in Serum or Plasma Transferrin Lab Routine Anemia affecting in third trimester Expected: 03/03/2025 (Approximate), Expires: 03/03/2026 [facility] Comment on above: Expected: 03/03/2025 (Approximate), Expires: 03/03/2026 Start: 03-03-2025 End: 03-03-2025 Patient encounter procedure 03/03/2025 10:10 AM EDT Routine [facility] [address] [place] [address] Brandy Momin DO [address] [place] [address] [facility] Start: 03-03-2025 End: 03-03-2025 Professional / ancillary services management 03/03/2025 9:30 AM EDT Ancillary Procedure [facility] [address] [place] [address] [facility] Start: 02-15-2025 End: 02-15-2026 US for US OB follow up transabdominal approach Imaging Routine size inconsistent with dates Expected: 02/15/2025, Expires: 02/15/2026 [facility] Work Phone: Comment on above: Expected: 02/15/2025 , Expires: 02/15/2026 Start: 02-15-2025 End: 02-15-2025 Patient encounter procedure 02/15/2025 8:30 AM EDT Routine [facility] [address] [facility] [place] [address] Yvette Chambesr PA [address] [place], [place] [phone] [facility] Start: 01-18-2025 End: 01-18-2026 CBC panel - Blood by Automated count CBC Lab Routine Diabetes mellitus screening Expected: 01/18/2025 (Approximate), Expires: 01/18/2026 [facility] Work Phone: Comment on above: Expected: 01/18/2025 (Approximate), Expires: 01/18/2026 Start: 01-18-2025 End: 01-18-2026 Measurement of glucose 1 hour after glucose challenge for glucose tolerance test Glucose tolerance, 1 hour Lab Routine Diabetes mellitus screening Expected: 01/18/2025 (Approximate), Expires: 01/18/[address] [facility] Comment on above: Expected: 01/18/2025 (Approximate), Expires: 01/18/2026 Start: 01-18-2025 End: 01-18-2025 Patient encounter procedure [facility] Comment on above: Arrived Start: 12-30-2024 End: 12-30-2024 Professional / ancillary services management 12/30/2024 2:30 PM EST Ancillary Procedure [facility] [address] [place] [address] [facility] Start: 12-22-2024 End: 12-22-2025 US for US OB 14+ weeks anatomy scan Imaging Routine Screening, , for anatomic survey Expected: 12/22/2024, Expires: 12/22/2025 [facility] Work Phone: Comment on above: Expected: 12/22/2024 , Expires: 12/22/2025 Start: 12-22-2024 End: 12-22-2024 Patient encounter procedure 12/22/2024 11:20 AM EST Routine [facility] [address] [place] [phone] Yvette Chambers PA [address] [place] [address] [facility] Start: 11-24-2024 End: 11-24-2024 Patient encounter procedure 11/24/2024 3:10 PM EST Routine [facility] [address] [place] [phone] Brandy Momin DO [address] [place] [address] [facility] Start: 11-24-2024 End: 12-25-2024 Alpha fetoprotein, maternal Alpha fetoprotein, maternal Lab Routine 15 weeks gestation of Second trimester Expected: 11/24/2024 (Approximate), Expires: 12/25/2024 [facility] Work Phone: Comment on above: Expected: 11/24/2024 (Approximate), Expires: 12/25/2024 Start: 10-25-2024 End: 10-25-2025 ABO/Rh ABO/Rh Lab Routine Missed menses , unspecified gestational age Expected: 10/25/2024 (Approximate), Expires: 10/25/2025 [facility] Comment on above: Expected: 10/25/2024 (Approximate), Expires: 10/25/2025 Start: 10-25-2024 End: 10-25-2025 Blood type and Indirect antibody screen panel - Blood Type and screen Lab Routine Missed menses , unspecified gestational age Expected: 10/25/2024 (Approximate), Expires: 10/25/2025 [facility] Work Phone: Comment on above: Expected: 10/25/2024 (Approximate), Expires: 10/25/2025 Start: 10-25-2024 End: 10-25-2025 Drugs of abuse panel - Urine by Screen method Rapid drug screen, urine Lab Routine , unspecified gestational age Encounter for supervision of normal first in first trimester Expected: 10/25/2024 (Approximate), Expires: 10/25/2025 [facility] Comment on above: Expected: 10/25/2024 (Approximate), Expires: 10/25/2025 Start: 10-25-2024 End: 10-25-2025 US Pelvis transvaginal US OB transvaginal Imaging Routine Missed menses Expected: 10/25/2024 (Approximate), Expires: 10/25/[address] [facility] Comment on above: Expected: 10/25/2024 (Approximate), Expires: 10/25/2025 Start: 07-18-2024 Influenza vaccination Influenza Vacc ine [facility] Start: 06-02-2024 Adult BMI Screening Adult BMI Screen ing [facility] Start: 06-02-2024 Tobacco Screening Tobacco Screening [facility] Start: 05-05-2024 Depression Screening Depression Scre ening [facility] Start: 2022 Screening for malign ant neoplasm of cervix Pap Smear [facility] Start: 2020 DTaP,Tdap and Td Vaccines (1 - Tdap) DTaP,Tdap and Td Vaccines (1 - Tdap) [facility] Bacteria identified in Urine by Culture Urine culture Microbiology Routine Missed menses Ordered: 10/25/2024 [facility] Comment on above: Ordered: 10/25/2024 CBC W Auto Different ial panel - Blood CBC and differential Lab Routine Missed menses , unspecified gestational age Ordered: 10/25/2024 [facility] Comment on above: Ordered: 10/25/2024 CBC W Auto Different ial panel - Blood CBC and differential Lab Routine Anemia affecting in third trimester Ordered: 03/30/2025 [facility] Work Phone: Comment on above: Ordered: 03/30/2025 CHLAMYDIA TRACHOMATI S (GENITO/STI) CHLAMYDIA TRACHOMATIS (GENITO/STI) Lab Routine STD exposure Vaginal discharge Ordered: 12/22/[address] [facility] Comment on above: Ordered: 12/22/2024 Cytology Cervical or vaginal smear or scraping study Pap Smear Pathology and Cytology Routine Well woman exam with routine gynecological exam Ordered: 12/22/[address] [facility] Comment on above: Ordered: 12/22/2024 Ferritin [Mass/volum e] in Serum or Plasma Ferritin Lab Routine Anemia affecting in third trimester Ordered: 03/03/[address] [facility] Work Phone: Comment on above: Ordered: 03/03/2025 Hemoglobin A1c/Hemoglobin.total in Blood Hemoglobin A1c Lab Routine Missed menses , unspecified gestational age Ordered: 10/25/[address] [facility] Comment on above: Ordered: 10/25/2024 Hepatitis B virus surface Ag [Presence] in Serum or Plasma by Immunoassay Hepatitis B surface antigen Lab Routine Missed menses , unspecified gestational age Ordered: 10/25/[address] [facility] Comment on above: Ordered: 10/25/2024 Hepatitis C virus Ab [Presence] in Serum or Plasma by Immunoassay Hepatitis C antibody Lab Routine Missed menses , unspecified gestational age Ordered: 10/25/[address] [facility] Comment on above: Ordered: 10/25/2024 HIV-1/HIV-2 antigen/antibody combination immunoassay HIV-1 and HIV-2 antibodies Lab Routine Missed menses , unspecified gestational age Ordered: 10/25/[address] [facility] Comment on above: Ordered: 10/25/2024 Neisseria gonorrhoea e DNA [Presence] in Unspecified specimen by NELDA with probe detection Neisseria gonorrhea DNA probe, direct Lab Routine STD exposure Vaginal discharge Ordered: 12/22/[address] [facility] Comment on above: Ordered: 12/22/2024 Reagin Ab [Presence] in Serum by RPR RPR Lab Routine Missed menses , unspecified gestational age Ordered: 10/25/[address] [facility] Comment on above: Ordered: 10/25/2024 Rubella antibody, IgG Rubella an tibody, IgG Lab Routine Missed menses , unspecified gestational age Ordered: 10/25/[address] [facility] Comment on above: Ordered: 10/25/2024 SURESWAB(R) ADVANCED VAGINITIS PLUS, TMA SURESWAB(R) ADVANCED VAGINITIS PLUS, TMA Pathology and Cytology Routine STD exposure Vaginal discharge Ordered: 12/22/[address] [facility] Comment on above: Ordered: 12/22/2024 Payers Date Payer Category Payer Self-pay 2024 Worker's Compensation [id number] 2024 Unknown [id number] 2024 Unknown [id number] 2020 Private Health Insurance [id number] 2001 Unknown [id number] 2.16.84 0.1.393445.3.579.2.593 2001 Unknown [id number] 2.16.8 40.1.830894.3.579.2.1286 2001 Unknown [id number] 2.16.8 40.1.579018.3.579.2.1286 2001 Unknown [id number] 2.16.84 0.1.493790.3.579.2.1259 2001 Unknown [id number] 2.16.84 0.1.176996.3.579.2.1259 2001 Unknown [id number] 2.16.84 0.1.753720.3.579.2.1259 2001 Unknown [id number] 2.16.84 0.1.819903.3.579.2.1259 2001 Unknown [id number] 2.16.84 0.1.045554.3.579.2.1259 2001 Unknown [id number] 2.16.84 0.1.987871.3.579.2.1259 2001 Unknown [id number] 2.16.84 0.1.514067.3.579.2.1259 2001 Unknown [id number] 2.16.84 0.1.296843.3.579.2.1258 2001 Unknown [id number] 2.16.84 0.1.207933.3.579.2.1258 2001 Unknown [id number] 2.16.84 0.1.409943.3.579.2.1258 2001 Unknown [id number] 2.16.84 0.1.520459.3.579.2.1258 2001 Unknown [id number] 2.16.84 0.1.445837.3.579.2.1258 2001 Unknown [id number] 2.16.84 0.1.504806.3.579.2.1258 2001 Unknown [id number] 2.16.84 0.1.944097.3.579.2.1258 2001 Unknown [id number] 2.16.84 0.1.117069.3.579.2.1258 2001 Unknown [id number] 2.16.84 0.1.187634.3.579.2.1258 2001 Unknown [id number] 2.16.84 0.1.032953.3.579.2.1258 2001 Unknown [id number] 2.16.84 0.1.790026.3.579.2.1258 2001 Unknown [id number] 2.16.84 0.1.991204.3.579.2.1258 2001 Unknown [id number] 2.16.84 0.1.775529.3.579.2.1258 2001 Unknown [id number] 2.16.84 0.1.609879.3.579.2.1258 2001 Unknown [id number] 2.16.84 0.1.546742.3.579.2.1258 2001 Unknown [id number] 2.16.84 0.1.486416.3.579.2.1258 2001 Unknown [id number] 2.16.84 0.1.954148.3.579.2.9 2001 Unknown [id number] 2.16.84 0.1.600202.3.579.2.9 2001 Unknown [id number] 2.16.84 0.1.696154.3.579.2.9 2001 Unknown [id number] 2.16.84 0.1.756174.3.579.2.9 2001 Unknown [id number] 2.16.84 0.1.171909.3.579.2.9 2001 Unknown [id number] 2.16.84 0.1.282655.3.579.2.1258 2001 Unknown [id number] 2.16.84 0.1.862088.3.579.2.9 2001 Unknown [id number] 2.16.84 0.1.911592.3.579.2.9 2001 Unknown [id number] 2.16.84 0.1.425621.3.579.2.1259 1959 Private Health Insurance [id number] Unknown [id number] 2.16.8 40.1.501846.3.579.2.531 Social History Date Type Detail Facility Start[facility]13-[facility]23 [facility] Start: 10-25-2024 End: 04-13-2025 Alcoholic beverage intake Current drinker of alcohol (finding) [facility] Start: 10-25-2024 End: 04-07-2025 Alcoholic beverage intake [facility] Start: 06-15-2024 End: 04-07-2025 Tobacco use panel [facility] Start: 08-22-2024 [facility] Start: 2001 Sex assigned at Not on file P [facility] Start: 10-17-2022 End: 04-07-2025 Tobacco smoking status ILIS Never smoked tobacco [facility] Start: 10-17-2022 End: 04-07-2025 Tobacco use and exposure Smokeless tobacco non-user [facility] Do you belong to any clubs or organizations such as worship groups, unions, fraternal or athletic groups, or school groups? No [facility] Are you now , , , , never or living with a partner? Living with partner [facility] How often to you hav e a drink containing alcohol? 2-4 times a month [facility] How many standard drinks containing alcohol do you have on a typical day? 1 or 2 [facility] How often do you hav e 6 or more drinks on 1 occasion? Less than monthly [facility] How hard is it for y ou to pay for the very basics like food, housing, medical care, and heating Not hard at all [facility] Do you feel stress - tense, restless, nervous, or anxious, or unable to sleep at night because your mind is troubled all the time - these days [OSQ] Very much [facility] Start: 12-24-2022 Education 14 [facility] Start: 2001 Sex assigned at Female [facility] Start: 04-07-2025 Gender identity Identifies as female gender (finding) [facility] Start: 04-07-2025 Sexual orientation Heterosexual (fin ding) [facility] NEGATED: Highlighted rowStart: NINF History of tobacco use Passive smoker [facility] Clinical Notes 08-11-2024 to 04-13-2025 Yoli Seay LPN - 04/13/2025 1:00 PM Christiane Gallagher NP - 03/30/2025 10:30 AM Christiane Gallagher NP - 03/17/2025 9:10 AM Pasquale Wilkins LPN - 03/03/2025 10:10 AM EDT Note Date & Type Note Facility 04-13-2025 History of Present illness Narrative Reason for Appointment: Patient ID: Megha Khalil is a 24 y.o. female who presents for Routine Visit Patient presents today for Return OB appointment. MEDICATIONS Current Outpatient Medications Medication Instructions MAGnesium-Oxide 400 mg, Daily Vit w/Tu-Okukolsps-MN (PNV PO) Take by mouth ProFe 391.3 (180 Fe) MG capsule 1 capsule, Daily ALLERGIES Allergies Allergen Reactions Penicillins Hives Sumatriptan Swelling PROBLEMS Active Ambulatory Problems Diagnosis Date Noted Immunization refused 04/07/2025 Chronic migraine with aura without status migrainosus, not intractable ([facility]) 04/07/2025 Dysautonomia ([facility]) 04/07/2025 Resolved Ambulatory Problems Diagnosis Date Noted [...] nursing note reviewed. Exam conducted with a care transition coordinator present. Vitals: Estimated body mass index is 28.71 kg/m as calculated from the following: Height [...] Brandy Momin DO documented in this encounter [facility] 03-30-2025 History of Present illness Narrative Reason for Appointment: Patient ID: Megha Khalil is a 24 y.o. female who presents for Routine Visit Patient presents today for Return OB appointment. MEDICATIONS Current Outpatient Medications Medication Instructions MAGnesium-Oxide 400 mg, Daily Vit w/Rv-Hwspcchvc-FD (PNV PO) Oral ProFe 391.3 (180 Fe) MG capsule 1 [...] History Family history unknown: Yes SURGICAL HISTORY History reviewed. No pertinent surgical [...] nursing note reviewed. Exam conducted with a care transition coordinator present. Vitals: Estimated body mass index is 28.04 kg/m as calculated from the following: Height as of 10/13/23: 5' 7 . Weight as of this encounter: 179 lb. BP: 114/64 Patient's last menstrual period was 08/08/2024. ASSESSMENT & PLAN ICD-10-CM 1. Anemia affecting in third trimester O99.013 2. Third trimester Z34.93 CANCELED: POCT urinalysis dipstick manually resulted 3. 33 weeks gestation of Z3A.33 Return OB: Patient presents today for a routine obstetrics appointment. Patient is currently 33w3d . Patient states she is doing well but has complaints of being tired due to current . Patient has verbalizes frequent movement. labor precautions was discussed/given and patient was instructed to perform kick counts three times a day. No orders of the defined types were placed in this encounter. Follow Up: Patient has continued with Venofer infusion and we will repeat CBC with Diff in 2 weeks. Patient is to return to office in 2 week for routine OB appointment. Documented by Fartun Alexander MA on behalf of: Xiomara Gallagher NP documented in this encounter [facility] 03-17-2025 History of Present illness Narrative Reason for Appointment: Patient ID: Megha Khalil is a 24 y.o. female who presents for Routine Visit Patient presents today for Return OB appointment. MEDICATIONS Current Outpatient Medications Medication Instructions MAGnesium-Oxide 400 mg, Daily Vit w/Lf-Xoxzhebso-RC (PNV PO) Oral ALLERGIES Allergies Allergen Reactions [...] nursing note reviewed. Exam conducted with a care transition coordinator present. Vitals: Estimated body mass index is 27.64 kg/m as calculated from the following: Height as of 10/13/23: 5' 7 . Weight as of this encounter: 176 lb 8 oz. BP: 116/66 Patient's last menstrual period was 08/08/2024. ASSESSMENT & PLAN ICD-10-CM 1. Third trimester Z34.93 POCT urinalysis dipstick manually resulted 2. 31 weeks gestation of Z3A.31 Return OB: Patient presents today for a routine obstetrics appointment. Patient is currently 31w4d . Patient states she is doing well but has complaints of being tired due to current . Patient has verbalizes frequent movement. labor precautions was discussed/given and patient was instructed to perform kick counts three times a day. Orders Placed This Encounter Procedures POCT urinalysis dipstick manually resulted Follow Up: Patient completed CBC on 03/15 with Hgb at 9.2. Discussed the importance of Ferritin and Transferritin labs being completed today and order placed for Iron Infusion. Patient is to return to office in 2 week for routine OB appointment. Documented by Xiomara Gallagher NP on behalf of: Xiomara Gallagher NP documented in this encounter [facility] 03-03-2025 History of Present illness Narrative Reason for Appointment: Patient ID: Megha Khalil is a 24 y.o. female who presents for Routine Visit Patient presents today for Return OB appointment. MEDICATIONS Current Outpatient Medications Medication Instructions MAGnesium-Oxide 400 mg, Daily Vit w/Cm-Yywkcloez-WR (PNV PO) Oral ALLERGIES Allergies Allergen Reactions [...] nursing note reviewed. Exam conducted with a care transition coordinator present. Vitals: Estimated body mass index is 26.51 kg/m as calculated from the following: Height as of 10/13/23: 5' 7 . Weight as of this encounter: 169 lb 4 oz. BP: 110/72 Patient's last menstrual period was 08/08/2024. ASSESSMENT & PLAN ICD-10-CM 1. Third trimester Z34.93 POCT urinalysis dipstick manually resulted 2. 29 weeks gestation of Z3A.29 3. Anemia affecting in third trimester O99.013 Ferritin Transferrin Transferrin Patient presents today for a routine obstetrics appointment. Patient is currently 29w4d with a Estimated Date of Delivery: 05/15/25. Patient is currently taking ProFe. Order given to patient to have rpt CBC along with ferritin and transferrin if patient requires to have iron infusions in the future. Patient to return to clinic in 2-3 weeks for routine OB care. Documented by Nadia Wilkins LPN on behalf of: Brandy Momin DO documented in this encounter [facility] 02-15-2025 History of Present illness Narrative Reason for Appointment: Patient ID: Megha Khalil is a 24 y.o. female who presents for Routine Visit Patient presents today for Return OB appointment. MEDICATIONS Current Outpatient Medications Medication Instructions iron polysaccharides (PROFE) 391.3 mg, Oral, Daily MAGnesium-Oxide 400 mg, Daily Vit w/Hg-Ezhxpxpjp-NK (PNV PO) Oral ALLERGIES Allergies Allergen Reactions [...] Exam Constitutional: Appearance: Normal appearance. She is normal weight. HENT: Head: Normocephalic. Cardiovascular: Rate and Rhythm: Normal rate. Pulses: Normal pulses. Pulmonary: Effort: Pulmonary effort is normal. Breath sounds: Normal breath sounds. Abdominal: Palpations: Abdomen is soft. Musculoskeletal: General: Normal range of motion. Neurological: General: No focal deficit present. Mental Status: She is alert and oriented to person, place, and time. Psychiatric: Mood and Affect: Mood normal. Behavior: Behavior normal. Thought Content: Thought content normal. Judgment: Judgment normal. Vitals and nursing note reviewed. Vitals: Estimated body mass index is 26.16 kg/m as calculated from the following: Height as of 10/13/23: 5' 7 . Weight as of this encounter: 167 lb. BP: 110/62 Patient's last menstrual period was 08/08/2024. ASSESSMENT & PLAN ICD-10-CM 1. Second trimester Z34.92 POCT urinalysis dipstick manually resulted 2. 27 weeks gestation of Z3A.27 Return OB: Patient presents today for a routine obstetrics appointment. Patient is currently 27w2d . Patient states she is doing well but has complaints of being tired due to current . Patient has verbalizes frequent movement. labor precautions was discussed/given and patient was instructed to perform kick counts three times a day. Orders Placed This Encounter Procedures POCT urinalysis dipstick manually resulted Follow Up: Patient is to return to office in 2 week for routine OB appointment. Documented by Fartun Alexander MA on behalf of: SHARONA Jasmine documented in this encounter [facility] 01-18-2025 History of Present illness Narrative Reason for Appointment: Patient ID: Megha Khalil is a 24 y.o. female who presents for Routine Visit Patient presents today for Return OB appointment. MEDICATIONS Current Outpatient Medications Medication Instructions Vit w/Lf-Bzmjrrucq-KQ (PNV PO) Oral ALLERGIES Allergies Allergen Reactions [...] nursing note reviewed. Exam conducted with a care transition coordinator present. Vitals: Estimated body mass index is [...] Brandy Momin DO documented in this encounter [facility] 12-22-2024 History of Present illness Narrative Reason for Appointment: Patient ID: Megha Khalil is a 24 y.o. female who presents for Routine Visit Patient presents today for Return OB appointment. MEDICATIONS Current Outpatient Medications Medication Instructions magnesium oxide (MAG-OX) 400 mg, Oral, Daily Vit w/Hv-Wmkdwnpok-TL (PNV PO) Oral ALLERGIES Allergies Allergen Reactions [...] nursing note reviewed. Exam conducted with a care transition coordinator present. Vitals: Estimated body mass index is [...] of: SHARONA Jasmine documented in this encounter [facility] 11-24-2024 History of Present illness Narrative Reason for Appointment: Patient ID: Megha Khalil is a 24 y.o. female who presents for Routine Visit Patient presents today for Return OB appointment. MEDICATIONS Current Outpatient Medications Medication Instructions magnesium oxide (MAG-OX) 400 mg, Oral, Daily Vit w/Uj-Vckupejis-XG (PNV PO) Oral ALLERGIES Allergies Allergen Reactions [...] nursing note reviewed. Exam conducted with a care transition coordinator present. Vitals: Estimated body mass index is [...] or undercooked meat, and stay away from [facility]. Patient has been consulted regarding any further do's and don'ts of . Patient voiced understanding and all questions and concerns were answered. 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 Pt having headaches, rx for magnesium faxed to pharmacy. Orders Placed This Encounter Procedures Alpha fetoprotein, maternal POCT urinalysis dipstick manually resulted Follow Up: Patient is to return in 4 weeks for routine OB appointment. Documented by Yoli Seay LPN on behalf of: Brandy Momin DO documented in this encounter [facility] 10-25-2024 History of Present illness Narrative Reason [...] list which includes the following prescription(s): vit w/dk-mqdtzafuh-bf. Medical History: Active Ambulatory Problems Diagnosis Date [...] or undercooked meat, and stay away from [facility]. Patient has also been advised to [...] Adriane Meeks LPN documented in this encounter [facility] 08-11-2024 History of Present illness Narrative Subjective Patient ID: Megha Khalil is a 24 y.o. female. About 2 weeks ago she was evaluated at [facility] for seizure like symptoms. She has [...] all orders for this visit: Seizure-like activity ([facility]) - Ambulatory referral to Neurology ([facility]); Future documented in this encounter [facility] System Evaluation note Diagnosis Missed menses , unspecified gestational age Encounter for supervision of normal first in first trimester documented in this encounter [facility] HealthcareEvaluation note* Diagnosis 15 weeks gestation of [...] [facility]* Diagnosis Seizure-like activity ([facility])- Primary documented in this encounter [facility] SystemEvaluation note* Diagnosis Second trimester state, incidental 23 weeks gestation of Diabetes mellitus screening Screening for diabetes mellitus documented in this [facility]* Diagnosis Second trimester state, incidental 27 weeks gestation of size inconsistent with dates documented in this [facility]* Diagnosis Third trimester state, incidental 29 weeks gestation of Anemia affecting in third trimester documented [facility] this [facility]* Diagnosis Antepartum anemia- Primary Third trimester state, incidental 31 weeks gestation of documented in this [facility]* Diagnosis Anemia affecting in third trimester- Primary Third trimester state, incidental 33 weeks gestation of documented [facility]* Diagnosis Dysautonomia (CMS/HCC)- Primary Unspecified disorder of autonomic nervous system Well adult exam Routine general medical examination at a health care facility Chronic migraine with aura without status migrainosus, not intractable (CMS/HCC) 34 weeks gestation of Anemia affecting in third trimester Immunization refused Third trimester state, incidental 35 weeks gestation of documented in this encounter [facility] HealthcareInstructionsNot on filedocumented in this encounterProSelect [facility] [place] [facility] SystemReason for referral (narrative)* Consultation (Routine) - Pending Review Specialty Diagnoses / Procedures Referred By Sarah hernandez Referred To Contact Neurology Diagnoses Seizure-like activity (CMS-HCC) Mariel Caballero MD [address] [place] [address], [place] [address] Jesse Lawton MD [address] [facility] [place] [address] Referral ID Status Reason Start Date Expiration Date Visits Requested Visits Authorized [id number] Pending Review Specialty Services Required 08/11/2024 08/11/2025 1 1 [facility] Summary Purpose Family History No Family History Records FoundNo Family History Records FoundNo Family History Records FoundNo Family History Records FoundNo Family History Records Found Advance Directives No Advanced Directives Records FoundNo Advanced Directives Records FoundNo Advanced Directives Records FoundNo Advanced Directives Records FoundNo Advanced Directives Records Found Additional Source Comments INFORMATION SOURCE (unrecogn ized section and content) DATE CREATED AUTHOR 10/31/[address] [facility] DATE CREATED AUTHOR AUTHOR'S ORGANIZ ATION 03/15/2023 [facility] DATE CREATED AUTHOR AUTHOR'S ORGANIZ ATION 09/30/2024 [facility] DATE CREATED AUTHOR AUTHOR'S ORGANIZ ATION 01/02/2025 [facility] DATE CREATED AUTHOR AUTHOR'S ORGANIZ ATION 04/14/2025 [facility] EPIC Reason for Visit (unrecogniz ed section and content) Reason Comments Amenorrhea Reason Comments Routine Visit Reason Comments wants referral to Neurologyfor seizures Prefers [facility] in [place] - Dr Lawton, has had a CT scan for seizure-like activity at [facility] (unrecognized sec tion and content) Parts Clerk Relationship Specialty Start Date End Date Mariel Caballero MD [address] [place] [address], [address] [place] [address] PCP - General Family Medicine 09/26/23 Parts Clerk Relationship Specialty Start Date End Date Mariel Caballero MD [address] [place] [address], [address] [place] [address] PCP - General Family Medicine 09/26/23 Parts Clerk Relationship Specialty Start Date End Date Mariel Caballero MD [address] [place] [address], [address] [place] [address] PCP - General Family Medicine 09/26/23 Parts Clerk Relationship Specialty Start Date End Date Mariel Caballero MD [address] [place] [address], [address] [place] [address] PCP - General Family Medicine 09/26/23 Parts Clerk Relationship Specialty Start Date End Date Mariel Caballero MD [address] [place] [address], [address] [place] [address] PCP - General Family Medicine 09/26/23 Parts Clerk Relationship Specialty Start Date End Date Mariel Caballero MD [address] [place] [address], [address] [place] [address] PCP - General Family Medicine 09/26/23 Parts Clerk Relationship Specialty Start Date End Date Mariel Caballero MD [address] [place] [address], [address] [place] [address] PCP - General Family Medicine 09/26/23 Parts Clerk Relationship Specialty Start Date End Date Mariel Caballero MD [address] [place] [address], [address] [place] [address] PCP - General Pediatrics 12/03/17 Parts Clerk Relationship Specialty Start Date End Date Mariel Caballero MD [address] [place] [address], [address] [place] [address] PCP - General Family Medicine 09/26/23 Parts Clerk Relationship Specialty Start Date End Date Mariel Caballero MD PCP - General Family Medicine 09/26/23 Parts Clerk Relationship Specialty Start Date End Date Mariel Caballero MD PCP - General Family Medicine 09/26/23 Parts Clerk Relationship Specialty Start Date End Date Mariel Caballero MD PCP - General Family Medicine 09/26/23 Parts Clerk Relationship Specialty Start Date End Date Mariel Caballero MD PCP - General Family Medicine 09/26/23 Parts Clerk Relationship Specialty Start Date End Date Mariel Caballero MD PCP - General Family Medicine 09/26/23 Parts Clerk Relationship Specialty Start Date End Date Mariel Caballero MD PCP - General Family Medicine 09/26/23 Parts Clerk Relationship Specialty Start Date End Date Jesus Church MD, IBCLC [address] [place] [address] PCP - General Family Medicine 04/07/25 Parts Clerk Relationship Specialty Start Date End Date Jesus Church MD, IBCLC [address] [place] [address] PCP - General Family Medicine 04/07/25 FOR RECORDS PERTAINING TO PATIENTS WHO ARE [...] BE BASED ON THE PRIMARY CLINICAL RECORDS. [employer] [facility]. provides no warranty or guarantee of the accuracy or completeness of information in this document.
--- OUTSIDE RECORDS SUMMARY | 2025-04-17 18:48 | XMS_ITS | Encounter Summary ---
Author Organization [facility] Address [address] [place] [place] [address] Care Team Providers Care Acute Care Registered Nurse Name Role Phone Chilo Momin MD Primary Care Provider [phone] Rosa Church MD, IBCLC Primary Care Provid er Encounter Details Date Type Department Care Team (Late st Contact Info) Description 03/09/2025 Abstract [facility] [address] [place] [address] Ruperto Momin, [facility] [address], [place] [address] Social History Tobacco Use Types Packs/Day Years [...] Description 04/20/2025 11:20 AM EDT Routine [facility] [address] [facility] [facility] [place] [address] Ruperto Momin, [address] [place] [address] 04/07/2026 8:00 AM EDT Office Visit [facility] [address] [place] [address] Rosa Church MD, IBCLC [address] [place] [address] documented as of this encounter Visit Diagnoses Not on filedocumented in this encounter Care Teams Acute Care Registered Nurse Relationship Specialty Start Date End Date Chilo Momin MD PCP - General Family Medicine 09/26/23 04/06/25 Rosa Church MD, IBCLC [address] [place] [address] PCP - General Family Medicine 04/07/25 documented as of this encounter
--- OUTSIDE RECORDS SUMMARY | 2025-04-17 18:48 | XMS_ITS | Encounter Summary ---
Demographics Address [address] [place] [address] Mobile Phone Email Address Preferred Language Indian Marital Status Single Jehovah'S Witness Affiliation Unknown Race White Ethnic Group Not or Lati no Author Organization [facility] s tem Address [id number] [address] [place] [address] Care Team Providers Care Spinning Operator Name Role Phone Chilo Momin MD Primary Care Provider [phone] Encounter Details Date Type Department Care Team (Late st Contact Info) Description 03/22/2025 Orders Only [facility] [address] [place] [id number] External, Scanning Provider Social History Tobacco Use [...] any clubs o r organizations such as worship groups, unions, fraternal [...] Answer Date Recorded Total Score 15 05/05/2023 [facility] - Occupational [...] Name Priority Date/Time Associated Diagnosis Comments US PREG LIMIT W DUPLEX Routine 03/14/2025 documented in this encounter Results * Ultrasound limited with duplex of umbilical artery (03/14/2025) Anatomical Region Laterality Modality OB-PRINTING MECHANIST Ultrasound 03/14/2025 us Scanning Provider External IMG US ORDERABLES Fin al Result documented in this encounter Visit Diagnoses Not on filedocumented in this encounter Additional Health Concerns Assessment Noted Time PHQ-9 Depression Total Score: 15 023 1:37 PM EDT documented as of this encounter Care Teams Spinning Operator Relationship Specialty Start Date End Date Chilo Momin MD [address] [place] [address], [address] [place] [address] PCP - General Pediatrics 12/03/17 documented as of this encounter
--- OUTSIDE RECORDS SUMMARY | 2025-04-17 18:48 | XMS_ITS | Encounter Summary ---
Demographics Address [address] [place] [address] Mobile Phone Email Address Preferred Language [place] Marital Status Single Moravian Affiliation Unknown Race White Ethnic Group Not or Lati no Author Organization [facility] s tem Address [id number] [address] [place] [address] Care Team Providers Care Adolescent Medicine Specialist Name Role Phone Chilo Momin MD Primary Care Provider [phone] Encounter Details Date Type Department Care Team (Late st Contact Info) Description 11/23/2024 Orders Only [facility] [address] [place] [id number] External, Scanning Provider Social History Tobacco Use [...] often do you attend chur ch or adventism services? Never 12/24/2022 Do you belong to any clubs o r organizations such as congregational groups, unions, fraternal or athletic groups, or [...] Answer Date Recorded Total Score 15 05/05/2023 [facility] - Occupational [...] Recorded Do you need help finding a [facility] career center and/or a training program? [...] Procedure Name Priority Date/Time Associated Diagnosis Comments URINE CULTURE Routine 11/13/2024 documented in this encounter Results * Urine Culture (11/13/2024) Urine 11/13/2024 us Scanning Provider External MICROBIOLOGY - GENERA L ORDERABLES Final Result MANUALLY TRANSCRIBED RESULTS documented in this encounter Visit Diagnoses Not on filedocumented in this encounter Additional Health Concerns Assessment Noted Time PHQ-9 Depression Total Score: 15 023 1:37 PM EDT documented as of this encounter Care Teams Adolescent Medicine Specialist Relationship Specialty Start Date End Date Chilo Momin MD [address] [place] [address], [address] [place] [address] PCP - General Pediatrics 12/03/17 documented as of this encounter
--- OUTSIDE RECORDS SUMMARY | 2025-04-17 18:48 | XMS_ITS | Clinical Summary ---
Demographics Address [address] [place] [address] Mobile Phone Email Address Preferred Language Azerbaijani Marital Status Single Jain Affiliation Unknown Race White Ethnic Group Not or Lati no Author Organization [facility] tem Address [id number] [address] [place] [address] Care Team Providers Care Quality Assurance Specialist Name Role Phone Chilo Momin MD Primary Care Provider [phone] Allergies Active Allergy Reactions Criticality Noted Date Comments Amoxicillin Hives 12/03/2017 Penicillins Hives High 06/11/2022 Sumatriptan Swelling High 06/11/2022 Medications PNV no.153/FA/om3/dh a/epa/fish ( GUMMIES ORAL) Take by mouth. Active folic acid (FOLVITE) 1 mg tablet Take 400 mcg by mouth in the morning. Active Active Problems Estimated Date of Delivery Comme nts Yes 05/15/2025 Based on last me nstrual period of 08/08/2024 No known active problems Encounters Date Type Department Care Team Description 03/22/2025 Orders Only [facility] [address] [facility] [address] [place] [phone] External, Scanning Provider from Last 3 Months Family History Medical History Relation Name Comments Diabetes Father Cancer Maternal Aunt LUNG No Known Problems Mother Stroke Paternal Grandfather Relation Name Status Comments Father Maternal Aunt Mother Paternal Grandfather Social History Tobacco Use Types Packs/Day Years Used Date Smoking Tobacco: Never Smokeless Tobacco: Never Tobacco Cessation:Counseling Given: No Alcohol Use Standard Drinks/Week Comments Not Currently [...] often do you attend chur ch or temple services? Never 12/24/2022 Do you belong to any clubs o r organizations such as methodist groups, unions, fraternal or athletic groups, or [...] Answer Date Recorded Total Score 15 05/05/2023 [facility] - Occupational [...] Recorded Do you need help finding a [facility] career center and/or a training program? [...] on file Sexual Orientation Not on file Last Filed Vital Signs Vital Sign Reading Time Taken Comments Blood Pressure 116/72 08/11/2024 10:18 AM EDT Pulse 113 08/11/2024 10:18 AM EDT Temperature 36.7 C (98 F) 10/17/2022 2:31 PM EST Respiratory Rate 16 12/03/2017 2:51 PM EST Oxygen Saturation 98% 06/02/2023 1:21 PM EDT Inhaled Oxygen Concentration - - Weight 58.1 kg (128 lb) 08/11/2024 10:18 AM EDT Height 170.2 cm (5' 7 ) 06/02/2023 1:21 PM EDT Body Mass Index 20.05 06/02/2023 1:21 PM EDT Plan of Treatment Health Maintenance Due Date Last Done Comments Chlamydia Screening 2001 DTaP,Tdap and Td Vaccines (1 - Tdap) 2020 Pap Smear 2022 Depression Screening 05/05/2024 05/05/2023 Influenza Vaccine 07/18/2025 Adult BMI Screening 08/11/2025 08/11/2024 Tobacco Screening 09/28/2025 09/28/2024 Medical Devices Not on file Procedures Procedure Name Priority Date/Time Associated Diagnosis Comments US PREG LIMIT W DUPLEX Routine 03/14/2025 from Last 3 Months Results * Ultrasound limited with duplex of umbilical artery (03/14/2025) Anatomical Region Laterality Modality OB-COSTUME DESIGNER Ultrasound 03/14/2025 us Scanning Provider External IMG US ORDERABLES Fin al Result from Last 3 Months Insurance * Guarantor: Megha Khalil Account Type Relation to Patient Date of Phone Billing Address Personal/Family Self 2000 [address] [place] [address] [facility] Care Teams Quality Assurance Specialist Relationship Specialty Start Date End Date Chilo Momin MD [facility] [facility], [address] [place] [address] PCP - General Pediatrics 12/03/17
--- OUTSIDE RECORDS SUMMARY | 2025-04-17 18:48 | XMS_ITS ---
Author Organization [employer] Source Produ ction (ClinicalSummary Clone) Address Unknown Care Team Providers Care Customer Service Sales Consultant Name Role Phone Unavailable Primary Care Physician Unavailab le Results * [UNITY] CARRIER SCREEN Performed by: [employer] Component Value Range Date Sickle Cell Disease/Beta-Thalassemia/Hemo globinopathies carrier screen NEGATIVE 11/23/2024 08:03 pm UTC Alpha-Thalassemia carrier screen NEGATIVE 11/23/2024 08:03 pm UTC Cystic Fibrosis carrier screen NEGATIVE 11/23/2024 08:03 pm UT Spinal Muscular Atrophy carrier screen NEGATIVE 2 SMN1 copies, SNP not present 11/23/2024 08:03 pm UT For detailed report, see PDF See PDF 11/23/2024 08:03 pm UTC 11/23/2024 08:0 3 pm UT Social History Observation Value Start Date End Date
[2025-04-17 19:38] VITALS: BP 115/59; PULSE 76
[2025-04-17 19:39] VITALS: TEMP 36.6
[2025-04-17 19:46] LABS: Bilirubin Urine NEGATIVE (NEGATIVE); Blood Urine NEGATIVE (NEGATIVE); Clarity Urine CLEAR (CLEAR); Color Urine LT. YELLOW (YELLOW); Glucose Urine UA NEGATIVE (NEGATIVE); Ketones Urine 40 mg/dL (NEGATIVE); Leukocyte Esterase Urine NEGATIVE (NEGATIVE); Nitrite Urine NEGATIVE (NEGATIVE); Protein Urine NEGATIVE (NEG/TRACE); Specific Gravity Urine 1.015 (1.005-1.025); Urobilinogen Urine 0.2 EU/dL (0.2-1.0)
[2025-04-17 19:47] LABS: Urine Microscopic Indicated NO
[2025-04-17 19:55] LABS: Amnisure NEGATIVE (NEGATIVE); Internal Control Within Normal Limits
== END 2025-04-17 20:29 | disposition home or self-care (01) ==
LOC: FBC 18:45
PROVIDERS: Admitting Provider Obstetrics & Gynecology Gynecology; PCP Internal Medicine; Visit Provider Obstetrics & Gynecology Gynecology
DX: O47.03 False labor before 37 completed weeks of gestation, third trimester (principal); Z3A.36 36 weeks gestation of pregnancy
CPT/HCPCS: 59025; 81003; 84112; G0378; G0379

== ENCOUNTER 2025-04-20 21:01 | Outpatient (REF) | payer OTHER, SELFPAY ==
--- OUTSIDE RECORDS SUMMARY | 2025-04-07 14:00 | XMS_ITS | Encounter Summary ---
Author Organization [facility] Address [address] [place] [address] Care Team Providers Care Fisher Trawl Line Name Role Phone Rosa Church MD, IBCLC Primary Care Provid er Reason for Visit * Reason Comments Get Establsished Has suspected Dysaut onomia , has not been officially diagnosed. Has been getting iron infusions, last one is tomorrow, 1000mg total. Encounter Details Date Type Department Care Team (Late st Contact Info) Description 04/07/2025 2:00 PM EDT Office Visit [facility] [address] [place] [address] Rosa Church MD, IBCLC [address] [place] [address] Dysautonomia (CMS/HCC) (Primary Dx); Well adult exam; Chronic migraine with aura without status migrainosus, not intractable (CMS/HCC); 34 weeks gestation of ; Anemia affecting in third trimester; Immunization refused Social History Tobacco Use Types Packs/Day Years Used Date Smoking Tobacco: Never Passive Smoke Exposure: Never Smokeless Tobacco: Never Tobacco Cessation:Counseling Given: Not Answered Alcohol Use Standard Drinks/Week Comments Yes 1 (1 standard drink = 0.6 oz pur e alcohol) Estimated Date of Delivery Comme nts Yes 05/15/2025 Based on last me nstrual period of 08/08/2024 Sex and Gender Information Value Date Recorded Sex Assigned at Female 04/07/2025 2:40 PM EDT Legal Sex Female 11:47 PM EDT Gender Identity Female 04/07/2025 2:40 PM EDT Sexual Orientation Straight 04/07/2025 2: 40 PM EDT documented as of this encounter Last Filed Vital Signs Vital Sign Reading Time Taken Comments Blood Pressure 110/64 04/07/2025 2:04 PM EDT Pulse 123 04/07/2025 2:04 PM EDT Temperature 36.2 C (97.2 F) 04/07/2025 2:04 PM EDT Respiratory Rate 17 04/07/2025 2:04 PM EDT Oxygen Saturation 98% 04/07/2025 2:04 PM EDT Inhaled Oxygen Concentration - - Weight 82.4 kg (181 lb 9.6 oz) 04/07/2025 2:04 P M EDT Height 170.2 cm (5' 7 ) 04/07/2025 2:04 PM EDT Body Mass Index 28.44 04/07/2025 2:04 PM EDT documented in this encounter Progress Notes * Rosa Church MD, IBCLC - 04/07/2025 2:00 PM EDTAssociated Problem(s): Chronic migraine with aura without status migrainosus, not intractable (CMS/H CC) - chronic, improved during . - Experiences migraines pre- about twice a week, which have improved during . - No current medication is being taken for migraines as previous medications were ineffective. - Advised to continue monitoring and report any changes in frequency or severity. * Rosa Church MD, IBCLC - 04/07/2025 2:00 PM EDTAssociated Problem(s): Dysautonomia (CMS/HCC) - chronic, symptoms less severe during . - Experiences symptoms such as dizziness, blacking out, and rapid heartbeat, which have been less severe during . - Advised to maintain hydration by consuming at least 2 liters of water daily and to increase salt intake. - Further discussion regarding potential medication options if symptoms persist despite these measures. * Rosa Church MD, IBCLC - 04/07/2025 2:00 PM EDTAssociated Problem(s): Immunization refused Rubella titer low on labs. Pt states she doesn't do vaccines. TBD vaccination plans for baby. * Rosa Church MD, IBCLC - 04/07/2025 2:00 PM EDT Images from the original note were not included. Subjective Megha Khalil is a 24 y.o. female who presents today to establish care. History of Present Illness The patient is a 24-year-old female who is here today to establish care. She is 34 weeks and has been dealing with low iron levels, for which she has been receiving iron infusions. She sees Dr. Momni as her senior pastor. During her , her iron levels have been low despite taking iron supplements, so she has been getting iron transfusions, with her last one scheduled for tomorrow at [facility]. Her hemoglobin was 12.9 in October 2024, dropped to 9.5 in January 2025, and was 9.2 in February 2025. Her ferritin level was 58 in February 2025 and then dropped to 6 on March 19, 2025. She is not immune to rubella according to her first trimester tests. She has never had anemia before, and her glucose testing results were normal. She was checked by a astronomy professor for possible Postural Orthostatic Tachycardia Syndrome (POTS), a type of dysautonomia, but it was never confirmed. She has episodes where she feels dizzy, her visiongoes black for a bit, her heart races, and she feels like she might pass out but never does. These symptoms have been better during her but usually get worse in the summer. She also gets really bad migraines and has seen a neurologist for them. Before her , she had headaches about four times a week and migraines twice a week, which made her lie down in a dark room with sunglasses. Sometimes her vision changes if she stands up during a migraine. She hasn't found any medication that helps with her migraines. She is not currently seeing a astronomy professor or neurologist and doesn't see any other specialists. She reports no chest pain, trouble breathing, skin spots, or rashes. History reviewed. No pertinent past medical history. History reviewed. No pertinent surgical history. Social History Socioeconomic History Marital status: Never Spouse name: Not on file Number of children: Not on file Years of education: Not on file Highest education level: Not on file Occupational History Not on file Tobacco Use Smoking status: Never Passive exposure: Never Smokeless tobacco: Never Vaping Use Vaping status: Unknown Substance and Sexual Activity Alcohol use: Yes Alcohol/week: 1.0 standard drink of alcohol Types: 1 Shots of liquor per week Drug use: Defer Sexual activity: Defer Other Topics Concern Not on file Social History Narrative Not on file Social Drivers of Health Financial Resource Strain: Low Risk (12/24/2022) Received from [facility] Overall Financial Resource Strain (CARDIA) Difficulty of Paying Living Expenses: Not hard at all Food Insecurity: No Food Insecurity (09/28/2024) Received from [facility] Hunger Screening Within the past 12 months we worried whether our food would run out before we got money to buy more.: Never True Within the past 12 months the food we bought just didn't last and we didn't have money to get more.: Never True Transportation Needs: No Transportation Needs (12/24/2022) Received from [facility] PRAPARE - Transportation Lack of Transportation (Medical): No Lack of Transportation (Non-Medical): No Physical Activity: Inactive (12/24/2022) Received from [facility] Exercise Vital Sign Days of Exercise per Week: 0 days Minutes of Exercise per Session: 0 min Stress: Stress Concern Present (12/24/2022) Received from [facility] [employer] [place] [place] [facility] [employer] - Occupational Stress Questionnaire Feeling of Stress : Very much Social Connections: Socially Isolated (12/24/2022) Received from [facility] Social Connection and Isolation Panel [NHANES] Frequency of Communication with Friends and Family: Never Frequency of Social Gatherings with Friends and Family: Never Attends Mosque Services: Never Active Member of Clubs or Organizations: No Attends Club or Organization Meetings: Never Marital Status: Living with partner Intimate Partner Violence: Not on file Housing Stability: Low Risk (12/24/2022) Received from [facility] Housing Instability Are you worried or concerned that in the next two months you may not have stable housing that you own, rent or stay in as a part of a household?: No Family History Problem Relation Name Age of Onset Diabetes Father Alzheimer's disease Paternal Grandfather Current Outpatient Medications Medication Instructions MAGnesium-Oxide 400 mg, Daily Vit w/Zx-Ynvzranbn-EP (PNV PO) Take by mouth ProFe 391.3 (180 Fe) MG capsule 1 capsule, Daily I have reviewed and reconciled the history and medication list with the patient today. Care Team Patient Care Team: Rosa Church MD, IBCLC as PCP - General (Family Medicine) Objective Vitals: 04/07/25 1404 BP: 110/64 Pulse: (!) 123 Resp: 17 Temp: 97.2 ??F SpO2: 98% Physical Exam Physical Exam General Appearance: Awake, Alert, NAD. Eyes: conjunctiva clear, no discharge Respiratory: Clear to auscultation, no wheezing, rales or rhonchi. Cardiovascular: regular rate and rhythm, no murmurs/rubs/gallops. Skin: Warm and dry, no rash. Neurological: motor and sensory function grossly intact, normal gait. Psychiatric: appropriate affect, normal speech, good eye contact. Results Labs - Hemoglobin: 10/2024, 12.9 g/dL - Hemoglobin: 01/2025, 9.5 g/dL - Hemoglobin: 02/2025, 9.2 g/dL - Ferritin: 02/2025, 58 ng/mL - Ferritin: 03/19/2025, 6 ng/mL - CBC: 03/2021, Hemoglobin: 11.9 g/dL - Rubella Immunity: Not immune Healthcare Maintenance & Screening Schedule There are no preventive care reminders to display for this patient. There is no immunization history on file for this patient. Assessment & Plan Megha Khalil is a 24 y.o. female who presents today to establish care. Assessment & Plan Well adult exam - Normal physical exam today, except as noted. - Medication reconciliation completed. - Chronic conditions reviewed, stable. - Reviewed healthcare maintenance and screening recommendations. - Counseled on nutrition and exercise recommendations. - Reviewed immunizations recommendations Dysautonomia (CMS/HCC) - chronic, symptoms less severe during . - Experiences symptoms such as dizziness, blacking out, and rapid heartbeat, which have been less severe during . - Advised to maintain hydration by consuming at least 2 liters of water daily and to increase salt intake. - Further discussion regarding potential medication options if symptoms persist despite these measures. Chronic migraine with aura without status migrainosus, not intractable (CMS/HCC) - chronic, improved during . - Experiences migraines pre- about twice a week, which have improved during . - No current medication is being taken for migraines as previous medications were ineffective. - Advised to continue monitoring and report any changes in frequency or severity. 34 weeks gestation of Follows with Dr Momin Passed GDM screening Parents are welcome to bring baby here when he is born. Baby's name is ROBERTO CARLOS Anemia affecting in third trimester - chronic, anticipated to resolve post-. - Hemoglobin levels have decreased during , with a hemoglobin of 9.2 in February and ferritindropping to 6 on 03/19/2025. - Reviewed past hemoglobin levels: 12.9 in 10/2024, 9.5 in 01/2025, and 11.9 in 03/2021. - Receiving iron infusions at [facility], with the last infusion scheduled for tomorrow. Immunization refused Rubella titer low on labs. Pt states she doesn't do vaccines. TBD vaccination plans for baby. Rosa Church MD, IBCLC [facility] documented in this encounter Plan of Treatment Upcoming Encounters Date Type Department Care Team (Late st Contact Info) Description 04/27/2025 11:20 AM EDT [facility] [address] [facility] [address] [place] [address] [place] [address] Yvette Decker PA [address] [place] [address] 04/07/2026 8:00 AM EDT Office Visit [facility] [address] [place] [address] Rosa Church MD, IBCLC [address] [place] [address] documented as of this encounter Visit Diagnoses Diagnosis Dysautonomia (CMS/HCC)- Primary Unspecified disorder of autonomic nervous system Well adult exam Routine general medical examination at a [facility] care facility Chronic migraine with aura without status migrainosus, not intractable (CMS/HCC) 34 weeks gestation of Anemia affecting in third trimester Immunization refused documented in this encounter Care Teams Fisher Trawl Line Relationship Specialty Start Date End Date Rosa Church MD, IBCLC [address] [place] [address] PCP - General Family Medicine 04/07/25 documented as of this encounter
--- OUTSIDE RECORDS SUMMARY | 2025-04-13 13:00 | XMS_ITS | Encounter Summary ---
Author Organization [facility] Address [address] [place] [address] Care Team Providers Care Race Relations Adviser Name Role Phone Rosa Church MD, IBCLC Primary Care Provid er Reason for Visit * Reason Comments Routine Visit Encounter Details Date Type Department Care Team (Late st Contact Info) Description 04/13/2025 1:00 PM EDT Routine [facility] [address] [place] [phone] Ruperto Momin, DO [address] [facility] [address] [place], [facility]11 Third trimester ; 35 weeks gestation of [...] this encounter Progress Notes * Yoli Seay, FIRE TECHNOLOGY INSTRUCTOR - 04/13/2025 1:00 PM EDT Reason for Appointment: Patient ID: Megha Khalil is a 24 y.o. female who presents for Routine Visit Patient presents today for Return OB appointment. MEDICATIONS Current Outpatient Medications Medication Instructions MAGnesium-Oxide 400 mg, Daily Vit w/Cu-Qyvshqelx-JB (PNV PO) Take by mouth ProFe 391.3 (180 Fe) MG capsule 1 capsule, Daily ALLERGIES Allergies Allergen Reactions Penicillins Hives Sumatriptan Swelling PROBLEMS Active Ambulatory Problems Diagnosis Date Noted Immunization refused 04/07/2025 Chronic migraine with aura without status migrainosus, not intractable ([facility]) 04/07/2025 Dysautonomia ([facility]) 04/07/2025 Resolved Ambulatory Problems Diagnosis Date Noted [...] nursing note reviewed. Exam conducted with a lacrosse coach present. Vitals: Estimated body mass index is [...] AM EDT Routine [facility] [address] [facility] [place] [address] Yvette Decker PA [address] [place] [address] 04/07/2026 8:00 AM EDT Office Visit [facility] [address] [place] [address] Rosa Church MD, IBCLC [address] [place] [address] documented as of this encounter Visit Diagnoses Diagnosis Third trimester state, incidental 35 weeks gestation of documented in this encounter Care Teams Race Relations Adviser Relationship Specialty Start Date End Date Rosa Church MD, IBCLC [address] [place], [place] [phone] PCP - General Family Medicine 04/07/25 documented as of this encounter
--- OUTSIDE RECORDS SUMMARY | 2025-04-20 11:20 | XMS_ITS | Encounter Summary ---
Author Organization [facility] Address [address] [place] [address] Care Team Providers Care Home Health Care Provider Name Role Phone Rosa Church MD, IBCLC Primary Care Provid er Reason for Visit * Reason Comments Routine Visit Encounter Details Date Type Department Care Team (Late st Contact Info) Description 04/20/2025 11:20 AM EDT Routine [facility] [address] [place] [phone] Ruperto Momin, DO [address] [facility] [address] [place], [facility] Third trimester ; 36 weeks gestation of Social History Tobacco Use [...] Sign Reading Time Taken Comments Blood Pressure 104/60 04/20/2025 11:53 AM EDT Pulse - - Temperature - - Respiratory Rate - - Oxygen Saturation - - Inhaled Oxygen Concentration - - Weight 83 kg (183 lb) 04/20/2025 11:53 AM EDT Height - - Body Mass Index 28.66 04/07/2025 2:04 PM EDT documented in this encounter Progress Notes * Xiomara Gallagher NP - 04/20/2025 11:20 AM EDT Reason for Appointment: Patient ID: Megha Khalil is a 24 y.o. female who presents for Routine Visit Patient presents today for Return OB appointment. MEDICATIONS Current Outpatient Medications Medication Instructions MAGnesium-Oxide 400 mg, Daily Vit w/Au-Ypyxrvfqm-XS (PNV PO) Take by mouth ProFe 391.3 (180 Fe) MG capsule 1 capsule, Daily ALLERGIES Allergies Allergen Reactions Penicillins Hives Sumatriptan Swelling PROBLEMS Active Ambulatory Problems Diagnosis Date Noted Immunization refused 04/07/2025 Chronic migraine with aura without status migrainosus, not intractable ([facility]) 04/07/2025 Dysautonomia ([facility]) 04/07/2025 Resolved Ambulatory Problems Diagnosis Date Noted No Resolved Ambulatory Problems No Additional Past Medical History HISTORY PAST MEDICAL HISTORY SOCIAL HISTORY No past medical history on file. Social History Tobacco Use Smoking status: Never Passive exposure: Never Smokeless tobacco: Never Vaping Use Vaping status: Unknown Substance Use Topics Alcohol use: Yes Alcohol/week: 1.0 standard drink of alcohol Types: 1 Shots of liquor per week Drug use: Defer FAMILY HISTORY Family History Problem Relation Name Age of Onset Diabetes Father Alzheimer's disease Paternal Grandfather SURGICAL HISTORY No past surgical history on file. REVIEW OF SYSTEMS Review of Systems: Review of Systems OBJECTIVE Objective: OBGyn Exam Vitals: Estimated body mass index is 28.66 kg/m?? as calculated from the following: Height as of 04/07/25: 5' 7 . Weight as of this encounter: 183 lb. BP: 104/60 Patient's last menstrual period was 08/08/2024. ASSESSMENT & PLAN ICD-10-CM 1. Third trimester Z34.93 CULTURE, GROUP B STREP WITH SUSCEPTIBLITY CULTURE, GROUP B STREP WITH SUSCEPTIBLITY 2. 36 weeks gestation of Z3A.36 Return OB: Patient presents today for a routine obstetrics appointment. Patient is currently 36w3d . Patient states she is doing well but has complaints of being tired due to current . Patient has verbalizes frequent movement. labor precautions was discussed/given and patient was instructed to perform kick counts three times a day. Orders Placed This Encounter Procedures CULTURE, GROUP B STREP WITH SUSCEPTIBLITY Follow Up: Patient is to return to office in 1 week for routine OB appointment. Documented by Xiomara Gallagher NP on behalf of: Ruperto Momin DO documented in this encounter Miscellaneous Notes * Addendum Note - Sally Crow MA - 04/20/2025 11:20 AM EDTAddended by: SALLY CROW on: 04/20/2025 02:12 PM Modules accepted: Orders documented in this encounter Plan of Treatment Upcoming Encounters Date Type Department Care Team (Late st Contact Info) Description 04/27/2025 11:20 AM EDT Routine [facility] [address] [facility] [place] [address] Yvette Decker PA [address] [facility] [place] [address] 04/07/2026 8:00 AM EDT Office Visit [facility] [address] [place] [address] Rosa Church MD, IBCLC [address] [place], [place] [id number] Scheduled Orders Name Type Priority Associated Diagnoses Orde r Schedule CULTURE, GROUP B STREP WITH SUSCEPTIBLITY Lab Routine Third trimester Expected: 04/20/2025, Expires: 04/20/2026 documented as of this encounter Procedures Procedure Name Priority Date/Time Associated Diagnosis Comments POCT URINALYSIS DIPSTICK Routine 04/20/2025 2:11 PM EDT Third trimester documented in this encounter Results * (ABNORMAL) POCT urinalysis dipstick manually resulted (04/20/2025 2:11 PM EDT) Color, UA Yellow Clarity, UA Clear Glucose, UA Negative Negative - 2000(110) ++++ mg/dL Bilirubin, UA Positive Negative - 4(70) +++ mg/dL Comment:small Ketones, UA Negative Negative - 160(16) ++++ mg/dL Spec Grav, UA 1.030 1 - 1.03 Blood, UA Negative Negative - 50 Ojnathan/mcL pH, UA 6.5 5 - 9 Protein, UA Positive Negative - 2000(20) ++++ mg/dL Comment:30mg/dL Urobilinogen, UA 1.0 0.2 - 12 mg/dL Leukocytes, UA Negative Negative - 500+++ Anoop/mcL Nitrite, UA Negative Negative - Positive Urine 04/20/2025 2:11 PM EDT Ruperto Momin DO POINT OF CARE TEST ENTER/EDIT OR DERABLES Final Result documented in this encounter Visit Diagnoses Diagnosis Third trimester state, incidental 36 weeks gestation of documented in this encounter Care Teams Home Health Care Provider Relationship Specialty Start Date End Date Rosa Church MD, IBCLC [address] [place] [address] PCP - General Family Medicine 04/07/25 documented as of this encounter
--- OUTSIDE RECORDS SUMMARY | 2025-04-20 21:04 | XMS_ITS | Encounter Summary ---
Author Organization [facility] Address [address] [place] [address] Care Team Providers Care Model Making Supervisor Name Role Phone Chilo Momin MD Primary Care Provider [phone] Rosa Church MD, IBCLC Primary Care Provid er Encounter Details Date Type Department Care Team (Late st Contact Info) Description 03/18/2025 Abstract [facility] [address] [place] [address] Nadia Wilkins LPN Social History Tobacco [...] Description 04/27/2025 11:20 AM EDT Routine [facility] [address] [place] [address] Yvette Decker PA [facility] [address] [place], [place] [id number] 04/07/2026 8:00 AM EDT Office Visit [facility] [address] [place] [address] Rosa Church MD, IBCLC [address] [place] [address] documented as of this encounter Visit Diagnoses Not on filedocumented in this encounter Care Teams Model Making Supervisor Relationship Specialty Start Date End Date Chilo Momin MD PCP - General Family Medicine 09/26/23 04/06/25 Rosa Church MD, IBCLC [address] [place] [address] PCP - General Family Medicine 04/07/25 documented as of this encounter
--- OUTSIDE RECORDS SUMMARY | 2025-04-20 21:05 | XMS_ITS | Encounter Summary ---
Author Organization [facility] Address [address] [place] [address] Care Team Providers Care Linux Vmware Administrator Name Role Phone Chilo Momin MD Primary Care Provider [phone] Rosa Church MD, IBCLC Primary Care Provid er Encounter Details Date Type Department Care Team (Late st Contact Info) Description 01/04/2025 Orders Only [facility] [address] [place] [address] Adriane Meeks LPN [address] [place] [address] Social History Tobacco Use Types [...] [address] [facility] [place] [address] Yvette Decker PA [address] [place] [address] [place] [address] 04/07/2026 8:00 AM EDT Office Visit [facility] [address] [place] [address] Rosa Church MD, IBCLC [address] [place] [address] documented as of this encounter [...] on filedocumented in this encounter Care Teams Linux Vmware Administrator Relationship Specialty Start Date End Date Chilo Momin MD PCP - General Family Medicine 09/26/23 04/06/25 Rosa Church MD, IBCLC [address] [place] [address] PCP - General Family Medicine 04/07/25 documented as of this encounter
--- OUTSIDE RECORDS SUMMARY | 2025-04-20 21:05 | XMS_ITS | Clinical Summary ---
Author Organization [facility] Address [address] [place] [address] Care Team Providers Care Cyber Crime Investigator Name Role Phone Essie Schilling CHIEF DEPUTY CLERK/BAILIFF Primary Care Provider [phone] Social History Tobacco Use Types Packs/Day Years [...] age to complete this topic Care Teams Cyber Crime Investigator Relationship Specialty Start Date End Date Essie Schilling, CHIEF DEPUTY CLERK/BAILIFF PCP - General 06/03/22
--- OUTSIDE RECORDS SUMMARY | 2025-04-20 21:05 | XMS_ITS | Encounter Summary ---
Author Organization [facility] Address [address] [facility] [place] [address] Care Team Providers Care Pcat Instructor Name Role Phone Rosa Church MD, IBCLC [...] AM EDT Routine [facility] [address] [facility] [place] [address] Yvette Decker PA [address] [place], [place] [id number] 04/07/2026 8:00 AM EDT Office Visit [facility] [address] [place] [address] Rosa Church MD, IBCLC [address] [place], [place] [address] documented as of this encounter Visit Diagnoses Not on filedocumented in this encounter Care Teams Pcat Instructor Relationship Specialty Start Date End Date Rosa Church MD, IBCLC [address] [place] [address] PCP - General Family Medicine 04/07/25 documented as of this encounter
--- OUTSIDE RECORDS SUMMARY | 2025-04-20 21:05 | XMS_ITS | Encounter Summary ---
Demographics Address [address] [place] [address] Mobile Phone Email Address Preferred Language Namibian Marital Status Single Moravian Affiliation Unknown Race White Ethnic Group Not or Lati no Author Organization [facility] Address [facility]-[id number] [address] [place] [address] Care Team Providers Care Division Sales Manager Name Role Phone Chilo Momin MD Primary Care Provider [phone] Encounter Details Date Type Department Care Team (Late st Contact Info) Description 03/22/2025 Orders Only [facility] Internal Medicine/Pediatrics [address] [place] [address] External, Scanning Provider Social History Tobacco Use [...] often do you attend chur ch or islam services? Never 12/24/2022 Do you belong to any clubs o r organizations such as anglican groups, unions, fraternal or athletic groups, or [...] Answer Date Recorded Total Score 15 05/05/2023 [facility] of Occupat ional Health - Occupational Stress [...] Recorded Do you need help finding a [facility] career center and/or a training [...] umbilical artery (03/14/2025) Anatomical Region Laterality Modality OB-RN UNIT MANAGER Ultrasound 03/14/2025 us Scanning Provider External IMG US ORDERABLES Fin al Result documented in this encounter Visit Diagnoses Not on filedocumented in this encounter Additional Health Concerns Assessment Noted Time PHQ-9 Depression Total Score: 15 023 1:37 PM EDT documented as of this encounter Care Teams Division Sales Manager Relationship Specialty Start Date End Date Chilo Momin MD [address] [place] [address], [address] [place] [address] PCP - General Pediatrics 12/03/17 documented as of this encounter
--- OUTSIDE RECORDS SUMMARY | 2025-04-20 21:05 | XMS_ITS | Encounter Summary ---
Demographics Address [address] [place] [address] Mobile Phone Email Address Preferred Language British Marital Status Single Caodaism Affiliation Unknown Race White Ethnic Group Not or Lati no Author Organization [facility] Address [id number] [address] [place] [address] Care Team Providers Care Supervisor Properties Name Role Phone Chilo Momin MD Primary Care Provider [phone] Encounter Details Date Type Department Care Team (Late st Contact Info) Description 11/02/2024 Orders Only [facility] Internal Medicine/Pediatrics [address] [place] [address] External, Scanning Provider Social History Tobacco Use [...] often do you attend chur ch or pentecostalism services? Never 12/24/2022 Do you belong to any clubs o r organizations such as christianity groups, unions, fraternal or athletic groups, or [...] Recorded Do you need help finding a [facility] and/or a training program? [...] TRANSVAGINAL (10/25/2024) 10/25/2024 us Scanning Provider External [facility] Final Result MANUALLY TRANSCRIBED RESULTS documented in this encounter Visit Diagnoses Not on filedocumented in this encounter Additional Health Concerns Assessment Noted Time PHQ-9 Depression Total Score: 15 023 1:37 PM EDT documented as of this encounter Care Teams Supervisor Properties Relationship Specialty Start Date End Date Chilo Momin MD [address] [place] [address], [address] [place] [address] PCP - General Pediatrics 12/03/17 documented as of this encounter
--- OUTSIDE RECORDS SUMMARY | 2025-04-20 21:05 | XMS_ITS | Encounter Summary ---
Author Organization [facility] Address [address] [facility] [place] [address] Care Team Providers Care Pin Feather Machine Operator Name Role Phone Chilo Momin MD Primary Care Provider [phone] Rosa Church MD, IBCLC Primary Care Provid er Encounter Details Date Type Department Care Team (Late st Contact Info) Description 03/09/2025 Abstract [facility] [address] [place] [address] Ruperto Momin, [address] Lawrence Epperson, [facility] Social History Tobacco Use Types Packs/Day Years [...] Description 04/27/2025 11:20 AM EDT Routine [facility] [address] [facility] [place] [address] Yvette Decker PA [address] [place] [address] [place] [address] 04/07/2026 8:00 AM EDT Office Visit [facility] [address] [place] [address] Rosa Church MD, IBCLC [address] [place] [address] documented as of this encounter Visit Diagnoses Not on filedocumented in this encounter Care Teams Pin Feather Machine Operator Relationship Specialty Start Date End Date Chilo Momin MD PCP - General Family Medicine 09/26/23 04/06/25 Rosa Church MD, IBCLC [address] [place] [address] PCP - General Family Medicine 04/07/25 documented as of this encounter
--- OUTSIDE RECORDS SUMMARY | 2025-04-20 21:05 | XMS_ITS | Encounter Summary ---
Author Organization [facility] Address [address] [facility] [place] [address] Care Team Providers Care Special Library Librarian Name Role Phone Rosa Church MD, IBCLC Primary Care Provid er Encounter Details Date Type Department Care Team (Late st Contact Info) Description 04/07/2025 Bamboo flowsheet [facility] [address] [place] [address] Rosa Church MD, IBCLC [address] [place], [place] [phone] Social History Tobacco Use Types Packs/Day Years [...] Routine [facility] [address] [place] [phone] Yvette Decker PA [address] [place] [address] 04/07/2026 8:00 AM EDT Office Visit [facility] [address] [place] [address] Rosa Church MD, IBCLC [address] [place] [address] documented as of this encounter Visit Diagnoses Not on filedocumented in this encounter Care Teams Special Library Librarian Relationship Specialty Start Date End Date Rosa Church MD, IBCLC [address] [place] [address] PCP - General Family Medicine 04/07/25 documented as of this encounter
--- OUTSIDE RECORDS SUMMARY | 2025-04-20 21:05 | XMS_ITS | Encounter Summary ---
Author Organization [facility] Address [address] [place] [address] Care Team Providers Care Collection Systems Worker Name Role Phone Rosa Church MD, IBCLC Primary Care Provid er Encounter Details Date Type Department Care Team (Late st Contact Info) Description 04/13/2025 Bamboo flowsheet [facility] [address] [facility] [address] Ruperto Momin, [address] Lawrence Epperson, [place] [address] Social History Tobacco Use Types Packs/Day Years [...] Description 04/27/2025 11:20 AM EDT Routine [facility] [address] [facility] [place] [address] Yvette Decker PA [address] [place] [address] [place] [address] 04/07/2026 8:00 AM EDT Office Visit [facility] [address] [place] [address] Rosa Church MD, IBCLC [address] [place] [address] documented as of this encounter Visit Diagnoses Not on filedocumented in this encounter Care Teams Collection Systems Worker Relationship Specialty Start Date End Date Rosa Church MD, IBCLC [address] [place] [address] PCP - General Family Medicine 04/07/25 documented as of this encounter
--- OUTSIDE RECORDS SUMMARY | 2025-04-20 21:05 | XMS_ITS | Encounter Summary ---
Author Organization [facility] Address [address] [facility] [address] [place] [address] Care Team Providers Care Color Paste Mixer Name Role Phone Mariel Momin MD Primary Care Provider [phone] Rosa Church MD, IBCLC Primary Care Provid er Encounter Details Date Type Department Care Team (Late st Contact Info) Description 10/26/2024 Clinisync Result Encounter [facility] External Department Unsolicited Brandy Momin DO [address] [facility] [address] Lawrence Epperson, [facility] Social History Tobacco Use Types Packs/Day Years [...] AM EDT Routine [facility] [address] [facility] [address] Yvette Decker PA [address] [place] [address] 04/07/2026 8:00 AM EDT Office Visit [facility] [address] [place] [address] Rosa Church MD, IBCLC [address] [place] [address] documented as of this encounter Procedures Procedure Name Priority Date/Time Associated Diagnosis Comments US OB TRANSVAGINAL 10/26/2024 5: 23 AM EST documented in this encounter Results * US OB TRANSVAGINAL (10/26/2024 5:23 AM EST) Anatomical Region Laterality Modality Other 10/26/2024 5:23 AM EST Narrative 10/26/2024 5:26 [place] [address] Ultrasound Report Signed Patient: MEGHA NEGRON MR#: [id number] : 2000 Acct:[id number] Age/Sex: 24 / F ADM Date: 10/25/24 Loc: [facility] Attending Dr: Brandy Momin D.O. Ordering Physician: Brandy Momin D.O. Date of Service: 10/25/24 Procedure(s): US OB transvaginal Accession Number(s): [id number] cc: Brandy Momin D.O.; MAREIL MOMIN [address] [address] Patient Name: MEGHA NEGRON MRN: [id number] date: 2000 Sex: F Assigned Patient Location: [facility] Current Patient Location: Accession/Order Number: [id number] Exam Date: 10/25/2024 09:57 Report Date: 10/26/2024 05:23 At the request of: BRANDY MOMIN Procedure: US OB transvaginal EXAMINATION: US [...] M.D. Signed By: 10/26/24525 DD/ 2 TD/TT: Regional Director Of Finance: Procedure Note Radiology, Radiologist, MD - 10/26/2024 [place] [address] Ultrasound Report Signed Patient: MEGHA NEGRONMR#: [id number] : 2000Acct:[id number] Age/Sex: Date: 10/25/24 Loc: [facility] Attending Dr: Brandy Momin D.O. Ordering Physician: Brandy Momin D.O. Date of Service: 10/25/24 Procedure(s): US OB transvaginal Accession Number(s): [id number] cc: Brandy Momin D.O.; MARIEL MOMIN [place] [address] Patient Name: MEGHA NEGRON MRN: [id number] date: 2000 Sex: F Assigned Patient Location: [facility] Current Patient Location: Accession/Order Number: [id number] Exam Date: 10/25/2024 09:57 Report Date: 10/26/2024 05:23 At the request of: BRANDY MOMIN Procedure: US OB transvaginal EXAMINATION: US [...] Jose M.D. Signed By:10/26/24525 DD/ 2 TD/TT: Regional Director Of Finance: us Brandy Merrill DO [facility] Final Result documented in this encounter Visit Diagnoses Not on filedocumented in this encounter Care Teams Color Paste Mixer Relationship Specialty Start Date End Date Mariel Momin MD PCP - General Family Medicine 09/26/23 04/06/25 Rosa Church MD, IBCLC [address] [place] [address] PCP - General Family Medicine 04/07/25 documented as of this encounter
--- OUTSIDE RECORDS SUMMARY | 2025-04-20 21:05 | XMS_ITS | Encounter Summary ---
Author Organization [facility] Address [address] [facility] [place] [address] Care Team Providers Care Grounds Worker Name Role Phone Chilo Momin MD Primary Care Provider [phone] Rosa Church MD, IBCLC Primary Care Provid er Encounter Details Date Type Department Care Team (Late st Contact Info) Description 11/19/2024 Abstract [facility] OB [address] [place] [address] Ruperto Momin, [address] Lawrence Epperson, [facility] Social History Tobacco Use Types Packs/Day [...] Description 04/27/2025 11:20 AM EDT Routine [facility] [address] [facility] [place] [address] Yvette Decker PA [address] [place] [address] [place] [address] 04/07/2026 8:00 AM EDT Office Visit [facility] [address] [place] [address] Rosa Chucrh MD, IBCLC [address] [place] [address] documented as of this encounter Visit Diagnoses Not on filedocumented in this encounter Care Teams Grounds Worker Relationship Specialty Start Date End Date Chilo Momin MD PCP - General Family Medicine 09/26/23 04/06/25 Rosa Church MD, IBCLC [address] [place] [address] PCP - General Family Medicine 04/07/25 documented as of this encounter
--- OUTSIDE RECORDS SUMMARY | 2025-04-20 21:05 | XMS_ITS | Encounter Summary ---
Demographics Address [address] [place] [address] Mobile Phone Email Address Preferred Language Danish Marital Status Single Christian Affiliation Unknown Race White Ethnic Group Not or Lati no Author Organization [facility] Address [id number] [address] [place] [address] Care Team Providers Care Hack Driver Name Role Phone Chilo Momin MD Primary Care Provider [phone] Encounter Details Date Type Department Care Team (Late st Contact Info) Description 07/23/2024 Orders Only [facility] Internal Medicine/Pediatrics [address] [place] [address] External, Scanning Provider Social History Tobacco Use [...] often do you attend chur ch or hindu services? Never 12/24/2022 Do you belong to any clubs o r organizations such as yarsani groups, unions, fraternal or athletic groups, or [...] Date Recorded Total Score 15 05/05/2023 [facility] of Occupat ional Health - Occupational Stress [...] Recorded Do you need help finding a [facility] career center and/or a training program? [...] documented as of this encounter Care Teams Hack Driver Relationship Specialty Start Date End Date Chilo Momin MD [address] [place] [address], [address] [place] [address] PCP - General Pediatrics 12/03/17 documented as of this encounter
--- OUTSIDE RECORDS SUMMARY | 2025-04-20 21:05 | XMS_ITS | Encounter Summary ---
Demographics Address [address] [place] [address] Mobile Phone Email Address Preferred Language Kyrgyz Marital Status Single Bahai Affiliation Unknown Race White Ethnic Group Not or Lati no Author Organization [facility] tem Address [facility][id number] [address] [place] [address] Care Team Providers Care Automatic Pilot Mechanic Name Role Phone Chilo Momin MD Primary Care Provider [phone] Reason for Visit * Reason Onset Date Comments work note 04/18/2021 Encounter Details Date Type Department Care Team (Late st Contact Info) Description 04/18/2021 [facility] [address] [facility] [place] [address] Dorinda Lerma RMA work note Social History [...] documented as of this encounter Care Teams Automatic Pilot Mechanic Relationship Specialty Start Date End Date Chilo Momin MD [address] [place] [address], [address] [place] [address] PCP - General Pediatrics 12/03/17 documented as of this encounter
--- OUTSIDE RECORDS SUMMARY | 2025-04-20 21:05 | XMS_ITS | Encounter Summary ---
Demographics Address [address] [place] [address] Mobile Phone Email Address Preferred Language Montserratian Marital Status Single Mu-Ism Affiliation Unknown Race White Ethnic Group Not or Lati no Author Organization [facility] Address [id number] [address] [place] [address] Care Team Providers Care Secondary School Principal Name Role Phone Chilo Moimn MD Primary Care Provider [phone] Encounter Details Date Type Department Care Team (Late st Contact Info) Description 11/23/2024 Orders Only [facility] Medicine/Pediatrics [address] [place] [address] External, Scanning Provider Social History Tobacco Use [...] often do you attend chur ch or holiness services? Never 12/24/2022 Do you belong to any clubs o r organizations such as caodaism groups, unions, fraternal or athletic groups, or [...] Answer Date Recorded Total Score 15 05/05/2023 [facility] of Occupat ional Health - Occupational [...] documented as of this encounter Care Teams Secondary School Principal Relationship Specialty Start Date End Date Chilo Momin MD [address] [place] [address], [address] [place] [address] PCP - General Pediatrics 12/03/17 documented as of this encounter
--- OUTSIDE RECORDS SUMMARY | 2025-04-20 21:05 | XMS_ITS | Encounter Summary ---
Demographics Address [address] [place] [address] Mobile Phone Email Address Preferred Language Vatican Citizen Marital Status Single Latter Day Affiliation Unknown Race White Ethnic Group Not or Lati no Author Organization [facility] Address [id number] [address] [place] [address] Care Team Providers Care Benefits Sales Consultant Name Role Phone Chilo Momin MD Primary Care Provider [phone] Encounter Details Date Type Department Care Team (Late st Contact Info) Description 06/02/2023 Orders Only [facility] [address] [place] [address] External, Scanning Provider Social History Tobacco [...] any clubs o r organizations such as mormonism groups, unions, fraternal or athletic groups, or [...] Answer Date Recorded Total Score 15 05/05/2023 [facility] of Occupat ional Health - [...] Recorded Do you need help finding a [facility] career [facility] and/or a training program? No [...] documented as of this encounter Care Teams Benefits Sales Consultant Relationship Specialty Start Date End Date Chilo Momin MD [address] [place] [address], [place] [address] PCP - General Pediatrics 12/03/17 documented as of this encounter
--- OUTSIDE RECORDS SUMMARY | 2025-04-20 21:05 | XMS_ITS | Clinical Summary ---
Demographics Address [address] [place] [address] Mobile Phone Email Address Preferred Language Fijian Marital Status Single Confucianist Affiliation Unknown Race White Ethnic Group Not or Lati no Author Organization [employer] [facility] tem Address [id number]-[id number] [address] [place] [address] Care Team Providers Care Freezer Laboratory Technician Name Role Phone Chilo Momin MD Primary Care Provider [phone] Allergies Active Allergy Reactions Criticality Noted Date [...] [facility] [address] [facility] 1 [place] [address] External, Scanning Provider from Last 3 Months [...] often do you attend chur ch or confucianism services? Never 12/24/2022 Do you belong to any clubs o r organizations such as latter day groups, unions, fraternal or athletic groups, or [...] umbilical artery (03/14/2025) Anatomical Region Laterality Modality OB-MEASUREMENT OPERATOR Ultrasound 03/14/2025 us Scanning Provider External IMG US ORDERABLES Fin al Result from Last 3 Months Insurance * Guarantor: Megha Khalil Account Type Relation to Patient Date of Phone Billing Address Personal/Family Self 2000 [address] [place] [address] [facility] Care Teams Freezer Laboratory Technician Relationship Specialty Start Date End Date Chilo Momin MD [facility], [address] [place] [address] PCP - General Pediatrics 12/03/17
--- OUTSIDE RECORDS SUMMARY | 2025-04-20 21:05 | XMS_ITS | Encounter Summary ---
Demographics Address [address] [place] [address] Mobile Phone Email Address Preferred Language Guatemalan Marital Status Single Amish Affiliation Unknown Race White Ethnic Group Not or Lati no Author Organization [facility] Address [facility] [place]-[id number] [address] [place] [address] Care Team Providers Care Freight Coordinator Name Role Phone Chilo Momin MD Primary Care Provider [phone] Encounter Details Date Type Department Care Team (Late st Contact Info) Description 04/01/2024 Orders Only [facility] Medicine/Pediatrics [address] [place] [address] External, Scanning Provider Social History Tobacco Use [...] any clubs o r organizations such as roman catholic groups, unions, fraternal or athletic groups, [...] Answer Date Recorded Total Score 15 05/05/2023 [facility] of Occupat ional Health - [...] Recorded Do you need help finding a [facility] career center and/or a training program? [...] documented as of this encounter Care Teams Freight Coordinator Relationship Specialty Start Date End Date Chilo Momin MD [address] [place] [address], 1 [place] [id number] PCP - General Pediatrics 12/03/17 documented as of this encounter
--- OUTSIDE RECORDS SUMMARY | 2025-04-20 21:05 | XMS_ITS | Encounter Summary ---
Demographics Address [address] [place] [address] Mobile Phone Email Address Preferred Language Honduran Marital Status Single Tenriism Affiliation Unknown Race White Ethnic Group Not or Lati no Author Organization [facility] tem Address [id number] [address] [place] [address] Care Team Providers Care Educational Advisor Name Role Phone Chilo Momin MD Primary Care Provider [phone] Encounter Details Date Type Department Care Team (Late st Contact Info) Description 06/18/2023 Orders Only [facility] Internal Medicine/Pediatrics [address] [place] [phone] Dorinda Lerma RMA Nonintractable episodic headache, unspecified [...] often do you attend chur ch or tenriism services? Never 12/24/2022 Do you belong to any clubs o r organizations such as sabianist groups, unions, fraternal or athletic groups, or [...] Answer Date Recorded Total Score 15 05/05/2023 [facility] [place] [facility] - Occupational Stress [...] Recorded Do you need help finding a [facility] career center and/or a training program? [...] documented as of this encounter Care Teams Educational Advisor Relationship Specialty Start Date End Date Chilo Momin MD [address] [place] [address], [address] [place] [address] PCP - General Pediatrics 12/03/17 documented as of this encounter
--- OUTSIDE RECORDS SUMMARY | 2025-04-20 21:05 | XMS_ITS | Encounter Summary ---
Author Organization [facility] Address [address] [place] [address] Care Team Providers Care Yoke Presser Name Role Phone Rosa Church MD, IBCLC Primary Care Provid er Encounter Details Date Type Department Care Team (Late st Contact Info) Description 04/20/2025 Bamboo flowsheet [facility] [address] [address] [place] [address] Ruperto Momin, [address] Lawrence Epperson, [place] [address] Social History Tobacco Use Types Packs/Day Years [...] Description 04/27/2025 11:20 AM EDT Routine [facility] [address] [address] [place] [address] Yvette Decker PA [address] [place] [address] [place] [address] 04/07/2026 8:00 AM EDT Office Visit [facility] [address] [place] [phone] Rosa Church MD, IBCLC [address] [place] [address] documented as of this encounter Visit Diagnoses Not on filedocumented in this encounter Care Teams Yoke Presser Relationship Specialty Start Date End Date Rosa Church MD, IBCLC [address] [place] [address] PCP - General Family Medicine 04/07/25 documented as of this encounter
--- OUTSIDE RECORDS SUMMARY | 2025-04-20 21:05 | XMS_ITS | Clinical Summary ---
Author Organization [facility] Address [address] [place] [address] Care Team Providers Care Sales Rep Name Role Phone Rosa Church MD, IBCLC [...] Encounters Date Type Department Care Team Description 04/20/2025 11:20 AM EDT Routine [facility] [address] [facility] [place] [address] Brandy Momin DO Third trimester ; 36 weeks gestation of 04/20/2025 Bamboo flowsheet [facility] [address] [facility] [place] [address] Brandy Momin DO 04/13/2025 1:00 PM EDT Routine [facility] [address] [place] [address] [place] [address] Brandy Momin DO Third trimester ; 35 weeks gestation of 04/13/2025 Bamboo flowsheet [facility] [address] [facility] [place] [address] Brandy Momin DO 04/07/2025 2:00 PM EDT Office Visit [facility] [address] [place] [address] Rosa Church MD, IBCLC Dysautonomia (CMS/HCC) (Primary Dx); Well adult exam; Chronic migraine with aura without status migrainosus, not intractable (CMS/HCC); 34 weeks gestation of ; Anemia affecting in third trimester; Immunization refused 04/07/2025 Bamboo flowsheet [facility] [address] [place] [address] Rosa Church MD, IBCLC 04/07/2025 Travel 03/30/2025 10:30 AM EDT Routine [facility] [address] [facility] [place] [address] Xiomara Gallagher, HOANG Anemia affecting in third trimester (Primary Dx); Third trimester ; 33 weeks gestation of 03/30/2025 Bamboo flowsheet [facility] [address] [facility] [place] [address] Xiomara Gallagher, MEDICAL INVESTIGATOR 03/19/2025 Clinisync Result Encounter [facility] External Department Unsolicited Merrill, Brandy, DO 03/18/2025 Abstract [facility] [address] [facility] [place] [address] Nadia Wilkins LPN 03/17/2025 9:10 AM EDT Routine [facility] [address] [facility] [place] [address] Xiomara Gallagher, HOANG Antepartum anemia (Primary Dx); Third trimester ; 31 weeks gestation of 03/17/2025 Bamboo flowsheet [facility] [address] [facility] [place] [address] Xiomara Gallagher, MEDICAL INVESTIGATOR 03/14/2025 Clinisync Result Encounter [facility] External Department Unsolicited Merrill, Brandy, DO 03/14/2025 Clinisync Result Encounter [facility] External Department Unsolicited Merrill, Brandy, DO 03/14/2025 Clinisync Result Encounter [facility] External Department Unsolicited Merrill, Brandy, DO 03/14/2025 Clinisync Result Encounter [facility] External Department Unsolicited Merrill, Brandy, DO 03/09/2025 Abstract [facility] [address] [facility] [place] [address] Merrill, Brandy, DO 03/03/2025 10:10 AM EDT Routine [facility] [address] [place] [address] Brandy Momin, DO Third trimester ; 29 weeks gestation of ; Anemia affecting in third trimester 03/03/2025 9:30 AM EDT Ancillary Procedure [facility] [address] [place] [address] size inconsistent with dates 02/15/2025 8:30 AM EDT Routine [facility] [address] [place] [address] Yvette Decker PA Second trimester ; 27 weeks gestation of ; size inconsistent with dates 02/15/2025 Bamboo flowsheet [facility] [address] [place] [address] Yvette Decker PA 01/31/[address] [facility] [address] [place] [address] Fartun Alexander MA 01/29/2025 Clinisync Result Encounter [facility] External Department Unsolicited Brandy Momin DO 01/18/2025 8:40 AM EST Routine [facility]OM[facility] [address] [place] [address] Brandy Momin DO Second trimester ; 23 weeks gestation of ; Diabetes mellitus screening 01/18/2025 Bamboo flowsheet [facility] [address] [place] [address] 225-129 Brandy Momin DO from Last 3 Months [...] Pressure 104/60 04/20/2025 11:53 AM EDT Pulse 123 04/07/2025 2:04 PM EDT Temperature 36.2 C (97.2 F) 04/07/2025 2:04 PM EDT Respiratory Rate 17 04/07/2025 2:04 PM EDT Oxygen Saturation 98% 04/07/2025 2:04 PM EDT Inhaled Oxygen Concentration - - Weight 83 kg (183 lb) 04/20/2025 11:53 AM EDT Height 170.2 cm (5' 7 ) 04/07/2025 2:04 PM EDT Body Mass Index 28.66 04/07/2025 2:04 PM EDT Plan of Treatment Upcoming Encounters Date Type Department Care Team (Late st Contact Info) Description 04/27/2025 11:20 AM EDT Routine [facility] [address] [facility] [place] [address] Yvette Decker PA [address] [facility] [place] [address] 04/07/2026 8:00 AM EDT Office Visit [facility] [address] [place] [address] Rosa Church MD, IBCLC [address] [place] [address] Health Maintenance Due Date Last Done Comments Influenza Vaccine (Season Ended) 2025 Procedures Procedure Name Priority Date/Time Associated Diagnosis Comments POCT URINALYSIS DIPSTICK Routine 04/20/2025 2:11 PM EDT Third trimester [facility] FERRITIN Routine 03/19/2025 12:05 PM EDT US OB BPP W NON-STRESS 03/14/2025 1:49 PM EDT US OB PLACENTA 03/14/2025 1:49 PM EDT US OB CERVICAL LENGTH 03/14/2025 1:49 PM EDT CCF LIPASE Routine 03/14/2025 7:54 AM EDT ALL AMYLASE Routine 03/14/2025 7:54 AM EDT [facility] CMP (CMP) (FOR REMOTE [facility] USE) Routine 03/14/2025 7:54 AM EDT ALL CBC WITH AUTO DIFF Routine 7:54 AM EDT TB[facility] UA (CLEAN/CATCH) BOILER ATTENDANT/MICRO IF IND. Routine 03/14/2025 6:00 AM EDT POCT URINALYSIS DIPSTICK Routine 03/03/2025 11:43 AM EDT Third trimester US OB FOLLOW UP TRANSABDOMINAL APPROACH Routine 03/03/2025 10:04 AM EDT size inconsistent with dates POCT URINALYSIS DIPSTICK Routine 02/15/2025 8:54 AM EDT Second trimester GLUCOSE 1 HOUR Routine 01/29/2025 12:46 PM EDT ALL CBC WITH AUTO DIFF Routine 12:46 PM EDT from Last 3 Months Results * (ABNORMAL) POCT urinalysis dipstick manually resulted (04/20/2025 2:11 PM EDT) Only the most recent of3 resultswithin the time period is included. Color, [...] - Positive Urine 04/20/2025 2:11 PM EDT Brandy Momin DO POINT OF CARE TEST ENTER/EDIT OR DERABLES Final Result * (ABNORMAL) CCF FERRITIN (03/19/2025 12:05 PM EDT) FERRITIN 6.0(L) 8.0 - 252.0 ng/mL [facility] 03/19/2025 12:0 5 PM EDT 03/19/2025 12:05 PM EDT Narrative [facility]IN[facility] - 03/19/2025 1:33 PM EDT us Brandy Nelsono DO [facility]IN[facility] Final [facility] US OB PLACENTA (03/14/2025 1:49 PM EDT) Anatomical Region Laterality Modality Other 03/14/2025 1:49 PM EDT Narrative 03/14/2025 1:51 [place] [address] Ultrasound Report Signed Patient: MEGHA KHALIL MR#: [id number] : 2000 Acct:[id number] Age/Sex: 24 / F ADM Date: Loc: [facility] 250- Attending Dr: Brandy Momin D.O. Ordering Physician: Brandy Momin D.O. Date of Service: 03/14/25 Procedure(s): US OB placenta Accession Number(s): [id number] cc: Brandy Momin D.O.; MARIEL CABALLERO [place] [id number] Patient Name: MEGHA KHALIL MRN: [facility]:[id number] date: 2000 Sex: F Assigned Patient Location: [facility] Current Patient Location: Accession/Order Number: [id number] Exam Date: 03/14/2025 13:46 Report Date: 03/14/2025 13:49 At the request of: BRANDY MOMIN DO Procedure: US OB placenta Biophysical profile. Cervical ultrasound. Placental ultrasound. Reason for exam: Abdominal pain. COMPARISON: None. TECHNIQUE: Transabdominal imaging of the gravid uterus was obtained. FINDINGS: Labor Relations Representative reports a biophysical profile of 8 out [...] Jr., D.O. 03/14/2025 1:49 PM Dictation Location: [place] [address] Electronically authenticated by: [id number] Y Date: 03/14/2025 13:49 Dictated By: Chico Briscoe M.D. Signed By: 03/14/25 1351 DD/ 1349 TD/TT: Adjusto Writer Operator: Procedure Note Radiology, Radiologist, MD - 03/14/2025 The [place] [id number] Ultrasound Report Signed Patient: MEGHA KHALIL EMR#: [id number] : 2000Acct:[id number] Age/Sex: 24 FADM Date: Loc: [facility] 250-[address]: Brandy Momin D.O. Ordering Physician: Brandy Momin D.O. Date of Service: 03/14/25 Procedure(s): US OB placenta Accession Number(s): [id number] cc: Brandy Momin D.O.; MARIEL CABALLERO [place] [address] Patient Name: MEGHA KHALIL MRN: [id number] date: 2000 Sex: F Assigned Patient Location: [facility] Current Patient Location: Accession/Order Number: [id number] Exam Date: 03/14/2025 13:46 Report Date: 03/14/2025 13:49 At the request of: BRANDY MOMIN DO Procedure: US OB placenta Biophysical profile. Cervical ultrasound. Placental ultrasound. Reason for exam: Abdominal pain. COMPARISON: None. TECHNIQUE: Transabdominal imaging of the gravid uterus was obtained. FINDINGS: Labor Relations Representative reports a biophysical profile of 8 out [...] Jr., D.O. 03/14/2025 1:49 PM Dictation Location: [place] [address] Electronically authenticated by: [id number] Y Date: 3:49 Dictated By: Chico Briscoe M.D. Signed By:03/14/25 1351 DD/ 1349 TD/TT: Adjusto Writer Operator: us Brandy Momin DO CLINISYNC IMAGING Final Result * US OB BPP W NON-STRESS (03/14/2025 1:49 PM EDT) Anatomical Region Laterality Modality Other 03/14/2025 1:49 PM EDT Narrative 03/14/2025 1:52 [place] [address] Ultrasound Report Signed Patient: MEGHA KHALIL MR#: [id number] : 2000 Acct:[id number] Age/Sex: 24 / F ADM Date: Loc: [facility] 250-[address]: Brandy Momin D.O. Ordering Physician: Brandy Momin D.O. Date of Service: 03/14/25 Procedure(s): US OB BPP w non-stress Accession Number(s): [id number] cc: Brandy Momin D.O.; MARIEL CABALLERO [place] [id number] Patient Name: MEGHA KHALIL MRN: [facility]:[id number] date: 2000 Sex: F Assigned Patient Location: [facility] Current Patient Location: Accession/Order Number: [id number] Exam Date: 03/14/2025 13:46 Report Date: 03/14/2025 13:49 At the request of: BRANDY MOMIN DO Procedure: US OB placenta Biophysical profile. Cervical ultrasound. Placental ultrasound. Reason for exam: Abdominal pain. COMPARISON: None. TECHNIQUE: Transabdominal imaging of the gravid uterus was obtained. FINDINGS: Labor Relations Representative reports a biophysical profile of 8 out [...] Jr., D.O. 03/14/2025 1:49 PM Dictation Location: [place] [address] Electronically authenticated by: [id number] Y Date: 03/14/2025 13:49 Dictated By: Chico Briscoe M.D. Signed By: 03/14/25 1352 DD/ 1349 TD/TT: Adjusto Writer Operator: Procedure Note Radiology, Radiologist, - 03/14/[address] [address] Ultrasound Report Signed Patient: MEGHA KHALIL EMR#: [id number] : 2000Acct:[id number] Age/Sex: 24 / FADM Date: Loc: [facility] 250-[address]: Brandy Momin D.O. Ordering Physician: Brandy Momin D.O. Date of Service: 03/14/25 Procedure(s): US OB BPP w non-stress Accession Number(s): [id number] cc: Brandy Momin D.O.; MARIEL CABALLERO [place] [address] Patient Name: MEGHA KHALIL MRN: [facility]:[id number] date: 2000 Sex: F Assigned Patient Location: [facility] Current Patient Location: Accession/Order Number: [id number] Exam Date: 03/14/2025 13:46 Report Date: 03/14/2025 13:49 At the request of: BRANDY MOMIN DO Procedure: US OB placenta Biophysical profile. Cervical ultrasound. Placental ultrasound. Reason for exam: Abdominal pain. COMPARISON: None. TECHNIQUE: Transabdominal imaging of the gravid uterus was obtained. FINDINGS: Labor Relations Representative reports a biophysical profile of 8 out of 8. MP is normal at 17.1 cm. heart rate 1 52 bpm. No focal placentalabnormality is seen. Placenta appears fundal and posterior in location. Cervicallength measures 4 cm diameter funneling. US/US OB BPP w non-stress IMPRESSION: BPP 8 out of 8. No focal placental abnormality. Normal cervical length without funneling. Impression dictated by: hCico Briscoe Jr., D.O. 03/14/2025 1:49 PM Dictation Location: [place] [address] Electronically authenticated by: [id number] Y Date: 3:49 Dictated By: Chico Briscoe M.D. Signed By:03/14/25 1352 DD/ 1349 TD/TT: Adjusto Writer Operator: us Brandy Momin DO CLIN[facility] IMAGING Final Result * US OB CERVICAL LENGTH (03/14/2025 1:49 PM EDT) Anatomical Region Laterality Modality Other 03/14/2025 1:49 PM EDT Narrative 03/14/2025 1:51 [place] [address] Ultrasound Report Signed Patient: MEGHA KHALIL MR#: [id number] : 2000 Acct:[id number] Age/Sex: 24 / F ADM Date: Loc: [facility] 250-[address]: Brandy Momin D.O. Ordering Physician: Brandy Momin D.O. Date of Service: 03/14/25 Procedure(s): US OB cervical length Accession Number(s): [id number] cc: Brandy Momin D.O.; MARIEL CABALLERO [place] [address] Patient Name: MEGHA KHALIL MRN: [id number] date: 2000 Sex: F Assigned Patient Location: [facility] Current Patient Location: Accession/Order Number: [id number] Exam Date: 03/14/2025 13:46 Report Date: 03/14/2025 13:49 At the request of: BRANDY MOMIN DO Procedure: US OB placenta Biophysical profile. Cervical ultrasound. Placental ultrasound. Reason for exam: Abdominal pain. COMPARISON: None. TECHNIQUE: Transabdominal imaging of the gravid uterus was obtained. FINDINGS: Labor Relations Representative reports a biophysical profile of 8 out [...] Jr., D.O. 03/14/2025 1:49 PM Dictation Location: [place] [address] Electronically authenticated by: [id number] Y Date: 03/14/2025 13:49 Dictated By: Chico Briscoe M.D. Signed By: 03/14/25 1351 DD/ 1349 TD/TT: Adjusto Writer Operator: Procedure Note Radiology, Radiologist, MD - 03/14/2025 [place] [address] Ultrasound Report Signed Patient: MEGHA KHALIL EMR#: [id number] : 2000Acct:[id number] Age/Sex: 24 / FADM Date: Loc: [facility] 250- Attending Dr: Brandy Momin D.O. Ordering Physician: Brandy Momin D.O. Date of Service: 03/14/25 Procedure(s): US OB cervical length Accession Number(s): [id number] cc: Brandy Momin D.O.; MARIEL CABALLERO [place] [address] Patient Name: MEGHA KHALIL MRN: [facility]:[id number] date: 2000 Sex: F Assigned Patient Location: [facility] Current Patient Location: Accession/Order Number: [id number] Exam Date: 03/14/2025 13:46 Report Date: 03/14/2025 13:49 At the request of: BRANDY MOMIN DO Procedure: US OB placenta Biophysical profile. Cervical ultrasound. Placental ultrasound. Reason for exam: Abdominal pain. COMPARISON: None. TECHNIQUE: Transabdominal imaging of the gravid uterus was obtained. FINDINGS: Labor Relations Representative reports a biophysical profile of 8 out [...] Jr., D.O. 03/14/2025 1:49 PM Dictation Location: [place] [address] Electronically authenticated by: [id number] Y Date: 3:49 Dictated By: Chico Briscoe M.D. Signed By:03/14/25 3068 DD/ 1349 TD/TT: Adjusto Writer Operator: us Brandy Merrill DO CLINISYNC IMAGING Final Result * CCF LIPASE (03/14/2025 7:54 AM EDT) LIPASE 48.0 16.0 - 77.0 U/L [facility] 03/14/2025 7:54 AM EDT 03/14/2025 7:57 AM EDT Narrative CLINISYNC - 03/14/2025 8:14 AM EDT us Brandy Merrill DO CLINISYNC Final Result CLINISYNC TB * (ABNORMAL) [facility] CMP (CMP) (FOR REMOTE [facility] USE) (03/14/2025 7:54 AM EDT) SODIUM 138 136 - 145 mmol/L TB[facility] POTASSIUM 3.8 3.5 - 5.1 mmol/L [facility] CHLORIDE 103 98 - 107 mmol/L [facility] CARBON DIOXIDE 22.9 21.0 - 32.0 mmol/L [facility] ANION GAP 15.9 TBH GLUCOSE 93 74 - 106 mg/dL [facility] BLOOD UREA NITROGEN 8.0 7.0 - 18.0 mg/dL [facility] CREATININE 0.57 0.55 - 1.02 mg/dL [facility] TBH EGFR-AF BANGLADESHI >60 >=60 mL/min/1. 73m 2 TBH TBH EGFR-NON AF BANGLADESHI >60 >=60 mL/min/1. 73m 2 [facility] BUN [...] us Brandy Merrill DO [facility] Final Result [facility] * (ABNORMAL) ALL CBC WITH AUTO DIFF [...] Narrative CLINISYNC - 03/14/2025 8:00 AM EDT Brandy Merrill DO CLINIS[facility] Final Result [facility] * ALL AMYLASE (03/14/2025 7:54 AM EDT) AMYLASE 58 25 - 115 U/L [facility] 03/14/2025 7:54 AM EDT 03/14/2025 7:57 AM EDT Narrative CLINISYNC - 03/14/2025 8:14 AM EDT [facility] Merrill DO CLINISYNC Final Result Performing Organization Address City/[facility]/ZIP Co de Phone Number [facility] * [facility] UA (CLEAN/CATCH) BOILER ATTENDANT/MICRO IF IND. (03/14/2025 6:00 AM EDT) COLOR [...] - 03/14/2025 6:21 AM EDT us Brandy Momin DO [facility] Final Result [facility] * US OB follow up transabdominal approach [...] II, MD, PHD at 05-Mar-2025 06:47:11 PM [facility] Procedure Note Perla Pretty MD - [...] signed by PERLA PRETTY II, MD, PHD [id number] 06:47:11 PM [facility] us Yvette TABOR IMG OB US PROCEDURES Final Resul t * GLUCOSE 1 HOUR (01/29/2025 12:46 PM EDT) GLUCOSE 1 HOUR 87 <130 mg/dL [facility] 01/29/2025 12:4 6 PM EDT 01/29/2025 12:48 PM EDT Narrative CLINISYNC - 01/29/2025 1:15 PM EDT us Brandy Merrill DO LAB BLOOD ORDERABLES Final Resul t [facility] from Last 3 Months Insurance [employer] Care Teams Sales Rep Relationship Specialty Start Date End Date Rosa Church MD, IBCLC [address] [place] [address] PCP - General Family Medicine 04/07/25
--- OUTSIDE RECORDS SUMMARY | 2025-04-20 21:07 | XMS_ITS | CCD ---
Author Organization [facility] Care Team Providers Care Ethernet Network Architect Name Role Phone CHRISTINE SALVADOR Admitting Unavailable CHRISTINE SALVADOR Attending Unavailable DR FAITH NUÑEZ Consulting Unavailable FEDERICO, DR MARIEL Quinn Primary Care Unavailable OBDULIO ., SHARONA BROWER Consulting Unavailabl e MARIEL CABALLERO Attending Unavailable MARIEL CABALLERO Referring Unavailable MARIEL CABALLERO Primary Care Unavailable DORINDA MORENO Attending Unavailable MARIEL CABALLERO Referring Unavailable MARIEL CABALLERO Primary Care Unavailable Mariel Caballero MD Primary Care Provider [phone] Mariel Caballero Admitting Unavailable Mariel Caballero Attending Unavailable Mariel Caballero MD Primary Care Provider Mariel Caballero MD Primary Care Provider [phone] Ranjit SRIVASTAVA, IBCLC, Jesus Primary Care [facility] er YVETTE CHAMBERS Attending Unavailable BRANDY MOMIN Attending Unavailable YVETTE CHAMBERS Attending Unavailable YVETTE CHAMBERS Referring Unavailable BRANDY MOMIN Attending Unavailable GUILLERMO WING Attending Unavailable GUILLERMO WIGN Attending Unavailable GUILLERMO WING Referring Unavailable MECCA GUILLERMO G Attending Unavailable POLLO GALLAGHERA Attending Unavailable XIOMARA GALLAGHER Attending Unavailable JESUS CHURCH Attending Unavailable BRANDY MOMIN Attending Unavailable BRANDY MOMIN Attending Unavailable Allergies Allergy Classification Reported Allergen(s) Allergy Type Date of Onset Reaction(s) Facility (2 sources) Amoxicillin; Translations: [AMOXICILLIN] Drug Allergy 8 [facility] Repository (2 sources) SUMAtriptan; Translations: [SUMATRIPTAN] Drug Allergy 2 [facility] Repository (20 sources) Penicillins; Translations: [PENICILLINS] Propensity to adverse reactions to drug (disorder) 8 [facility] Repository (20 sources) SUMAtriptan Drug Allergy 2 [facility] System (1 source) SUMAtriptan Drug Allergy 3 [facility] Repository (1 source) Amoxicillin Drug Allergy 8 [facility] Medications Current Medications Medication Drug Class(es) [...] FA (PNV PO) (20 sources) Vit w/F i-Bwedwdyyy-AF (PNV PO) Take by mouth Active Problems [...] ng/mL Low 8.0 - 25 2.0 ng/mL [facility] Interpretation and review of laboratory results Abnormal [facility] No Panel InformationOrdered By: Radiologist Radiology on 03-14-2025 [facility] Work Phone: No Panel Informationon 03-14 Radiology Study observation (narrative) [facility]H UA (CLEAN/CATCH) BRICK PAVING CHECKER/AMBER RO IF IND.on 03-14-2025 BILIRUBIN URINE Negative [...] Healthcare PROTEIN URINE Negative NEG/TRACE mg/dL [facility] SPECIFIC GRAVITY URINE 1.010 1.005 - 1.025 [facility] URINE MICROSCOPIC INDICATED NO [facility] UROBILINOGEN URINE 0.2 EU/dL 0.2 - 1.0 EU/dL [facility] US OB CERVICAL LENGTHon 02-16 [place] [address] Ultrasound Report Signed Patient: MEGHA KHALIL MR#: [id number] : 2000 Acct:[id number] Age/Sex: 24 / F ADM Date: Loc: [place] [address]: Brandy Momin D.O. Ordering Physician: Brandy Momin D.O. Date of Service: 03/14/25 Procedure(s): US OB cervical length Accession Number(s): [id number] cc: Brandy Momin D.O.; MARIEL CABALLERO [place] [address] Patient Name: MEGHA KHALIL MRN: [facility]:[id number] date: 2000 Sex: F Assigned Patient Location: [facility] Current Patient Location: Accession/Order Number: [id number] Exam Date: 03/14/2025 13:46 Report Date: 03/14/2025 13:49 At the request of: BRANDY MOMIN DO Procedure: US OB placenta Biophysical profile. Cervical ultrasound. Placental ultrasound. Reason for exam: Abdominal pain. COMPARISON: None. TECHNIQUE: Transabdominal imaging of the gravid uterus was obtained. FINDINGS: Electronics Inspector reports a biophysical profile of 8 [...] Jr., D.O. 03/14/2025 1:49 PM Dictation Location: [place] [address] Electronically authenticated by: [id number] Y Date: 03/14/2025 13:49 Dictated By: Chico Briscoe M.D. Signed By: 03/14/25 1351 DD/ 1349 TD/TT: County Bailiff: [facility] Radiology, Radiologist, MD - 03/14/2025 [place] [address] Ultrasound Report Signed Patient: MEGHA KHALIL MR#: [id number] : 2000 Acct:[id number] Age/Sex: 24 / F ADM Date: Loc: [place] [address]: Brandy Momin D.O. Ordering Physician: Brandy Momin D.O. Date of Service: 03/14/25 Procedure(s): US OB cervical length Accession Number(s): [id number] cc: Brandy Momin D.O.; MARIEL CABALLERO [place] [address] Patient Name: MEGHA KHALIL MRN: [facility]:[id number] date: 2000 Sex: F Assigned Patient Location: [facility] Current Patient Location: Accession/Order Number: [id number] Exam Date: 03/14/2025 13:46 Report Date: 03/14/2025 13:49 At the request of: BRANDY MOMIN DO Procedure: US OB placenta Biophysical profile. Cervical ultrasound. Placental ultrasound. Reason for exam: Abdominal pain. COMPARISON: None. TECHNIQUE: Transabdominal imaging of the gravid uterus was obtained. FINDINGS: Electronics Inspector reports a biophysical profile of 8 [...] Jr., D.O. 03/14/2025 1:49 PM Dictation Location: [place] [address] Electronically authenticated by: [id number] Y Date: 03/14/2025 13:49 Dictated By: Chico Briscoe M.D. Signed By: 03/14/25 1351 DD/ 1349 TD/TT: County Bailiff: [employer] US OB BPP W NON-STRESS on 03-14-2025 [place] [address] Ultrasound Report Signed Patient: MEGHA KHALIL MR#: [id number] : 2000 Acct:[id number] Age/Sex: 24 / F ADM Date: Loc: [place] [address]: Brandy Momin D.O. Ordering Physician: Brandy Momin D.O. Date of Service: 03/14/25 Procedure(s): US OB BPP w non-stress Accession Number(s): [id number] cc: Brandy Momin D.O.; MARIEL CABALLERO [place] [address] Patient Name: MEGHA KHALIL MRN: [facility]:[id number] date: 2000 Sex: F Assigned Patient Location: [facility] Current Patient Location: Accession/Order Number: [id number] Exam Date: 03/14/2025 13:46 Report Date: 03/14/2025 13:49 At the request of: BRANDY MOMIN DO Procedure: US OB placenta Biophysical profile. Cervical ultrasound. Placental ultrasound. Reason for exam: Abdominal pain. COMPARISON: None. TECHNIQUE: Transabdominal imaging of the gravid uterus was obtained. FINDINGS: Electronics Inspector reports a biophysical profile of 8 [...] Jr., D.O. 03/14/2025 1:49 PM Dictation Location: [place] [address] Electronically authenticated by: [id number] Y Date: 03/14/2025 13:49 Dictated By: Chico Briscoe M.D. Signed By: 03/14/25 1356 DD/ 1349 TD/TT: County Bailiff: [facility] Radiology, Radiologist, - 03/14/2025 [place] [address] Ultrasound Report Signed Patient: MEGHA KHALIL MR#: [id number] : 2000 Acct:[id number] Age/Sex: 24 / F ADM Date: Loc: [facility] 250-[address]: Brandy Momin D.O. Ordering Physician: Brandy Momin D.O. Date of Service: 03/14/25 Procedure(s): US OB BPP w non-stress Accession Number(s): [id number] cc: Brandy Momin D.O.; MARIEL CABALLERO [place] [phone] Patient Name: MEGHA KHALIL MRN: [facility]:[id number] date: 2000 Sex: F Assigned Patient Location: [facility] Current Patient Location: Accession/Order Number: [id number] Exam Date: 03/14/2025 13:46 Report Date: 03/14/2025 13:49 At the request of: BRANDY MOMIN DO Procedure: US OB placenta Biophysical profile. Cervical ultrasound. Placental ultrasound. Reason for exam: Abdominal pain. COMPARISON: None. TECHNIQUE: Transabdominal imaging of the gravid uterus was obtained. FINDINGS: Electronics Inspector reports a biophysical profile of 8 [...] Jr., D.O. 03/14/2025 1:49 PM Dictation Location: [email or web address] Electronically authenticated by: [id number] Y Date: 03/14/2025 13:49 Dictated By: Chico Briscoe M.D. Signed By: 03/14/25 1352 DD/ 1349 TD/TT: County Bailiff: [employer] US OB BPP W NON-STRESS Ordered By: Radiologist Radiology on 03-14-2025 [employer] Work Phone: US OB PLACENTAon 03-14-2025 [place] [address] Ultrasound Report Signed Patient: MEGHA KHALIL MR#: [id number] : 2000 Acct:[id number] Age/Sex: 24 / F ADM Date: Loc: [facility] Attending Dr: Brandy Momin D.O. Ordering Physician: Brandy Momin D.O. Date of Service: 03/14/25 Procedure(s): US OB placenta Accession Number(s): [id number] cc: Brandy Momin D.O.; MARIEL CABALLERO [place] [id number] Patient Name: MEGHA KHALIL MRN: [facility]:[id number] date: 2000 Sex: F Assigned Patient Location: [facility] Current Patient Location: Accession/Order Number: [id number] Exam Date: 03/14/2025 13:46 Report Date: 03/14/2025 13:49 At the request of: BRANDY MOMIN DO Procedure: US OB placenta Biophysical profile. Cervical ultrasound. Placental ultrasound. Reason for exam: Abdominal pain. COMPARISON: None. TECHNIQUE: Transabdominal imaging of the gravid uterus was obtained. FINDINGS: Electronics Inspector reports a biophysical profile of 8 [...] Jr., D.O. 03/14/2025 1:49 PM Dictation Location: [place] [address] Electronically authenticated by: [id number] Y Date: 03/14/2025 13:49 Dictated By: Chico Briscoe M.D. Signed By: 03/14/25 1352 DD/ 1349 TD/TT: County Bailiff: [facility] Radiology, Radiologist, MD - 03/14/2025 [place] [address] Ultrasound Report Signed Patient: MEGHA KHALIL MR#: [id number] : 2000 Acct:[id number] Age/Sex: 24 / F ADM Date: Loc: [facility] Attending Dr: Brandy Momin D.O. Ordering Physician: Brandy Momin D.O. Date of Service: 03/14/25 Procedure(s): US OB placenta Accession Number(s): [id number] cc: Brandy Momin D.O.; MARIEL CABALLERO [place] [address] Patient Name: MEGHA KHALIL MRN: [facility]:[id number] date: 2000 Sex: F Assigned Patient Location: [facility] Current Patient Location: Accession/Order Number: [id number] Exam Date: 03/14/2025 13:46 Report Date: 03/14/2025 13:49 At the request of: BRANDY MOMIN DO Procedure: US OB placenta Biophysical profile. Cervical ultrasound. Placental ultrasound. Reason for exam: Abdominal pain. COMPARISON: None. TECHNIQUE: Transabdominal imaging of the gravid uterus was obtained. FINDINGS: Electronics Inspector reports a biophysical profile of 8 [...] Jr., D.O. 03/14/2025 1:49 PM Dictation Location: [place] [address] Electronically authenticated by: [id number] Y Date: 03/14/2025 13:49 Dictated By: Chico Briscoe M.D. Signed By: 03/14/25 1351 DD/ 1349 TD/TT: County Bailiff: [employer] US OB FOLLOW UP TRANSABDOMIN AL APPROACHon [...] II, MD, PHD at 05-Mar-2025 06:47:11 PM [facility] Normal Not Available Comment on above: Order Comment: US OB SCAN FOR GROWTH Estimated Date of Delivery: 05/15/25 Gestational Age as of 02/15/2025: 27w2d Urinalysis macro (dipstick) panel (U)on 03-03-2025 Bilirubin, UA Negative Negative - 4(70) +++ mg/dL [facility] Blood, UA Negative Negative - 50 Jonathan/mcL [facility] Clarity, UA Clear [facility] Color, UA Yellow [facility] Glucose, UA Negative Negative - 1999(110) ++++ mg/dL [facility] Interpretation and review of laboratory results Normal [facility] Ketones, UA Negative Negative - 160(16) ++++ mg/dL [facility] Leukocytes, UA Negative Negative - 500+++ Anoop/mcL [facility] Nitrite, UA Negative Negative - Positive [facility] pH, UA 6.5 5 - 9 [facility] Protein, UA Negative Negative - 1999(20) ++++ mg/dL [facility] Spec Grav, UA 1.02 1 - 1.03 [facility] Urobilinogen, UA 0.2 0.2 - 12 mg/dL [facility] Urinalysis macro (dipstick) panel (U)on 02-15-2025 Bilirubin, UA Negative Negative - 4(70) +++ mg/dL [facility] Blood, UA Negative Negative - 50 Jonathan/mcL [facility] Clarity, UA Clear [facility] Color, UA Yellow [facility] Glucose, UA Negative Negative - 1999(110) ++++ mg/dL [facility] Interpretation and review of laboratory results Normal [facility] Ketones, UA Negative Negative - 160(16) ++++ mg/dL [facility] Leukocytes, UA Negative Negative - 500+++ Anoop/mcL [facility] Nitrite, UA Negative Negative - Positive [facility] pH, UA 6 5 - 9 [facility] Protein, UA Negative Negative - 1999(20) ++++ mg/dL [facility] Spec Grav, UA 1.025 1 - 1.03 [facility] Urobilinogen, UA 0.2 0.2 - 12 mg/dL [facility] AFP, SERUM, OPEN SPINA BIFID Aon 01-18-2025 AFP MOM 1.22 . [facility] AFP VALUE 109.4 ng/mL . [facility] COMMENT: Comment . [facility] Comment on above: Shama Correa , Ph.D., [facility] Director References: Available Upon Request. Multiples Of Median Cutoffs For AFP Elevations Oneill 2.5 Black 2.8 IDD 2.0 Twins 4.5 Abbreviation Definitions IDD - Insulin Dep Diabetes OSBR - Open Spina Bifida Risk For further inquiries contact [employer] at [phone]. This test was developed and its performance characteristics determined by [employer]. It has not been cleared or approved by the Food and Drug Administration. Performed at: [facility] [employer] [facility] [place], [place] [id number] Industrial Hygenist: Hector Walsh [facility], Phone: [phone] GEST. AGE ON COLLECTION DATE 22.9 . weeks [facility] GESTAT. AGE BASED ON LMP . [facility] Comment on above: Recalculations are n ot recommended when gestational dating by LMP and ultrasound are within 10 days. INSULIN DEP DIABETES No . [facility] INTERPRETATION Comment . [facility] Comment on above: Interpretation: Scre en Negative [...] Customer Services to discuss available options. The [employer] recommends amniocentesis be offered to women age 35 and older. [age] [facility] MULTIPLE GESTATION No . [facility] OSBR RISK 1 IN 6110 . [facility] RACE . [facility] RESULTS Report . [facility] TEST RESULTS: Negative . [facility] WEIGHT 135 . lbs [facility] N N LMP [id number] 3 15 N 1 Y 135 N N N N N [facility] US OB 14+ WEEKS ANATOMY SCAN on [...] II, MD, PHD at 31-Dec-2024 08:39:39 AM [facility] Normal Not Available Comment on above: [...] Low,>-Panic High,A-Abnormal,AA-Critical Abnormal Performed at: 01 =G [address] [address] Kellie Meyer MD, IGP, RFX APTIMA HPV ASCU Note . [facility] Comment on above: TESTS RESULT FLAG ITS REF RANGE LAB DIAGNOSIS: 02 NEGATIVE FOR INTRAEPITHELIAL LESION OR MALIGNANCY. THIS SPECIMEN WAS RESCREENED PART OF OUR INSPECTOR ELEVATORS PROGRAM. Specimen adequacy: 02 Satisfactory for evaluation. No endocervical component is identified. Performed by: Dorinda Blake Wholesale Manager ([facility]) QC reviewed by: Elliot Ibanez Wholesale Manager ([facility]) . 02 Note: Note 03 The [...] High,A-Abnormal,AA-Critical Abnormal Performed at: 02 [facility] [address] [place] [address] Brandon Hobson MD, 03 WB [facility] [address] [address] Kellie Meyer MD, Performed at: =G - [facility] [address] [id number] Industrial Hygenist: Kellie Meyer MD, Phone: [phone] Performed at: [facility] [address] [place], [place] [id number] Industrial Hygenist: Brandon Hobson MD, Phone: [phone] SPATULA-ALONE CERVIX [facility] RECURRENT VAGINITIS (HTRX)on 12-24-2024 ATOPOBIUM VAGINAE 0 [facility] ATOPOBIUM VAGINAE Not detected [facility] BVAB 2,3 (BACTERIAL VAGINOSIS ASSOCIATED BACTERIA 2, 3); MOBILUNCUS SPP 26.411 Abnormal [facility] BVAB 2,3 (BACTERIAL VAGINOSIS ASSOCIATED BACTERIA 2, 3); MOBILUNCUS SPP Detected Abnormal [facility] LAUREN ALBICANS, PARAPSILOSIS, TROPICALIS 0 [facility] LAUREN ALBICANS, PARAPSILOSIS, TROPICALIS Not detected [facility] LAUREN GLABRATA 0 [facility] LAUREN GLABRATA Not detected [facility] LARUEN KRUSEI 0 [facility] LAUREN KRUSEI Not detected [facility] CHLAMYDIA TRACHOMATIS 0 [facility] CHLAMYDIA TRACHOMATIS Not detected N [facility] GARDNERELLA VAGINALIS 0 [facility] GARDNERELLA VAGINALIS Not detected N [facility] Interpretation and review of laboratory results Abnormal [facility] MEGASPHAERA (TYPES 1, 2) 0 [facility] MEGASPHAERA (TYPES 1, 2) Not detected [facility] MYCOPLASMA GENITALIUM 0 [facility] MYCOPLASMA GENITALIUM Not detected N [facility] NEISSERIA GONORRHOEAE 0 [facility] NEISSERIA GONORRHOEAE Not detected N [facility] TRICHOMONAS VAGINALIS 0 [facility] TRICHOMONAS VAGINALIS Not detected N [facility] Urinalysis macro (dipstick) panel (U)on 12-22-2024 Bilirubin, UA Negative Negative - 4(70) +++ mg/dL [facility] Blood, UA Negative Negative - 50 Jonathan/mcL [facility] Clarity, UA Clear [facility] Color, UA Yellow [facility] Glucose, UA Negative Negative - 1999(110) ++++ mg/dL [facility] Interpretation and review of laboratory results Abnormal [facility] Ketones, UA Negative Negative - 160(16) ++++ mg/dL [facility] Leukocytes, UA Trace Negative - 500+++ Anoop/mcL [facility] Nitrite, UA Negative Negative - Positive [facility] pH, UA 6.5 5 - 9 [facility] Protein, UA Trace Negative - 1999(20) ++++ mg/dL [facility] Spec Grav, UA 1.025 1 - 1.03 [facility] Urobilinogen, UA 0.2 0.2 - 12 mg/dL [facility] Urinalysis macro (dipstick) panel (U)on 11-24-2024 Bilirubin, UA Negative Negative - 4(70) +++ mg/dL [facility] Blood, UA Negative Negative - 50 Jonathan/mcL [facility] Clarity, UA Clear [facility] Color, UA Yellow [facility] Glucose, UA Negative Negative - 1999(110) ++++ mg/dL [facility] Interpretation and review of laboratory results Abnormal [facility] Ketones, UA Negative Negative - 160(16) ++++ mg/dL [facility] Leukocytes, UA Trace Negative - 500+++ Anoop/mcL [facility] Nitrite, UA Negative Negative - Positive [facility] pH, UA 6 5 - 9 [facility] Protein, UA Negative Negative - 1999(20) ++++ mg/dL [facility] Spec Grav, UA 1.02 1 - 1.03 [facility] Urobilinogen, UA 0.2 0.2 - 12 mg/dL [facility] BOX TESTon 11-13-2024 BOX TEST SENT OUT [facility] BOX1 UNITY [facility] BOX2 10/18/2024 [facility] BOX [facility] Urine Cultureon 11-13-2024 Bacteria identified Cx Nom (U) <9,000 colonies/ml mixed bacterial skin contaminants 2 Days PERFORMED BY: [place] [address] PATHOLOGIST READING COACH VILMA NUNES M.D. Normal [facility] Comment on above: Performed By: #### C UU #### [address] HCG ( test) Ql (U)o n 10-25-2024 Interpretation and review of laboratory results Abnormal [facility] Preg Test, Ur Positive Negative [facility] Urinalysis macro (dipstick) panel (U)on 10-25-2024 Bilirubin, UA Negative Negative - 4(70) +++ mg/dL [facility] Blood, UA Negative Negative - 50 Jonathan/mcL [facility] Clarity, UA Clear [facility] Color, UA Yellow [facility] Glucose, UA Negative Negative - 1999(110) ++++ mg/dL [facility] Interpretation and review of laboratory results Normal [facility] Ketones, UA Negative Negative - 160(16) ++++ mg/dL [facility] Leukocytes, UA Negative Negative - 500+++ Anoop/mcL [facility] Nitrite, UA Negative Negative - Positive [facility] pH, UA 7 5 - 9 [facility] Protein, UA Negative Negative - 1999(20) ++++ mg/dL [facility] Spec Grav, UA 1.025 1 - 1.03 [facility] Urobilinogen, UA 1.0 0.2 - 12 mg/dL [facility] XR FEMUR 2+ VW LEFTon 2023 XR FEMUR 2+ VW LEFT Left femur HISTORY: Pain 4 views of the femur. The femur is grossly intact. No fractures or periostitis. Soft tissues of the thigh are not remarkable. IMPRESSION: Negative left femur Electronically Signed Varun Garcia D.O. 2024-06-15 15:01:50 Normal Not Available CBC AUTO DIFFon 02-21-2023 BASO # 0.0 103/ul Normal 0.0-0.1 [facility] Comment on above: Performed By: #### C BC #### [facility] [address] [place] [address] Dr. Sol Flores Basophils/100 WBC (Bld) 0.4 % Normal 0.2-2.0 [facility] Comment on above: Performed By: #### C BC #### [facility] [address] [place] [address] Dr. Sol Flores EO # 0.0 103/ul Normal 0.0-0.7 [facility] Comment on above: Performed By: #### C BC #### [facility] [address] [place] [address] Dr. Sol Flores Eosinophils/100 WBC (Bld) 0.0 % Critically low 0.9-7.0 [facility] Comment on above: Performed By: #### C BC #### [facility] [address] [place] [address] Dr. Sol Flores Erythrocyte distribution width (RBC) [Ratio] 13.4 % Normal 11.0-15.0 [facility] Comment on above: Performed By: #### C BC #### [facility] [address] [place] [address] Dr. Sol Flores Hematocrit (Bld) [Volume fraction] 38.1 % Normal 36.0-48.0 [facility] Comment on above: Performed By: #### C BC #### [facility] [address] [place] [address] Dr. Sol Flores Hemoglobin (Bld) [Mass/Vol] 12.9 g/dL Normal 12.0-16.0 [facility] Comment on above: Performed By: #### C BC #### [facility] [address] [place] [address] Dr. Sol Flores IG # 0.02 10e3/ul Normal 0.00-0.03 [facility] Comment on above: Performed By: #### C BC #### [facility] [address] [place] [address] Dr. Sol Flores IG % 0.2 % Normal 0.0-0.5 [facility] Comment on above: Performed By: #### C BC #### [facility] [address] [place] [address] Dr. Sol Flores LYMPH # 2.2 103/ul Normal 1.2-3.8 [facility] Comment on above: Performed By: #### C BC #### [facility] [address] [place] [address] Dr. Sol Flores Lymphocytes/100 WBC (Bld) 26.7 % Normal 20.5-60.0 [facility] Comment on above: Performed By: #### C BC #### [facility] [address] [place] [address] Dr. Sol Flores MANUAL DIFF REQ NO Normal [facility] Comment on above: Performed By: #### C BC #### [facility] [address] [place] [address] Dr. Sol Flores MCH (RBC) [Entitic mass] 28.9 pg Normal 26.7-34.0 [facility] Comment on above: Performed By: #### C BC #### [facility] [address] [place] [address] Dr. Sol Flores MCHC (RBC) [Mass/Vol] 33.9 g/dL Normal 29.9-35.2 [facility] Comment on above: Performed By: #### C BC #### [facility] [address] [place] [address] Dr. Sol Flores MCV (RBC) [Entitic vol] 85.2 fL Normal 81.0-99.0 [facility] Comment on above: Performed By: #### C BC #### [facility] [address] [place] [address] Dr. Sol Flores MONO # 0.6 103/ul Normal 0.3-0.8 [facility] Comment on above: Performed By: #### C BC #### [facility] [address] [place] [address] Dr. Sol Flores Monocytes/100 WBC (Bld) 7.4 % Normal 1.7-12.0 [facility] Comment on above: Performed By: #### C BC #### [facility] [address] [place] [address] Dr. Sol Flores NEUT # 5.3 103/ul Normal 1.4-6.5 [facility] Comment on above: Performed By: #### C BC #### [facility] [address] [place] [address] Dr. Sol Flores Neutrophils/100 WBC (Bld) 65.3 % Normal 43.0-75.0 [facility] Comment on above: Performed By: #### C BC #### [facility] [address] [place] [address] Dr. Sol Flores Platelet mean volume (Bld) [Entitic vol] 10.3 fL Normal 9.5-13.5 [facility] Comment on above: Performed By: #### C BC #### [facility] [address] [place] [address] Dr. Sol Flores PLT 225 103/ul Normal 150-450 [facility] Comment on above: Performed By: #### C BC #### [facility] [address] [place] [address] Dr. Sol Flores RBC 4.47 106/ul Normal 4.20-5.40 [facility] Comment on above: Performed By: #### C BC #### [facility] [address] [place] [address] Dr. Sol Flores WBC 8.1 103/ul Normal 4.0-11.0 [facility] Comment on above: Performed By: #### C BC #### [facility] [address] [address] [address] Sol Flores D-DIMERon 02-21-2023 D-DIMER 0.33 mg/L FEU Normal <=0.59 [facility] Comment on above: Performed By: #### D DIM, PT, PTT #### [facility] [address] [address] [address] Sol Flores D-DIMER COMMENTS SEE BELOW Normal [facility] Comment on above: Result Comment: Incr eases [...] By: #### D DIM, PT, PTT #### [facility] [address] [address] [address] Sol Flores PREG HCG QUALon 02-21-2023 , QUAL Negative Normal NEGATIVE [facility] Comment on above: Performed By: #### P REG #### [facility] [address] [address] [address] Sol Flores PROF 14(COMP METB)on 023 Albumin [Mass/Vol] 3.9 g/dL Normal 3.4-5.0 [facility] Comment on above: Performed By: #### H STROPN, TSH, CMP #### [facility] [address] [address] [address] Sol Flores Albumin/Globulin [Mass ratio] 1.1 {ratio} Normal [facility] Comment on above: Performed By: #### H STROPN, TSH, CMP #### [facility] [address] [address] [address] Sol Flores ALP [Catalytic activity/Vol] 90 U/L Normal 46-116 [facility] Comment on above: Performed By: #### H STROPN, TSH, CMP #### [facility] [address] [address] [address] Sol Flores ALT [Catalytic activity/Vol] 19 U/L Normal 14-59 [facility] Comment on above: Performed By: #### H STROPN, TSH, CMP #### [facility] [address] [address] [address] Sol Flores Anion gap [Moles/Vol] 13.3 mmol/L Normal [facility] Comment on above: Performed By: #### H STROPN, TSH, CMP #### [facility] [address] [address] [address] Sol Flores AST [Catalytic activity/Vol] 16 U/L Normal 15-37 [facility] Comment on above: Performed By: #### H STROPN, TSH, CMP #### [facility] [address] [place] [address] Dr. Sol Flores Bilirubin [Mass/Vol] 0.2 mg/dL Normal 0.2-1.0 [facility] Comment on above: Performed By: #### H STROPN, TSH, CMP #### [facility] [address] [place] [address] Dr. Sol Flores Calcium [Mass/Vol] 8.8 mg/dL Normal 8.5-10.1 [facility] Comment on above: Performed By: #### H STROPN, TSH, CMP #### [facility] [address] [place] [address] Dr. Sol Flores Chloride [Moles/Vol] 105 mmol/L Normal 98-107 [facility] Comment on above: Performed By: #### H STROPN, TSH, CMP #### [facility] [address] [place] [address] Dr. Sol Flores CO2 [Moles/Vol] 24.5 mmol/L Normal 21.0-32.0 [facility] Comment on above: Performed By: #### H STROPN, TSH, CMP #### [facility] [address] [place] [address] Dr. Sol Flores Creatinine [Mass/Vol] 0.79 mg/dL Normal 0.55-1.02 [facility] Comment on above: Performed By: #### H STROPN, TSH, CMP #### [facility] [address] [address] [address] Sol Flores EGFR-AF LUXEMBOURGER >60 Normal >=60 [facility] Comment on above: Performed By: #### H STROPN, TSH, CMP #### [facility] [address] [address] [address] Sol Flores EGFR-NON AF LUXEMBOURGER >60 Normal >=60 [facility] Comment on above: Performed By: #### H STROPN, TSH, CMP #### [facility] [address] [address] [address] Sol Flores Globulin (S) [Mass/Vol] 3.5 g/dL Normal [facility] Comment on above: Performed By: #### H STROPN, TSH, CMP #### [facility] [address] [place] [address] Dr. Sol Flores Glucose [Mass/Vol] 102 mg/dL Normal 74-106 [facility] Comment on above: Performed By: #### H STROPN, TSH, CMP #### [facility] [address] [place] [address] Dr. Sol Flores Potassium [Moles/Vol] 3.8 mmol/L Normal 3.5-5.1 [facility] Comment on above: Performed By: #### H STROPN, TSH, CMP #### [facility] [address] [place] [address] Dr. Sol Flores Protein [Mass/Vol] 7.4 g/dL Normal 6.4-8.2 [facility] Comment on above: Performed By: #### H STROPN, TSH, CMP #### [facility] [address] [address] [address] Sol Flores Sodium [Moles/Vol] 139 mmol/L Normal 136-145 [facility] Comment on above: Performed By: #### H STROPN, TSH, CMP #### [facility] [address] [place] [address] Dr. Sol Flores Urea nitrogen [Mass/Vol] 9.0 mg/dL Normal 7.0-18.0 [facility] Comment on above: Performed By: #### H GENESIS, TSH, CMP #### [facility] [address] [place] [address] Dr. Sol Flores Urea nitrogen/Creatinine [Mass ratio] 11.4 mg/mg Normal [facility] Comment on above: Performed By: #### H GENESIS, TSH, CMP #### [facility] [address] [place] [address] Dr. Sol Flores PROTIMEon 02-21-2023 INR Coag (PPP) [Relative time] 0.98 {INR} Normal [facility] Comment on above: Performed By: #### D DIM, PT, PTT #### [facility] [address] [place] [address] Dr. Sol Flores INR GUIDELINES SEE BELOW Normal [facility] Comment on above: Result Comment: LAWRENCE RED INR: 2.0 - 3.0 CONDITIONS NOT LISTED BELOW 2.5 - 3.5 FOR PROSTHETIC HEART VALVE REPLACEMENT 2.5 - 3.5 RECURRENT THROMBOSIS Performed By: #### D DIM, PT, PTT #### [facility] [address] [place] [address] Dr. Sol Flores PT Coag (PPP) [Time] 10.4 s Normal 9.0-11.6 [facility] Comment on above: Performed By: #### D DIM, PT, PTT #### [facility] [address] [place] [address] Dr. Sol Flores PTTon 02-21-2023 aPTT Coag (Bld) [Time] 29.4 s Normal 22.3-36.2 [facility] Comment on above: Performed By: #### D DIM, PT, PTT #### [facility] [address] [place] [address] Dr. Sol Flores TROPONIN, HIGH SENSITIVITYon 02-21-2023 HSTROP <4.0 Normal 4.0-51.3 [facility] Comment on above: Result Comment: CUT- OFF POINTS HAVE BEEN ESTABLISHED BASED ON THE FOURTH UNIVERSAL DEFINITIONS OF MYOCARDIAL INFARCTION. THE UPPER REFERENCE LIMIT (URL) OF TROPONIN, DEFINED THE 99TH PERCENTILE OF cTnI DISTRIBUTION IN A REFERENCE POPULATION, HAS BEEN CONFIRMED THE DECISION THRESHOLD FOR NE DIAGNOSIS. Performed By: #### H STROPN, TSH, CMP #### [facility] [address] [place], [place] [address] Dr. Sol Flores TSHon 02-21-2023 TSH 1.985 uIU/mL Normal 0.358-3.740 [facility] Comment on above: Performed By: #### H STROPN, TSH, CMP #### [facility] [address] [place], [place] [address] Dr. Sol Flores XR CHEST 1 Von [...] by: FAITH NUÑEZ Date: 2023-02-21 15:33 Normal [facility] Gynecology Office/Clinic Not [place] 10-30-2020 [...] w/concerns. Ordered: , Serum, Test Qual w/Reflex [facility] Quant Problem List/Past Medical History Ongoing Anxiety [...] data available (MRI) Electronically signed by Jennifer ARRESTING GEAR OPERATOR-INSPECTOR PRECISION, Myriammike Martinez 10/30/20 15:04 EST Normal [facility] OR Trackon 10-30-2020 Pl Red # [address] [facility] Comment on above: Performed By: #### [facility] Tracking Order #### [id number] [place] [address] S Preg Rflx [facility] 0 Serum Preg Negative [facility] Comment on above: Result Comment: The hCG Combo Rapid Test has a sensitivity of 10 mIU/mL in serum and is capable of detecting as early as 1 day after the first missed menses. Performed By: #### C [id number] #### [address] [address] Vital Signs Date Time Vital Sign Value Performing Clinician Chris monaco 04-13-2025 13:00-0400 Body mass index (BMI) [Ratio] 28.71 kg/m2 [employer] Work Phone: [facility] 04-13-2025 13:00-0400 Body weight 83.14 kg [employer] Work Phone: [facility] 04-13-2025 13:00-0400 Diastolic blood pressure 70 mm[Hg] [employer] Work Phone: [facility] 04-13-2025 13:00-0400 Systolic blood pressure 112 mm[Hg] [employer] Work Phone: [facility] 03-30-2025 10:49-0400 Body mass index (BMI) [Ratio] 28.04 kg/m2 Xiomara Elliott [employer]ENZENE [employer]ILL UTILITY OPERATOR Work Phone: [facility] 03-30-2025 10:49-0400 Body weight 81.19 kg Xiomara Elliott BENZENE STILL UTILITY OPERATOR Work Phone: [facility] 03-30-2025 10:49-0400 Diastolic blood pressure 64 mm[Hg] Xiomara Elliott BENZENE STILL UTILITY OPERATOR Work Phone: [facility] 03-30-2025 10:49-0400 Systolic blood pressure 114 mm[Hg] Xiomara Elliott BENZENE STILL UTILITY OPERATOR Work Phone: [facility] 03-17-2025 09:35-0400 Body mass index (BMI) [Ratio] 27.64 kg/m2 Xiomara Elliott BENZENE STILL UTILITY OPERATOR Work Phone: [facility] 03-17-2025 09:35-0400 Body weight 80.06 kg Xiomara Elliott BENZENE STILL UTILITY OPERATOR Work Phone: [facility] 03-17-2025 09:35-0400 Diastolic blood pressure 66 mm[Hg] Xiomara Elliott BENZENE STILL UTILITY OPERATOR Work Phone: [facility] 03-17-2025 09:35-0400 Systolic blood pressure 116 mm[Hg] Xiomara Elliott BENZENE STILL UTILITY OPERATOR Work Phone: [facility] 03-03-2025 10:17-0400 Body mass index (BMI) [Ratio] 26.51 kg/m2 Brandy Merrill DO Work Phone: [facility] 03-03-2025 10:17-0400 Body weight 76.77 kg Brandy Merrill DO Work Phone: [facility] 03-03-2025 10:17-0400 Diastolic blood pressure 72 mm[Hg] Brandy Merrill DO Work Phone: [facility] 03-03-2025 10:17-0400 Systolic blood pressure 110 mm[Hg] Brandy Merrill DO Work Phone: [facility] 02-15-2025 08:49-0400 Body mass index (BMI) [Ratio] 26.16 kg/m2 Yvette [place] PA Work Phone: [facility] 02-15-2025 08:49-0400 Body weight 75.75 kg Yvette Trish PA Work Phone: [facility] 02-15-2025 08:49-0400 Diastolic blood pressure 62 mm[Hg] Yvette [place] PA Work Phone: [facility] 02-15-2025 08:49-0400 Systolic blood pressure 110 mm[Hg] Yvette Trish PA Work Phone: [facility] 01-18-2025 08:47-0500 Body mass index (BMI) [Ratio] 23.96 kg/m2 Brandy Merrill DO Work Phone: [facility] 01-18-2025 08:47-0500 Body weight 69.4 kg Brandy Merrill DO Work Phone: [facility] 01-18-2025 08:47-0500 Diastolic blood pressure 60 mm[Hg] Brandy Merrill DO Work Phone: [facility] 01-18-2025 08:47-0500 Systolic blood pressure 100 mm[Hg] Brandy Merrill DO Work Phone: [facility] 12-22-2024 11:36-0500 Body mass index (BMI) [Ratio] 22.26 kg/m2 Yvette Trish PA Work Phone: [facility] 12-22-2024 11:36-0500 Body weight 64.47 kg Yvette [place] PA Work Phone: [facility] 12-22-2024 11:36-0500 Diastolic blood pressure 48 mm[Hg] Yvette Trish PA Work Phone: [facility] 12-22-2024 11:36-0500 Systolic blood pressure 98 mm[Hg] Yvette Trish PA Work Phone: [facility] 11-24-2024 16:03-0500 Body mass index (BMI) [Ratio] 21.21 kg/m2 Brandy Merrill DO Work Phone: [facility] 11-24-2024 16:03-0500 Body weight 61.42 kg Brandy Merrill DO Work Phone: [facility] 11-24-2024 16:03-0500 Diastolic blood pressure 60 mm[Hg] Brandy Merrill DO Work Phone: [facility] 11-24-2024 16:03-0500 Systolic blood pressure 100 mm[Hg] Brandy Merrill DO Work Phone: [facility] 10-25-2024 11:03-0500 Body mass index (BMI) [Ratio] 20.67 kg/m2 [facility] Nurse [facility] 10-25-2024 11:03-0500 Body weight 59.88 kg [facility] Nurse [facility] 08-11-2024 10:18-0400 Body mass index (BMI) [Ratio] 20.05 kg/m2 Mariel Caballero MD Work Phone: [facility] 08-11-2024 10:18-0400 Body weight 58.06 kg Mariel Caballero MD Work Phone: [facility] 08-11-2024 10:18-0400 Diastolic blood pressure 72 mm[Hg] Mariel Caballero MD Work Phone: [facility] 08-11-2024 10:18-0400 Heart rate 113 /min Mariel Caballero MD Work Phone: [facility] 08-11-2024 10:18-0400 Systolic blood pressure 116 mm[Hg] Mariel Caballero MD Work Phone: [facility] Encounters Encounter Date Encounter Type Care Provider Facility Start: 04-13-2025 End: 04-13-2025 Bamboo flowsheet Brandy Merrill DO Work Phone: [facility] Start: 04-13-2025 End: 04-13-2025 [...] 03-30-2025 End: 03-30-2025 Bamboo flowsheet Xiomara Elliott BENZENE STILL UTILITY OPERATOR Work Phone: [facility] Start: 03-30-2025 End: 03-30-2025 Bamboo flowsheet Xiomara Elliott BENZENE STILL UTILITY OPERATOR Work Phone: [facility] Start: 03-30-2025 End: 03-30-2025 ambulatory XIOMARA ELLIOTT Not Available Start: 03-30-2025 End: 03-30-2025 flow sheet Xiomara Elliott BENZENE STILL UTILITY OPERATOR Work Phone: [facility] Comment on [...] 03-17-2025 End: 03-17-2025 Bamboo flowsheet Xiomara Elliott BENZENE STILL UTILITY OPERATOR Work Phone: [facility] Start: 03-17-2025 End: 03-17-2025 Bamboo flowsheet Xiomara Elliott BENZENE STILL UTILITY OPERATOR Work Phone: [facility] Start: 03-17-2025 End: 03-17-2025 ambulatory XIOMARA ELLIOTT Not Available Start: 03-17-2025 End: 03-17-2025 flow sheet Xiomara Elliott BENZENE STILL UTILITY OPERATOR Work Phone: [facility] Comment on [...] Start: 11-13-2024 End: 11-13-2024 ambulatory Mariel Caballero Facility:[facility] Start: 11-13-2024 Encounter for genera l adult medical examination without abnormal findings Mariel Caballero [facility] Start: 11-13-2024 End: 11-13-2024 Clinisync [...] GA: 11w1d Start: 09-28-2024 ambulatory DORINDA MORENO [facility] Start: 08-11-2024 End: 08-11-2024 ambulatory MARIEL CABALLERO [facility] Start: 08-11-2024 End: 08-11-2024 Office outpatient visit 25 minutes Mariel Caballero MD Work Phone: [facility] Comment on above: Seizure-like [...] Work Phone: Start: 03-14-2025 [facility] UA (CLEAN/CATCH) BRICK PAVING CHECKER/MICRO IF IND. Brandy Merrill DO Work Phone: [...] Office Visit [facility] [address] [place] [phone] Jesus Church MD, IBCLC [address] [place], [place] [id number] [facility] Start: 07-18-2025 Influenza vaccination Influenz a Vaccine (Season Ended) [facility] Start: 04-20-2025 End: 04-20-2025 Patient encounter procedure 04/20/2025 11:20 AM EDT Routine [facility] [address] [place] [address] Brandy Momin DO [facility] [place] [address] [facility] Start: 04-13-2025 End: 04-13-2025 Patient encounter procedure [facility] Comment on above: Arrived Start: 04-07-2025 End: 04-07-2025 Patient encounter procedure 04/07/2025 2:00 PM EDT Office Visit [facility] [address] [place] [phone] Jesus Church MD, IBCLC [address] [place], [place] [phone] [facility] Start: 03-30-2025 End: 03-30-2025 Patient encounter procedure 03/30/2025 10:30 AM EDT Routine [facility] [address] [facility] [facility] [place] [address] Xiomara Gallagher, BENZENE STILL UTILITY OPERATOR [address] [place] [address] [facility] Start: 03-17-2025 End: 03-17-2025 Patient encounter procedure 03/17/2025 9:10 AM EDT Routine [facility] [address] [place] [address] Xiomara Gallagher, BENZENE STILL UTILITY OPERATOR [address] [place] [address] [facility] Start: [...] inconsistent with dates Expected: 02/15/2025, Expires: 02/15/2026 [facility] Work Phone: Comment on above: Expected: 02/15/2025 , Expires: 02/15/2026 Start: 02-15-2025 End: 02-15-2025 Patient encounter procedure 02/15/2025 8:30 AM EDT Routine [facility] [address] [place] [address] Yvette Chambers PA [address] [place], [place] [phone] [facility] Start: 01-18-2025 End: 01-18-2026 CBC panel - Blood by Automated count CBC Lab Routine Diabetes mellitus screening Expected: 01/18/2025 (Approximate), Expires: 01/18/2026 [facility] Work Phone: Comment on above: Expected: 01/18/2025 (Approximate), Expires: 01/18/2026 Start: 01-18-2025 End: 01-18-2026 Measurement of glucose 1 hour after glucose challenge for glucose tolerance test Glucose tolerance, 1 hour Lab Routine Diabetes mellitus screening Expected: 01/18/2025 (Approximate), Expires: 01/18/2026 [facility] Comment on above: Expected: 01/18/2025 (Approximate), Expires: 01/18/2026 Start: 01-18-2025 End: 01-18-2025 Patient encounter procedure [facility] Comment on above: Arrived Start: 12-30-2024 End: 12-30-2024 Professional / ancillary services management 12/30/2024 2:30 PM EST Ancillary Procedure [facility] [address] [place] [address] [facility] Start: 12-22-2024 End: 12-22-2025 US for US OB 14+ weeks anatomy scan Imaging Routine Screening, , for anatomic survey Expected: 12/22/2024, Expires: 12/22/2025 [facility] Work Phone: Comment on above: Expected: 12/22/2024 , Expires: 12/22/2025 Start: 12-22-2024 End: 12-22-2024 Patient encounter procedure 12/22/2024 11:20 AM EST Routine [facility] [address] [place] [phone] Yvette Chambers PA [address] [place] [address] [facility] Start: 11-24-2024 End: 11-24-2024 Patient encounter procedure 11/24/2024 3:10 PM EST Routine [facility] [address] [place] [phone] Brandy Momin DO [address] [place] [address] [facility] Start: 11-24-2024 End: 12-25-2024 [...] first trimester Expected: 10/25/2024 (Approximate), Expires: 10/25/2025 [facility] Comment on above: Expected: 10/25/2024 (Approximate), Expires: 10/25/2025 Start: 10-25-2024 End: 10-25-2025 US Pelvis transvaginal US OB transvaginal Imaging Routine Missed menses Expected: 10/25/2024 (Approximate), Expires: 10/25/2025 [facility] Comment on above: Expected: 10/25/2024 (Approximate), Expires: 10/25/2025 Start: 07-18-2024 Influenza vaccination Influenza Vacc ine [facility] Start: 06-02-2024 Adult BMI Screening Adult BMI Screen ing [facility] Start: 06-02-2024 Tobacco Screening Tobacco Screening [facility] Start: 05-05-2024 Depression Screening Depression Scre ening [facility] Start: 2022 Screening for malign ant neoplasm of cervix Pap Smear [facility] Start: 2020 DTaP,Tdap and Td Vaccines (1 - Tdap) DTaP,Tdap and Td Vaccines (1 - Tdap) [facility] Bacteria identified in Urine by Culture Urine culture Microbiology Routine Missed menses Ordered: 10/25/2024 [facility] Comment on above: Ordered: 10/25/2024 CBC W Auto Different ial panel - Blood CBC and differential Lab Routine Missed menses , unspecified gestational age Ordered: 10/25/2024 [facility] Comment on above: Ordered: 10/25/2024 CBC W Auto Different ial panel - Blood CBC and differential Lab Routine Anemia affecting in third trimester Ordered: 03/30/2025 [facility] Work Phone: Comment on above: Ordered: 03/30/2025 CHLAMYDIA TRACHOMATI S (GENITO/STI) CHLAMYDIA TRACHOMATIS (GENITO/STI) Lab Routine STD exposure Vaginal discharge Ordered: 12/22/2024 [facility] Comment on above: Ordered: 12/22/2024 Cytology Cervical or vaginal smear or scraping study Pap Smear Pathology and Cytology Routine Well woman exam with routine gynecological exam Ordered: 12/22/2024 [facility] Comment on above: Ordered: 12/22/2024 Ferritin [Mass/volum e] in Serum or Plasma Ferritin Lab Routine Anemia affecting in third trimester Ordered: 03/03/2025 [facility] Work Phone: Comment on above: Ordered: 03/03/2025 Hemoglobin A1c/Hemoglobin.total in Blood Hemoglobin A1c Lab Routine Missed menses , unspecified gestational age Ordered: 10/25/2024 [facility] Comment on above: Ordered: 10/25/2024 Hepatitis B virus surface Ag [Presence] in Serum or Plasma by Immunoassay Hepatitis B surface antigen Lab Routine Missed menses , unspecified gestational age Ordered: 10/25/2024 [facility] Comment on above: Ordered: 10/25/2024 Hepatitis C virus Ab [Presence] in Serum or Plasma by Immunoassay Hepatitis C antibody Lab Routine Missed menses , unspecified gestational age Ordered: 10/25/2024 [facility] Comment on above: Ordered: 10/25/2024 HIV-1/HIV-2 antigen/antibody combination immunoassay HIV-1 and HIV-2 antibodies Lab Routine Missed menses , unspecified gestational age Ordered: 10/25/2024 [facility] Comment on above: Ordered: 10/25/2024 Neisseria gonorrhoea e DNA [Presence] in Unspecified specimen by NELDA with probe detection Neisseria gonorrhea DNA probe, direct Lab Routine STD exposure Vaginal discharge Ordered: 12/22/2024 [facility] Comment on above: Ordered: 12/22/2024 Reagin Ab [Presence] in Serum by RPR RPR Lab Routine Missed menses , unspecified gestational age Ordered: 10/25/2024 [facility] Comment on above: Ordered: 10/25/2024 Rubella antibody, IgG Rubella an tibody, IgG Lab Routine Missed menses , unspecified gestational age Ordered: 10/25/2024 [facility] Comment on above: Ordered: 10/25/2024 SURESWAB(R) ADVANCED VAGINITIS PLUS, TMA SURESWAB(R) ADVANCED VAGINITIS PLUS, TMA Pathology and Cytology Routine STD exposure Vaginal discharge Ordered: 12/22/2024 [facility] Comment on above: Ordered: 12/22/2024 Payers Date Payer Category Payer Self-pay 2024 Worker's Compensation 1.2.84 [id number] 2024 Unknown [id number] 1 2024 Unknown [id number] 2020 Private Health Insurance [id number] 2001 Unknown [id number] 2.16.84 0.1.799655.3.579.2.593 2001 Unknown [id number] 2.16.8 40.1.482465.3.579.2.1286 2001 Unknown [id number] 2.16.8 40.1.477311.3.579.2.1286 2001 Unknown [id number] 2.16.84 0.1.537502.3.579.2.1259 2001 Unknown [id number] 2.16.84 0.1.327320.3.579.2.1259 2001 Unknown [id number] 2.16.84 0.1.801715.3.579.2.1259 2001 Unknown [id number] 2.16.84 0.1.113475.3.579.2.1259 2001 Unknown [id number] 2.16.84 0.1.831013.3.579.2.1259 2001 Unknown [id number] 2.16.84 0.1.848476.3.579.2.1259 2001 Unknown [id number] 2.16.84 0.1.908904.3.579.2.1259 2001 Unknown [id number] 2.16.84 0.1.709628.3.579.2.1258 2001 Unknown [id number] 2.16.84 0.1.348271.3.579.2.1258 2001 Unknown [id number] 2.16.84 0.1.943961.3.579.2.1258 2001 Unknown [id number] 2.16.84 0.1.052193.3.579.2.1258 2001 Unknown [id number] 2.16.84 0.1.055190.3.579.2.1258 2001 Unknown [id number] 2.16.84 0.1.893291.3.579.2.1258 2001 Unknown [id number] 2.16.84 0.1.142305.3.579.2.1258 2001 Unknown [id number] 2.16.84 0.1.870358.3.579.2.1258 2001 Unknown [id number] 2.16.84 0.1.999497.3.579.2.1258 2001 Unknown [id number] 2.16.84 0.1.731057.3.579.2.1258 2001 Unknown [id number] 2.16.84 0.1.307019.3.579.2.1258 2001 Unknown [id number] 2.16.84 0.1.724622.3.579.2.1258 2001 Unknown [id number] 2.16.84 0.1.657181.3.579.2.1258 2001 Unknown [id number] 2.16.84 0.1.229408.3.579.2.1258 2001 Unknown [id number] 2.16.84 0.1.434746.3.579.2.1258 2001 Unknown [id number] 2.16.84 0.1.823089.3.579.2.1258 2001 Unknown [id number] 2.16.84 0.1.979002.3.579.2.9 2001 Unknown [id number] 2.16.84 0.1.857178.3.579.2.9 2001 Unknown [id number] 2.16.84 0.1.569850.3.579.2.9 2001 Unknown [id number] 2.16.84 0.1.567312.3.579.2.9 2001 Unknown [id number] 2.16.84 0.1.981928.3.579.2.9 2001 Unknown [id number] 2.16.84 0.1.528278.3.579.2.1258 2001 Unknown [id number] 2.16.84 0.1.352087.3.579.2.9 2001 Unknown [id number] 2.16.84 0.1.332342.3.579.2.9 2001 Unknown [id number] 2.16.84 0.1.100935.3.579.2.1259 1959 Private Health Insurance [id number] Unknown [id number] 2.16.8 40.1.340884.3.579.2.531 Social History Date Type Detail Facility Start: 10-13-2023 [facility] Start: 10-25-2024 End: 04-13-2025 Alcoholic beverage intake Current drinker of alcohol (finding) [facility] Start: 10-25-2024 End: 04-07-2025 Alcoholic beverage intake [facility] Start: 06-15-2024 End: 04-07-2025 Tobacco use panel [facility] Start: 08-22-2024 [facility] Start: 2001 Sex assigned at Not on file P [facility] Start: 10-17-2022 End: 04-07-2025 Tobacco smoking status ORIS Never smoked tobacco [facility] Start: 10-17-2022 End: 04-07-2025 Tobacco use and exposure Smokeless tobacco non-user [facility] Do you belong to any clubs or organizations such as holiness groups, unions, fraternal or athletic groups, or school groups? No [facility] Are you now , , , , never or living with a partner? Living with partner [facility] How often to you hav e a drink containing alcohol? 2-4 times a month [facility] How many standard drinks containing alcohol do you have on a typical day? 1 or 2 [facility] How often do you hav e 6 or more drinks on 1 occasion? Less than monthly [facility] How hard is it for y ou to pay for the very basics like food, housing, medical care, and heating Not hard at all [facility] Do you feel stress - tense, restless, nervous, or anxious, or unable to sleep at night because your mind is troubled all the time - these days [OSQ] Very much [facility] Start: 12-24-2022 Education 14 [facility] Start: 2001 Sex assigned at Female [facility] Start: 04-07-2025 Gender identity Identifies as female gender (finding) [facility] Start: 04-07-2025 Sexual orientation Heterosexual (fin ding) [facility] NEGATED: Highlighted rowStart: NINF History [...] Medication Instructions MAGnesium-Oxide 400 mg, Daily Vit w/Wg-Qanvtyqjx-NJ (PNV PO) Take by mouth ProFe 391.3 (180 Fe) MG capsule 1 capsule, Daily ALLERGIES Allergies Allergen Reactions Penicillins Hives Sumatriptan Swelling PROBLEMS Active Ambulatory Problems Diagnosis Date Noted Immunization refused 04/07/2025 Chronic migraine with aura without status migrainosus, not intractable ([facility]) 04/07/2025 Dysautonomia ([facility]) 04/07/2025 Resolved Ambulatory Problems Diagnosis [...] nursing note reviewed. Exam conducted with a inspector heating and refrigeration present. Vitals: Estimated body mass index is [...] Brandy Momin DO documented in this encounter [facility] 03-30-2025 History of Present illness Narrative Reason for Appointment: Patient ID: Megha Khalil is a 24 y.o. female who presents for Routine Visit Patient presents today for Return OB appointment. MEDICATIONS Current Outpatient Medications Medication Instructions MAGnesium-Oxide 400 mg, Daily Vit w/Ck-Tscfwklvn-VT (PNV PO) Oral ProFe 391.3 (180 Fe) [...] nursing note reviewed. Exam conducted with a inspector heating and refrigeration present. Vitals: Estimated body mass index is [...] Xiomara Gallagher NP documented in this encounter [facility] 03-17-2025 History of Present illness Narrative Reason for Appointment: Patient ID: Megha Khalil is a 24 y.o. female who presents for Routine Visit Patient presents today for Return OB appointment. MEDICATIONS Current Outpatient Medications Medication Instructions MAGnesium-Oxide 400 mg, Daily Vit w/Qf-Kaiuaisdh-WQ (PNV PO) Oral ALLERGIES Allergies Allergen Reactions [...] nursing note reviewed. Exam conducted with a inspector heating and refrigeration present. Vitals: Estimated body mass index is [...] Xiomara Gallagher NP documented in this encounter [facility] 03-03-2025 History of Present illness Narrative Reason for Appointment: Patient ID: Megha Khalil is a 24 y.o. female who presents for Routine Visit Patient presents today for Return OB appointment. MEDICATIONS Current Outpatient Medications Medication Instructions MAGnesium-Oxide 400 mg, Daily Vit w/En-Aukmslyom-DT (PNV PO) Oral ALLERGIES Allergies Allergen Reactions [...] nursing note reviewed. Exam conducted with a inspector heating and refrigeration present. Vitals: Estimated body mass index is [...] Brandy Momin DO documented in this encounter [facility] 02-15-2025 History of Present illness Narrative Reason for Appointment: Patient ID: Megha Khalil is a 24 y.o. female who presents for Routine Visit Patient presents today for Return OB appointment. MEDICATIONS Current Outpatient Medications Medication Instructions iron polysaccharides (PROFE) 391.3 mg, Oral, Daily MAGnesium-Oxide 400 mg, Daily Vit w/Yn-Lwkoawzuc-SX (PNV PO) Oral ALLERGIES Allergies Allergen Reactions [...] of: SHARONA Jasmine documented in this encounter [facility] 01-18-2025 History of Present illness Narrative Reason for Appointment: Patient ID: Megha Khalil is a 24 y.o. female who presents for Routine Visit Patient presents today for Return OB appointment. MEDICATIONS Current Outpatient Medications Medication Instructions Vit w/Su-Ugczufgsy-VS (PNV PO) Oral ALLERGIES Allergies Allergen Reactions [...] nursing note reviewed. Exam conducted with a inspector heating and refrigeration present. Vitals: Estimated body mass index is [...] Brandy Momin DO documented in this encounter [facility] 12-22-2024 History of Present illness Narrative Reason for Appointment: Patient ID: Megha Khalil is a 24 y.o. female who presents for Routine Visit Patient presents today for Return OB appointment. MEDICATIONS Current Outpatient Medications Medication Instructions magnesium oxide (MAG-OX) 400 mg, Oral, Daily Vit w/Vh-Nlexhagoe-RF (PNV PO) Oral ALLERGIES Allergies Allergen Reactions [...] nursing note reviewed. Exam conducted with a inspector heating and refrigeration present. Vitals: Estimated body mass index is [...] of: SHARONA Jasmine documented in this encounter [facility] 11-24-2024 History of Present illness Narrative Reason for Appointment: Patient ID: Megha Khalil is a 24 y.o. female who presents for Routine Visit Patient presents today for Return OB appointment. MEDICATIONS Current Outpatient Medications Medication Instructions magnesium oxide (MAG-OX) 400 mg, Oral, Daily Vit w/Cn-Xhzyiqvjg-IG (PNV PO) Oral ALLERGIES Allergies Allergen Reactions [...] nursing note reviewed. Exam conducted with a inspector heating and refrigeration present. Vitals: Estimated body mass index is [...] or undercooked meat, and stay away from [facility]. Patient has been consulted regarding any further do's and don'ts of . Patient voiced understanding and all questions and concerns were answered. Pt has occasional heart palpitations has seen residential coordinator in the past will continue to monitor. Pt having headaches, rx for magnesium faxed to pharmacy. Orders Placed This Encounter Procedures Alpha fetoprotein, maternal POCT urinalysis dipstick manually resulted Follow Up: Patient is to return in 4 weeks for routine OB appointment. Documented by Yoli Seay LPN on behalf of: Brandy Momin DO documented in this encounter [facility] 10-25-2024 History of Present illness Narrative Reason [...] list which includes the following prescription(s): vit w/qr-vtmgadxta-hx. Medical History: Active Ambulatory Problems Diagnosis Date [...] or undercooked meat, and stay away from [facility]. Patient has also been advised to [...] Adriane Meeks LPN documented in this encounter [facility] 08-11-2024 History of Present illness Narrative Subjective Patient ID: Megha Khalil is a 24 y.o. female. About 2 weeks ago she was evaluated at [facility] for seizure like symptoms. She has in [...] all orders for this visit: Seizure-like activity ([facility]) - Ambulatory referral to Neurology ([facility]); Future documented in this encounter [facility] [employer] System Evaluation note Diagnosis Missed menses , unspecified gestational age Encounter for supervision of normal first in first trimester documented in this encounter [facility] Healthcare[facility]* Diagnosis 15 weeks gestation of [...] [facility] Diagnosis Seizure-like activity ([facility])- Primary documented in this encounter [facility] SystemEvaluation note* Diagnosis Second trimester state, incidental [...] encounter [facility] HealthcareInstructionsNot on filedocumented in this [facility] SystemReason for referral (narrative)* Consultation (Routine) - Pending Review Specialty Diagnoses / Procedures Referred By Sarah hernandez Referred To Contact Neurology Diagnoses Seizure-like activity (CMS-HCC) Mariel Caballero MD [address] [place] [address], [place] [address] Jesse Lawton MD [address] [facility] [place] [address] Referral ID Status Reason Start Date Expiration Date Visits Requested Visits Authorized [id number] Pending Review Specialty Services Required 08/11/2024 08/11/2025 1 1 [facility] Summary Purpose Family History No Family History Records FoundNo Family History Records FoundNo Family History Records FoundNo Family History Records FoundNo Family History Records Found Advance Directives No Advanced Directives Records FoundNo Advanced Directives Records FoundNo Advanced Directives Records FoundNo Advanced Directives Records FoundNo Advanced Directives Records Found Additional Source Comments INFORMATION SOURCE (unrecogn ized section and content) DATE CREATED AUTHOR 10/31/2020 [facility] DATE CREATED AUTHOR AUTHOR'S ORGANIZ ATION 03/15/2023 [facility] DATE CREATED AUTHOR AUTHOR'S ORGANIZ ATION 09/30/2024 [facility] DATE CREATED AUTHOR AUTHOR'S ORGANIZ ATION 01/02/2025 [facility] DATE CREATED AUTHOR AUTHOR'S ORGANIZ ATION 04/14/2025 [facility] Reason for Visit (unrecogniz ed section and content) Reason Comments Amenorrhea Reason Comments Routine Visit Reason Comments wants referral to Neurologyfor seizures Prefers [facility] in [place] - Dr Lawton, has had a CT scan for seizure-like activity at [facility] (unrecognized sec tion and content) Ethernet Network Architect Relationship Specialty Start Date End Date Mariel Caballero MD [address] [place] [address], [address] [place] [address] PCP - General Family Medicine 09/26/23 Ethernet Network Architect Relationship Specialty Start Date End Date Mariel Caballero MD [address] [place] [address], [address] [place] [address] PCP - General Family Medicine 09/26/23 Ethernet Network Architect Relationship Specialty Start Date End Date Mariel Caballero MD [address] [place] [address], [address] [place] [address] PCP - General Family Medicine 09/26/23 Ethernet Network Architect Relationship Specialty Start Date End Date Mariel Caballero MD [address] [place] [address], [address] [place] [address] PCP - General Family Medicine 09/26/23 Ethernet Network Architect Relationship Specialty Start Date End Date Mariel Caballero MD [address] [place] [address], [address] [place] [address] PCP - General Family Medicine 09/26/23 Ethernet Network Architect Relationship Specialty Start Date End Date Mariel Caballero MD [address] [place] [address], [address] [place] [address] PCP - General Family Medicine 09/26/23 Ethernet Network Architect Relationship Specialty Start Date End Date Mariel Caballero MD [address] [place] [address], [address] [place] [address] PCP - General Family Medicine 09/26/23 Ethernet Network Architect Relationship Specialty Start Date End Date Mariel Caballero MD [address] [place] [address], [address] [place] [address] PCP - General Pediatrics 12/03/17 Ethernet Network Architect Relationship Specialty Start Date End Date Mariel Caballero MD [address] [place] [address], [address] [place] [address] PCP - General Family Medicine 09/26/23 Ethernet Network Architect Relationship Specialty Start Date End Date Mariel Caballero MD PCP - General Family Medicine 09/26/23 Ethernet Network Architect Relationship Specialty Start Date End Date Mariel Caballero MD PCP - General Family Medicine 09/26/23 Ethernet Network Architect Relationship Specialty Start Date End Date Mariel Caballero MD PCP - General Family Medicine 09/26/23 Ethernet Network Architect Relationship Specialty Start Date End Date Mariel Caballero MD PCP - General Family Medicine 09/26/23 Ethernet Network Architect Relationship Specialty Start Date End Date Mariel Caballero MD PCP - General Family Medicine 09/26/23 Ethernet Network Architect Relationship Specialty Start Date End Date Mariel Caballero MD PCP - General Family Medicine 09/26/23 Ethernet Network Architect Relationship Specialty Start Date End Date Jesus Church MD, IBCLC [address] [place] [address] PCP - General Family Medicine 04/07/25 Ethernet Network Architect Relationship Specialty Start Date End Date Jesus Church MD, IBCLC [address] [place] [address] PCP - General Family Medicine 04/07/25 FOR [...] BE BASED ON THE PRIMARY CLINICAL RECORDS. [employer] [facility]. provides no warranty or guarantee of the accuracy or completeness of information in this document.
== END 2025-04-20 21:02 | disposition home or self-care (01) ==
LOC: LAB 21:01
PROVIDERS: PCP Internal Medicine; Visit Provider Obstetrics & Gynecology
DX: Z34.93 Encounter for supervision of normal pregnancy, unspecified, third trimester (principal); Z3A.36 36 weeks gestation of pregnancy
CPT/HCPCS: 87081

== ENCOUNTER 2025-05-09 04:53 | Inpatient (IN) | payer OTHER, SELFPAY ==
--- OUTSIDE RECORDS SUMMARY | 2025-04-27 11:20 | XMS_ITS | Encounter Summary ---
Author Organization [facility] Address [address] [place] [address] Care Team Providers Care Vending Manager Name Role Phone Rosa Church MD, IBCLC Primary Care Provid er Reason for Visit * Reason Comments Routine Visit Encounter Details Date Type Department Care Team (Late st Contact Info) Description 04/27/2025 11:20 AM EDT Routine [facility] [address] [place] [id number] Yvette Decker PA [address] [place], [place] [address] 37 weeks gestation of ([facility]); Third trimester ([facility]) Social History Tobacco Use Types Packs/Day Years [...] Sign Reading Time Taken Comments Blood Pressure 100/62 04/27/2025 11:26 AM EDT Pulse - - Temperature - - Respiratory Rate - - Oxygen Saturation - - Inhaled Oxygen Concentration - - Weight 84.3 kg (185 lb 12.8 oz) 025 11:26 AM EDT Height - - Body Mass Index 29.1 04/07/2025 2:04 PM EDT documented in this encounter Progress Notes * SHARONA Jasmine - 04/27/2025 11:20 AM EDT Reason for Appointment: Patient ID: Megha Khalil is a 24 y.o. female who presents for Routine Visit Patient presents today for Return OB appointment. MEDICATIONS Current Outpatient Medications Medication Instructions MAGnesium-Oxide 400 mg, Daily Vit w/Qk-Rftdubxoc-GP (PNV PO) Take by mouth ProFe 391.3 (180 Fe) MG capsule 1 capsule, Daily ALLERGIES Allergies Allergen Reactions Penicillins Hives Sumatriptan Swelling PROBLEMS Active Ambulatory Problems Diagnosis Date Noted Immunization refused 04/07/2025 Chronic migraine with aura without status migrainosus, not intractable ([facility]) 04/07/2025 Dysautonomia ([facility]) 04/07/2025 Resolved Ambulatory Problems Diagnosis [...] Negative. Endocrine: Negative. Allergic/Immunologic: Negative. OBJECTIVE Objective: OBGyn Exam Vitals: Estimated body mass index is 29.1 kg/m?? as calculated from the following: Height as of 04/07/25: 5' 7 . Weight as of this encounter: 185 lb 12.8 oz. BP: 100/62 Patient's last menstrual period was 08/08/2024. ASSESSMENT & PLAN ICD-10-CM 1. 37 weeks gestation of Z3A.37 POCT urinalysis dipstick manually resulted 2. Third trimester Z34.93 POCT urinalysis dipstick manually resulted Return OB: Patient presents today for a routine obstetrics appointment. Patient is currently 37w3d . Patient states she is doing well [...] week for routine OB appointment. Documented by SHARONA Jasmine on behalf of: SHARONA Jasmine documented in this encounter Plan of Treatment Upcoming Encounters Date Type Department Care Team (Late st Contact Info) Description 04/07/2026 8:00 AM EDT Office Visit [facility] [address] [place] [address] Rosa Church MD, IBCLC [address] [place] [address] documented as of this encounter Procedures Procedure Name Priority Date/Time Associated Diagnosis Comments POCT URINALYSIS DIPSTICK Routine 04/27/2025 11:34 AM EDT 37 weeks gestation of ([facility]) Third trimester ([facility]) documented in this encounter Results * (ABNORMAL) POCT urinalysis dipstick manually resulted (04/27/2025 11:34 AM EDT) Color, UA Toshia Clarity, UA Cloudy Glucose, UA Negative Negative - 2000(110) ++++ mg/dL Bilirubin, UA Negative Negative - 4(70) +++ mg/dL Ketones, UA Negative Negative - 160(16) ++++ mg/dL Spec Grav, UA 1.025 1 - 1.03 Blood, UA Negative Negative - 50 Jonathan/mcL pH, UA 7.0 5 - 9 Protein, UA Positive Negative - 1999(20) ++++ mg/dL Comment:30 Urobilinogen, UA 0.2 0.2 - 12 mg/dL Leukocytes, UA Negative Negative - 500+++ Anoop/mcL Nitrite, UA Negative Negative - Positive Urine 04/27/2025 11:3 4 AM EDT Yvette TABOR POINT OF CARE TEST ENTER/EDIT OR DERABLES Final Result documented in this encounter Visit Diagnoses Diagnosis 37 weeks gestation of ([facility]) Third trimester ([facility]) state, incidental documented in this encounter Care Teams Vending Manager Relationship Specialty Start Date End Date Rosa Church MD, IBCLC [address] [place] [address] PCP - General Family Medicine 04/07/25 documented as of this encounter
--- OUTSIDE RECORDS SUMMARY | 2025-05-03 10:00 | XMS_ITS | Encounter Summary ---
Author Organization [facility] Address [address] [place] [address] Care Team Providers Care Small Kick Press Operator Name Role Phone Rosa Church MD, IBCLC Primary Care Provid er Reason for Visit * Reason Comments Routine Visit Encounter Details Date Type Department Care Team (Late st Contact Info) Description 05/03/2025 10:00 AM EDT Routine [facility] [address] [place] [id number] Ruperto Momin, DO [address] [place], [place] [address] Third trimester ([facility]); 38 weeks gestation of ([facility]) Social History Tobacco Use Types Packs/Day Years [...] Sign Reading Time Taken Comments Blood Pressure 110/70 05/03/2025 10:15 AM EDT Pulse - - Temperature - - Respiratory Rate - - Oxygen Saturation - - Inhaled Oxygen Concentration - - Weight 84.8 kg (187 lb) 05/03/2025 10:15 AM EDT Height - - Body Mass Index 29.29 04/07/2025 2:04 PM EDT documented in this encounter Progress Notes * SHARONA Jasmine - 05/03/2025 10:00 AM EDT Reason for Appointment: Patient ID: Megha Khalil is a 24 y.o. female who presents for Routine Visit Patient presents today for Return OB appointment. MEDICATIONS Current Outpatient Medications Medication Instructions MAGnesium-Oxide 400 mg, Daily Vit w/Sq-Hazolzbfc-RW (PNV PO) Take by mouth ProFe 391.3 (180 Fe) MG capsule 1 capsule, Daily ALLERGIES Allergies Allergen Reactions Penicillins Hives Sumatriptan Swelling PROBLEMS Active Ambulatory Problems Diagnosis Date Noted Immunization refused 04/07/2025 Chronic migraine with aura without status migrainosus, not intractable 04/07/2025 Dysautonomia (HCC) 04/07/2025 Resolved Ambulatory Problems Diagnosis Date Noted [...] reviewed. Vitals: Estimated body mass index is 29.29 kg/m?? as calculated from the following: Height as of 04/07/25: 5' 7 . Weight as of this encounter: 187 lb. BP: 110/70 Patient's last menstrual period was 08/08/2024. ASSESSMENT & PLAN ICD-10-CM 1. Third trimester ([facility]) Z34.93 POCT urinalysis dipstick manually resulted 2. 38 weeks gestation of ([facility]) Z3A.38 Return OB: Patient presents today for a routine obstetrics appointment. Patient is currently 38w2d . Patient states she is doing well [...] Documented by SHARONA Jasmine on behalf of: Ruperto Momin DO documented in this encounter Plan of Treatment Upcoming Encounters Date Type Department Care Team (Late st Contact Info) Description 04/07/2026 8:00 AM EDT Office Visit [facility] [address] [place] [id number] Rosa Church MD, IBCLC [address] [place] [address] documented as of this encounter Procedures Procedure Name Priority Date/Time Associated Diagnosis Comments POCT URINALYSIS DIPSTICK Routine 05/03/2025 10:22 AM EDT Third trimester ([facility]) documented in this encounter Results * POCT urinalysis dipstick manually resulted (05/03/2025 10:22 AM EDT) Color, UA Yellow Clarity, UA Clear Glucose, UA Negative Negative - 1999(110) ++++ mg/dL Bilirubin, UA Negative Negative - 4(70) +++ mg/dL Ketones, UA Negative Negative - 160(16) ++++ mg/dL Spec Grav, UA 1.025 1 - 1.03 Blood, UA Negative Negative - 50 Jonathan/mcL pH, UA 6.5 5 - 9 Protein, UA Trace Negative - 1999(20) ++++ mg/dL Urobilinogen, UA 0.2 0.2 - 12 mg/dL Leukocytes, UA Negative Negative - 500+++ Anoop/mcL Nitrite, UA Negative Negative - Positive Urine 05/03/2025 10:2 2 AM EDT Ruperto Momin DO POINT OF CARE TEST ENTER/EDIT OR DERABLES Final Result documented in this encounter Visit Diagnoses Diagnosis Third trimester ([facility]) state, incidental 38 weeks gestation of ([facility]) documented in this encounter Care Teams Small Kick Press Operator Relationship Specialty Start Date End Date Rosa Church MD, IBCLC [address] [place] [address] PCP - General Family Medicine 04/07/25 documented as of this encounter
[2025-05-09] VITALS (51 sets, daily range): BP systolic 94–132; BP diastolic 51–76; PULSE 75–122; TEMP 30.6–36.8
--- OUTSIDE RECORDS SUMMARY | 2025-05-09 04:57 | XMS_ITS | CCD ---
Author Organization [facility] Care Team Providers Care Mixer Operator Tablets Name Role Phone CHRISTINE SALVADOR Admitting Unavailable CHRISTINE SALVADOR Attending Unavailable DR FAITH NUÑEZ Consulting Unavailable FEDERICO, DR MARIEL Quinn Primary Care Unavailable OBDULIO ., SHARONA BROWER Consulting Unavailabl e MARIEL CABALLERO Attending Unavailable MARIEL CABALLERO Referring Unavailable MARIEL CABALLERO Primary Care Unavailable DORINDA MORENO Attending Unavailable MARIEL CABALLERO Referring Unavailable MARIEL CABALLERO Primary Care Unavailable Mariel Caballero MD Primary Care Provider [phone] Mariel Caballero Admitting Unavailable Mariel Caballero Attending Unavailable Mariel Caballero MD Primary Care Provider Mariel Caballero MD Primary Care Provider [phone] Ranjit SRIVASTAVA, IBCLC, Jesus Primary Care [facility] er YVETTE CHAMBERS Attending Unavailable BRANDY MOMIN Attending Unavailable YVETTE CHAMBERS Attending Unavailable YVETTE CHAMBERS Referring Unavailable BRANDY MOMIN Attending Unavailable XIOMARA GALLAGHER Attending Unavailable XIOMARA GALLAGHER Attending Unavailable JESUS CHURCH Attending Unavailable MERRILLBRANDY FLANAGAN Attending Unavailable MERRILLBRANDY Attending Unavailable TRISH YVETTE Attending Unavailable BRANDY MOMIN Attending Unavailable GUILLERMO WING Attending Unavailable GUILLERMO WING Attending Unavailable GUILLERMO WING Referring Unavailable GUILLERMO WING Attending Unavailable BRANDY MOMIN Attending Unavailable Allergies Allergy Classification Reported Allergen(s) Allergy Type Date of Onset Reaction(s) Facility (2 sources) Amoxicillin; Translations: [AMOXICILLIN] Drug Allergy 8 [facility] Repository (2 sources) SUMAtriptan; Translations: [SUMATRIPTAN] Drug Allergy 2 [facility] Repository (20 sources) Penicillins; Translations: [PENICILLINS] Propensity to adverse reactions to drug (disorder) 8 [facility] Repository (20 sources) SUMAtriptan Drug Allergy 2 [facility] (1 source) SUMAtriptan Drug Allergy 3 [facility] Repository (1 source) Amoxicillin Drug Allergy 8 [facility] Medications Current Medications Medication Drug Class(es) Dates [...] polysaccharide iron complex 391 mg oral capsule (17 sources) Start: 5 take 1 capsule by [...] FA (PNV PO) (20 sources) Vit w/F d-Htmaroirm-PB (PNV PO) Take by mouth Active Problems Active Problems Problem Classification Problem Date Documented Date Episodic/Chronic Cardiac dysrhythmias (4 sources) Palpitations; Translations: [PALPITATIONS] Onset: 02-21-2023 Episodic Epilepsy; convulsions (2 sources) Unspecified convulsions; Translations: [Neurological finding] Onset: 08-11-2024 08-11-2024 Episodic Headache; including migraine (12 sources) Transformed migraine; 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] 10-25-2024 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) Disorder of autonomic nervous system; Translations: [...] 12-22-2024 Episodic Other and delivery including normal (20 sources) ; Translations: [Encounter for supervision of [...] of ] 03-30-2025 Episodic Residual codes; unclassified (12 sources) Medication refused; Translations: [Immunization not carried out because of patient refusal] Onset: 04-07-2025 04-07-2025 Episodic Residual codes; unclassified (2 sources) Gestation period, 35 weeks; Translations: [35 weeks gestation of ] 04-13-2025 Episodic Residual codes; unclassified (2 sources) Gestation period, 36 weeks; Translations: [36 weeks gestation of ] 04-20-2025 Episodic Residual codes; unclassified (2 sources) Gestation period, 37 weeks; Translations: [37 weeks gestation of ] 04-27-2025 Episodic Residual codes; unclassified (2 sources) Gestation period, 38 weeks; Translations: [38 weeks gestation of ] 05-03-2025 Episodic Substance-related disorders (1 source) Nicotine dependence, [...] Test Name Value Interpretation Reference Range Facility Urinalysis macro (dipstick) panel (U)on 05-03-2025 Bilirubin, UA Negative Negative - 4(70) +++ mg/dL [facility] Blood, UA Negative Negative - 50 Jonathan/mcL [facility] Clarity, UA Clear [facility] Color, UA Yellow [facility] Glucose, UA Negative Negative - 1999(110) ++++ mg/dL [facility] Interpretation and review of laboratory results Normal [facility] Ketones, UA Negative Negative - 160(16) ++++ mg/dL [facility] Leukocytes, UA Negative Negative - 500+++ Anoop/mcL [facility] Nitrite, UA Negative Negative - Positive [facility] pH, UA 6.5 5 - 9 [facility] Protein, UA Trace Negative - 1999(20) ++++ mg/dL [facility] Spec Grav, UA 1.025 1 - 1.03 [facility] Urobilinogen, UA 0.2 0.2 - 12 mg/dL [facility] Urinalysis macro (dipstick) panel (U)on 04-27-2025 Bilirubin, UA Negative Negative - 4(70) +++ mg/dL [facility] Blood, UA Negative Negative - 50 Jonathan/mcL [facility] Clarity, UA Cloudy [facility] Color, UA Toshia [facility] Glucose, UA Negative Negative - 1999(110) ++++ mg/dL [facility] Interpretation and review of laboratory results Abnormal [facility] Ketones, UA Negative Negative - 160(16) ++++ mg/dL [facility] Leukocytes, UA Negative Negative - 500+++ Anoop/mcL [facility] Nitrite, UA Negative Negative - Positive [facility] pH, UA 7 5 - 9 [facility] Protein, UA Positive Negative - 1999(20) ++++ mg/dL [facility] Comment on above: 30 Spec Grav, UA 1.025 1 - 1.03 [facility] Urobilinogen, UA 0.2 0.2 - 12 mg/dL [facility] FERRITINon 03-19-2025 Ferritin [Mass/Vol] 6 ng/mL Low 8.0 - 25 2.0 ng/mL [facility] Interpretation and review of laboratory results Abnormal [facility] No Panel InformationOrdered By: Radiologist Radiology on 03-14-2025 [facility] Work Phone: No Panel Informationon 03-14 Radiology Study observation (narrative) [facility] UA (CLEAN/CATCH) UPHOLSTERY SEWER/AMBER RO IF IND.on 03-14-2025 BILIRUBIN URINE Negative NEGATIVE [facility] BLOOD URINE Negative NEGATIVE [facility] Clarity (U) CLEAR CLEAR [facility] Color (U) YELLOW [facility] GLUCOSE URINE UA Negative NEGATIVE mg/dL [facility] Ketones Ql (U) Negative NEGATIVE mg/dL [facility] Leukocyte esterase Test strip Ql (U) Negative NEGATIVE [facility] NITRITE URINE Negative NEGATIVE [facility] pH (U) 7.0 [pH] 5.0 - 9.0 [facility] PROTEIN URINE Negative NEG/TRACE mg/dL [facility] SPECIFIC GRAVITY URINE 1.010 1.005 - 1.025 [facility] URINE MICROSCOPIC INDICATED NO [facility] UROBILINOGEN URINE 0.2 EU/dL 0.2 - 1.0 EU/dL [facility] US OB CERVICAL LENGTHon 02-16 [place] [address] Ultrasound Report Signed Patient: MEGHA KHALIL MR#: [id number] : 2000 Acct:[id number] Age/Sex: 24 / F ADM Date: Loc: [facility] 250- Attending Dr: Brandy Momin D.O. Ordering Physician: Brandy Momin D.O. Date of Service: 03/14/25 Procedure(s): US OB cervical length Accession Number(s): [id number] cc: Brandy Momin D.O.; MARIEL CABALLERO [place] [address] Patient Name: MEGHA KHALIL MRN: [id number] date: 2000 Sex: F Assigned Patient Location: [facility] Current Patient Location: Accession/Order Number: [id number] Exam Date: 03/14/2025 13:46 Report Date: 03/14/2025 13:49 At the request of: BRANDY MOMIN DO Procedure: US OB placenta Biophysical profile. Cervical ultrasound. Placental ultrasound. Reason for exam: Abdominal pain. COMPARISON: None. TECHNIQUE: Transabdominal imaging of the gravid uterus was obtained. FINDINGS: [employer] Professor reports a biophysical profile of 8 out [...] 03/14/2025 1:49 PM Dictation Location: [place] [address] Electronically authenticated by: [id number] Y Date: 03/14/2025 13:49 Dictated By: Chico Briscoe M.D. Signed By: 03/14/25 1356 DD/ 1349 TD/TT: Field Broomer: [facility] Radiology, Radiologist, - 03/14/2025 [place] [address] Ultrasound Report Signed Patient: MEGHA KHALIL MR#: [id number] : 2000 Acct:[id number] Age/Sex: 24 / F ADM Date: Loc: [facility] [address]: Brandy Momin D.O. Ordering Physician: Brandy Momin D.O. Date of Service: 03/14/25 Procedure(s): US OB cervical length Accession Number(s): [id number] cc: Brandy Momin D.O.; MARIEL CABALLERO [place] [address] Patient Name: MEGHA KHALIL MRN: [facility]:[id number] date: 2000 Sex: F Assigned Patient Location: [facility] Current Patient Location: Accession/Order Number: [id number] Exam Date: 03/14/2025 13:46 Report Date: 03/14/2025 13:49 At the request of: BRANDY MOMIN DO Procedure: US OB placenta Biophysical profile. Cervical ultrasound. Placental ultrasound. Reason for exam: Abdominal pain. COMPARISON: None. TECHNIQUE: Transabdominal imaging of the gravid uterus was obtained. FINDINGS: [employer] Professor reports a biophysical profile of 8 out [...] 03/14/2025 1:49 PM Dictation Location: [place] [address] Electronically authenticated by: [id number] Y Date: 03/14/2025 13:49 Dictated By: Chico Briscoe M.D. Signed By: 03/14/25 1350 DD/ 1349 TD/TT: Field Broomer: [facility] US OB BPP W NON-STRESS on 03-14-2025 [place] [address] Ultrasound Report Signed Patient: MEGHA KHALIL MR#: [id number] : 2000 Acct:[id number] Age/Sex: 24 / F ADM Date: Loc: [facility] Attending Dr: Brandy Momin D.O. Ordering Physician: Brandy Momin D.O. Date of Service: 03/14/25 Procedure(s): US OB BPP w non-stress Accession Number(s): [id number] cc: Brandy Momin D.O.; MARIEL CABALLERO [place] [address] Patient Name: MEGHA KHALIL MRN: [id number]:[id number] date: 2000 Sex: F Assigned Patient Location: [facility] Current Patient Location: Accession/Order Number: [id number] Exam Date: 03/14/2025 13:46 Report Date: 03/14/2025 13:49 At the request of: BRANDY MOMIN DO Procedure: US OB placenta Biophysical profile. Cervical ultrasound. Placental ultrasound. Reason for exam: Abdominal pain. COMPARISON: None. TECHNIQUE: Transabdominal imaging of the gravid uterus was obtained. FINDINGS: [employer] Professor reports a biophysical profile of 8 out [...] 03/14/2025 1:49 PM Dictation Location: [place] [address] Electronically authenticated by: [id number] Y Date: 03/14/2025 13:49 Dictated By: Chico Briscoe M.D. Signed By: 03/14/25 1352 DD/ 1349 TD/TT: Field Broomer: [facility] Radiology, Radiologist, MD - 03/14/2025 [place] [address] Ultrasound Report Signed Patient: MEGHA KHALIL MR#: [id number] : 2000 Acct:[id number] Age/Sex: 24 / F ADM Date: Loc: [facility] Attending Dr: Brandy Momin D.O. Ordering Physician: Brandy Momin D.O. Date of Service: 03/14/25 Procedure(s): US OB BPP w non-stress Accession Number(s): [id number] cc: Brandy Momin D.O.; MARIEL CABALLERO [place] [address] Patient Name: MEGHA KHALIL MRN: [facility]:[id number] date: 2000 Sex: F Assigned Patient Location: [facility] Current Patient Location: Accession/Order Number: [id number] Exam Date: 03/14/2025 13:46 Report Date: 03/14/2025 13:49 At the request of: BRANDY MOMIN DO Procedure: US OB placenta Biophysical profile. Cervical ultrasound. Placental ultrasound. Reason for exam: Abdominal pain. COMPARISON: None. TECHNIQUE: Transabdominal imaging of the gravid uterus was obtained. FINDINGS: Ocean[employer] Professor reports a biophysical profile of 8 out [...] 03/14/2025 1:49 PM Dictation Location: [place] [address] Electronically authenticated by: [id number] Y Date: 03/14/2025 13:49 Dictated By: Chico Briscoe M.D. Signed By: 03/14/25 1352 DD/ 1349 TD/TT: Field Broomer: [facility] US OB BPP W NON-STRESS Ordered By: Radiologist Radiology on 03-14-2025 [facility] Work Phone: US OB PLACENTAon 03-14-2025 [place] [address] Ultrasound Report Signed Patient: MEGHA KHALIL MR#: [id number] : 2000 Acct:[id number] Age/Sex: 24 / F ADM Date: Loc: [facility] 250- Attending Dr: Brandy Momin D.O. Ordering Physician: Brandy Momin D.O. Date of Service: 03/14/25 Procedure(s): US OB placenta Accession Number(s): [id number] cc: Brandy Momin D.O.; MARIEL CABALLERO [address] [address] Patient Name: MEGHA KHALIL MRN: [facility]:[id number] date: 2000 Sex: F Assigned Patient Location: [facility] Current Patient Location: Accession/Order Number: [id number] Exam Date: 03/14/2025 13:46 Report Date: 03/14/2025 13:49 At the request of: BRANDY MOMIN DO Procedure: US OB placenta Biophysical profile. Cervical ultrasound. Placental ultrasound. Reason for exam: Abdominal pain. COMPARISON: None. TECHNIQUE: Transabdominal imaging of the gravid uterus was obtained. FINDINGS: [employer] Professor reports a biophysical profile of 8 out [...] 03/14/2025 1:49 PM Dictation Location: [place] [address] Electronically authenticated by: [id number] Y Date: 03/14/2025 13:49 Dictated By: Chico Briscoe M.D. Signed By: 03/14/25 1351 DD/ 1349 TD/TT: Field Broomer: [facility] Radiology, Radiologist, MD - 03/14/2025 [place] [address] Ultrasound Report Signed Patient: MEGHA KHALIL MR#: [id number] : 2000 Acct:[id number] Age/Sex: 24 / F ADM Date: Loc: [facility] Attending Dr: Brandy Momin D.O. Ordering Physician: Brandy Momin D.O. Date of Service: 03/14/25 Procedure(s): US OB placenta Accession Number(s): [id number] cc: Brandy Momin D.O.; MARIEL CABALLERO [address] [address] Patient Name: MEGHA KHALIL MRN: [facility]:[id number] date: 2000 Sex: F Assigned Patient Location: [facility] Current Patient Location: Accession/Order Number: [id number] Exam Date: 03/14/2025 13:46 Report Date: 03/14/2025 13:49 At the request of: BRANDY MOMIN DO Procedure: US OB placenta Biophysical profile. Cervical ultrasound. Placental ultrasound. Reason for exam: Abdominal pain. COMPARISON: None. TECHNIQUE: Transabdominal imaging of the gravid uterus was obtained. FINDINGS: [employer] Professor reports a biophysical profile of 8 out [...] funneling. Impression dictated by: Chico Briscoe Jr., D.Alvin 03/14/2025 1:49 PM Dictation Location: [place] Electronically authenticated by: [id number] Y Date: 03/14/2025 13:49 Dictated By: Chico Briscoe M.D. Signed By: 03/14/25 1351 DD/ 1349 TD/TT: Field Broomer: [facility] US OB FOLLOW UP TRANSABDOMIN AL APPROACHon [...] II, MD, PHD at 05-Mar-2025 06:47:11 PM [facility] Normal Not Available Comment on above: Order Comment: US OB SCAN FOR GROWTH Estimated Date of Delivery: 05/15/25 Gestational Age as of 02/15/2025: 27w2d Urinalysis macro (dipstick) panel (U)on 03-03-2025 Bilirubin, UA Negative Negative - 4(70) +++ mg/dL [facility] Blood, UA Negative Negative - 50 Jonathan/mcL [facility] Healthcare Clarity, UA Clear [facility] Color, UA Yellow [facility] Glucose, UA Negative Negative - 1999(110) ++++ mg/dL [facility] Interpretation and review of laboratory results Normal [facility] Ketones, UA Negative Negative - 160(16) ++++ mg/dL [facility] Leukocytes, UA Negative Negative - 500+++ Anoop/mcL [facility] Nitrite, UA Negative Negative - Positive [facility] pH, UA 6.5 5 - 9 [facility] Protein, UA Negative Negative - 1999(20) ++++ mg/dL [facility] Spec Grav, UA 1.02 1 - 1.03 [facility] Urobilinogen, UA 0.2 0.2 - 12 mg/dL [facility] Healthcare [facility] Urinalysis macro (dipstick) panel (U)on 02-15-2025 Bilirubin, UA Negative Negative - 4(70) +++ mg/dL [facility] Blood, UA Negative Negative - 50 Jonathan/mcL [facility] Clarity, UA Clear [facility] Color, UA Yellow [facility] Glucose, UA Negative Negative - 1999(110) ++++ mg/dL [facility] Interpretation and review of laboratory results Normal [facility] Ketones, UA Negative Negative - 160(16) ++++ mg/dL [facility] Leukocytes, UA Negative Negative - 500+++ Anoop/mcL [facility] Nitrite, UA Negative Negative - Positive [facility] pH, UA 6 5 - 9 [facility] Protein, UA Negative Negative - 1999(20) ++++ mg/dL [facility] Spec Grav, UA 1.025 1 - 1.03 [facility] Urobilinogen, UA 0.2 0.2 - 12 mg/dL [facility] AFP, SERUM, OPEN SPINA BIFID Aon 01-18-2025 AFP MOM 1.22 . [facility] AFP VALUE 109.4 ng/mL . [facility] COMMENT: Comment . [facility] Comment on above: Shama Correa , Ph.D., [facility] Director References: Available Upon Request. Multiples Of Median Cutoffs For AFP Elevations Oneill 2.5 Black 2.8 IDD 2.0 Twins 4.5 Abbreviation Definitions IDD - Insulin Dep Diabetes OSBR - Open Spina Bifida Risk For further inquiries contact [employer] [facility] at [phone]. This test was developed and its performance characteristics determined by [employer]. It has not been cleared or approved by the Food and Drug Administration. Performed at: [facility] [address] [place], [place] [id number] [employer] Supervisor: Hector Walsh [facility], Phone: [phone] GEST. AGE ON COLLECTION DATE 22.9 . weeks [facility] GESTAT. AGE BASED ON LMP . [facility] Comment on above: Recalculations are n ot recommended when gestational dating by LMP and ultrasound are within 10 days. INSULIN DEP DIABETES No . [facility] INTERPRETATION Comment . [facility] Comment on above: Interpretation: Scre en Negative [...] Customer Services to discuss available options. The [employer] recommends amniocentesis be offered to women age 35 and older. [age] [facility] MULTIPLE GESTATION No . [facility] OSBR RISK 1 IN 6110 . [facility] RACE . [facility] RESULTS Report . [facility] TEST RESULTS: Negative . [facility] WEIGHT 135 . [facility] N N LMP [id number] 15 N 1 Y 135 N N N N N [facility] US OB 14+ WEEKS ANATOMY SCAN on [...] 2. Unremarkable ultrasound of the anatomy. Electronically Signed:Mani y signed by PERLA JIMENEZ II, MD, PHD at 31-Dec-2024 08:39:39 AM [facility] Normal Not Available Comment on above: Order Comment: US OB ANATOMY SINGLE W US OB CERVICAL LENGTH Estimated Date of Delivery: 05/15/25 Gestational Age as of 12/22/2024: 19w3d IGP,APTIMA HPV,AGE GDLNon AGE GDLN ACOG TESTING Note . [facility] Comment on above: TESTS RESULT FLAG [facility] REF RANGE LAB Clinician Provided Cytology Information Source.............Cervix Other.............. No. of containers..01 ThinPrep Vial Age Algo ACOG Divina... FLAG LEGEND: L-Low Normal,H-High Normal,LL-Alert Low,HH-Alert High <-Panic Low,>-Panic High,A-Abnormal,AA-Critical Abnormal Performed at: 01 =G [address] [address] Kellie Meyer MD, IGP, RFX APTIMA HPV ASCU Note . [facility] Comment on above: TESTS RESULT FLAG [facility] REF [facility]ANGE LAB DIAGNOSIS: 02 NEGATIVE FOR INTRAEPITHELIAL LESION OR MALIGNANCY. 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 Specimen adequacy: 02 Satisfactory for evaluation. No endocervical component is identified. Performed by: 02 Dorinda Blake, Scientific Director ([facility]) QC reviewed by: 02 lEliot Ibanez, Scientific Director ([facility]) . 02 Note: Note 03 The [...] Low,>-Panic High,A-Abnormal,AA-Critical Abnormal Performed at: 02 [facility] [address] [place] [address] Brandon Hobson MD, 03 WB [facility] [address] [address] Kellie Meyer MD, Performed at: =G - [facility] [id number] [employer] Supervisor: Kellie Meyer MD, Phone: [phone] Performed at: [facility] - [facility] [address] [place], [place] [id number] [employer] Supervisor: Brandon Hobson MD, Phone: [phone] [facility] RECURRENT V[facility]INITIS (HTRX)on 12-24-2024 ATOPOBIUM VAGINAE 0 [facility] ATOPOBIUM VAGINAE Not detected [facility] BVAB 2,3 (BACTERIAL VAGINOSIS ASSOCIATED BACTERIA 2, 3); MOBILUNCUS SPP 26.411 Abnormal [facility] BVAB 2,3 (BACTERIAL VAGINOSIS ASSOCIATED BACTERIA 2, 3); MOBILUNCUS SPP Detected Abnormal [facility] LAUREN ALBICANS, PARAPSILOSIS, TROPICALIS 0 [facility] LAUREN ALBICANS, PARAPSILOSIS, TROPICALIS Not detected [facility] LAUREN GLABRATA 0 [facility] LAUREN GLABRATA Not detected [facility] LAUREN KRUSEI 0 [facility] LAUREN KRUSEI Not detected [facility]ACHOMATIS 0 [facility] CHLAMYDIA TRACHOMATIS Not detected N [facility] GARDNERELLA VAGINALIS 0 [facility] GARDNERELLA VAGINALIS Not detected N [facility] Interpretation and review of laboratory results Abnormal [facility] MEGASPHAERA (TYPES 1, 2) 0 [facility] MEGASPHAERA (TYPES 1, 2) Not detected [facility] MYCOPLASMA GENITALIUM 0 [facility] MYCOPLASMA GENITALIUM Not detected N [facility] NEISSERIA GONORRHOEAE 0 [facility] NEISSERIA GONORRHOEAE Not detected N [facility] TRICHOMONAS VAGINALIS 0 [facility] TRICHOMONAS VAGINALIS Not detected N [facility] Urinalysis macro (dipstick) panel (U)on 12-22-2024 Bilirubin, UA Negative Negative - 4(70) +++ mg/dL [facility] Blood, UA Negative Negative - 50 Jonathan/mcL [facility] Clarity, UA Clear [facility] Color, UA Yellow [facility] Glucose, UA Negative Negative - 1999(110) ++++ mg/dL [facility] Interpretation and review of laboratory results Abnormal [facility] Ketones, UA Negative Negative - 160(16) ++++ mg/dL [facility] Leukocytes, UA Trace Negative - 500+++ Anoop/mcL [facility] Nitrite, UA Negative Negative - Positive [facility] pH, UA 6.5 5 - 9 [facility] Protein, UA Trace Negative - 1999(20) ++++ mg/dL [facility] Spec Grav, UA 1.025 1 - 1.03 [facility] Urobilinogen, UA 0.2 0.2 - 12 mg/dL [facility] Urinalysis macro (dipstick) panel (U)on 11-24-2024 Bilirubin, UA Negative Negative - 4(70) +++ mg/dL [facility] Blood, UA Negative Negative - 50 Jonathan/mcL [facility] Clarity, UA Clear [facility] Color, UA Yellow [facility] Glucose, UA Negative Negative - 1999(110) ++++ mg/dL [facility] Interpretation and review of laboratory results Abnormal [facility] Ketones, UA Negative Negative - 160(16) ++++ mg/dL [facility] Leukocytes, UA Trace Negative - 500+++ Anoop/mcL [facility] Nitrite, UA Negative Negative - Positive [facility] [facility], UA 6 5 - 9 [facility] Protein, UA Negative Negative - 1999(20) ++++ mg/dL [facility] Spec Grav, UA 1.02 1 - 1.03 [facility] Urobilinogen, UA 0.2 0.2 - 12 mg/dL [facility] BOX TESTon 11-13-2024 BOX TEST SENT OUT [facility] BOX1 [facility] BOX2 10/18/2024 [facility] Urine Cultureon 11-13-2024 Bacteria identified Cx Nom (U) <9,000 colonies/ml mixed bacterial skin contaminants 2 Days PERFORMED BY: [place] [address] PATHOLOGIST NECKTIE STITCHER VILMA NUNES M.D. Normal [facility] Comment on above: Performed By: #### C UU #### [address] HCG ( test) Ql (U)o n 10-25-2024 Interpretation and review of laboratory results Abnormal [facility] Preg Test, Ur Positive Negative [facility] Urinalysis macro (dipstick) panel (U)on 10-25-2024 Bilirubin, UA Negative Negative - 4(70) +++ mg/dL [facility] Blood, UA Negative Negative - 50 Jonathan/mcL [facility] Clarity, UA Clear [facility] Color, UA Yellow [facility] Glucose, UA Negative Negative - 1999(110) ++++ mg/dL [facility] Interpretation and review of laboratory results Normal [facility] Ketones, UA Negative Negative - 160(16) ++++ mg/dL [facility] Leukocytes, UA Negative Negative - 500+++ Anoop/mcL [facility] Nitrite, UA Negative Negative - Positive [facility] pH, UA 7 5 - 9 [facility] Protein, UA Negative Negative - 1999(20) ++++ mg/dL [facility] Spec Grav, UA 1.025 1 - 1.03 [facility] Urobilinogen, UA 1.0 0.2 - 12 mg/dL [facility] XR FEMUR 2+ VW LEFTon 2023 XR FEMUR 2+ VW LEFT Left femur HISTORY: Pain 4 views of the femur. The femur is grossly intact. No fractures or periostitis. Soft tissues of the thigh are not remarkable. IMPRESSION: Negative left femur Electronically Signed Varun Garcia D.O. 2024-06-15 15:01:50 Normal Not Available CBC AUTO DIFFon 02-21-2023 BASO # 0.0 103/ul Normal 0.0-0.1 [facility] Comment on above: Performed By: #### C BC #### [facility] [address] [place] [address] Dr. Sol Flores Basophils/100 WBC (Bld) 0.4 % Normal 0.2-2.0 [facility] Comment on above: Performed By: #### C BC #### [facility] [address] [place] [address] Dr. Sol Flores EO # 0.0 103/ul Normal 0.0-0.7 [facility] Comment on above: Performed By: #### C BC #### [facility] [address] [place] [address] Dr. Sol Flores Eosinophils/100 WBC (Bld) 0.0 % Critically low 0.9-7.0 [facility] Comment on above: Performed By: #### C BC #### [facility] [address] [place] [address] Dr. Sol Flores Erythrocyte distribution width (RBC) [Ratio] 13.4 % Normal 11.0-15.0 [facility] Comment on above: Performed By: #### C BC #### [facility] [address] [place] [address] Dr. Sol Flores Hematocrit (Bld) [Volume fraction] 38.1 % Normal 36.0-48.0 [facility] Comment on above: Performed By: #### C BC #### [facility] [address] [place] [address] Dr. Sol Flores Hemoglobin (Bld) [Mass/Vol] 12.9 g/dL Normal 12.0-16.0 [facility] Comment on above: Performed By: #### C BC #### [facility] [address] [place] [address] Dr. Sol Flores IG # 0.02 10e3/ul Normal 0.00-0.03 [facility] Comment on above: Performed By: #### C BC #### [facility] [address] [place] [address] Dr. Sol Flores IG % 0.2 % Normal 0.0-0.5 [facility] Comment on above: Performed By: #### C BC #### [facility] [address] [place] [address] Dr. Sol Flores LYMPH # 2.2 103/ul Normal 1.2-3.8 [facility] Comment on above: Performed By: #### C BC #### [facility] [address] [place] [address] Dr. Sol Flores Lymphocytes/100 WBC (Bld) 26.7 % Normal 20.5-60.0 [facility] Comment on above: Performed By: #### C BC #### [facility] [address] [place] [address] Dr. Sol Flores MANUAL DIFF REQ NO Normal [facility] Comment on above: Performed By: #### C BC #### [facility] [address] [place] [address] Dr. Sol Flores MCH (RBC) [Entitic mass] 28.9 pg Normal 26.7-34.0 [facility] Comment on above: Performed By: #### C BC #### [facility] [address] [place] [address] Dr. Sol Flores MCHC (RBC) [Mass/Vol] 33.9 g/dL Normal 29.9-35.2 [facility] Comment on above: Performed By: #### C BC #### [facility] [address] [place] [address] Dr. Sol Flores MCV (RBC) [Entitic vol] 85.2 fL Normal 81.0-99.0 [facility] Comment on above: Performed By: #### C BC #### [facility] [address] [place] [address] Dr. Sol Flores MONO # 0.6 103/ul Normal 0.3-0.8 [facility] Comment on above: Performed By: #### C BC #### [facility] [address] [place] [address] Dr. Sol Flores Monocytes/100 WBC (Bld) 7.4 % Normal 1.7-12.0 [facility] Comment on above: Performed By: #### C BC #### [facility] [address] [place] [address] Dr. Sol Flores NEUT # 5.3 103/ul Normal 1.4-6.5 [facility] Comment on above: Performed By: #### C BC #### [facility] [address] [place] [address] Dr. Sol Flores Neutrophils/100 WBC (Bld) 65.3 % Normal 43.0-75.0 [facility] Comment on above: Performed By: #### C BC #### [facility] [address] [place] [address] Dr. Sol Flores Platelet mean volume (Bld) [Entitic vol] 10.3 fL Normal 9.5-13.5 [facility] Comment on above: Performed By: #### C BC #### [facility] [address] [place] [address] Dr. Sol Flores PLT 225 103/ul Normal 150-450 [facility] Comment on above: Performed By: #### C BC #### [facility] [address] [place] [address] Dr. Sol Flores RBC 4.47 106/ul Normal 4.20-5.40 [facility] Comment on above: Performed By: #### C BC #### [facility] [address] [address] [address] Sol Flores WBC 8.1 103/ul Normal 4.0-11.0 [facility] Comment on above: Performed By: #### C BC #### [facility] [address] [place] [address] Dr. Sol Flores D-DIMERon 02-21-2023 D-DIMER 0.33 mg/L FEU Normal <=0.59 [facility] Comment on above: Performed By: #### D DIM, PT, PTT #### [facility] [address] [place] [address] Dr. Sol Flores D-DIMER COMMENTS SEE BELOW Normal [facility] Comment on above: Result Comment: Incr [...] By: #### D DIM, PT, PTT #### [facility] [address] [place] [address] Dr. Sol Flores PREG HCG QUALon 02-21-2023 , QUAL Negative Normal NEGATIVE [facility] Comment on above: Performed By: #### P REG #### [facility] [address] [place] [address] Dr. Sol Flores PROF 14(COMP METB)on 023 Albumin [Mass/Vol] 3.9 g/dL Normal 3.4-5.0 [facility] Comment on above: Performed By: #### H STROPN, TSH, CMP #### [facility] [address] [place] [address] Dr. Sol Flores Albumin/Globulin [Mass ratio] 1.1 {ratio} Normal [facility] Comment on above: Performed By: #### H STROPN, TSH, CMP #### [facility] [address] [address] [address] Sol Flores ALP [Catalytic activity/Vol] 90 U/L Normal 46-116 [facility] Comment on above: Performed By: #### H STROPN, TSH, CMP #### [facility] [address] [address] [address] Sol Flores ALT [Catalytic activity/Vol] 19 U/L Normal 14-59 [facility] Comment on above: Performed By: #### H STROPN, TSH, CMP #### [facility] [address] [address] [address] Sol Flores Anion gap [Moles/Vol] 13.3 mmol/L Normal [facility] Comment on above: Performed By: #### H STROPN, TSH, CMP #### [facility] [address] [place] [address] Dr. Sol Flores AST [Catalytic activity/Vol] 16 U/L Normal 15-37 [facility] Comment on above: Performed By: #### H STROPN, TSH, CMP #### [facility] [address] [address] [address] Sol Flores Bilirubin [Mass/Vol] 0.2 mg/dL Normal 0.2-1.0 [facility] Comment on above: Performed By: #### H STROPN, TSH, CMP #### [facility] [address] [address] [address] Sol Flores Calcium [Mass/Vol] 8.8 mg/dL Normal 8.5-10.1 [facility] Comment on above: Performed By: #### H STROPN, TSH, CMP #### [facility] [address] [address] [address] Sol Flores Chloride [Moles/Vol] 105 mmol/L Normal 98-107 [facility] Comment on above: Performed By: #### H STROPN, TSH, CMP #### [facility] [address] [address] [address] Sol Flores CO2 [Moles/Vol] 24.5 mmol/L Normal 21.0-32.0 [facility] Comment on above: Performed By: #### H STROPN, TSH, CMP #### [facility] [address] [address] [address] Sol Flores Creatinine [Mass/Vol] 0.79 mg/dL Normal 0.55-1.02 [facility] Comment on above: Performed By: #### H STROPN, TSH, CMP #### [facility] [address] [address] [address] Sol Flores EGFR-AF VIETNAMESE >60 Normal >=60 [facility] Comment on above: Performed By: #### H STROPN, TSH, CMP #### [facility] [address] [address] [address] Sol Flores EGFR-NON AF VIETNAMESE >60 Normal >=60 [facility] Comment on above: Performed By: #### H STROPN, TSH, CMP #### [facility] [address] [address] [address] Sol Flores Globulin (S) [Mass/Vol] 3.5 g/dL Normal [facility] Comment on above: Performed By: #### H STROPN, TSH, CMP #### [facility] [address] [address] [address] Sol Flores Glucose [Mass/Vol] 102 mg/dL Normal 74-106 [facility] Comment on above: Performed By: #### H STROPN, TSH, CMP #### [facility] [address] [address] [address] Sol Flores Potassium [Moles/Vol] 3.8 mmol/L Normal 3.5-5.1 [facility] Comment on above: Performed By: #### H STROPN, TSH, CMP #### [facility] [address] [address] [address] Sol Flores Protein [Mass/Vol] 7.4 g/dL Normal 6.4-8.2 [facility] Comment on above: Performed By: #### H STROPN, TSH, CMP #### [facility] [address] [address] [address] Sol Flores Sodium [Moles/Vol] 139 mmol/L Normal 136-145 [facility] Comment on above: Performed By: #### H GENESIS TSH, CMP #### [facility] [address] [place] [address] Dr. Sol Flores Urea nitrogen [Mass/Vol] 9.0 mg/dL Normal 7.0-18.0 [facility] Comment on above: Performed By: #### H GENESIS TSH, CMP #### [facility] [address] [place] [address] Dr. Sol Flores Urea nitrogen/Creatinine [Mass ratio] 11.4 mg/mg Normal [facility] Comment on above: Performed By: #### H GENESIS TSH, CMP #### [facility] [address] [place] [address] Dr. Sol Flores PROTIMEon 02-21-2023 INR Coag (PPP) [Relative time] 0.98 {INR} Normal [facility] Comment on above: Performed By: #### D DIM, PT, PTT #### [facility] [address] [place] [address] Dr. Sol Flores INR GUIDELINES SEE BELOW Normal [facility] Comment on above: Result Comment: LAWRENCE RED INR: 2.0 - 3.0 CONDITIONS NOT LISTED BELOW 2.5 - 3.5 FOR PROSTHETIC HEART VALVE REPLACEMENT 2.5 - 3.5 RECURRENT THROMBOSIS Performed By: #### D DIM, PT, PTT #### [facility] [address] [place] [address] Dr. Sol Flores PT Coag (PPP) [Time] 10.4 s Normal 9.0-11.6 [facility] Comment on above: Performed By: #### D DIM, PT, PTT #### [facility] [address] [place] [address] Dr. Sol Flores PTTon 02-21-2023 aPTT Coag (Bld) [Time] 29.4 s Normal 22.3-36.2 [facility] Comment on above: Performed By: #### D DIM, PT, PTT #### [facility] [address] [place], [place] [address] Dr. Sol Flores TROPONIN, HIGH SENSITIVITYon 02-21-2023 HSTROP <4.0 Normal 4.0-51.3 [facility] Comment on above: Result Comment: CUT- OFF POINTS HAVE BEEN ESTABLISHED BASED ON THE FOURTH UNIVERSAL DEFINITIONS OF MYOCARDIAL INFARCTION. THE UPPER REFERENCE LIMIT (URL) OF TROPONIN, DEFINED THE 99TH PERCENTILE OF cTnI DISTRIBUTION IN A REFERENCE POPULATION, HAS BEEN CONFIRMED THE DECISION THRESHOLD FOR [place] DIAGNOSIS. Performed By: #### H STROPN, TSH, CMP #### [facility] [address] [place], [place] [address] Dr. Sol Flores TSHon 02-21-2023 TSH 1.985 uIU/mL Normal 0.358-3.740 [facility] Comment on above: Performed By: #### H STROPN, TSH, CMP #### [facility] [address] [place], [place] [address] Dr. Sol Flores XR CHEST 1 Von [...] FAITH NUÑEZ Date: 2023-02-21 15:33 Normal [facility] Gynecology Office/Clinic Not [place] 10-30-2020 Gynecology [...] Vaginal itch/burning/odor: No Additional HPI details: LMP 09/21, periods regular up until that point. Has [...] by Myriam Bean 10/30/20 15:04 EST Normal [facility] OR Trackon 10-30-2020 Pl Red # 1 Normal [facility] Comment on above: Performed By: #### [facility] #### [facility] [address] [place] [id number] S Preg Rflx [facility] 0 Serum Preg Negative [facility] Comment on above: Result Comment: The hCG Combo Rapid Test has a sensitivity of 10 mIU/mL in serum and is capable of detecting as early as 1 day after the first missed menses. Performed By: #### C [id number] #### [address] [address] Vital Signs Date Time Vital Sign Value Performing Clinician aKtelini lity 05-03-2025 10:15040 Body mass index (BMI) [Ratio] 29.29 kg/m2 Myrl Work Phone: [facility] 05-03-2025 10:15040 Body weight 84.82 kg Myrl Work Phone: [facility] 05-03-2025 10:15040 Diastolic blood pressure 70 mm[Hg] Brandy Merrill DO Work Phone: [facility] 05-03-2025 10:15-0400 Systolic blood pressure 110 mm[Hg] Brandy Merrill DO Work Phone: [facility] 04-27-2025 11:26-0400 Body mass index (BMI) [Ratio] 29.1 kg/m2 Yvette Trish PA Work Phone: [facility] 04-27-2025 11:26-0400 Body weight 84.28 kg Yvette [place] PA Work Phone: [facility] 04-27-2025 11:26-0400 Diastolic blood pressure 62 mm[Hg] Yvette [place] PA Work Phone: [facility] 04-27-2025 11:26-0400 Systolic blood pressure 100 mm[Hg] Yvette [place] PA Work Phone: [facility] 04-20-2025 11:53-0400 Body mass index (BMI) [Ratio] 28.66 kg/m2 Brandy Merrill DO Work Phone: [facility] 04-20-2025 11:53-0400 Body weight 83.01 kg Brandy Merrill DO Work Phone: [facility] 04-20-2025 11:53-0400 Diastolic blood pressure 60 mm[Hg] Brandy Merrill DO Work Phone: [facility] 04-20-2025 11:53-0400 Systolic blood pressure 104 mm[Hg] Brandy Merrill DO Work Phone: [facility] 04-13-2025 13:00-0400 Body mass index (BMI) [Ratio] 28.71 kg/m2 Brandy Merrill DO Work Phone: [facility] 04-13-2025 13:00-0400 Body weight 83.14 kg Brandy Merrill DO Work Phone: [facility] 04-13-2025 13:00-0400 Diastolic blood pressure 70 mm[Hg] Brandy Merrill DO Work Phone: [facility] 04-13-2025 13:00-0400 Systolic blood pressure 112 mm[Hg] Brandy Merrill DO Work Phone: [facility] 03-30-2025 10:49-0400 Body mass index (BMI) [Ratio] 28.04 kg/m2 Xiomara Elliott GRAIN ORIGINATION SPECIALIST Work Phone: [facility] 03-30-2025 10:49-0400 Body weight 81.19 kg Xiomara Elliott GRAIN ORIGINATION SPECIALIST Work Phone: [facility] 03-30-2025 10:49-0400 Diastolic blood pressure 64 mm[Hg] Xiomara Elliott GRAIN ORIGINATION SPECIALIST Work Phone: [facility] 03-30-2025 10:49-0400 Systolic blood pressure 114 mm[Hg] Xiomara Elliott GRAIN ORIGINATION SPECIALIST Work Phone: [facility] 03-17-2025 09:35-0400 Body mass index (BMI) [Ratio] 27.64 kg/m2 Xiomara Elliott GRAIN ORIGINATION SPECIALIST Work Phone: [facility] 03-17-2025 09:35-0400 Body weight 80.06 kg Xiomara Elliott GRAIN ORIGINATION SPECIALIST Work Phone: [facility] 03-17-2025 09:35-0400 Diastolic blood pressure 66 mm[Hg] Xiomara Elliott GRAIN ORIGINATION SPECIALIST Work Phone: [facility] 03-17-2025 09:35-0400 Systolic blood pressure 116 mm[Hg] Xiomara Elliott GRAIN ORIGINATION SPECIALIST Work Phone: [facility] 03-03-2025 10:17-0400 Body mass index (BMI) [Ratio] 26.51 kg/m2 Brandy Merrill DO Work Phone: [facility] 03-03-2025 10:17-0400 Body weight 76.77 kg Brandy Merrill DO Work Phone: [facility] 03-03-2025 10:17-0400 Diastolic blood pressure 72 mm[Hg] Brandy Merrill DO Work Phone: [facility] 03-03-2025 10:17-0400 Systolic blood pressure 110 mm[Hg] Brandy Merrill DO Work Phone: [facility] 02-15-2025 08:49-0400 Body mass index (BMI) [Ratio] 26.16 kg/m2 Yvette Trish PA Work Phone: [facility] 02-15-2025 08:49-0400 Body weight 75.75 kg Yvette Trish PA Work Phone: [facility] 02-15-2025 08:49-0400 Diastolic blood pressure 62 mm[Hg] Yvette Trish PA Work Phone: [facility] 02-15-2025 08:49-0400 Systolic blood pressure 110 mm[Hg] Yvette Trish PA Work Phone: [facility] 01-18-2025 08:47-0500 Body mass index (BMI) [Ratio] 23.96 kg/m2 Brandy Merrill DO Work Phone: [facility] 01-18-2025 08:47-0500 Body weight 69.4 kg Brandy Merrill DO Work Phone: [facility] 01-18-2025 08:47-0500 Diastolic blood pressure 60 mm[Hg] Brandy Merrill DO Work Phone: [facility] 01-18-2025 08:47-0500 Systolic blood pressure 100 mm[Hg] Brandy Merrill DO Work Phone: [facility] 12-22-2024 11:36-0500 Body mass index (BMI) [Ratio] 22.26 kg/m2 Yvette Trish PA Work Phone: [facility] 12-22-2024 11:36-0500 Body weight 64.47 kg Yvette Chambers PA Work Phone: [facility] 12-22-2024 11:36-0500 Diastolic blood pressure 48 mm[Hg] Yvette Chambers PA Work Phone: [facility] 12-22-2024 11:36-0500 Systolic blood pressure 98 mm[Hg] Yvette TABOR Work Phone: [facility] 11-24-2024 16:03-0500 Body mass index (BMI) [Ratio] 21.21 kg/m2 Brandy Merrill DO Work Phone: [facility] 11-24-2024 16:03-0500 Body weight 61.42 kg Brandy Merrill DO Work Phone: [facility] 11-24-2024 16:03-0500 Diastolic blood pressure 60 mm[Hg] Brandy Merrill DO Work Phone: [facility] 11-24-2024 16:03-0500 Systolic blood pressure 100 mm[Hg] Brandy Merrill DO Work Phone: [facility] 10-25-2024 11:03-0500 Body mass index (BMI) [Ratio] 20.67 kg/m2 [facility] Nurse [facility] 10-25-2024 11:03-0500 Body weight 59.88 kg [facility] Nurse [facility] 08-11-2024 10:18-0400 Body mass index (BMI) [Ratio] 20.05 kg/m2 Mariel Caballero MD Work Phone: [facility] 08-11-2024 10:18-0400 Body weight 58.06 kg Mariel Caballero MD Work Phone: [facility] 08-11-2024 10:18-0400 Diastolic blood pressure 72 mm[Hg] Mariel Caballero MD Work Phone: [facility] 08-11-2024 10:18-0400 Heart rate 113 /min Mariel Caballero MD Work Phone: [facility] 08-11-2024 10:18-0400 Systolic blood pressure 116 mm[Hg] Mariel Caballero MD Work Phone: [facility] Encounters Encounter Date Encounter Type Care Provider Facility Start: 05-03-2025 End: 05-03-2025 Bamboo flowsheet Brandy Merrill DO Work Phone: [facility] Start: 05-03-2025 End: 05-03-2025 Bamboo flowsheet Brandy Merrill DO Work Phone: [facility] Start: 05-03-2025 End: 05-03-2025 flow sheet Brandy Merrill DO Work Phone: [facility] Comment on above: Third trimester preg myrna ([facility]); 38 weeks gestation of ([facility]) Start: 05-03-2025 End: 05-03-2025 ambulatory BRANDY MERRILL Not Available Start: 04-27-2025 End: 04-27-2025 Bamboo flowsheet Yvette TABOR Work Phone: [facility] Start: 04-27-2025 End: 04-27-2025 Bamboo flowsheet Yvette TABOR Work Phone: [facility] Start: 04-27-2025 End: 04-27-2025 flow sheet Yvette TABOR Work Phone: [facility] Comment on above: 37 weeks gestation o f ; Third trimester Start: 04-27-2025 End: 04-27-2025 ambulatory YVETTE CHAMBERS Not Available Start: 04-20-2025 End: 04-20-2025 Bamboo flowsheet Brandy Merrill DO Work Phone: [facility] Start: 04-20-2025 End: 04-20-2025 Bamboo flowsheet Brandy Merrill DO Work Phone: [facility] Start: 04-20-2025 End: 04-20-2025 flow sheet Brandy Merrill DO Work Phone: [facility] Comment on above: Third trimester preg myrna; 36 weeks gestation of Start: 04-20-2025 End: 04-20-2025 ambulatory BRANDY MERRILL Not Available Start: 04-13-2025 End: 04-13-2025 Bamboo flowsheet Brandy Merrill DO Work Phone: [facility] Start: 04-13-2025 End: 04-13-2025 Bamboo [...] 03-30-2025 End: 03-30-2025 Bamboo flowsheet Xiomara Elliott GRAIN ORIGINATION SPECIALIST Work Phone: [facility] Start: 03-30-2025 End: 03-30-2025 Bamboo flowsheet Xiomara Elliott GRAIN ORIGINATION SPECIALIST Work Phone: [facility] Start: 03-30-2025 End: 03-30-2025 ambulatory XIOMARA ELLIOTT Not Available Start: 03-30-2025 End: 03-30-2025 flow sheet Xiomara Elliott GRAIN ORIGINATION SPECIALIST Work Phone: [facility] Comment on [...] 03-17-2025 End: 03-17-2025 Bamboo flowsheet Xiomara Elliott GRAIN ORIGINATION SPECIALIST Work Phone: [facility] Start: 03-17-2025 End: 03-17-2025 Bamboo flowsheet Xiomara Elliott GRAIN ORIGINATION SPECIALIST Work Phone: [facility] Start: 03-17-2025 End: 03-17-2025 ambulatory XIOMARA ELLIOTT Not Available Start: 03-17-2025 End: 03-17-2025 flow sheet Xiomara Gallagher GRAIN ORIGINATION SPECIALIST Work Phone: [facility] Comment on [...] End: 11-13-2024 ambulatory Mariel Caballero Facility:[facility] Start: 11-13-2024 Encounter for genera l adult medical examination without abnormal findings Mariel Caballero [facility] Start: 11-13-2024 End: 11-13-2024 Clinisync [...] GA: 11w1d Start: 09-28-2024 ambulatory DORINDA MORENO [facility] Start: 08-11-2024 End: 08-11-2024 ambulatory MARIEL CABALLERO [facility] Start: 08-11-2024 End: 08-11-2024 Office outpatient visit 25 minutes Mariel Caballero MD Work Phone: [facility] Comment on above: Seizure-like activit y (CMS-HCC) (Primary Dx) Start: 06-29-2024 End: 06-29-2024 ambulatory GUILLERMO WING Not Available Start: 06-15-2024 End: 06-15-2024 ambulatory GUILLERMO WING Not Available Start: 06-10-2024 End: 06-10-2024 ambulatory GUILLERMO WING Not Available Start: 02-21-2023 End: 02-21-2023 ambulatory CHRISTINE SALVADOR Facility: Procedures Date Procedure Procedure Detail Performing Clinician Start: 05-03-2025 Urnls dip stick/tabl et rgnt non-auto w/o micrscp Brandy Merrill DO Work Phone: Start: 04-27-2025 Urnls dip stick/tabl et rgnt non-auto w/o micrscp Yvette TABOR Work Phone: Start: 03-19-2025 [facility] Brandy Fazi o DO Work Phone: Start: 03-14-2025 US OB CERVICAL LENGTH C orey Merrill DO Work Phone: Start: 03-14-2025 US OB BPP W NON-STRESS Brandy Merrill DO Work Phone: Start: 03-14-2025 US OB PLACENTA Brandy Fa zio DO Work Phone: Start: 03-14-2025 [facility] UA (CLEAN/CATCH) UPHOLSTERY SEWER/MICRO IF IND. Brandy Merrill DO Work Phone: [...] Office Visit [facility] [address] [place] [address] Jesus Church MD, IBCLC [address] [place] [address] [facility] Start: 07-18-2025 Influenza vaccination Influenz a Vaccine (Season Ended) [facility] Start: 05-03-2025 End: 05-03-2025 Patient encounter procedure 05/03/2025 10:00 AM EDT Routine [facility] [address] [place] [address] Brandy Momin, DO [address] [place], [place] [id number] Arrived [facility] Comment on above: Arrived Start: 04-20-2025 End: 04-20-2026 CULTURE, GROUP B STREP WITH SUSCEPTIBLITY CULTURE, GROUP B STREP WITH SUSCEPTIBLITY Lab Routine Third trimester Expected: 04/20/2025, Expires: 04/20/2026 [facility] Work Phone: Comment on above: Expected: 04/20/2025 , Expires: 04/20/2026 Start: 04-20-2025 End: 04-20-2025 Patient encounter procedure [facility] Comment on above: Arrived Start: 04-13-2025 End: 04-13-2025 Patient encounter procedure [facility] Comment on above: Arrived Start: 04-07-2025 End: 04-07-2025 Patient encounter procedure 04/07/2025 2:00 PM EDT Office Visit [facility] [address] [place] [address] Jesus Church MD, IBCLC [address] [place] [facility] [place] [address] [facility] Start: 03-30-2025 End: 03-30-2025 Patient encounter procedure 03/30/2025 10:30 AM EDT Routine [facility] [address] [place] [phone] Xiomara Gallagher, GRAIN ORIGINATION SPECIALIST [address] [place] [address] [facility] Start: 03-17-2025 End: 03-17-2025 Patient encounter procedure 03/17/2025 9:10 AM EDT Routine [facility] [address] [place] [address] Xiomara Gallagher, GRAIN ORIGINATION SPECIALIST [address] [place] [address] [facility] Start: 03-03-2025 End: 03-03-2026 Transferrin [Mass/volume] in Serum or Plasma Transferrin Lab Routine Anemia affecting in third trimester Expected: 03/03/2025 (Approximate), Expires: 03/03/2026 [facility] Comment on above: Expected: 03/03/2025 (Approximate), Expires: 03/03/2026 Start: 03-03-2025 End: 03-03-2025 Patient encounter procedure 03/03/2025 10:10 AM EDT Routine [facility] [address] [facility] [id number] Brandy Momin DO [address] [place], [place] [id number] [facility] Start: 03-03-2025 End: 03-03-2025 Professional / ancillary services management 03/03/2025 9:30 AM EDT Ancillary Procedure [facility] [address] [facility] [address] [address] [facility] Start: 02-15-2025 End: 02-15-2026 US for US OB follow up transabdominal approach Imaging Routine size inconsistent with dates Expected: 02/15/2025, Expires: 02/15/2026 [facility] Work Phone: Comment on above: Expected: 02/15/2025 , Expires: 02/15/2026 Start: 02-15-2025 End: 02-15-2025 Patient encounter procedure 02/15/2025 8:30 AM EDT Routine [facility] [address] [facility] [address] [phone] Yvette Chambers PA [address] [place], [place] [id number] [facility] Start: 01-18-2025 End: 01-18-2026 CBC panel - Blood by Automated count CBC Lab Routine Diabetes mellitus screening Expected: 01/18/2025 (Approximate), Expires: 01/18/2026 [facility] Work Phone: Comment on above: Expected: 01/18/2025 (Approximate), Expires: 01/18/2026 Start: 01-18-2025 End: 01-18-2026 Measurement of glucose 1 hour after glucose challenge for glucose tolerance test Glucose tolerance, 1 hour Lab Routine Diabetes mellitus screening Expected: 01/18/2025 (Approximate), Expires: 01/18/2026 [facility] Comment on above: Expected: 01/18/2025 (Approximate), Expires: 01/18/2026 Start: 01-18-2025 End: 01-18-2025 Patient encounter procedure [facility] Comment on above: Arrived Start: 12-30-2024 End: 12-30-2024 Professional / ancillary services management 12/30/2024 2:30 PM EST Ancillary Procedure [facility] [address] [place] [phone] [facility] Start: 12-22-2024 End: 12-22-2025 US for US OB 14+ weeks anatomy scan Imaging Routine Screening, , for anatomic survey Expected: 12/22/2024, Expires: 12/22/2025 [facility] Work Phone: Comment on above: Expected: 12/22/2024 , Expires: 12/22/2025 Start: 12-22-2024 End: 12-22-2024 Patient encounter procedure 12/22/2024 11:20 AM EST Routine [facility] [address] [place] [phone] Yvette Chambers PA [address] [facility] [address] [facility] Start: 11-24-2024 End: 11-24-2024 Patient encounter procedure 11/24/2024 3:10 PM EST Routine [facility] [address] [place] [phone] Brandy Momin DO [address] [place] [address] [facility] Start: 11-24-2024 End: 12-25-2024 Alpha fetoprotein, maternal Alpha fetoprotein, maternal Lab Routine 15 weeks gestation of Second trimester Expected: 11/24/2024 (Approximate), Expires: 12/25/2024 [facility] Work Phone: Comment on above: Expected: 11/24/2024 (Approximate), Expires: 12/25/2024 Start: 10-25-2024 End: 10-25-2025 ABO/Rh ABO/Rh Lab Routine Missed menses , unspecified gestational age Expected: 10/25/2024 (Approximate), Expires: 10/25/2025 [facility] Comment on above: Expected: 10/25/2024 (Approximate), Expires: 10/25/2025 Start: 10-25-2024 End: 10-25-2025 Blood type and Indirect antibody screen panel - Blood Type and screen Lab Routine Missed menses , unspecified gestational age Expected: 10/25/2024 (Approximate), Expires: 10/25/2025 [facility] Work Phone: Comment on above: Expected: 10/25/2024 (Approximate), Expires: 10/25/2025 Start: 10-25-2024 End: 10-25-2025 Drugs of abuse panel - Urine by Screen method Rapid drug screen, urine Lab Routine , unspecified gestational age Encounter for supervision of normal first in first trimester Expected: 10/25/2024 (Approximate), Expires: 10/25/2025 [facility] Comment on above: Expected: 10/25/2024 (Approximate), Expires: 10/25/2025 Start: 10-25-2024 End: 10-25-2025 US Pelvis transvaginal US OB transvaginal Imaging Routine Missed menses Expected: 10/25/2024 (Approximate), Expires: 10/25/2025 [facility] Comment on above: Expected: 10/25/2024 (Approximate), Expires: 10/25/2025 Start: 07-18-2024 Influenza vaccination Influenza Vacc ine [facility] Start: 06-02-2024 Adult BMI Screening Adult BMI Screen ing [facility] Start: 06-02-2024 Tobacco Screening Tobacco Screening [facility] Start: 05-05-2024 Depression Screening Depression Scre ening [facility] Start: 2022 Screening for malign ant neoplasm of cervix Pap Smear [facility] Start: 2020 DTaP,Tdap and Td Vaccines (1 - Tdap) DTaP,Tdap and Td Vaccines (1 - Tdap) [facility] Bacteria identified in Urine by Culture Urine culture Microbiology Routine Missed menses Ordered: 10/25/2024 [facility] Comment on above: Ordered: 10/25/2024 CBC W Auto Different ial panel - Blood CBC and differential Lab Routine Missed menses , unspecified gestational age Ordered: 10/25/2024 [facility] Comment on above: Ordered: 10/25/2024 CBC W Auto Different ial panel - Blood CBC and differential Lab Routine Anemia affecting in third trimester Ordered: 03/30/2025 [facility] Work Phone: Comment on above: Ordered: 03/30/2025 CHLAMYDIA TRACHOMATI S (GENITO/STI) CHLAMYDIA TRACHOMATIS (GENITO/STI) Lab Routine STD exposure Vaginal discharge Ordered: 12/22/2024 [facility] Comment on above: Ordered: 12/22/2024 Cytology Cervical or vaginal smear or scraping study Pap Smear Pathology and Cytology Routine Well woman exam with routine gynecological exam Ordered: 12/22/2024 [facility] Comment on above: Ordered: 12/22/2024 Ferritin [Mass/volum e] in Serum or Plasma Ferritin Lab Routine Anemia affecting in third trimester Ordered: 03/03/2025 [facility] Work Phone: Comment on above: Ordered: 03/03/2025 Hemoglobin A1c/Hemoglobin.total in Blood Hemoglobin A1c Lab Routine Missed menses , unspecified gestational age Ordered: 10/25/2024 [facility] Comment on above: Ordered: 10/25/2024 Hepatitis B virus surface Ag [Presence] in Serum or Plasma by Immunoassay Hepatitis B surface antigen Lab Routine Missed menses , unspecified gestational age Ordered: 10/25/2024 [facility] Comment on above: Ordered: 10/25/2024 Hepatitis C virus Ab [Presence] in Serum or Plasma by Immunoassay Hepatitis C antibody Lab Routine Missed menses , unspecified gestational age Ordered: 10/25/2024 [facility] Comment on above: Ordered: 10/25/2024 HIV-1/HIV-2 antigen/antibody combination immunoassay HIV-1 and HIV-2 antibodies Lab Routine Missed menses , unspecified gestational age Ordered: 10/25/2024 [facility] Comment on above: Ordered: 10/25/2024 Neisseria gonorrhoea e DNA [Presence] in Unspecified specimen by NELDA with probe detection Neisseria gonorrhea DNA probe, direct Lab Routine STD exposure Vaginal discharge Ordered: 12/22/2024 [facility] Comment on above: Ordered: 12/22/2024 Reagin Ab [Presence] in Serum by RPR RPR Lab Routine Missed menses , unspecified gestational age Ordered: 10/25/2024 [facility] Comment on above: Ordered: 10/25/2024 Rubella antibody, IgG Rubella an tibody, IgG Lab Routine Missed menses , unspecified gestational age Ordered: 10/25/2024 [facility] Comment on above: Ordered: 10/25/2024 SURESWAB(R) ADVANCED VAGINITIS PLUS, TMA SURESWAB(R) ADVANCED VAGINITIS PLUS, TMA Pathology and Cytology Routine STD exposure Vaginal discharge Ordered: 12/22/2024 [facility] Comment on above: Ordered: 12/22/2024 Payers Date Payer Category Payer Self-pay 2024 Worker's Compensation [id number] 2024 Unknown [id number] 2024 Unknown [id number] 2020 Private Health Insurance [id number] 2001 Unknown [id number] 2.16.84 0.1.605344.3.579.2.593 2001 Unknown [id number] 2.16.8 40.1.953387.3.579.2.1286 2001 Unknown [id number] 2.16.8 40.1.721469.3.579.2.1286 2001 Unknown [id number] 2.16.8 40.1.449620.3.579.2.1258 2001 Unknown [id number] 2.16.8 40.1.924949.3.579.2.1258 2001 Unknown [id number] 2.16.8 40.1.404973.3.579.2.1258 2001 Unknown [id number] 2.16.8 40.1.848319.3.579.2.1258 2001 Unknown [id number] 2.16.8 40.1.656851.3.579.2.1258 2001 Unknown [id number] 2.16.8 40.1.137151.3.579.2.1258 2001 Unknown [id number] 2.16.84 0.1.448041.3.579.2.1258 2001 Unknown [id number] 2.16.84 0.1.827980.3.579.2.1258 2001 Unknown [id number] 2.16.84 0.1.651271.3.579.2.1258 2001 Unknown [id number] 2.16.84 0.1.155123.3.579.2.1258 2001 Unknown [id number] 2.16.84 0.1.077899.3.579.2.1258 2001 Unknown [id number] 2.16.84 0.1.097330.3.579.2.1258 2001 Unknown [id number] 2.16.84 0.1.730706.3.579.2.1258 2001 Unknown [id number] 2.16.84 0.1.302650.3.579.2.1258 2001 Unknown [id number] 2.16.84 0.1.038061.3.579.2.1258 2001 Unknown [id number] 2.16.84 0.1.506935.3.579.2.1258 2001 Unknown [id number] 2.16.84 0.1.614448.3.579.2.1258 2001 Unknown [id number] 2.16.84 0.1.702853.3.579.2.1258 2001 Unknown [id number] 2.16.84 0.1.932693.3.579.2.1258 2001 Unknown [id number] 2.16.84 0.1.373650.3.579.2.1258 2001 Unknown [id number] 2.16.84 0.1.518241.3.579.2.1258 2001 Unknown [id number] 2.16.84 0.1.136295.3.579.2.1258 2001 Unknown [id number] 2.16.84 0.1.770329.3.579.2.1258 2001 Unknown [id number] 2.16.84 0.1.797205.3.579.2.1258 2001 Unknown [id number] 2.16.84 0.1.995050.3.579.2.1258 2001 Unknown [id number] 2.16.84 0.1.738546.3.579.2.1258 2001 Unknown [id number] 2.16.84 0.1.315224.3.579.2.1258 2001 Unknown [id number] 2.16.84 0.1.388230.3.579.2.1258 2001 Unknown [id number] 2.16.84 0.1.840937.3.579.2.1258 2001 Unknown [id number] 2.16.84 0.1.948798.3.579.2.1258 2001 Unknown [id number] 2.16.84 0.1.582890.3.579.2.1258 2001 Unknown [id number] 2.16.84 0.1.044356.3.579.2.1259 2001 Unknown [id number] 2.16.84 0.1.961886.3.579.2.9 2001 Unknown [id number] 2.16.84 0.1.488176.3.579.2.9 2001 Unknown [id number] 2.16.84 0.1.224537.3.579.2.1258 2001 Unknown [id number] 2.16.84 0.1.424272.3.579.2.9 2001 Unknown [id number] 2.16.84 0.1.479395.3.579.2.9 2001 Unknown [id number] 2.16.84 0.1.104182.3.579.2.1259 1959 Private Health Insurance [id number] Unknown [id number] 2.16.8 40.1.123066.3.579.2.531 Social History Date Type Detail Facility Start: 10-13-2023 [facility] consumption unknown [facility] Start: 10-25-2024 End: 05-03-2025 Alcoholic beverage intake Current drinker of alcohol (finding) [facility] Start: 10-25-2024 End: 04-07-2025 Alcoholic beverage intake [facility] Start: 06-15-2024 End: 04-07-2025 Tobacco use panel [facility] Start: 08-22-2024 [facility] Start: 2001 Sex assigned at Not on file P [facility] Start: 10-17-2022 End: 04-07-2025 Tobacco smoking status NJIS Never smoked tobacco [facility] Start: 10-17-2022 End: 04-07-2025 Tobacco use and exposure Smokeless tobacco non-user [facility] Do you belong to any clubs or organizations such as methodist groups, unions, fraternal or athletic groups, or school groups? No [facility] Are you now , , , , never or living with a partner? Living with partner [facility] How often to you hav e a drink containing alcohol? 2-4 times a month [facility] How many standard drinks containing alcohol do you have on a typical day? 1 or 2 [facility] How often do you hav e 6 or more drinks on 1 occasion? Less than monthly [facility] How hard is it for y ou to pay for the very basics like food, housing, medical care, and heating Not hard at all [facility] Do you feel stress - tense, restless, nervous, or anxious, or unable to sleep at night because your mind is troubled all the time - these days [OSQ] Very much [facility] Start: 12-24-2022 Education 14 [facility] Start: 2001 Sex assigned at Female [facility] Start: 04-07-2025 Gender identity Identifies as female gender (finding) [facility] Start: 04-07-2025 Sexual orientation Heterosexual (fin ding) [facility] NEGATED: Highlighted rowStart: MINDYF History of tobacco use Passive smoker [facility] Clinical Notes 08-11-2024 to 05-03-2025 SHARONA Jasmine - 05/03/2025 10:00 AM SHARONA Yeager - 04/27/2025 11:20 AM Christiane Gallagher NP - 04/20/2025 11:20 AM Federico Seay LPN - 04/13/2025 1:00 PM EDT Note Date & Type Note Facility 05-03-2025 History of Present illness Narrative Reason for Appointment: Patient ID: Megha Khalil is a 24 y.o. female who presents for Routine Visit Patient presents today for Return OB appointment. MEDICATIONS Current Outpatient Medications Medication Instructions MAGnesium-Oxide 400 mg, Daily Vit w/Da-Mvwxbwdka-VB (PNV PO) Take by mouth ProFe 391.3 [...] Vitals: Estimated body mass index is 29.29 kg/m as calculated from the following: Height as of 04/07/25: 5' 7 . Weight as of this encounter: 187 lb. BP: 110/70 Patient's last menstrual period was 08/08/2024. ASSESSMENT & PLAN ICD-10-CM 1. Third trimester ([facility]) Z34.93 POCT urinalysis dipstick manually resulted 2. 38 weeks gestation of ([facility]) Z3A.38 Return OB: Patient presents today for [...] Documented by SHARONA Jasmine on behalf of: Brandy Momin DO documented in this encounter [facility] 04-27-2025 History of Present illness Narrative Reason for Appointment: Patient ID: Megha Khalil is a 24 y.o. female who presents for Routine Visit Patient presents today for Return OB appointment. MEDICATIONS Current Outpatient Medications Medication Instructions MAGnesium-Oxide 400 mg, Daily Vit w/Rl-Yjulayisq-AZ (PNV PO) Take by mouth ProFe 391.3 (180 Fe) MG capsule 1 capsule, Daily ALLERGIES Allergies Allergen Reactions Penicillins Hives Sumatriptan Swelling PROBLEMS Active Ambulatory Problems Diagnosis Date Noted Immunization refused 04/07/2025 Chronic migraine with aura without status migrainosus, not intractable ([facility]) 04/07/2025 Dysautonomia ([facility]) 04/07/2025 Resolved Ambulatory Problems Diagnosis Date [...] Vitals: Estimated body mass index is 29.1 kg/m as calculated from the following: Height [...] of: SHARONA Jasmine documented in this encounter [facility] 04-20-2025 History of Present illness Narrative Reason for Appointment: Patient ID: Megha Khalil is a 24 y.o. female who presents for Routine Visit Patient presents today for Return OB appointment. MEDICATIONS Current Outpatient Medications Medication Instructions MAGnesium-Oxide 400 mg, Daily Vit w/Ii-Llgnlqdmw-SK (PNV PO) Take by mouth ProFe 391.3 (180 Fe) MG capsule 1 capsule, Daily ALLERGIES Allergies Allergen Reactions Penicillins Hives Sumatriptan Swelling PROBLEMS Active Ambulatory Problems Diagnosis Date Noted Immunization refused 04/07/2025 Chronic migraine with aura without status migrainosus, not intractable ([facility]) 04/07/2025 Dysautonomia ([facility]) 04/07/2025 Resolved Ambulatory Problems Diagnosis Date [...] Vitals: Estimated body mass index is 28.66 kg/m as calculated from the following: Height [...] by Xiomara Gallagher NP on behalf of: Brandy Momin DO documented in this encounter [facility] 04-13-2025 History of Present illness Narrative Reason for Appointment: Patient ID: Megha Khalil is a 24 y.o. female who presents for Routine Visit Patient presents today for Return OB appointment. MEDICATIONS Current Outpatient Medications Medication Instructions MAGnesium-Oxide 400 mg, Daily Vit w/Es-Begzhzhlo-NY (PNV PO) Take by mouth ProFe 391.3 (180 Fe) MG capsule 1 capsule, Daily ALLERGIES Allergies Allergen Reactions Penicillins Hives Sumatriptan Swelling PROBLEMS Active Ambulatory Problems Diagnosis Date Noted Immunization refused 04/07/2025 Chronic migraine with aura without status migrainosus, not intractable ([facility]) 04/07/2025 Dysautonomia ([facility]) 04/07/2025 Resolved Ambulatory Problems Diagnosis Date [...] nursing note reviewed. Exam conducted with a sap data analyst present. Vitals: Estimated body mass index is [...] Brandy Momin DO documented in this encounter [facility] 03-30-2025 History of Present illness Narrative Reason for Appointment: Patient ID: Megha Khalil is a 24 y.o. female who presents for Routine Visit Patient presents today for Return OB appointment. MEDICATIONS Current Outpatient Medications Medication Instructions MAGnesium-Oxide 400 mg, Daily Vit w/Cv-Dogejxejl-WF (PNV PO) Oral ProFe 391.3 (180 Fe) [...] nursing note reviewed. Exam conducted with a sap data analyst present. Vitals: Estimated body mass index is 28.04 kg/m as calculated from the following: Height as of 23: 5' 7 . Weight as of this [...] Xiomara Gallagher NP documented in this encounter [facility] 03-17-2025 History of Present illness Narrative Reason for Appointment: Patient ID: Megha Khalil is a 24 y.o. female who presents for Routine Visit Patient presents today for Return OB appointment. MEDICATIONS Current Outpatient Medications Medication Instructions MAGnesium-Oxide 400 mg, Daily Vit w/Ih-Onsstedzr-GV (PNV PO) Oral ALLERGIES Allergies Allergen Reactions [...] nursing note reviewed. Exam conducted with a sap data analyst present. Vitals: Estimated body mass index is [...] Xiomara Gallagher NP documented in this encounter [facility] 03-03-2025 History of Present illness Narrative Reason for Appointment: Patient ID: Megha Khalil is a 24 y.o. female who presents for Routine Visit Patient presents today for Return OB appointment. MEDICATIONS Current Outpatient Medications Medication Instructions MAGnesium-Oxide 400 mg, Daily Vit w/Vj-Xokdyhmnw-HP (PNV PO) Oral ALLERGIES Allergies Allergen Reactions [...] nursing note reviewed. Exam conducted with a sap data analyst present. Vitals: Estimated body mass index is [...] Brandy Momin DO documented in this encounter [facility] 02-15-2025 History of Present illness Narrative Reason for Appointment: Patient ID: Megha Khalil is a 24 y.o. female who presents for Routine Visit Patient presents today for Return OB appointment. MEDICATIONS Current Outpatient Medications Medication Instructions iron polysaccharides (PROFE) 391.3 mg, Oral, Daily MAGnesium-Oxide 400 mg, Daily Vit w/Yf-Kpyhsjehl-RJ (PNV PO) Oral ALLERGIES Allergies Allergen Reactions [...] calculated from the following: Height as of 23: 5' 7 . Weight as of this [...] of: SHARONA Jasmine documented in this encounter [facility] 01-18-2025 History of Present illness Narrative Reason for Appointment: Patient ID: Megha Khalil is a 24 y.o. female who presents for Routine Visit Patient presents today for Return OB appointment. MEDICATIONS Current Outpatient Medications Medication Instructions Vit w/Zh-Uzxvahvex-EP (PNV PO) Oral ALLERGIES Allergies Allergen Reactions [...] nursing note reviewed. Exam conducted with a sap data analyst present. Vitals: Estimated body mass index is [...] Brandy Momin DO documented in this encounter [facility] 12-22-2024 History of Present illness Narrative Reason for Appointment: Patient ID: Megha Khalil is a 24 y.o. female who presents for Routine Visit Patient presents today for Return OB appointment. MEDICATIONS Current Outpatient Medications Medication Instructions magnesium oxide (MAG-OX) 400 mg, Oral, Daily Vit w/Me-Rmedrjqzy-CG (PNV PO) Oral ALLERGIES Allergies Allergen Reactions [...] nursing note reviewed. Exam conducted with a sap data analyst present. Vitals: Estimated body mass index is 22.26 kg/m as calculated from the following: Height as of 23: 5' 7 . Weight as of this [...] of: SHARONA Jasmine documented in this encounter [facility] 11-24-2024 History of Present illness Narrative Reason for Appointment: Patient ID: Megha Khalil is a 24 y.o. female who presents for Routine Visit Patient presents today for Return OB appointment. MEDICATIONS Current Outpatient Medications Medication Instructions magnesium oxide (MAG-OX) 400 mg, Oral, Daily Vit w/Xm-Dyzujdylh-LT (PNV PO) Oral ALLERGIES Allergies Allergen Reactions [...] nursing note reviewed. Exam conducted with a sap data analyst present. Vitals: Estimated body mass index is [...] or undercooked meat, and stay away from [facility]. Patient has been consulted regarding any further do's and don'ts of . Patient voiced understanding and all questions and concerns were answered. Pt has occasional heart palpitations has seen street supervisor in the past will continue to monitor. Pt having headaches, rx for magnesium faxed to pharmacy. Orders Placed This Encounter Procedures Alpha fetoprotein, maternal POCT urinalysis dipstick manually resulted Follow Up: Patient is to return in 4 weeks for routine OB appointment. Documented by Yoli Seay LPN on behalf of: Brandy Momin DO documented in this encounter [facility] 10-25-2024 History of Present illness Narrative Reason [...] list which includes the following prescription(s): vit w/fg-jfjcxuxnq-bs. Medical History: Active Ambulatory Problems Diagnosis Date [...] or undercooked meat, and stay away from [facility]. Patient has also been advised to [...] Adriane Meeks LPN documented in this encounter [facility] 08-11-2024 History of Present illness Narrative Subjective Patient ID: Megha Khalil is a 24 y.o. female. About 2 weeks ago she was evaluated at [facility] for seizure like symptoms. She has [...] Neurology (Non-[facility]); Future documented in this encounter [facility] Evaluation note Diagnosis Missed menses [...] activity (CMS-HCC)- Primary [facility] Diagnosis Second trimester state, incidental [...] trimester Immunization refused Third trimester state, incidental 36 weeks gestation of [facility] Diagnosis Dysautonomia (CMS/HCC)- Primary Unspecified disorder of autonomic nervous system Well adult exam Routine general medical examination at a health care facility Chronic migraine with aura without status migrainosus, not intractable (CMS/HCC) 34 weeks gestation of Anemia affecting in third trimester Immunization refused 37 weeks gestation of Third trimester state, incidental [facility] Diagnosis Dysautonomia (HCC)- Primary Unspecified disorder of autonomic nervous system Well adult exam Routine general medical examination at a health care facility Chronic migraine with aura without status migrainosus, not intractable 34 weeks gestation of (HHS-HCC) Anemia affecting in third trimester (HHS-HCC) Immunization refused Third trimester (HHS-HCC) state, incidental 38 weeks gestation of (HHS-HCC) documented in this encounter [facility] HealthcareInstructionsNot on filedocumented in this encounterPro[facility] SystemReason for referral (narrative)* Consultation (Routine) - Pending Review Specialty Diagnoses / Procedures Referred By Sarah hernandez Referred To Contact Neurology Diagnoses Seizure-like activity (CMS-HCC) Mariel Caballero MD [address] [place] [address], [address] [place] [address] Jesse Lawton MD [address] [facility] [address] [address] Referral ID Status Reason Start Date Expiration Date Visits Requested Visits Authorized [id number] Pending Review Specialty Services Required 08/11/2024 08/11/2025 1 1 [facility] Summary Purpose Family History No [...] section and content) DATE CREATED AUTHOR 10/31/2020 [facility] DATE CREATED AUTHOR AUTHOR'S ORGANIZ ATION 03/15/2023 [facility] DATE CREATED AUTHOR AUTHOR'S ORGANIZ ATION 09/30/2024 [facility] DATE CREATED AUTHOR AUTHOR'S ORGANIZ ATION 01/02/2025 [facility] DATE CREATED AUTHOR AUTHOR'S ORGANIZ ATION 05/05/2025 [facility] EPIC Reason for Visit (unrecogniz ed section and content) Reason Comments Amenorrhea Reason Comments Routine Visit Reason Comments wants referral to Neurologyfor seizures Prefers [facility] in [place] - Dr Lawton, has had a CT scan for [facility]-like activity at [facility] Care Teams (unrecognized sec tion and content) Mixer Operator Tablets Relationship Specialty Start Date End Date Mariel Caballero MD [address] [place] [address], [address] [place] [address] PCP - General Family Medicine 09/26/23 Mixer Operator Tablets Relationship Specialty Start Date End Date Mariel Caballero MD [address] [place] [address], [address] [place] [address] PCP - General Family Medicine 09/26/23 Mixer Operator Tablets Relationship Specialty Start Date End Date Mariel Caballero MD [address] [place] [address], [address] [place], [place] [id number] PCP - General Family Medicine 09/26/23 Mixer Operator Tablets Relationship Specialty Start Date End Date Mariel Caballero MD [address] [place] [address], [address] [place], [place] [id number] PCP - General Family Medicine 09/26/23 Mixer Operator Tablets Relationship Specialty Start Date End Date Mariel Caballero MD [address] [place] [address], [address] [place] [address] PCP - General Family Medicine 09/26/23 Mixer Operator Tablets Relationship Specialty Start Date End Date Mariel Caballero MD [address] [place] [address], [address] [place] [address] PCP - General Family Medicine 09/26/23 Mixer Operator Tablets Relationship Specialty Start Date End Date Mariel Caballero MD [address] [place] [address], [address] [place] [address] PCP - General Family Medicine 09/26/23 Mixer Operator Tablets Relationship Specialty Start Date End Date Mariel Caballero MD [address] [place] [address], [address] [place] [address] PCP - General Pediatrics 12/03/17 Mixer Operator Tablets Relationship Specialty Start Date End Date Mariel Caballero MD [address] [place] [address], [address] [place] [address] PCP - General Family Medicine 09/26/23 Mixer Operator Tablets Relationship Specialty Start Date End Date Mariel Caballero MD PCP - General Family Medicine 09/26/23 Mixer Operator Tablets Relationship Specialty Start Date End Date Mariel Caballero MD PCP - General Family Medicine 09/26/23 Mixer Operator Tablets Relationship Specialty Start Date End Date Mariel Caballero MD PCP - General Family Medicine 09/26/23 Mixer Operator Tablets Relationship Specialty Start Date End Date Mariel Caballero MD PCP - General Family Medicine 09/26/23 Mixer Operator Tablets Relationship Specialty Start Date End Date Mariel Caballero MD PCP - General Family Medicine 09/26/23 Mixer Operator Tablets Relationship Specialty Start Date End Date Mariel Caballero MD PCP - General Family Medicine 09/26/23 Mixer Operator Tablets Relationship Specialty Start Date End Date Jesus Church MD, IBCLC [address] [place] [address] PCP - General Family Medicine 04/07/25 Mixer Operator Tablets Relationship Specialty Start Date End Date Jesus Church MD, IBCLC [address] [place] [address] PCP - General Family Medicine 04/07/25 Mixer Operator Tablets Relationship Specialty Start Date End Date Jesus Church MD, IBCLC [address] [place] [address] PCP - General Family Medicine 04/07/25 Mixer Operator Tablets Relationship Specialty Start Date End Date Jesus Church MD, IBCLC [address] [place] [address] PCP - General Family Medicine 04/07/25 FOR [...] BE BASED ON THE PRIMARY CLINICAL RECORDS. [facility]. provides no warranty or guarantee of the accuracy or completeness of information in this document.
--- OUTSIDE RECORDS SUMMARY | 2025-05-09 04:58 | XMS_ITS | Encounter Summary ---
Author Organization [facility] Address [address] [place] [address] Care Team Providers Care Land Acquisition Specialist Name Role Phone Chilo Momin MD Primary Care Provider Rosa Church MD, IBCLC Primary Care Provid er Encounter Details Date Type Department Care Team (Late st Contact Info) Description 03/09/2025 Abstract [facility] [address] [place] [address] Ruperto Momin, DO [address] [place] [address] Social History Tobacco Use Types Packs/Day Years [...] 04/07/2026 8:00 AM EDT Office Visit [facility] [address] [place] [id number] Rosa Church MD, IBCLC [address] [place] [address] documented as of this encounter Visit Diagnoses Not on filedocumented in this encounter Care Teams Land Acquisition Specialist Relationship Specialty Start Date End Date Chilo Momin MD PCP - General Family Medicine 09/26/23 04/06/25 Rosa Church MD, IBCLC [address] [place] [address] PCP - General Family Medicine 04/07/25 documented as of this encounter
--- OUTSIDE RECORDS SUMMARY | 2025-05-09 04:58 | XMS_ITS | Clinical Summary ---
Author Organization [facility] Address [address] [place] [address] Care Team Providers Care It Web Development Consultant Name Role Phone Rosa Church MD, IBCLC [...] Encounters Date Type Department Care Team Description 05/03/2025 10:00 AM EDT Routine [facility] [address] [place] [address] Brandy Momin DO Third trimester ([facility]); 38 weeks gestation of ([facility]) 05/03/2025 Abstract [facility] [address] [place] [address] Brandy Momin DO 05/03/2025 Bamboo flowsheet [facility] [address] [place] [address] Brandy Momin DO 04/27/2025 11:20 AM EDT Routine [facility] [address] [place] [address] Yvette Decker PA 37 weeks gestation of ([facility]); Third trimester ([facility]) 04/27/2025 Bamboo flowsheet [facility] [address] [place] [address] Yvette Decker PA 04/20/2025 11:20 AM EDT Routine [facility] [address] [place] [address] Brandy Momin DO Third trimester ([facility]); 36 weeks gestation of ([facility]) 04/20/2025 Bamboo flowsheet [facility] [address] [place] [address] Brandy Momin DO 04/13/2025 1:00 PM EDT Routine [facility] [address] [place] [address] Brandy Momin, DO Third trimester ([facility]); 35 weeks gestation of ([facility]) 04/13/2025 Bamboo flowsheet [facility] [address] [place] [address] Brandy Momin, DO 04/07/2025 2:00 PM EDT Office Visit [facility] [address] [facility] [place] [address] Rosa Church MD, IBCLC Dysautonomia (HCC) (Primary Dx); Well adult exam; Chronic migraine with aura without status migrainosus, not intractable ; 34 weeks gestation of ([facility]); Anemia affecting in third trimester ([facility]); Immunization refused 04/07/2025 Bamboo flowsheet [facility] [address] [facility] [place] [address] Rosa Church MD, IBCLC 04/07/2025 Travel 03/30/2025 10:30 AM EDT Routine [facility] [address] [place] [address] Xiomara Gallagher, HOANG Anemia affecting in third trimester ([facility]) (Primary Dx); Third trimester ([facility]); 33 weeks gestation of ([facility]) 03/30/2025 Bamboo flowsheet [facility] [address] [place] [address] Xiomara Gallagher, HOANG 03/19/2025 Clinisync Result Encounter [facility] External Department Unsolicited Brandy Momin, DO 03/18/2025 Abstract [facility] [address] [place] [address] Nadia Wilkins LPN 03/17/2025 9:10 AM EDT Routine [facility] [address] [place] [address] Xiomara Gallagher, HOANG Antepartum anemia ([facility]) (Primary Dx); Third trimester ([facility]); 31 weeks gestation of ([facility]) 03/17/2025 Bamboo flowsheet [facility] OB [address] [address] Xiomara Gallagher, HOANG 03/14/2025 Clinisync Result Encounter [facility] External Department Unsolicited Merrill, Brandy, DO 03/14/2025 Clinisync Result Encounter [facility] External Department Unsolicited Merrill, Brandy, DO 03/14/2025 Clinisync Result Encounter [facility] External Department Unsolicited Merrill, Brandy, DO 03/14/2025 Clinisync Result Encounter [facility] External Department Unsolicited Merrill, Brandy, DO 03/09/2025 Abstract [facility] OB [address] [address] Brandy Momin, DO 03/03/2025 10:10 AM EDT Routine [facility] [address] [facility] [place] [address] Brandy Momin, DO Third trimester ([facility]); 29 weeks gestation of ([facility]); Anemia affecting in third trimester ([facility]) 03/03/2025 9:30 AM EDT Ancillary Procedure [facility] [address] [place] [address] size inconsistent with dates ([facility]) 02/15/2025 8:30 AM EDT Routine [facility] [address] [facility] [place] [address] Yvette Decker PA Second trimester ([facility]); 27 weeks gestation of ([facility]); size inconsistent with dates ([facility]) 02/15/2025 Bamboo flowsheet [facility] OB [address] [place] [address] Yvette Decker PA from Last 3 Months Family History Medical [...] Pressure 110/70 05/03/2025 10:15 AM EDT Pulse 123 04/07/2025 2:04 PM EDT Temperature 36.2 C (97.2 F) 04/07/2025 2:04 PM EDT Respiratory Rate 17 04/07/2025 2:04 PM EDT Oxygen Saturation 98% 04/07/2025 2:04 PM EDT Inhaled Oxygen Concentration - - Weight 84.8 kg (187 lb) 05/03/2025 10:15 AM EDT Height 170.2 cm (5' 7 ) 04/07/2025 2:04 PM EDT Body Mass Index 29.29 04/07/2025 2:04 PM EDT Plan of Treatment Upcoming Encounters Date Type Department Care Team (Late st Contact Info) Description 04/07/2026 8:00 AM EDT Office Visit [facility] [address] [place] [address] Rosa Church MD, IBCLC [address] [place] [address] Health Maintenance Due Date Last Done Comments Influenza Vaccine (Season Ended) 2025 Procedures Procedure Name Priority Date/Time Associated Diagnosis Comments POCT URINALYSIS DIPSTICK Routine 05/03/2025 10:22 AM EDT Third trimester ([facility]) POCT URINALYSIS DIPSTICK Routine 04/27/2025 11:34 AM EDT 37 weeks gestation of ([facility]) Third trimester ([facility]) POCT URINALYSIS DIPSTICK Routine 04/20/2025 2:11 PM EDT Third trimester ([facility]) CULTURE, GROUP B STREP WITH SUSCEPTIBLITY Routine 04/20/2025 11:48 AM EDT Third trimester ([facility]) CCF FERRITIN Routine 03/19/2025 12:05 PM EDT US OB BPP W NON-STRESS 03/14/2025 1:49 PM EDT US OB PLACENTA 03/14/2025 1:49 PM EDT US OB CERVICAL LENGTH 03/14/2025 1:49 PM EDT CCF LIPASE Routine 03/14/2025 7:54 AM EDT ALL AMYLASE Routine 03/14/2025 7:54 AM EDT CCF CMP (CMP) (FOR REMOTE [facility] USE) Routine 03/14/2025 7:54 AM EDT ALL CBC WITH AUTO DIFF Routine 7:54 AM EDT TBH UA (CLEAN/CATCH) PULLEY MORTISER OPERATOR/MICRO IF IND. Routine 03/14/2025 6:00 AM EDT POCT URINALYSIS DIPSTICK Routine 03/03/2025 11:43 AM EDT Third trimester ([facility]) US OB FOLLOW UP TRANSABDOMINAL APPROACH Routine 03/03/2025 10:04 AM EDT size inconsistent with dates ([facility]) POCT URINALYSIS DIPSTICK Routine 02/15/2025 8:54 AM EDT Second trimester ([facility]) from Last 3 Months Results * POCT urinalysis dipstick manually resulted (05/03/2025 10:22 AM EDT) Only the most recent of5 resultswithin the time period is included. Color, UA Yellow Clarity, UA Clear Glucose, UA Negative Negative - 2000(110) ++++ mg/dL Bilirubin, UA Negative Negative - 4(70) +++ mg/dL Ketones, UA Negative Negative - 160(16) ++++ mg/dL Spec Grav, UA 1.025 1 - 1.03 Blood, UA Negative Negative - 50 Jonathan/mcL pH, UA 6.5 5 - 9 Protein, UA Trace Negative - 2000(20) ++++ mg/dL Urobilinogen, UA 0.2 0.2 - 12 mg/dL Leukocytes, UA Negative Negative - 500+++ Anoop/mcL Nitrite, UA Negative Negative - Positive Urine 05/03/2025 10:2 2 AM EDT [employer] Merrill DO POINT OF CARE TEST ENTER/EDIT OR DERABLES Final Result * CULTURE, GROUP B STREP WITH SUSCEPTIBLITY (04/20/2025 11:48 AM EDT) Swab 04/20/2025 11:4 8 AM EDT us [employer] DO LAB BLOOD ORDERABLES Final Resul t EXTERNAL LAB * (ABNORMAL) CCF FERRITIN (03/19/2025 12:05 PM EDT) FERRITIN 6.0(L) 8.0 - 252.0 ng/mL TBH 03/19/2025 12:0 5 PM EDT 03/19/2025 12:05 PM EDT Narrative CLINISYNC - 03/19/2025 1:33 PM EDT Brandy Momin DO CLINISYKAYLYN Final Result [facility] * US OB PLACENTA (03/14/2025 1:49 PM EDT) Anatomical Region Laterality Modality Other 03/14/2025 1:49 PM EDT Narrative 03/14/2025 1:[place] [address] Ultrasound Report Signed Patient: MEGHA KHALIL MR#: [id number] : 2000 Acct:[id number] Age/Sex: 24 / F ADM Date: Loc: [facility] [address]: Brandy Momin D.O. Ordering Physician: Brandy Momin D.O. Date of Service: 03/14/25 Procedure(s): US OB placenta Accession Number(s): [id number] cc: Brandy Momin D.O.; MARIEL CABALLERO [place] [address] Patient Name: MEGHA KHALIL MRN: TBH:[id number] date: 2000 Sex: F Assigned Patient Location: [facility] Current Patient Location: Accession/Order Number: [id number] Exam Date: 03/14/2025 13:46 Report Date: 03/14/2025 13:49 At the request of: BRANDY MOMIN DO Procedure: US OB placenta Biophysical profile. Cervical ultrasound. Placental ultrasound. Reason for exam: Abdominal pain. COMPARISON: None. TECHNIQUE: Transabdominal imaging of the gravid uterus was obtained. FINDINGS: Improvement Advisor reports a biophysical profile of 8 out [...] Jr., D.O. 03/14/2025 1:49 PM Dictation Location: [place] [address] Electronically authenticated by: [id number] Y Date: 03/14/2025 13:49 Dictated By: Chico Briscoe M.D. Signed By: 03/14/25 1351 DD/ 1349 TD/TT: [employer] Bi Developer: Procedure Note Radiology, Radiologist, MD - 03/14/2025 [place] [address] Ultrasound Report Signed Patient: MEGHA KHALIL EMR#: [id number] : 2000Acct:[id number] Age/Sex: 24 / FADM Date: Loc: [facility] [address]: Brandy Momin D.O. Ordering Physician: Brandy Momin D.O. Date of Service: 03/14/25 Procedure(s): US OB placenta Accession Number(s): [id number] cc: Brandy Momin D.O.; MARIEL CABALLERO [place] [id number] Patient Name: MEGHA KHALIL MRN: [id number] date: 2000 Sex: F Assigned Patient Location: [facility] Current Patient Location: Accession/Order Number: [id number] Exam Date: 03/14/2025 13:46 Report Date: 03/14/2025 13:49 At the request of: BRANDY MOMIN DO Procedure: US OB placenta Biophysical profile. Cervical ultrasound. Placental ultrasound. Reason for exam: Abdominal pain. COMPARISON: None. TECHNIQUE: Transabdominal imaging of the gravid uterus was obtained. FINDINGS: Improvement Advisor reports a biophysical profile of 8 out [...] Jr., D.O. 03/14/2025 1:49 PM Dictation Location: [place] [address] Electronically authenticated by: [id number] Y Date: 3:49 Dictated By: Chico Briscoe M.D. Signed By:03/14/25 1351 DD/ 1349 TD/TT: [employer] Bi Developer: us Brandy Momin DO CLINISYNC IMAGING Final Result * US OB BPP W NON-STRESS (03/14/2025 1:49 PM EDT) Anatomical Region Laterality Modality Other 03/14/2025 1:49 PM EDT Narrative 03/14/2025 1:52 [place] [address] Ultrasound Report Signed Patient: MEGHA KHALIL MR#: [id number] : 2000 Acct:[id number] Age/Sex: 24 / F ADM Date: Loc: [facility] [address]: Brandy Momin D.O. Ordering Physician: Brandy Momin D.O. Date of Service: 03/14/25 Procedure(s): US OB BPP w non-stress Accession Number(s): [id number] cc: Brandy Momin D.O.; MARIEL CABALLERO [place] [address] Patient Name: MEGHA KHALIL MRN: [id number] date: 2000 Sex: F Assigned Patient Location: [facility] Current Patient Location: Accession/Order Number: [id number] Exam Date: 03/14/2025 13:46 Report Date: 03/14/2025 13:49 At the request of: BRANDY MOMIN DO Procedure: US OB placenta Biophysical profile. Cervical ultrasound. Placental ultrasound. Reason for exam: Abdominal pain. COMPARISON: None. TECHNIQUE: Transabdominal imaging of the gravid uterus was obtained. FINDINGS: Improvement Advisor reports a biophysical profile of 8 out [...] Jr., D.O. 03/14/2025 1:49 PM Dictation Location: [place] [address] Electronically authenticated by: [id number] Y Date: 03/14/2025 13:49 Dictated By: Chico Briscoe M.D. Signed By: 03/14/25 1352 DD/ 1349 TD/TT: [employer] Bi Developer: Procedure Note Radiology, Radiologist, MD - 03/14/2025 [place] [address] Ultrasound Report Signed Patient: MEGHA KHALIL EMR#: [id number] : 2000Acct:[id number] Age/Sex: Date: Loc: [place] [address]: Brandy Momin D.O. Ordering Physician: Brandy Momin D.O. Date of Service: 03/14/25 Procedure(s): US OB BPP w non-stress Accession Number(s): [id number] cc: Brandy Momin D.O.; MARIEL CABALLERO [place] [address] Patient Name: MEGHA KHALIL MRN: [id number] date: 2000 Sex: F Assigned Patient Location: [facility] Current Patient Location: Accession/Order Number: [id number] Exam Date: 03/14/2025 13:46 Report Date: 03/14/2025 13:49 At the request of: BRANDY MOMIN DO Procedure: US OB placenta Biophysical profile. Cervical ultrasound. Placental ultrasound. Reason for exam: Abdominal pain. COMPARISON: None. TECHNIQUE: Transabdominal imaging of the gravid uterus was obtained. FINDINGS: Improvement Advisor reports a biophysical profile of 8 out [...] Jr., D.O. 03/14/2025 1:49 PM Dictation Location: [place] [address] Electronically authenticated by: [id number] Y Date: 3:49 Dictated By: Chico Briscoe M.D. Signed By:03/14/25 1352 DD/ 1349 TD/TT: [employer] Bi Developer: us Brandy Momin DO CLINISYNC IMAGING Final Result * US OB CERVICAL LENGTH (03/14/2025 1:49 PM EDT) Anatomical Region Laterality Modality Other 03/14/2025 1:49 PM EDT Narrative 03/14/2025 1:51 [place] [address] Ultrasound Report Signed Patient: MEGHA KHALIL MR#: [id number] : 2000 Acct:[id number] Age/Sex: 24 / F ADM Date: Loc: [facility] 250- Attending Dr: Brandy Momin D.O. Ordering Physician: Brandy Momin D.O. Date of Service: 03/14/25 Procedure(s): US OB cervical length Accession Number(s): [id number] cc: Brandy Momin D.O.; MARIEL CABALLERO [address] [address] Patient Name: MEGHA KHALIL MRN: [facility]:[id number] date: 2000 Sex: F Assigned Patient Location: [facility] Current Patient Location: Accession/Order Number: [id number] Exam Date: 03/14/2025 13:46 Report Date: 03/14/2025 13:49 At the request of: BRANDY MOMIN DO Procedure: US OB placenta Biophysical profile. Cervical ultrasound. Placental ultrasound. Reason for exam: Abdominal pain. COMPARISON: None. TECHNIQUE: Transabdominal imaging of the gravid uterus was obtained. FINDINGS: Improvement Advisor reports a biophysical profile of 8 out [...] Jr., D.O. 03/14/2025 1:49 PM Dictation Location: [place] [address] Electronically authenticated by: [id number] Y Date: 03/14/2025 13:49 Dictated By: Chico Briscoe M.D. Signed By: 03/14/25 1351 DD/ 1349 TD/TT: [employer] Bi Developer: Procedure Note Radiology, Radiologist, - 03/14/2025 [place] [address] Ultrasound Report Signed Patient: MEGHA KHALIL EMR#: [id number] : 2000Acct:[id number] Age/Sex: 24 FADM Date: Loc: [facility] 250-[address]: Brandy Momin D.O. Ordering Physician: Brandy Momin D.O. Date of Service: 03/14/25 Procedure(s): US OB cervical length Accession Number(s): [id number] cc: Brandy Momin D.O.; MARIEL CABALLERO [place] [id number] Patient Name: MEGHA KHALIL MRN: [facility]:[id number] date: 2000 Sex: F Assigned Patient Location: [facility] Current Patient Location: Accession/Order Number: [id number] Exam Date: 03/14/2025 13:46 Report Date: 03/14/2025 13:49 At the request of: BRANDY MOMIN DO Procedure: US OB placenta Biophysical profile. Cervical ultrasound. Placental ultrasound. Reason for exam: Abdominal pain. COMPARISON: None. TECHNIQUE: Transabdominal imaging of the gravid uterus was obtained. FINDINGS: Improvement Advisor reports a biophysical profile of 8 out [...] Jr., D.O. 03/14/2025 1:49 PM Dictation Location: [place] [address] Electronically authenticated by: [id number] Y Date: 3:49 Dictated By: Chico Briscoe M.D. Signed By:03/14/25 1351 DD/ 1349 TD/TT: [employer] Bi Developer: us Brandy Merrill DO CLINISYNC IMAGING Final Result * CCF LIPASE (03/14/2025 7:54 AM EDT) LIPASE 48.0 16.0 - 77.0 U/L [facility] 03/14/2025 7:54 AM EDT 03/14/2025 7:57 AM EDT Narrative CLINISYNC - 03/14/2025 8:14 AM EDT us Brandy Merrill DO CLINISYNC Final Result CLINISYPA TB * (ABNORMAL) CCF CMP (CMP) (FOR REMOTE [facility] USE) (03/14/2025 7:54 AM EDT) SODIUM 138 136 - 145 mmol/L TBH POTASSIUM 3.8 3.5 - 5.1 mmol/L TBH CHLORIDE 103 98 - 107 mmol/L TBH CARBON DIOXIDE 22.9 21.0 - 32.0 mmol/L TBH ANION GAP 15.9 TBH GLUCOSE 93 74 - 106 mg/dL TBH BLOOD UREA NITROGEN 8.0 7.0 - 18.0 mg/dL TBH CREATININE 0.57 0.55 - 1.02 mg/dL TBH TBH EGFR-AF MONGOLIAN >60 >=60 mL/min/1. 73m 2 TBH TBH EGFR-NON AF MONGOLIAN >60 >=60 mL/min/1. 73m 2 TBH BUN [...] - 03/14/2025 8:14 AM EDT us Brandy Momin DO CLINISYNC Final Result [facility] * (ABNORMAL) ALL CBC WITH AUTO DIFF (03/14/2025 7:54 AM EDT) TBH WBC 14.7(H) 4.0 - 11.0 10 [...] - 03/14/2025 8:00 AM EDT us Brandy Momin DO CLINISYNC Final Result [facility] * ALL AMYLASE (03/14/2025 7:54 AM EDT) AMYLASE 58 25 - 115 U/L [facility] 03/14/2025 7:54 AM EDT 03/14/2025 7:57 AM EDT Narrative CLINISYNC - 03/14/2025 8:14 AM EDT us Brandy Merrill DO CLINISYNC Final Result Performing Organization Address [facility] Co de Phone Number JULIANOPA TB * TBH UA (CLEAN/CATCH) PULLEY MORTISER OPERATOR/MICRO IF IND. (03/14/2025 6:00 AM EDT) COLOR [...] AM EDT 03/14/2025 6:16 AM EDT Narrative JULIANOPA - 03/14/2025 6:21 AM EDT Brandy Nelsono DO [facility] Final Result Performing Organization Address [facility] de Phone Number JULIANONC TB * US OB follow up transabdominal approach [...] II, MD, PHD at 05-Mar-2025 06:47:11 PM [facility] Procedure Note Perla Pretty MD - [...] PERLA PRETTY II, MD, PHD 06:47:11 PM [facility] us Yvette TABOR IMG OB US PROCEDURES Final Resul t from Last 3 Months Insurance [facility] IMPERIAL Care Teams It Web Development Consultant Relationship Specialty Start Date End Date Rosa Church MD, IBCLC [address] [place] [address] PCP - General Family Medicine 04/07/25
--- OUTSIDE RECORDS SUMMARY | 2025-05-09 04:58 | XMS_ITS | Encounter Summary ---
Author Organization [facility] Address [address] [place] [address] Care Team Providers Care Drill Setup Operator Name Role Phone Chilo Momin MD Primary Care Provider Rosa Church MD, IBCLC Primary Care Provid er Encounter Details Date Type Department Care Team (Late Contact Info) Description 01/04/2025 Orders Only [facility] OB [address] [place] [address] Adriane Meeks LPN [address] [place] [address] Social History Tobacco Use Types [...] 04/07/2026 8:00 AM EDT [facility] [address] [place] [phone] Rosa Church MD, IBCLC [address] [place] [address] documented as of this encounter Procedures Procedure Name Priority Date/Time Associated Diagnosis Comments PAP SMEAR Routine 12/22/2024 12:00 AM EST documented in this encounter Results * Pap Smear (12/22/2024 12:00 AM EST) Swab Cervical swab / Unknown us Yvette TABOR LAB CYTOLOGY ORDERABLES Final Re sult EXTERNAL LAB documented in this encounter Visit Diagnoses Not on filedocumented in this encounter Care Teams Drill Setup Operator Relationship Specialty Start Date End Date Chilo Momin MD PCP - General Family Medicine 09/26/23 04/06/25 Rosa Church MD, IBCLC [address] [place] [address] PCP - General Family Medicine 04/07/25 documented as of this encounter
--- OUTSIDE RECORDS SUMMARY | 2025-05-09 04:58 | XMS_ITS | Encounter Summary ---
Author Organization [facility] Address [address] [facility] [place] [address] Care Team Providers Care Garnett Room Worker Name Role Phone Rosa Church MD, IBCLC Primary Care Provid er Encounter Details Date Type Department Care Team (Late st Contact Info) Description 04/27/2025 Bamboo flowsheet [facility] BCP OB [address] [facility] [place] [address] Yvette Decker PA [address] [facility] [address] [place], [facility] Social History Tobacco Use Types [...] 04/07/2026 8:00 AM EDT [facility] [address] [place] [address] Rosa Church MD, IBCLC [address] [place], [place] [phone] documented as of this encounter Visit Diagnoses Not on filedocumented in this encounter Care Teams Garnett Room Worker Relationship Specialty Start Date End Date Rosa Church MD, IBCLC [address] [place] [address] PCP - General Family Medicine 04/07/25 documented as of this encounter
--- OUTSIDE RECORDS SUMMARY | 2025-05-09 04:58 | XMS_ITS | Encounter Summary ---
Author Organization [facility] Address [address] [place] [address] Care Team Providers Care Event Executive Name Role Phone Mariel Momin MD Primary Care Provider Rosa Church MD, IBCLC Primary Care Provid er Encounter Details Date Type Department Care Team (Late st Contact Info) Description 10/26/2024 Clinisync Result Encounter [facility] External Department Unsolicited Ruperto Momin, DO [address] [facility] [place] [address] Social History Tobacco Use Types Packs/Day Years [...] 04/07/2026 8:00 AM EDT Office Visit [facility] [address] [place] [address] Rosa Church MD, IBCLC [address] [place] [phone] documented as of this encounter Procedures Procedure Name Priority Date/Time Associated Diagnosis Comments US OB TRANSVAGINAL 10/26/2024 5: 23 AM EST documented in this encounter Results * US OB TRANSVAGINAL (10/26/2024 5:23 AM EST) Anatomical Region Laterality Modality Other 10/26/2024 5:23 AM EST Narrative 10/26/2024 5:26 AM EST [address] [address] Ultrasound Report Signed Patient: MEGHA KHALIL MR#: [id number] : 2000 Acct:[id number] Age/Sex: 24 / F ADM Date: 10/25/24 Loc: [facility] Attending Dr: Ruperto Momin D.O. Ordering Physician: Ruperto Momin D.O. Date of Service: 10/25/24 Procedure(s): US OB transvaginal Accession Number(s): [id number] cc: Ruperto Momin D.O.; MARIEL MOMIN [address] [address] Patient Name: MEGHA KHALIL MRN: [id number] date: 2000 Sex: F Assigned Patient Location: [facility] Current Patient Location: Accession/Order Number: [id number] Exam Date: 10/25/2024 09:57 Report Date: 10/26/2024 [...] M.D. Signed By: 10/26/24525 DD/ 2 TD/TT: Certified Appliance Service Technician: Procedure Note Radiology, Radiologist, MD - 10/26/2024 [place] [address] Ultrasound Report Signed Patient: MEGHA KHALILMR#: [id number] : 2000Acct:[id number] Age/Sex: 24 / FADM Date: 10/25/24 Loc: [facility] Attending Dr: Ruperto Momin D.O. Ordering Physician: Ruperto Momin D.O. Date of Service: 10/25/24 Procedure(s): US OB transvaginal Accession Number(s): [id number] cc: Ruperto Momin D.O.; MARIEL MOMIN [place] [address] Patient Name: MEGHA KHALIL MRN: [id number] date: 2000 Sex: F Assigned Patient Location: [facility] Current Patient Location: Accession/Order Number: [id number] Exam Date: 10/25/2024 09:57 Report Date: 10/26/2024 [...] Jose M.D. Signed By:10/26/24525 DD/ 2 TD/TT: Certified Appliance Service Technician: us Ruperto Merrill DO CLINISYNC IMAGING Final Result documented in this encounter Visit Diagnoses Not on filedocumented in this encounter Care Teams Event Executive Relationship Specialty Start Date End Date Mariel Momin MD PCP - General Family Medicine 09/26/23 04/06/25 Rosa Church MD, IBCLC [address] [place] [address] PCP - General Family Medicine 04/07/25 documented as of this encounter
--- OUTSIDE RECORDS SUMMARY | 2025-05-09 04:58 | XMS_ITS | Encounter Summary ---
Author Organization [facility] Address [address] [place] [address] Care Team Providers Care Food Safety Specialist Name Role Phone Chilo Momin MD Primary Care Provider Rosa Church MD, IBCLC Primary Care Provid er Encounter Details Date Type Department Care Team (Late Contact Info) Description 11/19/2024 Abstract [facility] [address] [place] [address] Ruperto Momin, DO [address] [facility] [place] [address] Social History Tobacco Use Types Packs/Day Years [...] 04/07/2026 8:00 AM EDT Office Visit [facility] [address] [place] [phone] Rosa Church MD, IBCLC [address] [place] [address] documented as of this encounter Visit Diagnoses Not on filedocumented in this encounter Care Teams Food Safety Specialist Relationship Specialty Start Date End Date Chilo Momin MD PCP - General Family Medicine 09/26/23 04/06/25 Rosa Church MD, IBCLC [address] [place] [address] PCP - General Family Medicine 04/07/25 documented as of this encounter
--- OUTSIDE RECORDS SUMMARY | 2025-05-09 04:58 | XMS_ITS | Encounter Summary ---
Author Organization [facility] Address [address] [facility] [place] [address] Care Team Providers Care Char Dust Cleaner And Salvager Name Role Phone Rosa Church MD, IBCLC Primary Care Provid er Encounter Details Date Type Department Care Team (Late st Contact Info) Description 05/03/2025 Bamboo flowsheet [facility] [address] [place] [address] Ruperto Momin, [address] [place], [facility] Social History Tobacco Use Types Packs/Day [...] 04/07/2026 8:00 AM EDT Office Visit [facility] [address] [place] [address] Rosa Church MD, IBCLC [address] [place], [place] [id number] documented as of this encounter Visit Diagnoses Not on filedocumented in this encounter Care Teams Char Dust Cleaner And Salvager Relationship Specialty Start Date End Date Rosa Church MD, IBCLC [address] [place] [address] PCP - General Family Medicine 04/07/25 documented as of this encounter
--- OUTSIDE RECORDS SUMMARY | 2025-05-09 04:58 | XMS_ITS | Encounter Summary ---
Author Organization [facility] Address [address] [facility] [place] [address] Care Team Providers Care Inverform Machine Operator Name Role Phone Rosa Church MD, IBCLC Primary Care Provid er Encounter Details Date Type Department Care Team (Late st Contact Info) Description 05/03/2025 Abstract [facility] OB [address] [facility] [address] Ruperto Momin, [address] [facility] [address] [place], [facility] Social History Tobacco Use Types Packs/Day Years [...] Office Visit [facility] [address] [place] [address] Rosa Church MD, IBCLC [address] [place] [address] documented as of this encounter Visit Diagnoses Not on filedocumented in this encounter Care Teams Inverform Machine Operator Relationship Specialty Start Date End Date Rosa Church MD, IBCLC [address] [place], [place] [phone] PCP - General Family Medicine 04/07/25 documented as of this encounter
--- OUTSIDE RECORDS SUMMARY | 2025-05-09 04:58 | XMS_ITS | Clinical Summary ---
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
[2025-05-09] MEDS: OXYTOCIN/0.9 % SODIUM CHLORIDE 10 UNITS/500 ML PLAST..BAG 6 UNIT IV (05:47)
[2025-05-09] MEDS: 0.9 % SODIUM CHLORIDE 1,000 ML 125 ML IV ×2 (05:50→13:12)
[2025-05-09 06:17] LABS: Hematocrit 35.3 % (36.0-48.0); Hemoglobin 11.7 g/dL (12.0-16.0); Mean Corpuscular HGB Conc 33.1 g/dL (29.9-35.2); Mean Corpuscular Volume 90.5 fL (81.0-99.0); Mean Platelet Volume 10.8 fL (9.5-13.5); Platelet Count 161 10^3/uL (150-450); Red Cell Distribution Width 18.1 % (11.0-15.0); White Blood Count 7.9 10^3/uL (4.0-11.0)
[2025-05-09 06:30] LABS: Amphetamine Screen Urine NEGATIVE (NEGATIVE); Barbiturates Screen Urine NEGATIVE (NEGATIVE); Benzodiazepines Screen Urine NEGATIVE (NEGATIVE); Buprenorphine Screen Urine NEGATIVE (NEGATIVE); Cannabinoid Screen Urine NEGATIVE (NEGATIVE); Cocaine Screen Urine NEGATIVE (NEGATIVE); Methadone Screen Urine NEGATIVE (NEGATIVE); Methamphetamines Screen Urine NEGATIVE (NEGATIVE); Opiate Screen Urine NEGATIVE (NEGATIVE); Oxycodone Screen Urine NEGATIVE (NEGATIVE); Phencyclidine Screen Urine NEGATIVE (NEGATIVE); Tricyclic Antidepressant Urine NEGATIVE (NEGATIVE)
[2025-05-09] MEDS: ONDANSETRON PF 4 MG/2 ML VIAL IV (13:07)
[2025-05-09] MEDS: NALBUPHINE HCL 10 MG/ML AMPULE IV (13:42)
[2025-05-09] MEDS: ROPIVACAINE HCL/PF 400 MG/200 ML PREMIX 10 MG EPIDURAL (14:20)
[2025-05-09] MEDS: OXYTOCIN/0.9 % SODIUM CHLORIDE 10 UNITS/500 ML PLAST..BAG 54 UNIT IV (19:29)
[2025-05-09] MEDS: OXYTOCIN/0.9 % SODIUM CHLORIDE 20 UNITS/1,000 ML PLAST..BAG 125 UNIT IV (21:02)
--- NOTE | 2025-05-09 21:17 | PM.OBPRCVD ---
Procedure Intrapartal events: None Induction method: per pitocin protocol Delivery augmentation: rupture of membranes and pitocin Delivery monitor: external FHT and external uterine Route of delivery: Episiotomy Description: none L&D Laceration Description: periurethral - 1st degree and perineal - 1st degree Estimated blood loss (mL): 300 Anesthesia type: Epidural Disposition: floor Infant Delivery date: 05/09/25 Gender: male presentation: vertex Placental delivery description: Spontaneous cord description: 3 Vessels
[2025-05-09] MEDS: IBUPROFEN 600 MG TABLET PO (22:30)
[2025-05-10] VITALS (10 sets, daily range): BP systolic 109–136; BP diastolic 57–72; PULSE 92–116; TEMP 36.6–36.9
[2025-05-10 06:42] LABS: Basophils Percent Auto 0.2 % (0.2-2.0); Hematocrit 32.7 % (36.0-48.0); Hemoglobin 10.9 g/dL (12.0-16.0); Immature Granulocytes Abs Auto 0.04 10^3/uL (0.00-0.03); Immature Granulocytes Pct Auto 0.4 % (0.0-0.5); Lymphocytes Percent Auto 8.7 % (20.5-60.0); Mean Corpuscular HGB Conc 33.3 g/dL (29.9-35.2); Mean Corpuscular Hemoglobin 30.4 pg (26.7-34.0); Mean Corpuscular Volume 91.1 fL (81.0-99.0); Mean Platelet Volume 10.3 fL (9.5-13.5); Monocytes Absolute Auto 0.8 10^3/uL (0.3-0.8); Monocytes Percent Auto 7.3 % (1.7-12.0); Neutrophils Absolute Auto 9.4 10^3/uL (1.4-6.5); Neutrophils Percent Auto 83.4 % (43.0-75.0); Platelet Count 146 10^3/uL (150-450); Red Blood Count 3.59 10^6/uL (4.20-5.40); Red Cell Distribution Width 18.4 % (11.0-15.0); White Blood Count 11.3 10^3/uL (4.0-11.0)
[2025-05-10] MEDS: IBUPROFEN 600 MG TABLET PO ×3 (07:14→23:51)
--- NOTE | 2025-05-10 08:42 | P.OBPN_ITS ---
OB - PN: Subj Subjective Patient comments: no complaints [place] status: doing well feeding status: exclusively Exam Constitutional Vital Signs, click to edit/add: Last Vital Signs Temp 97.9 F 05/10/25 02:52 Pulse 92 H 05/10/25 07:16 Resp 16 05/10/25 02:52 BP 120/72 05/10/25 07:16 O2 Del Method Room Air 05/10/25 02:52 Documenting provider has reviewed patient's vital signs: yes Common normals: no apparent distress General appearance: cooperative, comfortable and well kempt Orientation/consciousness: Yes awake, Yes oriented to person, Yes oriented to place and Yes oriented to time HENMT Common normals: normocephalic Eye Common normals: EOMs intact bilaterally General eye: normal appearance of both eyes Neck & C-Spine Common normals: full ROM General: normal visual inspection Lymph Lymphatic: no lymphadenopathy noted Chest Common normals: inspection of chest normal Respiratory Common normals: normal respiratory effort Effort & inspection: able to speak in complete sentences Auscultation: clear to auscultation bilaterally Cardio Common normals: regular rate and regular rhythm Rate: regular rate Rhythm: regular rhythm GI Common normals: Normal to inspection, nondistended, normoactive bowel sounds present Inspection: normal to inspection Palpation: soft Rectal Exam - Female: deferred Common normals: no CVA tenderness Back & Pelvis Common normals: no CVA tenderness Extremity Common normals: normal to inspection Neuro Common normals: oriented x3 Psych Common normals: mental status grossly normal, thought process normal, cooperative, affect normal, speech normal, activity/motor behavior normal, denies hallucinations, denies homicidal ideation and denies suicidal ideation Attitude: calm Results Labs Labs: Short CBC 05/10/25 Range/Units 06:33 WBC 11.3 H (4.0-11.0) 10^3/uL Hgb 10.9 L (12.0-16.0) g/dL Hct 32.7 L (36.0-48.0) % Plt Count 146 L (150-450) 10^3/uL OB - PN: A/P Assessment and Plan (1) Term : Time Spent with Patient Time: Total time spent is greater than 50% in coordination of care (as documented) at patient's floor/unit and/or counseling patient: Total time spent with greater than 50% in coordination of care (as documented) at patient's floor/unit and/or counseling patient: less than 15 minutes
--- NOTE | 2025-05-10 19:29 | W.PC.ACHO ---
Registration Status: ADM IN Primary Language: Iraqi Preferred Language: Iraqi Report received from Jackson RN at 1915. Care assumed by this RN. Active Medications Generic Name Dose Route Start Last Admin Trade Name Amrik PRN Reason Stop Dose Admin Acetaminophen 650 mg 05/09/25 21:19 Acetaminophen 325 Mg Tablet PO Q6H PRN Mild Pain Al Hydroxide/Mg Hydroxide 2,400 mg 05/09/25 21:19 Magnesium Hydroxide 2,400 Mg/10 Ml Oral.Susp PO Q6H PRN Dyspepsia Benzocaine/Menthol 1 applic 05/09/25 21:19 Benzocaine/Menthol 85 Gram [place] Bottle TOPICAL Q2H PRN Pain Carboprost Tromethamine 250 mcg 05/09/25 04:54 Carboprost Tromethamine 250 Mcg/Ml 1 Ml Vial IM 05/11/25 04:54 Q15M PRN Bleeding Diphtheria/Pertussis/Tetanus Vacc 0.5 ml 05/11/25 09:00 Adacel Diph,Pertuss(Acell),Tet Vac/Pf 0.5 Ml Adult Syringe IM 05/11/25 09:01 .ONCE ONE Docusate Sodium 100 mg 05/10/25 09:00 05/10/25 14:35 Docusate Sodium 100 Mg Capsule PO Not Given BID SPEEDY Tranexamic Acid 1,000 mg/ 110 mls @ 440 mls/hr 05/09/25 04:54 Sodium Chloride IV 05/10/25 21:00 ONCE PRN Uterine Bleeding Sodium Chloride 1,000 mls @ 125 mls/hr 05/09/25 05:00 05/09/25 21:02 Sodium Chloride 0.9% 1,000 Ml IV Infused .Q8H SPEEDY Infusion Ibuprofen 600 mg 05/09/25 21:19 05/10/25 16:24 Ibuprofen 600 Mg Tablet PO 600 mg Q6H PRN Administration Moderate Pain Measles/Mumps/Rubella Vaccine Live 0.5 ml 05/11/25 09:00 Measles,Mumps,Rubella Vacc/Pf 0.5 Ml Vial SQ 05/11/25 09:01 .ONCE ONE Methylergonovine Maleate 0.2 mg 05/09/25 04:54 Methylergonovine Maleate 0.2 Mg/Ml Ampule IM 05/10/25 21:00 ONCE PRN Uterine Contractility/Contract Methylergonovine Maleate 0.2 mg 05/09/25 04:54 Methylergonovine Maleate 0.2 Mg Tablet PO 05/10/25 21:00 Q4H PRN Uterine Contractility/Contract Misoprostol 600 mcg 05/09/25 04:54 Misoprostol 100 Mcg Tablet PO 05/10/25 21:00 ONCE PRN Uterine Bleeding Misoprostol 800 mcg 05/09/25 04:54 Misoprostol 100 Mcg Tablet SL 05/10/25 21:00 ONCE PRN Uterine Bleeding Misoprostol 1,000 mcg 05/09/25 04:54 Misoprostol 100 Mcg Tablet ID 05/10/25 21:00 ONCE PRN Uterine Bleeding Ondansetron HCl 4 mg 05/09/25 04:54 05/09/25 13:07 Ondansetron Pf 4 Mg/2 Ml Vial IV 4 mg Q6H PRN Administration Nausea And Vomiting Ondansetron HCl 4 mg 05/09/25 04:54 Ondansetron 4 Mg Rapdis Tablet SL Q6H PRN Nausea And Vomiting Oxytocin 10 unit 05/09/25 04:54 Oxytocin 10 Unit/Ml Vial IM 05/10/25 21:00 ONCE PRN Bleeding Senna 17.2 mg 05/09/25 20:00 Sennosides 8.6 Mg Tablet PO QHS PRN Constipation Simethicone 80 mg 05/09/25 21:19 Simethicone 80 Mg Tab.Chew PO QID PRN Abdominal Distention Temazepam 15 mg 05/09/25 21:19 Temazepam 15 Mg Capsule PO QHS PRN Sleep Witch Jaelyn/Glycerin 1 pad 05/09/25 21:19 Glycerin/Witch Jaelyn Pads TOPICAL Q2H PRN Pain Diet Category Date Time Status Regular Consistency Diet Diet 05/09/25 21:19 Active Respiratory Oxygen Delivery Method Room Air Oxygen Delivery Method Room Air Oxygen Delivery Method Room Air Oxygen Delivery Method Room Air Oxygen Delivery Method Room Air Cardiology Heart Sounds Regular,Strong Heart Sounds Regular Heart Sounds Regular Bowels Bowel Pattern No Bowel Movement Bowel Pattern No Bowel Movement
[2025-05-10] MEDS: DOCUSATE SODIUM 100 MG CAPSULE PO (20:51)
[2025-05-10] MEDS: ACETAMINOPHEN 325 MG TABLET 650 MG PO (23:51)
--- NOTE | 2025-05-11 07:42 | W.PC.ACHO ---
Registration Status: ADM IN Primary Language: Uzbek Preferred Language: Uzbek Report given to Yoli TORRES at 0710. Care relinquished at this time. Active Medications Generic Name Dose Route Start Last Admin Trade Name Freq PRN Reason Stop Dose Admin Acetaminophen 650 mg 05/09/25 21:19 05/10/25 23:51 Acetaminophen 325 Mg Tablet PO 650 mg Q6H PRN Administration Mild Pain Al Hydroxide/Mg Hydroxide 2,400 mg 05/09/25 21:19 Magnesium Hydroxide 2,400 Mg/10 Ml Oral.Susp PO Q6H PRN Dyspepsia Benzocaine/Menthol 1 applic 05/09/25 21:19 Benzocaine/Menthol 85 Gram [place] Bottle TOPICAL Q2H PRN Pain Diphtheria/Pertussis/Tetanus Vacc 0.5 ml 05/11/25 09:00 Adacel Diph,Pertuss(Acell),Tet Vac/Pf 0.5 Ml Adult Syringe IM 05/11/25 09:01 .ONCE ONE Docusate Sodium 100 mg 05/10/25 09:00 05/10/25 20:51 Docusate Sodium 100 Mg Capsule PO 100 mg BID SPEEDY Administration Sodium Chloride 1,000 mls @ 125 mls/hr 05/09/25 05:00 05/09/25 21:02 Sodium Chloride 0.9% 1,000 Ml IV Infused .Q8H SPEEDY Infusion Ibuprofen 600 mg 05/09/25 21:19 05/10/25 23:51 Ibuprofen 600 Mg Tablet PO 600 mg Q6H PRN Administration Moderate Pain Measles/Mumps/Rubella Vaccine Live 0.5 ml 05/11/25 09:00 Measles,Mumps,Rubella Vacc/Pf 0.5 Ml Vial SQ 05/11/25 09:01 .ONCE ONE Ondansetron HCl 4 mg 05/09/25 04:54 05/09/25 13:07 Ondansetron Pf 4 Mg/2 Ml Vial IV 4 mg Q6H PRN Administration Nausea And Vomiting Ondansetron HCl 4 mg 05/09/25 04:54 Ondansetron 4 Mg Rapdis Tablet SL Q6H PRN Nausea And Vomiting Senna 17.2 mg 05/09/25 20:00 Sennosides 8.6 Mg Tablet PO QHS PRN Constipation Simethicone 80 mg 05/09/25 21:19 Simethicone 80 Mg Tab.Chew PO QID PRN Abdominal Distention Temazepam 15 mg 05/09/25 21:19 Temazepam 15 Mg Capsule PO QHS PRN Sleep Witch Jaelyn/Glycerin 1 pad 05/09/25 21:19 Glycerin/Witch Jaelyn Pads TOPICAL Q2H PRN Pain Respiratory Oxygen Delivery Method Room Air Oxygen Delivery Method Room Air Cardiology Heart Sounds Regular,Strong Renal Bladder Pattern Continent
--- NOTE | 2025-05-11 08:01 | PM.OBPN ---
OB - PN: Subj Subjective Patient comments: no complaints and pain well controlled [place] status: doing well Exam Constitutional Vital Signs, click to edit/add: Last Vital Signs Temp 98.0 F 05/10/25 23:45 Pulse 106 H 05/10/25 23:49 Resp 16 05/10/25 23:45 BP 109/57 05/10/25 23:49 O2 Del Method Room Air 05/10/25 23:45 Documenting provider has reviewed patient's vital signs: yes Common normals: no apparent distress Respiratory Common normals: clear to auscultation bilaterally Cardio Common normals: regular rate and regular rhythm GI Common normals: Normal to inspection, nondistended, normoactive bowel sounds present Extremity Common normals: no clubbing, cyanosis or edema and no calf tenderness OB - PN: A/P Assessment and Plan (1) Term : Plan - Vaginal Delivery day: 1 Plan: routine care, discharge home and follow up 6 weeks Time Spent with Patient Time: Total time spent is greater than 50% in coordination of care (as documented) at patient's floor/unit and/or counseling patient: Total time spent with greater than 50% in coordination of care (as documented) at patient's floor/unit and/or counseling patient: less than 15 minutes
[2025-05-11 09:05] VITALS: BP 112/67; PULSE 103; TEMP 36.6
[2025-05-11] MEDS: IBUPROFEN 600 MG TABLET PO (09:08)
[2025-05-11] MEDS: DOCUSATE SODIUM 100 MG CAPSULE PO (09:09)
== END 2025-05-11 12:45 | disposition home or self-care (01) | DRG 807 ==
PROVIDERS: Admitting Provider Obstetrics & Gynecology; PCP Internal Medicine; Visit Provider Obstetrics & Gynecology
DX: O70.0 First degree perineal laceration during delivery (principal); Z37.0 Single live birth; Z3A.39 39 weeks gestation of pregnancy
CPT/HCPCS: 36415; 51702; 59050; 59410; 80307; 85025; 85027; 86850; 86900; 86901; J2300; J2405; J2795